=== PATIENT | male | born 1955 | race Caucasian/White ===

== ENCOUNTER → 2017-03-14 | Outpatient (CLI) | payer OTHER ==
[2017-03-14 13:17] LABS: Bilirubin, Delta 0.2 mg/dL (0.0-0.2); Total Bilirubin 0.6 mg/dL (0.2-1.3); Total Protein 7.4 g/dL (6.3-8.2)
[2017-03-14 13:20] LABS: Basophils % (A) 1 %; CH 32.2; Eosinophils # (A) 0.2 k/uL (0-0.7); Eosinophils % (A) 3 %; HCT 49.6 % (39.0-53.0); HDW 2.16; HGB 15.6 gm/dL (13.0-17.5); Luc # (Auto) 0.16; Luc % (Auto) 3; Lymphocytes # (A) 2.2 k/uL (1.0-4.8); Lymphocytes % (A) 39 %; MCHC 31.5 g/dL (31.0-37.0); MCV 98.2 fL (80.0-100.0); Mean Platelet Volume 8.2; Monocytes # (A) 0.3 k/uL (0-1.0); Monocytes % (A) 5 %; Neutrophils # (A) 2.8 k/uL (1.3-7.7); Neutrophils % (A) 50 %; RBC 5.05 m/uL (4.30-5.90); WBC 5.7 k/uL (3.8-10.6); WBC (Perox) 5.55
[2017-03-15 15:28] LABS: Hepatits C Virus RNA, Quant <12 IU/mL (<12); LOG HCV IU/mL <1.08 (<1.08)
== END | disposition home or self-care (01) ==
LOC: LABWHC1 11:58
PROVIDERS: ATTEND Physician Assistant
DX: B18.2 Chronic viral hepatitis C (principal)
CPT/HCPCS: 36415; 80076; 82105; 85025; 87522

== ENCOUNTER → 2017-03-20 | Outpatient (CLI) | payer OTHER ==
--- NOTE | 2017-03-20 09:48 | US ---
EXAMINATION TYPE: US liver DATE OF EXAM: 03/20/2017 9:31 AM COMPARISON: NONE CLINICAL HISTORY: B18.2 [facility]. EXAM MEASUREMENTS: Gallbladder Wall: 0.3 cm CBD: 0.4 cm Right Kidney: 11.3 x 6 x 5 cm Pancreas: Tail obscured by overlying bowel gas Liver: hypoechoic area in left lobe that is better appreciated when patient is supine, left lobe ap pears larger and right lobe appears atrophied Gallbladder: wnl Evidence for sonographic Duran's sign: no CBD: wnl Right Kidney: wnl IMPRESSION: 1. Liver is somewhat heterogeneous with slight lobulation asymmetry to the lobes. Correlate for hepat ocellular disease or hepatitis..
== END | disposition home or self-care (01) ==
LOC: RADUSMAIN 08:40
PROVIDERS: ATTEND Physician Assistant
DX: K76.89 Other specified diseases of liver (principal); K76.9 Liver disease, unspecified; B18.2 Chronic viral hepatitis C
CPT/HCPCS: 76705

== ENCOUNTER → 2018-05-10 | Outpatient (CLI) | payer OTHER | END | disposition home or self-care (01) | LOC: LABWHC1 10:54 | PROVIDERS: ATTEND Urology | DX: R97.20 Elevated prostate specific antigen [PSA] (principal) | CPT/HCPCS: 36415; 84153 ==

== ENCOUNTER → 2018-06-13 | Outpatient (CLI) | payer OTHER ==
--- NOTE | 2018-06-13 10:44 | XR ---
EXAMINATION TYPE: XR chest 2V DATE OF EXAM: 06/13/2018 COMPARISON: Prior chest 10/06/2016 HISTORY: Asthma, difficulty breathing TECHNIQUE: Frontal and lateral views of the chest are obtained. FINDINGS: There is no focal air space opacity, pleural effusion, or pneumothorax seen. The cardiac silhouette size is within normal limits. The osseous structures are intact and stable. There are pr ominent lung volumes compatible with COPD. Mild spinal curvature is suspected. IMPRESSION: No acute cardiopulmonary process.
== END | disposition home or self-care (01) ==
LOC: RADXRMAIN 10:22
PROVIDERS: ATTEND Physician Assistant
DX: J45.909 Unspecified asthma, uncomplicated (principal)
CPT/HCPCS: 71046

== ENCOUNTER 2018-12-16 22:20 | Inpatient (IN) | payer MEDICARE, OTHER ==
[2018-12-16] MEDS ORDERED: MORPHINE SULFATE 4 MG/ML SYRINGE IM STA (22:44)
--- NOTE | 2018-12-16 23:06 | XR ---
EXAM: XR Right Hand Complete, 3 or More Views CLINICAL HISTORY: Pain TECHNIQUE: Frontal, lateral and oblique views of the right hand. COMPARISON: No relevant prior studies available. FINDINGS: Bones/joints: Posterolateral dislocation of the proximal interphalangeal joint of the fifth digit. No acute fracture. Soft tissues: Unremarkable. No radiopaque foreign body. IMPRESSION: Posterolateral dislocation of the proximal interphalangeal joint of the fifth digit.
--- NOTE | 2018-12-16 23:17 | CT ---
EXAM: CT Head Without Intravenous Contrast CLINICAL HISTORY: Pain TECHNIQUE: Axial computed tomography images of the head/brain without intravenous contrast. CTDI is 45.2 mGy and DLP is 1311.4 mGy-cm. This CT exam was performed using one or more of the following dose reduction techniques: automated exposure control, adjustment of the mA and/or kV according to patient size, and/or use of iterative reconstruction technique. COMPARISON: No relevant prior studies available. FINDINGS: Brain: No acute infarct, hemorrhage, mass or edema. No significant white matter disease. Ventricles: Unremarkable. No ventriculomegaly. Bones/joints: Age-indeterminate fracture of the nasal bone. Soft tissues: Unremarkable. Sinuses: Minimal mucosal thickening in the paranasal sinuses. Mastoid air cells: Partial opacification of mastoid air cells. IMPRESSION: No acute findings. EXAM: CT Cervical Spine Without Intravenous Contrast CLINICAL HISTORY: Pain TECHNIQUE: Axial computed tomography images of the cervical spine without intravenous contrast. CTDI is 45.2 mGy and DLP is 1311.4 mGy-cm. This CT exam was performed using one or more of the following dose reduction techniques: automated exposure control, adjustment of the mA and/or kV according to patient size, and/or use of iterative reconstruction technique. COMPARISON: No relevant prior studies available. FINDINGS: Vertebrae: Acute fracture through the right C7 transversarium foramen. Discs/spinal canal/neural foramina: Multilevel degenerative changes. Soft tissues: Unremarkable. Lung apices: Paraseptal and centrilobular emphysema. IMPRESSION: Acute fracture through the right C7 transversarium foramen. Consider CT of the neck to exclude vascular injury. [employer] 12/16/18 23:24 Verify Receipt Verified receipt with LAURA Cook, given to MERISSA Moran on 12/16 23:23 (-05:00)
[2018-12-16] MEDS ORDERED: SODIUM CHLORIDE 0.9% 1,000 ML IV STA (23:28)
[2018-12-16] MEDS ORDERED: LIDOCAINE 1% INJ 10MG/ML (20 ML MDV) SQ STA (23:38)
--- NOTE | 2018-12-16 23:45 | ED ---
General Adult HPI - General Chief complaint: Extremity Injury, Upper Stated complaint: Finger injury Time Seen by Provider: 12/16/18 22:26 Source: patient, RN notes reviewed, old records reviewed Mode of arrival: ambulatory Limitations: no limitations - History of Present Illness Initial comments: 63-year-old male patient past medical history of hepatitis C, IV drug use presents to ED with slip and fall. Patient reports that he fell walking into his door, patient worse he fell onto his gluteal region and suffered an injury to the fifth digit of his right hand. Patient states that he had a minor trauma to the side of his head on the wall. Patient primary complaint is fifth digit pain. Patient denies headache, neck pain, loss of consciousness, nausea vomiting diarrhea, changes in vision. Systemic: Pt denies fatigue, myalgia, fever/chills, rash. Pt denies weakness, night sweats, weight loss. Neuro: Pt denies headache, visual disturbances, syncope or pre-syncope. HEENT: Pt denies ocular discharge or irritation, otalgia, rhinorrhea, pharyngitis or notable lymphadenopathy. Cardiopulmonary: Pt denies chest pain, SOB, heart palpitations, dyspnea on exertion. Abdominal/GI: Pt denies abdominal pain, n/v/d. : Pt denies dysuria, burning w/ urination, frequency/urgency. Denies new onset urinary or bowel incontinence. Neuro: Pt denies new onset weakness, paresthesias. - Related Data Home Medications Medication Instructions Recorded Confirmed Albuterol Inhaler [Ventolin Hfa 1 - 2 puff INHALATION RT-QID PRN 12/16/18 Inhaler] Allergies Allergy/AdvReac Type Severity Reaction Status Date / Time No Known Allergies Allergy Verified 12/16/18 22:45 Review of Systems ROS Statement: Those systems with pertinent positive or pertinent negative responses have been documented in the HPI. ROS Other: All systems not noted in ROS Statement are negative. 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 History of Any Multi-Drug Resistant Organisms: None Reported Past Surgical History: Hernia Repair, No Surgical Hx Reported Additional Past Surgical History / Comment(s): Ruptured bowel, temp colostomy, reversal of colostomy, finger amputation (blood clot), colonoscopy, L/R inguinal hernia repairs, circumcism. Past Anesthesia/Blood Transfusion Reactions: No Reported Reaction Past Psychological History: No Psychological Hx Reported Smoking Status: Current every day smoker Past Alcohol Use History: Abuse Past Drug Use History: IV Drug Use - Past Family History Mother Family Medical History: CVA/TIA Additional Family Medical History / Comment(s): Mother of a CVA (was on coumadin) at the age of 74 yrs. Father Family Medical History: Diabetes Mellitus, Deep Vein Thrombosis (DVT) Additional Family Medical History / Comment(s): Father of diabetic complications at the age of 70 yrs. General Exam - General Exam Comments Initial Comments: Constitutional: NAD, AOX3, Pt has pleasant affect. HEENT: NC/AT, trachea midline, neck supple, no lymphadenopathy. Posterior pharynx non erythematous, without exudates. External ears appear normal, without discharge. Mucous membranes moist. Eyes PERRLA, EOM intact. There is no scleral icterus. No pallor noted. Cardiopulmonary: RRR, no murmurs, rubs or gallops, no JVD noted. Lungs CTAB in anterior and posterior rai. No peripheral edema. Abdominal exam: Abdomen soft and non-distended. Abdomen non-tender to palpation in all 4 quadrants. Bowel sounds active in LLQ. No hepatosplenomegaly. No ecchymosis Neuro: CN II-XII intact. No cervical spinal tenderness. No facial droop or focal deficit. MSK: 5th digit of R hand dislocated at PIP joint. No posterior calf tenderness bilaterally, homans sign negative bilaterally. Posterior tibialis and radial pulse +2 bilaterally. Sensation intact in upper and lower extremities. Full active ROM in upper and lower extremities, 5/5 stregnth. Limitations: no limitations Course Vital Signs 12/16/18 12/17/18 12/17/18 22:23 00:24 01:30 Temperature 98.2 F Pulse Rate 75 61 73 Respiratory 20 16 15 Rate Blood Pressure 131/82 119/83 114/78 O2 Sat by Pulse 98 97 95 Oximetry 12/17/18 02:56 Temperature Pulse Rate 66 Respiratory 16 Rate Blood Pressure 126/82 O2 Sat by Pulse 97 Oximetry Medical Decision Making - Medical Decision Making 63-year-old male patient past medical history of hepatitis C, IV drug use presents to ED with slip and fall. Patient reports that he fell walking into his door, patient worse he fell onto his gluteal region and suffered an injury to the fifth digit of his right hand. Patient states that he had a minor trauma to the side of his head on the wall. Patient primary complaint is fifth digit pain. Patient denies headache, neck pain, loss of consciousness, nausea vomiting diarrhea, changes in vision. Pt VSS, afebrile. Physical exam displayed : 5th digit of R hand dislocated at PIP joint. CN II-XII intact. No cervical spinal tenderness. No facial droop or focal deficit. Plain film of hand displayed a posterior lateral dislocation of the proximal interphalangeal joint of fifth digit. Right 5th digit dislocation was reduced in ED. CT of brain without contrast displayed no acute pathology. CT of cervical spine displayed a acute fractures through right C7 transversarium foramen. CT angiography of brain and neck was conducted. Case was signed out to attending physician Dr. Zavaleta. Ct angiography of brain and neck did not display any vascular injury. Pt was admitted to Dr. Carreon for further evaluation. Pt discussed in depth and seen by Dr. Zavaleta. - Lab Data Result diagrams: 12/16/18 23:52 12/16/18 23:52 Lab Results 12/16/18 12/16/18 Range/Units 23:52 23:52 WBC 7.0 (3.8-10.6) k/uL RBC 5.01 (4.30-5.90) m/uL Hgb 15.6 (13.0-17.5) gm/dL Hct 48.2 (39.0-53.0) % MCV 96.2 (80.0-100.0) fL MCH 31.1 (25.0-35.0) pg MCHC 32.4 (31.0-37.0) g/dL RDW 13.1 (11.5-15.5) % Plt Count 172 (150-450) k/uL Neutrophils % 41 % Lymphocytes % 42 % Monocytes % 8 % Eosinophils % 8 % Basophils % 1 % Neutrophils # 2.8 (1.3-7.7) k/uL Lymphocytes # 2.9 (1.0-4.8) k/uL Monocytes # 0.5 (0-1.0) k/uL Eosinophils # 0.6 (0-0.7) k/uL Basophils # 0.0 (0-0.2) k/uL Sodium 141 (137-145) mmol/L Potassium 4.3 (3.5-5.1) mmol/L Chloride 105 (98-107) mmol/L Carbon Dioxide 28 (22-30) mmol/L Anion Gap 8 mmol/L BUN 23 H (9-20) mg/dL Creatinine 0.88 (0.66-1.25) mg/dL Est GFR (CKD-EPI)AfAm >90 (>60 ml/min/1.73 sqM) Est GFR (CKD-EPI)NonAf >90 (>60 ml/min/1.73 sqM) Glucose 86 (74-99) mg/dL Calcium 9.8 (8.4-10.2) mg/dL Total Bilirubin 0.5 (0.2-1.3) mg/dL AST 27 (17-59) U/L ALT 25 (21-72) U/L Alkaline Phosphatase 67 (38-126) U/L Total Protein 7.6 (6.3-8.2) g/dL Albumin 4.4 (3.5-5.0) g/dL Disposition Clinical Impression: C7 cervical fracture Disposition: ADMITTED IP TO THIS HOSP Condition: Serious Is patient prescribed a controlled substance at d/c from ED?: No
[2018-12-17] MEDS ORDERED: IBUPROFEN 400 MG TAB PO PRN (00:15)
[2018-12-17] MEDS ORDERED: SODIUM CHLORIDE 0.9% 1,000 ML IV SCH (00:15)
[2018-12-17] MEDS ORDERED: NALOXONE 0.4 MG/ML 1 ML VIAL IV PRN (00:15)
[2018-12-17 00:30] LABS: Basophils % (A) 1 %; Eosinophils # (A) 0.6 k/uL (0-0.7); Eosinophils % (A) 8 %; HCT 48.2 % (39.0-53.0); HGB 15.6 gm/dL (13.0-17.5); Lymphocytes # (A) 2.9 k/uL (1.0-4.8); Lymphocytes % (A) 42 %; MCH 31.1 pg (25.0-35.0); MCHC 32.4 g/dL (31.0-37.0); MCV 96.2 fL (80.0-100.0); Mean Platelet Volume 7.8; Monocytes # (A) 0.5 k/uL (0-1.0); Monocytes % (A) 8 %; Neutrophils # (A) 2.8 k/uL (1.3-7.7); Neutrophils % (A) 41 %; Platelet Count 172 k/uL (150-450); RBC 5.01 m/uL (4.30-5.90); RDW 13.1 % (11.5-15.5)
[2018-12-17 00:42] LABS: ALT 25 U/L (21-72); AST 27 U/L (17-59); Albumin 4.4 g/dL (3.5-5.0); Alkaline Phosphatase 67 U/L (38-126); Anion Gap 8 mmol/L; Blood Urea Nitrogen 23 mg/dL (9-20); Calcium 9.8 mg/dL (8.4-10.2); Carbon Dioxide 28 mmol/L (22-30); Chloride 105 mmol/L (98-107); Glucose 86 mg/dL (74-99); Potassium 4.3 mmol/L (3.5-5.1); Sodium 141 mmol/L (137-145); Total Bilirubin 0.5 mg/dL (0.2-1.3); Total Protein 7.6 g/dL (6.3-8.2)
--- NOTE | 2018-12-17 01:52 | CT ---
ADDENDUM - Added by Charly Cagle MD on 12/17/2018 3:13 AM (-10:00) Acute fracture of the right C7 transverse process. EXAM: CT Angiography Head With Intravenous Contrast CLINICAL HISTORY: Pain TECHNIQUE: Axial computed tomographic angiography images of the head with intravenous contrast using CT angiography protocol. CTDI is 0.085, 0.085, 2.4, 2.4, 2.4, 9.4 mGy and DLP is 510.1 mGy-cm. This CT exam was performed using one or more of the following dose reduction techniques: automated exposure control, adjustment of the mA and/or kV according to patient size, and/or use of iterative reconstruction technique. MIP reconstructed images were created and reviewed. COMPARISON: No relevant prior studies available. FINDINGS: HEAD: Right anterior cerebral artery: Hypoplastic right A1 segment. No occlusion or significant stenosis. No aneurysm. Right middle cerebral artery: Unremarkable. No occlusion or significant stenosis. No aneurysm. Right posterior cerebral artery: Unremarkable. No occlusion or significant stenosis. No aneurysm. Left anterior cerebral artery: Unremarkable. No occlusion or significant stenosis. No aneurysm. Left middle cerebral artery: Unremarkable. No occlusion or significant stenosis. No aneurysm. Left posterior cerebral artery: Unremarkable. No occlusion or significant stenosis. No aneurysm. Basilar artery: Unremarkable. No occlusion or significant stenosis. No aneurysm. Right internal carotid artery: Unremarkable. No significant stenosis. No dissection or occlusion. Right vertebral artery: Unremarkable. No significant stenosis. No dissection or occlusion. Left internal carotid artery: Unremarkable. No significant stenosis. No dissection or occlusion. Left vertebral artery: Unremarkable. No significant stenosis. No dissection or occlusion. CAROTID STENOSIS REFERENCE USING NASCET CRITERIA: % ICA stenosis = (1 - narrowest ICA diameter/diameter of distal cervical ICA) x 100. Mild - <50% stenosis. Moderate - 50-69% stenosis. Severe - 70-94% stenosis. Near occlusion - 95-99% stenosis. Occluded - 100% stenosis. IMPRESSION: No acute findings in the arteries of the head. EXAM: CT Angiography Neck With Intravenous Contrast CLINICAL HISTORY: Pain TECHNIQUE: Axial computed tomographic angiography images of the neck with intravenous contrast using CT angiography protocol. CTDI is 0.085, 0.085, 2.4, 2.4, 2.4, 9.4 mGy and DLP is 510.1 mGy-cm. This CT exam was performed using one or more of the following dose reduction techniques: automated exposure control, adjustment of the mA and/or kV according to patient size, and/or use of iterative reconstruction technique. MIP reconstructed images were created and reviewed. COMPARISON: No relevant prior studies available. FINDINGS: VASCULATURE: Right common carotid artery: Unremarkable. No significant stenosis. No dissection or occlusion. Right internal carotid artery: Unremarkable. Extracranial segment is patent with no significant stenosis. No dissection or occlusion. Right external carotid artery: Unremarkable. No occlusion. Right vertebral artery: Unremarkable. No significant stenosis. No dissection or occlusion. Left common carotid artery: Unremarkable. No significant stenosis. No dissection or occlusion. Left internal carotid artery: Unremarkable. Extracranial segment is patent with no significant stenosis. No dissection or occlusion. Left external carotid artery: Unremarkable. No occlusion. Left vertebral artery: Unremarkable. No significant stenosis. No dissection or occlusion. NECK: Bones/joints: No acute fracture. No dislocation. Soft tissues: Unremarkable as visualized. No mass. Lung apices: Centrilobular and paraseptal emphysema. CAROTID STENOSIS REFERENCE USING NASCET CRITERIA: % ICA stenosis = (1 - narrowest ICA diameter/diameter of distal cervical ICA) x 100. Mild - <50% stenosis. Moderate - 50-69% stenosis. Severe - 70-94% stenosis. Near occlusion - 95-99% stenosis. Occluded - 100% stenosis. IMPRESSION: No acute findings.
[2018-12-17] MEDS: MORPHINE SULFATE 4 MG/ML SYRINGE IV PRN ×2 (03:14→09:12)
[2018-12-17 07:57] VITALS: BP 105/72; PULSE 71; RESP 14; TEMP 97.6
[2018-12-17] MEDS ORDERED: ALBUTEROL NEBULIZED 2.5 MG/3 ML INHALATION PRN (11:35)
--- NOTE | 2018-12-17 13:12 | P.HPOR ---
History of Present Illness H&P Date: 12/17/18 Chief Complaint: Right fifth digit pinky finger pain and cervical pain Patient is very pleasant 63-year-old male who is seen and examined at the bedside for further evaluation in regards to his cervical spine and right pinky finger. He sustained a fall yesterday, 12/16/2018 falling on the ice landing on his right hand. He presented to the emergency department for further evaluation at that time. He was found to have a dislocation at the fifth digit of the right hand. He also hit his head at that time. Imaging was taken emergency department which showed evidence of a C7 fracture. He was placed in a hard cervical collar and transferred to the floor. While in the emergency department his fifth digit dislocation of the right hand was reduced. He was placed in a splint over the right pinky finger. He has less pain of the right pinky finger. He states his cervical pain has been adequately controlled. He does have difficulty with the hard cervical collar as it is rubbing on his chest. He denies any upper extremity radiculopathy or weakness bilaterally. He denies any significant cervical pain. He is eating and voiding without difficulty. He does feel he would be ready for discharge home today. Patient has a past medical history including COPD, hepatitis C, and previous IV drug use. 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 History of Any Multi-Drug Resistant Organisms: None Reported Past Surgical History: Hernia Repair Additional Past Surgical History / Comment(s): Ruptured bowel, temp colostomy, reversal of colostomy, finger amputation (blood clot), colonoscopy, L/R inguinal hernia repairs, circumcism. Past Anesthesia/Blood Transfusion Reactions: No Reported Reaction Past Psychological History: No Psychological Hx Reported Additional Psychological History / Comment(s): Pt resides with his significant other. 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 His significant other takes him to [employer]. Smoking Status: Former smoker Past Alcohol Use History: Abuse Additional Past Alcohol Use History / Comment(s): sober for 10 years Past Drug Use History: IV Drug Use Additional Drug Use History / Comment(s): Pt used to use IV drugs (cocaine, heroin, crack)-no drug use for 25 years - Past Family History Mother Family Medical History: CVA/TIA Additional Family Medical History / Comment(s): Mother of a CVA (was on coumadin) at the age of 74 yrs. Father Family Medical History: Diabetes Mellitus, Deep Vein Thrombosis (DVT) Additional Family Medical History / Comment(s): Father of diabetic complications at the age of 70 yrs. Medications and Allergies Home Medications Medication Instructions Recorded Confirmed Type Albuterol Inhaler [Ventolin Hfa 1 - 2 puff INHALATION RT-QID PRN 12/16/18 History Inhaler] Allergies Allergy/AdvReac Type Severity Reaction Status Date / Time No Known Allergies Allergy Verified 12/16/18 22:45 Physical Examination Physical exam: Patient is awake, alert, and oriented 3 Vital signs stable Good chest excursion with deep inspiration and expiration Examination of the cervical spine reveals skin is intact with no abrasions, lacerations, or bruises; no erythema, purulence or signs of infection Reduced range of motion of the cervical spine with adequate flexion, extension, and bilateral rotation Hard cervical collar intact Cytotechnologist strength, thumb strength, interosseous strength, biceps strength, triceps strength, and shoulder strength positive sustained bilaterally Upper extremity strength 5/5 bilaterally Evidence of splint over the right fifth digit pinky finger Evidence of swelling and mild bruising over the right fifth digit pinky finger Evidence of amputation at the left fifth digit pinky finger Hoffmans sign negative upper extremity bilaterally Results Pertinent studies: X-rays of the right hand: Posterior lateral dislocation of the proximal interphalangeal joint of the right fifth digit CT of the head and cervical spine taken on 12/16/2018: No acute findings in regards to the CT of the head; acute fracture to the right C7 transversarium foramen; multilevel cervical degenerative disc disease CT angiogram of the head and neck performed on 12/17/2018: No acute findings - Labs Labs: Abnormal Lab Results - Last 24 Hours (Table) 12/16/18 Range/Units 23:52 BUN 23 H (9-20) mg/dL H & H 12/16/18 Range/Units 23:52 Hgb 15.6 (13.0-17.5) gm/dL Hct 48.2 (39.0-53.0) % Result Diagrams: 12/16/18 23:52 12/16/18 23:52 Assessment and Plan Assessment: Assessment: Acute fracture to the right C7 transversarium foramen Cervical pain Status post fall Cervical degenerative disc disease Posterior lateral dislocation of the proximal interphalangeal joint of the right fifth digit History of COPD History of hepatitis C History of previous IV drug use (1) Fracture of phalanx of right little finger Current Visit: Yes Status: Acute Code(s): S62.606A - FRACTURE OF UNSP PHALANX OF RIGHT LITTLE FINGER, INIT SNOMED Code(s): 02836453 (2) Status post fall Current Visit: Yes Status: Acute Code(s): Z91.81 - HISTORY OF FALLING SNOMED Code(s): 341161914 (3) Cervical pain Current Visit: Yes Status: Acute Code(s): M54.2 - CERVICALGIA SNOMED Code( s): 09678060 (4) History of hepatitis C Current Visit: Yes Status: Acute Code(s): Z86.19 - PERSONAL HISTORY OF OTHER INFECTIOUS AND PARASITIC DISEASES SNOMED Code(s): 38102785861624 (5) History of COPD Current Visit: Yes Status: Acute Code(s): Z87.09 - PERSONAL HISTORY OF OTHER DISEASES OF THE RESPIRATORY SYSTEM SNOMED Code(s): 570410156 (6) History of intravenous drug abuse Current Visit: Yes Status: Acute Code(s): Z87.898 - PERSONAL HISTORY OF OTHER SPECIFIED CONDITIONS SNOMED Code(s): 57124127442245990 (7) Degenerative disc disease, cervical Current Visit: Yes Status: Acute Code(s): M50.30 - OTHER CERVICAL DISC DEGENERATION, UNSP CERVICAL REGION SNOMED Code(s): 80996598 (8) C7 cervical fracture Current Visit: Yes Status: Acute Code(s): S12.600A - UNSP DISP FX OF SEVENTH CERVICAL VERTEBRA, INIT FOR CLOS FX SNOMED Code(s): 060607041 Plan: Plan: 1. Patient does have evidence of acute fracture to the right C7 transversarium foramen. He was placed in a hard cervical collar. This cervical collar is not very robust and is causing some skin irritation at the anterior inferior cervical spine. At this time, a prescription will be written for an [place] hard cervical collar. Prescription has been written and provided to case management. Patient will continue to keep his current hard cervical collar intact until the [place] hard collar is delivered and fitted appropriately. Patient will be cleared for discharge from orthopedic spine standpoint. If this brace cannot be delivered and fitted appropriately while admitted to the hospital, patient may be discharged with his current hard cervical collar intact and may present to [facility] with his written prescription to obtain an [place] hard cervical collar. We discussed once this brace is delivered and fitted properly, he should wear this brace at all times except while shaving and bathing. He may remove the brace while showering at which time he should place the other hard cervical collar intact during showering. He should avoid excessive range of motion of the cervical spine. He should avoid overhead activities. He should avoid heavy lifting; no lifting greater than 10 pounds. In regards to his right pinky finger dislocation status post reduction, he should continue to keep splint intact over the right pinky finger. He should avoid excessive activities of the right pinky finger. We will plan for further evaluation of the cervical spine and right pinky finger at his follow-up appointment outpatient setting. We will plan have him follow- up in approximately 1-2 weeks for further evaluation. Time with Patient: Greater than 30 (Including dictation, physical examination, reviewing imaging, and obtaining history)
--- NOTE | 2018-12-17 14:50 | P.CONS ---
History of Present Illness - Reason for Consult COPD - History of Present Illness 63-year-old admitted after the mechanical fall slipping in the eyes found to have C7 fracture rest of the workup is negative and a hard collar which is being switched to soft collar. Patient the was admitted to orthopedics surgery surgery services. Patient is a smoker upon questioning patient has on and off shortness of breath upon examination patient has minimally related bilateral lung rai no syncope and wheezing was appreciated patient is saturating well on room air patient although will not require any systemic steroids would require inhaled steroids counseling regarding smoking cessation was provided patient is complaining of cough with whitish sputum production does not appear to require any antibiotics either. Patient will be started on Symbicort and Spiriva prescriptions will be provided and patient does have albuterol at home Review of Systems REVIEW OF SYSTEMS: CONSTITUTIONAL: No fever, no malaise, no fatigue. HEENT: No recent visual problems or hearing problems. Denied any sore throat. CARDIOVASCULAR: No chest pain, orthopnea, PND, no palpitations, no syncope. PULMONARY: No shortness of breath, no cough, no hemoptysis. GASTROINTESTINAL: No diarrhea, no nausea, no vomiting, no abdominal pain. NEUROLOGICAL: No headaches, no weakness, no numbness. HEMATOLOGICAL: Denies any bleeding or petechiae. GENITOURINARY: Denies any burning micturition, frequency, or urgency. MUSCULOSKELETAL/RHEUMATOLOGICAL: Denies any joint pain, swelling, or any muscle pain. ENDOCRINE: Denies any polyuria or polydipsia. The rest of the 14-point review of systems is negative. 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 History of Any Multi-Drug Resistant Organisms: None Reported Past Surgical History: Hernia Repair, No Surgical Hx Reported Additional Past Surgical History / Comment(s): Ruptured bowel, temp colostomy, reversal of colostomy, finger amputation (blood clot), colonoscopy, L/R inguinal hernia repairs, circumcism. Past Anesthesia/Blood Transfusion Reactions: No Reported Reaction Past Psychological History: No Psychological Hx Reported Smoking Status: Current every day smoker Past Alcohol Use History: Abuse Past Drug Use History: IV Drug Use - Past Family History Mother Family Medical History: CVA/TIA Additional Family Medical History / Comment(s): Mother of a CVA (was on coumadin) at the age of 74 yrs. Father Family Medical History: Diabetes Mellitus, Deep Vein Thrombosis (DVT) Additional Family Medical History / Comment(s): Father of diabetic complications at the age of 70 yrs. Medications and Allergies Home Medications Medication Instructions Recorded Confirmed Type Albuterol Inhaler [Ventolin Hfa 1 - 2 puff INHALATION RT-QID PRN 12/16/18 History Inhaler] Budesonide-Formot 160-4.5 Mcg 2 puff INHALATION BID #1 inhaler 12/17/18 Rx [Symbicort 160-4.5 Mcg Inhaler] Tiotropium [place] [Spiriva] 1 cap INHALATION DAILY #1 device 12/17/18 Rx Allergies Allergy/AdvReac Type Severity Reaction Status Date / Time No Known Allergies Allergy Verified 12/16/18 22:45 Physical Exam Vitals: Vital Signs Temp Pulse Pulse Resp BP BP Pulse Ox 12/17/18 07:54 97.6 F 71 14 105/72 94 L 12/17/18 02:56 66 16 126/82 97 12/17/18 01:30 73 15 114/78 95 12/17/18 00:24 61 16 119/83 97 12/16/18 22:23 98.2 F 75 20 131/82 98 Intake and Output 12/16/18 12/17/18 12/17/18 22:59 06:59 14:59 Other: Weight 81.647 kg PHYSICAL EXAMINATION: GENERAL: The patient is alert and oriented x3, not in any acute distress. Well developed, well nourished. HEENT: Pupils are round and equally reacting to light. EOMI. No scleral icterus. No conjunctival pallor. Normocephalic, atraumatic. No pharyngeal erythema. No thyromegaly. CARDIOVASCULAR: S1 and S2 present. No murmurs, rubs, or gallops. PULMONARY: Very limited air entry into bilateral lung rai no wheezing or crackles. Patient did ABDOMEN: Soft, nontender, nondistended, normoactive bowel sounds. No palpable organomegaly. MUSCULOSKELETAL: No joint swelling or deformity. EXTREMITIES: No cyanosis, clubbing, or pedal edema. NEUROLOGICAL: Gross neurological examination did not reveal any focal deficits. SKIN: No rashes. Results CBC & Chem 7: 12/16/18 23:52 12/16/18 23:52 Labs: Abnormal Lab Results - Last 24 Hours (Table) 12/16/18 Range/Units 23:52 BUN 23 H (9-20) mg/dL Assessment and Plan Plan: -Fracture of C7 vertebrae: Pain management and further management of his C7 fracture as per orthopedic surgery. -COPD does require inhaled steroids doesn't have any significant acute exacerbation as mentioned above prescriptions will be provided -DVT history not in any anti-correlation at this time -Nicotine abuse: Counseling was provided
--- NOTE | 2018-12-17 15:53 | P.DS ---
Providers Date of admission: 12/17/18 00:15 Expected date of discharge: 12/17/18 Attending physician: Raymon Carreon Primary care physician: Sher Arreola - Discharge Diagnosis(es) (1) Status post fall Status: Acute (2) Cervical pain Status: Acute (3) History of hepatitis C Status: Acute (4) History of COPD Status: Acute (5) History of intravenous drug abuse Status: Acute (6) Degenerative disc disease, cervical Status: Acute (7) C7 cervical fracture Status: Acute (8) Dislocation of right little finger Status: Acute Hospital Course: Patient is very pleasant 63-year-old male who is seen and examined at the bedside for further evaluation in regards to his cervical spine and right pinky finger. He sustained a fall yesterday, 12/16/2018 falling on the ice landing on his right hand. He presented to the emergency department for further evaluation at that time. He was found to have a dislocation at the fifth digit of the right hand. He also hit his head at that time. Imaging was taken emergency department which showed evidence of a C7 fracture. He was placed in a hard cervical collar and transferred to the floor. While in the emergency department his fifth digit dislocation of the right hand was reduced. He was placed in a splint over the right pinky finger. He has less pain of the right pinky finger. He states his cervical pain has been adequately controlled. He does have difficulty with the hard cervical collar as it is rubbing on his chest. He denies any upper extremity radiculopathy or weakness bilaterally. He denies any significant cervical pain. He is eating and voiding without difficulty. He does feels he is ready for discharge home today. Patient has a past medical history including COPD, hepatitis C, and previous IV drug use. Physical exam: Patient is awake, alert, and oriented 3 Vital signs stable Good chest excursion with deep inspiration and expiration Examination of the cervical spine reveals skin is intact with no abrasions, lacerations, or bruises; no erythema, purulence or signs of infection Reduced range of motion of the cervical spine with adequate flexion, extension, and bilateral rotation Hard cervical collar intact Pulmonologist/Intensivist strength, thumb strength, interosseous strength, biceps strength, triceps strength, and shoulder strength positive sustained bilaterally Upper extremity strength 5/5 bilaterally Evidence of splint over the right fifth digit pinky finger Evidence of swelling and mild bruising over the right fifth digit pinky finger Evidence of amputation at the left fifth digit pinky finger Hoffmans sign negative upper extremity bilaterally Patient Condition at Discharge: Stable Plan - Discharge Summary Discharge Rx Participant: Yes New Discharge Prescriptions: New Budesonide-Formot 160-4.5 Mcg [Symbicort 160-4.5 Mcg Inhaler] 2 puff INHALATION BID #1 inhaler Tiotropium [place] [Spiriva] 1 cap INHALATION DAILY #1 device No Action Albuterol Inhaler [Ventolin Hfa Inhaler] 1 - 2 puff INHALATION RT-QID PRN PRN Reason: Shortness Of Breath Discharge Medication List Albuterol Inhaler [Ventolin Hfa Inhaler] 1 - 2 puff INHALATION RT-QID PRN [History] Budesonide-Formot 160-4.5 Mcg [Symbicort 160-4.5 Mcg Inhaler] 2 puff INHALATION BID #1 inhaler 12/17/18 [Rx] Tiotropium [place] [Spiriva] 1 cap INHALATION DAILY #1 device 12/17/18 [Rx] Follow up Appointment(s)/Referral(s): Sher Arreola MD [Primary Care Provider] - 1-2 days Minor Johnson PAC [PHYSICIAN COMPONENT DESIGN ENGINEER] - 1 Week (Patient may follow-up with Minor Johnson PA-C or Dr. Nicolas Carreon at [facility] in 1-2 weeks following discharge. ) Patient Instructions/Handouts: Cervical Fracture (DC) Activity/Diet/Wound Care/Special Instructions: 1. Patient should wear [place] hard cervical collar at all times except while shaving and bathing 2. [place] hard cervical collar may be removed during showering at which time previously prescribed hard cervical collar should be placed 3. Patient should avoid excessive range of motion of the cervical spine 4. Avoid overhead activity 5. Avoid heavy lifting; no lifting greater than 10 pounds 6. Keep splint intact over the right fifth digit pinky finger 7. Avoid excessive activities of the right fifth digit pinky finger Discharge Disposition: HOME SELF-CARE
== END 2018-12-17 14:00 | disposition home or self-care (01) | DRG 552 ==
LOC: EC 22:20 → 4SSUR 12-17 00:15
PROVIDERS: ADMIT Orthopaedic Surgery Orthopaedic Surgery of the Spine; ATTEND Orthopaedic Surgery Orthopaedic Surgery of the Spine
PROC: 0RSWXZZ Reposition Right Finger Phalangeal Joint, External Approach (ICD-10-PCS; principal; 2018-12-17)
DX: S12.600A Unspecified displaced fracture of seventh cervical vertebra, initial encounter for closed fracture (principal); S63.286A Dislocation of proximal interphalangeal joint of right little finger, initial encounter; W00.0XXA Fall on same level due to ice and snow, initial encounter; F17.200 Nicotine dependence, unspecified, uncomplicated; M50.30 Other cervical disc degeneration, unspecified cervical region; B19.20 Unspecified viral hepatitis C without hepatic coma; J44.9 Chronic obstructive pulmonary disease, unspecified; Z71.6 Tobacco abuse counseling; Z82.3 Family history of stroke; Z83.3 Family history of diabetes mellitus; Z79.51 Long term (current) use of inhaled steroids; Z89.022 Acquired absence of left finger(s); Z86.718 Personal history of other venous thrombosis and embolism
CPT/HCPCS: 26770; 36415; 70450; 70496; 70498; 72125; 80053; 85025; 96360; 96361; 96372; 96374; 99285

== ENCOUNTER 2019-05-30 05:41 | Inpatient (IN) | payer MEDICARE, OTHER ==
[2019-05-30] MEDS ORDERED: IPRATROPIUM-ALBUTEROL 3 ML NEB INHALATION STA (05:46)
[2019-05-30] MEDS ORDERED: methylPREDNISolone SOD SUCCI 125 MG/2 ML VIAL IV STA (05:46)
[2019-05-30] MEDS ORDERED: SODIUM CHLORIDE 0.9% 1,000 ML IV STA (05:47)
--- NOTE | 2019-05-30 05:50 | ED ---
SOB HPI <Gus Hayden - Last Filed: 05/30/19 08:24> <Jigna Roy - Last Filed: 05/31/19 02:49> - General Stated Complaint: PASCUAL,Chest pain Time Seen by Provider: 05/30/19 05:46 - History of Present Illness Initial Comments: Elda is a 64-year-old gentleman with a past medical history of COPD who presents the emergency department today for evaluation of shortness of breath. Upon arrival patient is in acute respiratory distress with a respiratory rate greater than 30 oxygen saturation in the 80s. He reports he's had a few days of shortness of breath but it got very bad this morning. Further history is limited by the patient's respiratory distress. Patient was reevaluated after treatments and was much better, he reports that yesterday he was working in the yard cutting down injuries. He reports that this is exacerbated his COPD in the past requiring him to come to the hospital for treatment. (Jigna Roy) - Related Data Home Medications Medication Instructions Recorded Confirmed Albuterol Inhaler [Ventolin Hfa 2 puff INHALATION RT-QID PRN 12/16/18 05/30/19 Inhaler] Budesonide-Formot 160-4.5 Mcg 2 puff INHALATION RT-BID 05/30/19 05/30/19 [Symbicort 160-4.5 Mcg Inhaler] Allergies Allergy/AdvReac Type Severity Reaction Status Date / Time No Known Allergies Allergy Verified 05/30/19 07:45 Review of Systems ROS Other: All systems not noted in ROS Statement are negative. <Gus Hayden - Last Filed: 05/30/19 08:24> ROS Other: All systems not noted in ROS Statement are negative. <Jigna Roy - Last Filed: 05/31/19 02:49> ROS Statement: Those systems with pertinent positive or pertinent negative responses have been documented in the HPI. 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 History of Any Multi-Drug Resistant Organisms: None Reported Past Surgical History: Hernia Repair, No Surgical Hx Reported Additional Past Surgical History / Comment(s): Ruptured bowel, temp colostomy, reversal of colostomy, finger amputation (blood clot), colonoscopy, L/R inguinal hernia repairs, circumcism. Past Anesthesia/Blood Transfusion Reactions: No Reported Reaction Past Psychological History: No Psychological Hx Reported Smoking Status: Current every day smoker Past Alcohol Use History: Abuse Past Drug Use History: IV Drug Use - Past Family History Mother Family Medical History: CVA/TIA Additional Family Medical History / Comment(s): Mother of a CVA (was on coumadin) at the age of 74 yrs. Father Family Medical History: Diabetes Mellitus, Deep Vein Thrombosis (DVT) Additional Family Medical History / Comment(s): Father of diabetic complications at the age of 70 yrs. <Jigna Roy - Last Filed: 05/31/19 02:49> General Exam <Jigna Roy - Last Filed: 05/31/19 02:49> - General Exam Comments Initial Comments: Physical Exam GENERAL: COPD patient Acute respiratory distress HENT: Normocephalic, Atraumatic. EYES: PERRL, EOMI PULMONARY: Tachypnea Mild wheezing heard on expiration however the patient has a nearly silent chest upon arrival CARDIOVASCULAR: There is a regular rate and rhythm without any murmurs gallops or rubs. ABDOMEN: Soft and nontender with normal bowel sounds. SKIN: Skin is clear with no lesions or rashes and otherwise unremarkable. : Deferred NEUROLOGIC: Patient is alert and oriented x3. Moving all extremities spontaneously MUSCULOSKELETAL: Normal extremities with adequate strength and full range of motion. No lower extremity swelling or edema. No calf tenderness. PSYCHIATRIC: Normal psychiatric evaluation (Jigna Roy) Course Vital Signs 05/30/19 05/30/19 05/30/19 05:49 05:57 06:02 Temperature 98.2 F Pulse Rate 82 76 Respiratory 25 H 24 Rate Blood Pressure 157/94 O2 Sat by Pulse 84 L Oximetry 05/30/19 05/30/19 05/30/19 06:13 06:14 06:28 Temperature Pulse Rate 84 84 84 Respiratory Rate Blood Pressure O2 Sat by Pulse Oximetry 05/30/19 07:45 Temperature Pulse Rate 63 Respiratory 18 Rate Blood Pressure 123/81 O2 Sat by Pulse 95 Oximetry Medical Decision Making - Lab Data Result diagrams: 05/30/19 06:25 07/25/19 06:25 <Gus Hayden - Last Filed: 05/30/19 08:24> - Lab Data Result diagrams: 05/30/19 06:25 05/30/19 06:25 <Jigna Roy - Last Filed: 05/31/19 02:49> - Medical Decision Making History was signed out to me by previous shift physician Dr. Roy. Briefly, patient is 64-year-old male with past medical history of COPD. Presents today with progressive shortness of breath. He is here in emergency department because his breathing has been very difficult. While under the care of Dr. Roy patient received 3 stacked breathing treatments with improvement of symptoms. At signout plan was to follow-up with labs and reevaluate patient's symptoms. Patient evaluated bedside and found to be still slightly in this neck. He reports feeling better. Auscultation of the lungs shows wheezing. According Dr. Roy patient was not moving air very well. He is not moving air however still wheezing and showing some signs of respiratory distress. Patient is comfortable enough that I do not feel BiPAP is indicated at this time. However, I believe patient would benefit from observation safe for [id number] breathing treatments and medical monitoring. Patient is understandable and agreeable to plan. Pending discussion with active within. Pulmonology consultation. (Gus Hayden) Patient was seen and evaluated immediately upon arrival to the emergency department As noted the patient was in acute respiratory distress with tachypnea, hypoxia, mild wheezing but a nearly silent chest She was immediately started on oxygen The triple DuoNeb, Solu-Medrol, and supplemental oxygen were ordered EKG was obtained, EKG was obtained at 5:50 AM, rate is 80 rhythm is narrow complex regular there is a P-wave before each QRS. This is a sinus rhythm. There is significant respiratory fact however no evidence of acute ST elevation or depression. Patient care was signed out to Dr. Hayden at shift change (Jigna Roy) - Lab Data Lab Results 05/30/19 05/30/19 05/30/19 Range/Units 06:25 06:25 06:25 WBC 7.1 (3.8-10.6) k/uL RBC 4.89 (4.30-5.90) m/uL Hgb 15.1 (13.0-17.5) gm/dL Hct 47.1 (39.0-53.0) % MCV 96.4 (80.0-100.0) fL MCH 30.9 (25.0-35.0) pg MCHC 32.0 (31.0-37.0) g/dL RDW 12.9 (11.5-15.5) % Plt Count 224 (150-450) k/uL Neutrophils % 37 % Lymphocytes % 35 % Monocytes % 5 % Eosinophils % 18 % Basophils % 1 % Neutrophils # 2.6 (1.3-7.7) k/uL Lymphocytes # 2.5 (1.0-4.8) k/uL Monocytes # 0.4 (0-1.0) k/uL Eosinophils # 1.3 H (0-0.7) k/uL Basophils # 0.0 (0-0.2) k/uL PT (9.0-12.0) sec INR (<1.2) APTT (22.0-30.0) sec VBG pH (7.31-7.41) VBG pCO2 (37-51) mmHg VBG HCO3 (24-28) mmol/L Sodium 140 (137-145) mmol/L Potassium 4.8 (3.5-5.1) mmol/L Chloride 105 (98-107) mmol/L Carbon Dioxide 27 (22-30) mmol/L Anion Gap 8 mmol/L BUN 15 (9-20) mg/dL Creatinine 0.69 (0.66-1.25) mg/dL Est GFR (CKD-EPI)AfAm >90 (>60 ml/min/1.73 sqM) Est GFR (CKD-EPI)NonAf >90 (>60 ml/min/1.73 sqM) Glucose 111 H (74-99) mg/dL Calcium 9.8 (8.4-10.2) mg/dL Magnesium 2.2 (1.6-2.3) mg/dL Total Bilirubin 0.4 (0.2-1.3) mg/dL AST 29 (17-59) U/L ALT 20 L (21-72) U/L Alkaline Phosphatase 69 (38-126) U/L Troponin I (0.000-0.034) ng/mL NT-Pro-B Natriuret Pep 65 pg/mL Total Protein 7.9 (6.3-8.2) g/dL Albumin 4.9 (3.5-5.0) g/dL 05/30/19 05/30/19 05/30/19 Range/Units 06:25 06:25 06:25 WBC (3.8-10.6) k/uL RBC (4.30-5.90) m/uL Hgb (13.0-17.5) gm/dL Hct (39.0-53.0) % MCV (80.0-100.0) fL MCH (25.0-35.0) pg MCHC (31.0-37.0) g/dL RDW (11.5-15.5) % Plt Count (150-450) k/uL Neutrophils % % Lymphocytes % % Monocytes % % Eosinophils % % Basophils % % Neutrophils # (1.3-7.7) k/uL Lymphocytes # (1.0-4.8) k/uL Monocytes # (0-1.0) k/uL Eosinophils # (0-0.7) k/uL Basophils # (0-0.2) k/uL PT 9.7 (9.0-12.0) sec INR 0.9 (<1.2) APTT 24.8 (22.0-30.0) sec VBG pH 7.36 (7.31-7.41) VBG pCO2 43 (37-51) mmHg VBG HCO3 24 (24-28) mmol/L Sodium (137-145) mmol/L Potassium (3.5-5.1) mmol/L Chloride (98-107) mmol/L Carbon Dioxide (22-30) mmol/L Anion Gap mmol/L BUN (9-20) mg/dL Creatinine (0.66-1.25) mg/dL Est GFR (CKD-EPI)AfAm (>60 ml/min/1.73 sqM) Est GFR (CKD-EPI)NonAf (>60 ml/min/1.73 sqM) Glucose (74-99) mg/dL Calcium (8.4-10.2) mg/dL Magnesium (1.6-2.3) mg/dL Total Bilirubin (0.2-1.3) mg/dL AST (17-59) U/L ALT (21-72) U/L Alkaline Phosphatase (38-126) U/L Troponin I <0.012 (0.000-0.034) ng/mL NT-Pro-B Natriuret Pep pg/mL Total Protein (6.3-8.2) g/dL Albumin (3.5-5.0) g/dL Disposition Decision Time: 08:26 <Gus Hayden - Last Filed: 05/30/19 08:24> <Jigna Roy P - Last Filed: 05/31/19 02:49> Clinical Impression: COPD exacerbation Disposition: ADMITTED IP TO THIS HOSP Condition: Fair
[2019-05-30] MEDS ORDERED: MAGNESIUM SULFATE-D5W PMX 1 GM in DEXTROSE/WATER 1 100ML.BAG IVPB ONE (06:07)
[2019-05-30 07:21] LABS: Basophils % (A) 1 %; Eosinophils # (A) 1.3 k/uL (0-0.7); Eosinophils % (A) 18 %; HCT 47.1 % (39.0-53.0); HGB 15.1 gm/dL (13.0-17.5); Lymphocytes # (A) 2.5 k/uL (1.0-4.8); Lymphocytes % (A) 35 %; MCH 30.9 pg (25.0-35.0); MCV 96.4 fL (80.0-100.0); Mean Platelet Volume 8.1; Monocytes # (A) 0.4 k/uL (0-1.0); Monocytes % (A) 5 %; Neutrophils # (A) 2.6 k/uL (1.3-7.7); Neutrophils % (A) 37 %; Platelet Count 224 k/uL (150-450); RBC 4.89 m/uL (4.30-5.90); RDW 12.9 % (11.5-15.5); WBC 7.1 k/uL (3.8-10.6)
[2019-05-30 07:35] LABS: ALT 20 U/L (21-72); AST 29 U/L (17-59); African American GFR (CKD) >90 (>60 ml/min/1.73 sqM); Albumin 4.9 g/dL (3.5-5.0); Alkaline Phosphatase 69 U/L (38-126); Anion Gap 8 mmol/L; Blood Urea Nitrogen 15 mg/dL (9-20); Calcium 9.8 mg/dL (8.4-10.2); Carbon Dioxide 27 mmol/L (22-30); Chloride 105 mmol/L (98-107); Glucose 111 mg/dL (74-99); Magnesium 2.2 mg/dL (1.6-2.3); Potassium 4.8 mmol/L (3.5-5.1); Sodium 140 mmol/L (137-145); Total Bilirubin 0.4 mg/dL (0.2-1.3); Total Protein 7.9 g/dL (6.3-8.2)
--- NOTE | 2019-05-30 07:39 | XR ---
EXAMINATION TYPE: XR chest 1V portable DATE OF EXAM: 05/30/2019 COMPARISON: 06/13/2018 HISTORY: Respiratory distress with history of COPD. TECHNIQUE: Single frontal view of the chest is obtained. FINDINGS: There is no pulmonary vascular congestion, pleural effusion, or pneumothorax seen. Hazines s at the left cardiophrenic angle is linear in favored to represent atelectasis. Pulmonary hyperinfla tion is compatible with this patient's known history of COPD. The cardiac silhouette size is within n ormal limits. The osseous structures are intact. IMPRESSION: Minimal left basilar subsegmental atelectasis and underlying COPD. Otherwise no acute ca rdiopulmonary process.
[2019-05-30 07:42] LABS: INR 0.9 (<1.2); Partial Thromboplastin Time 24.8 sec (22.0-30.0); Prothrombin Time 9.7 sec (9.0-12.0)
[2019-05-30 08:45] LABS: VBG PH 7.36 (7.31-7.41)
[2019-05-30] MEDS: AZITHROMYCIN 500 MG TAB PO SCH (11:01)
[2019-05-30] MEDS: predniSONE 20 MG TAB PO SCH (11:01)
[2019-05-30] MEDS: IPRATROPIUM-ALBUTEROL 3 ML NEB INHALATION SCH ×3 (11:56→19:49)
[2019-05-30] MEDS ORDERED: IPRATROPIUM-ALBUTEROL 3 ML NEB INHALATION PRN (13:39)
--- NOTE | 2019-05-30 13:40 | P.CNPUL ---
History of Present Illness Consult date: 05/30/19 Requesting physician: Karthik Rowland Reason for consult: dyspnea Chief complaint: Dyspnea, chest tightness, hypoxemic respiratory failure History of present illness: This is 64-year-old white male patient with past medical history of COPD, current every day smoker, who presented to the hospital on 05/30/2019 early in the morning for evaluation of shortness of breath, chest tightness. Onset of symptoms was a few days ago with progression of his dyspnea. Patient states he has been cutting down pine tree branches around his yard, and he thinks something in the pine trees may have exacerbated his COPD. On arrival to the emergency department patient was in severe respiratory distress, he was hypoxemic with a pulse ox and 84%. He was placed on BiPAP support, he was started on continuous breathing treatments, IV steroids with improvement of his symptoms. Chest x-ray shows minimal left basilar subsegmental atelectasis and underlying COPD, no acute cardiopulmonary process. Patient is afebrile, hemodynamically stable, EKG was obtained showing normal sinus rhythm. No leukocytosis on lab work, white blood cell count of 7.1, hemoglobin of 15.1, INR 0.9, electrolytes and renal profile were within normal limits, venous blood gas showed pH of 7.36, pCO2 of 43, and bicarb of 24, troponin was negative 1, proBNP was normal at 65. Currently off BiPAP at the time of our evaluation, on room air, with a pulse ox of 96%, he feels significantly better, he is eating his lunch, in no distress, no shortness of breath, lung sounds are diminished, with minimal end expiratory wheezing. Review of Systems All systems: negative Constitutional: Denies chills, Denies fever Eyes: denies blurred vision, denies pain Ears, nose, mouth and throat: Denies headache, Denies sore throat Cardiovascular: Denies chest pain, Denies shortness of breath Respiratory: Reports dyspnea, Reports wheezing, Denies cough Gastrointestinal: Denies abdominal pain, Denies diarrhea, Denies nausea, Denies vomiting Musculoskeletal: Denies myalgias Integumentary: Denies pruritus, Denies rash Neurological: Denies numbness, Denies weakness Psychiatric: Denies anxiety, Denies depression Endocrine: Denies fatigue, Denies weight change Past Medical History Past Medical History: COPD, Deep Vein Thrombosis (DVT), Liver Disease Additional Past Medical History / Comment(s): 2015 diagnosed hepatitis C- successfully treated, blood clot L little finger from IV drug use resulting in amputation, cervical DDD, past dislocation R little finger. History of Any Multi-Drug Resistant Organisms: None Reported Past Surgical History: No Surgical Hx Reported, Hernia Repair, Orthopedic Surgery Additional Past Surgical History / Comment(s): Ruptured bowel-cause unknown, temp colostomy, reversal of colostomy, L little finger amputation (blood clot), colonoscopy, L/R inguinal hernia repairs, circumcism. Past Anesthesia/Blood Transfusion Reactions: No Reported Reaction Smoking Status: Current every day smoker - Past Family History Mother Family Medical History: CVA/TIA Additional Family Medical History / Comment(s): Mother of a CVA (was on coumadin) at the age of 74 yrs. Father Family Medical History: Diabetes Mellitus, Deep Vein Thrombosis (DVT) Additional Family Medical History / Comment(s): Father of diabetic complications at the age of 70 yrs. Medications and Allergies Home Medications Medication Instructions Recorded Confirmed Type Albuterol Inhaler [Ventolin Hfa 2 puff INHALATION RT-QID PRN 12/16/18 05/30/19 History Inhaler] Budesonide-Formot 160-4.5 Mcg 2 puff INHALATION RT-BID 05/30/19 05/30/19 History [Symbicort 160-4.5 Mcg Inhaler] Allergies Allergy/AdvReac Type Severity Reaction Status Date / Time No Known Allergies Allergy Verified 05/30/19 07:45 Physical Exam Vitals: Vital Signs Temp Pulse Pulse Resp BP BP Pulse Ox 05/30/19 12:06 97.7 F 64 16 111/71 96 05/30/19 12:03 88 05/30/19 11:57 80 05/30/19 10:30 97.9 F 68 19 122/69 95 05/30/19 10:20 98.2 F 63 18 123/81 95 05/30/19 07:45 63 18 123/81 95 05/30/19 06:28 84 05/30/19 06:14 84 05/30/19 06:13 84 05/30/19 06:02 24 05/30/19 05:57 76 05/30/19 05:49 98.2 F 82 25 H 157/94 84 L Intake and Output 05/29/19 05/30/19 05/30/19 22:59 06:59 14:59 Other: Weight 77.111 kg GENERAL EXAM: Alert, pleasant, 64-year-old white male patient, on room air, eating lunch comfortable in no apparent distress. HEAD: Normocephalic/atraumatic. EYES: Normal reaction of pupils, equal size. Conjunctiva pink, sclera white. NOSE: Clear with pink turbinates. THROAT: No erythema or exudates. NECK: No masses, no JVD, no thyroid enlargement, no adenopathy. CHEST: No chest wall deformity. Symmetrical expansion. LUNGS: Diminished air entry with minimal end expiratory wheeze, but no rhonchi or dullness. CVS: Regular rate and rhythm, normal S1 and S2, no gallops, no murmurs, no rubs ABDOMEN: Soft, nontender. No hepatosplenomegaly, normal bowel sounds, no guarding or rigidity. EXTREMITIES: No clubbing, no edema, no cyanosis, 2+ pulses and upper and lower extremities. MUSCULOSKELETAL: Muscle strength and tone normal. SPINE: No scoliosis or deformity SKIN: No rashes CENTRAL NERVOUS SYSTEM: Alert and oriented -3. No focal deficits, tone is normal in all 4 extremities. PSYCHIATRIC: Alert and oriented -3. Appropriate affect. Intact judgment and insight. Results - Laboratory Findings CBC and BMP: 05/30/19 06:25 05/30/19 06:25 PT/INR, D-dimer PT 9.7 sec (9.0-12.0) 05/30/19 06:25 INR 0.9 (<1.2) 05/30/19 06:25 Abnormal lab findings: Abnormal Labs 05/30/19 05/30/19 06:25 06:25 Eosinophils # 1.3 H Glucose 111 H ALT 20 L - Diagnostic Findings Chest x-ray: report reviewed, image reviewed Additional studies: EKG reviewed Assessment and Plan Plan: Assessment: #1. Acute hypoxemic respiratory failure related to acute exacerbation of chronic obstructive pulmonary disease the severity of which is unknown at this time. Chest x-ray showed no acute pulmonary process, patient attributes his symptoms to cutting down pine tree branches #2. Chronic and ongoing nicotine addiction #3. History of IV drug abuse #4. History of hepatitis C, currently under outpatient treatment #5. 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 History of bowel perforation status post resection, and colostomy with reversal Plan: Continue current medical treatment, patient has significantly improved since this morning, currently off BiPAP, on room air, maintaining stable saturations, at 96%, will continue with oral steroids, nebulized bronchodilators, and oral antibiotics. Chest x-ray has been reviewed showing no acute pulmonary process. We will add Symbicort, continue DuoNeb 4 times a day and every 2 hours as needed. Anticipate further improvement, and possible discharge in next 24 hours as well as continues to improve I performed a history & physical examination of the patient and discussed their management with my nurse practitioner, Anu Wray. I reviewed the nurse practitioner's note and agree with the documented findings and plan of care. Lung sounds are positive for diminished breath sounds with end exp wheezes. The findings and the impression was discussed with the patient. I attest to the documentation by the nurse practitioner. Time with Patient: Greater than 30
[2019-05-30] MEDS ORDERED: IPRATROPIUM-ALBUTEROL 3 ML NEB INHALATION SCH (16:00)
--- NOTE | 2019-05-30 19:43 | HP ---
HISTORY AND PHYSICAL CHIEF COMPLAINT: Difficulty breathing. HISTORY OF PRESENT ILLNESS: This is an another admission for this gentleman who smokes heavily and has COPD. He started to have more difficulty breathing and he only has an albuterol inhaler, which did not help. He came into the emergency room with exacerbation of chronic obstructive pulmonary disease. He has had no hemoptysis, weight loss, anorexia, etc. He has had no purulent sputum production. Past medical history, family history, personal history and social history reveal that he is on an albuterol MDI and he is not allergic to any medication. Surgically he has had a herniorrhaphy and he has had removal of the right 5th finger. He smokes at least a pack of cigarettes a day. PHYSICAL EXAM: Blood pressure 148/90 with a pulse of 87, respirations of 40 and he is afebrile. In general, he appeared to be short of breath. Skin color is normal. Lymph nodes are not enlarged. Head, ears, eyes, nose, mouth, and throat were normal and neck veins not distended. Chest demonstrated increased AP diameter with poor breath sounds throughout. There is wheezing on inspiration and expiration and scattered rales and rhonchi. Cardiac exam demonstrates sinus tachycardia. Abdomen is soft and nontender. Extremities are normal. Neurologically he was intact. IMPRESSION: Exacerbation of chronic obstructive pulmonary disease. PLAN: 1. Bed rest. 2. IV fluids. 3. IV and inhaled steroids. JUDITH / JACQUELINE: [id number] /
[2019-05-30] MEDS: SYMBICORT 160-4.5 MCG INHALER INHALATION SCH (19:52)
[2019-05-31] MEDS: predniSONE 20 MG TAB PO SCH (07:27)
[2019-05-31] MEDS: AZITHROMYCIN 500 MG TAB PO SCH (07:27)
[2019-05-31] MEDS: IPRATROPIUM-ALBUTEROL 3 ML NEB INHALATION SCH ×2 (07:53→12:00)
[2019-05-31] MEDS: SYMBICORT 160-4.5 MCG INHALER INHALATION SCH (07:53)
[2019-05-31 12:19] VITALS: BP 105/57; PULSE 73; RESP 16; TEMP 98.4
--- NOTE | 2019-06-01 | DS ---
DISCHARGE SUMMARY CHIEF COMPLAINT: Difficulty breathing. HISTORY OF PRESENT ILLNESS AND PHYSICAL EXAM: Details of this man's history and physical can be found in the initial workup. LABORATORY STUDIES: While he was in the hospital, he had laboratory studies, details of which can be found in the laboratory section of his chart. COURSE IN HOSPITAL: After admission, he was placed on bedrest, started on intravenous fluids, IV and inhaled steroids and updrafts and he improved quite quickly. He was cleared, doing well enough to go home on the . He will go home on his usual activity, diet and medication. [facility] and he will be seen in the office in the office in a day or 2. He was admonished to stop smoking immediately. FINAL DIAGNOSES: Exacerbation of chronic obstructive pulmonary disease. OPERATIONS: None. CONSULTATIONS: Pulmonology. He is improved. JUDITH / JACQUELINE: [id number] /
[2019-06-01] MEDS ORDERED: methylPREDNISolone 4 MG TAB TAPER PO SCH (09:00)
== END 2019-05-31 13:03 | disposition home or self-care (01) | DRG 190 ==
LOC: EC 05:41 → 3NMEDONC 08:39
PROVIDERS: ADMIT Family Medicine; ATTEND Family Medicine
PROC: 5A09357 Assistance with Respiratory Ventilation, Less than 24 Consecutive Hours, Continuous Positive Airway Pressure (ICD-10-PCS; principal; 2019-05-30)
DX: J44.1 Chronic obstructive pulmonary disease with (acute) exacerbation (principal); J96.01 Acute respiratory failure with hypoxia; F19.10 Other psychoactive substance abuse, uncomplicated; Z79.51 Long term (current) use of inhaled steroids; Z82.3 Family history of stroke; Z83.3 Family history of diabetes mellitus; Z71.6 Tobacco abuse counseling; F17.210 Nicotine dependence, cigarettes, uncomplicated; Z83.2 Family history of diseases of the blood and blood-forming organs and certain disorders involving the immune mechanism; Z89.021 Acquired absence of right finger(s)
CPT/HCPCS: 36415; 71045; 80053; 82803; 83735; 83880; 84484; 85025; 85610; 85730; 87040; 94640; 94660; 94760; 96361; 96365; 96366; 96375; 99285

== ENCOUNTER 2019-06-24 09:23 | Emergency (ER) | payer MEDICARE, OTHER ==
[2019-06-24] MEDS ORDERED: KETOROLAC 30 MG/ML 1 ML VIAL IVP STA (09:57)
[2019-06-24] MEDS ORDERED: SODIUM CHLORIDE 0.9% 1,000 ML IV STA (10:08)
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
[2019-06-24 10:26] LABS: Basophils % (A) 1 %; Eosinophils # (A) 0.3 k/uL (0-0.7); Eosinophils % (A) 6 %; HCT 46.4 % (39.0-53.0); HGB 15.1 gm/dL (13.0-17.5); Lymphocytes # (A) 1.5 k/uL (1.0-4.8); Lymphocytes % (A) 29 %; MCH 31.6 pg (25.0-35.0); MCHC 32.6 g/dL (31.0-37.0); MCV 96.7 fL (80.0-100.0); Mean Platelet Volume 7.6; Monocytes # (A) 0.4 k/uL (0-1.0); Monocytes % (A) 8 %; Neutrophils # (A) 2.8 k/uL (1.3-7.7); Neutrophils % (A) 54 %; Platelet Count 206 k/uL (150-450); RBC 4.79 m/uL (4.30-5.90); WBC 5.3 k/uL (3.8-10.6)
[2019-06-24 10:38] LABS: ALT 14 U/L (21-72); AST 21 U/L (17-59); African American GFR (CKD) >90 (>60 ml/min/1.73 sqM); Albumin 4.1 g/dL (3.5-5.0); Alkaline Phosphatase 56 U/L (38-126); Amylase 52 U/L (30-110); Anion Gap 10 mmol/L; Blood Urea Nitrogen 8 mg/dL (9-20); Calcium 9.8 mg/dL (8.4-10.2); Carbon Dioxide 25 mmol/L (22-30); Chloride 107 mmol/L (98-107); Glucose 100 mg/dL (74-99); Non-African American GFR(CKD) >90 (>60 ml/min/1.73 sqM); Potassium 4.2 mmol/L (3.5-5.1); Sodium 142 mmol/L (137-145); Total Bilirubin 0.7 mg/dL (0.2-1.3); Total Protein 7.1 g/dL (6.3-8.2)
[2019-06-24] MEDS ORDERED: HYDROmorphone 0.5 MG/0.5 ML SYRINGE IVP STA (10:43)
[2019-06-24 10:47] LABS: Appearance,Urine Clear (Clear); Bilirubin,Urine Negative (Negative); Blood,Urine Negative (Negative); Color,Urine Light Yellow; Glucose,Urine (UA) Negative (Negative); Ketones,Urine Negative (Negative); Leukocyte Esterase,Urine Negative (Negative); Nitrite,Urine Negative (Negative); PH, Urine 7.5 (5.0-8.0); Protein,Urine Negative (Negative); Specific Gravity,Urine 1.009 (1.001-1.035); Urobilinogen,Urine <2.0 mg/dL (<2.0)
--- NOTE | 2019-06-24 11:25 | CT ---
EXAMINATION TYPE: CT abdomen pelvis w con DATE OF EXAM: 06/24/2019 COMPARISON: None INDICATION: Left flank pain DLP: 775.3 mGycm, Automated exposure control for dose reduction was used. CONTRAST: 100 mL of Isovue 300. Study performed without Oral Contrast TECHNIQUE: Axial images were obtained from above the diaphragm to the pubic rami in the axial plane a t 5 mm thick sections. Reconstructed images are reviewed on the computer in the coronal plane. FINDINGS: Limited CT sections are obtained the lung bases. Mild streak opacities within the lingula along the major fissure could be some atelectasis.. Coronary artery calcification is also noted. CT ABDOMEN: Liver: Normal Spleen: Normal Pancreas: Normal Adrenal glands: Left adrenal gland is prominent measuring 1.5 cm. Right adrenal gland is normal. Gallbladder: Normal Kidneys: No masses are evident. No hydronephrosis is present. There is a cyst on the posterior uppe r pole measures 0.8 cm and 15 Hounsfield units. Delayed images were obtained through the kidneys, wh ich remain unremarkable. Aorta: Vascular calcification is within the aorta. Inferior vena cava: Normal. CT PELVIS: Loops of bowel within the abdomen and pelvis are normal. Some fluid-filled small bowel loops are present. These are nondilated. Air and fecal debris is within the colon. Study is performed without o ral contrast causing some limitation on evaluation. Appendix: Normal as visualized. Urinary bladder: Normal. Genitourinary structures: Prostate has mild prominence. Osseous structures: No suspicious lytic or sclerotic lesions. IMPRESSIONS: 1. No suspicious renal or ureteral stones. 2. No suspicious changes to account for left flank pain.
[2019-06-24 12:49] VITALS: BP 134/90; PULSE 82; RESP 18; TEMP 98.1
== END 2019-06-24 12:38 | disposition home or self-care (01) ==
LOC: EC 09:23
DX: R10.9 Unspecified abdominal pain (principal); M54.5 Low back pain; R11.0 Nausea; R10.812 Left upper quadrant abdominal tenderness; R10.814 Left lower quadrant abdominal tenderness; J44.9 Chronic obstructive pulmonary disease, unspecified; F17.200 Nicotine dependence, unspecified, uncomplicated; Z79.51 Long term (current) use of inhaled steroids; Z79.899 Other long term (current) drug therapy; Z86.718 Personal history of other venous thrombosis and embolism
CPT/HCPCS: 36415; 80053; 82150; 83690; 85025; 81003; 74177; 99284; 96374; 96375; 96361 ×2; J1885; J1170; Q9967

== ENCOUNTER → 2019-07-11 | Outpatient (CLI) | payer MEDICARE, OTHER ==
--- NOTE | 2019-07-11 11:17 | XR ---
EXAMINATION TYPE: XR thoracic spine complete DATE OF EXAM: 07/11/2019 COMPARISON: NONE HISTORY: Pain Alignment is anatomic. There is no compression deformities. Hypertrophic and degenerative disc disea se is noted. No compression deformities. Slight curvature the spine. IMPRESSION: 1. Multilevel degenerative disc disease.
== END | disposition home or self-care (01) ==
LOC: RADXRMAIN 10:57
PROVIDERS: ATTEND Nurse Practitioner Family
DX: M51.34 Other intervertebral disc degeneration, thoracic region (principal)
CPT/HCPCS: 72072

== ENCOUNTER 2020-08-19 08:02 | Inpatient (IN) | payer MEDICARE, OTHER ==
[2020-08-19] MEDS ORDERED: methylPREDNISolone SOD SUCCI 125 MG/2 ML VIAL IV STA (08:19)
[2020-08-19] MEDS ORDERED: IPRATROPIUM 0.5 MG/2.5 ML NEBU INHALATION STA (08:19)
[2020-08-19] MEDS ORDERED: ALBUTEROL NEBULIZED 2.5 MG/3 ML INHALATION STA (08:19)
--- NOTE | 2020-08-19 08:35 | ED ---
General Adult HPI - General Chief complaint: Shortness of Breath Stated complaint: SOB Time Seen by Provider: 08/19/20 08:05 Source: patient, RN notes reviewed, old records reviewed Mode of arrival: ambulatory Limitations: no limitations - History of Present Illness Initial comments: This is a 65-year-old male with past medical history significant for smoking COPD per patient states the last few days shortness of breath is getting considerably worse. Patient states she's also coughing a lot more coughing quite a bit of sputum. Patient denies any fever or chills. Patient denies any chest pain or palpitations. Patient states his breathing gets considerably worse particularly with exertion. Patient states it seems typical of his COPD. Patient denies any abdominal pain patient denies nausea vomiting diarrhea per patient denies any headache patient denies numbness weakness. Patient denies any lightheadedness or dizziness. Patient denies any leg swelling or calf tenderness. - Related Data Home Medications Medication Instructions Recorded Confirmed Albuterol Inhaler (Mhu) [Ventolin 2 puff INHALATION RT-QID PRN 12/16/18 06/24/19 Hfa Inhaler (Mhu)] Budesonide-Formot 160-4.5 Mcg 2 puff INHALATION RT-BID 05/30/19 06/24/19 [Symbicort 160-4.5 Mcg Inhaler] Varenicline [Chantix Starter Pack] 0.5 mg PO DAILY 06/24/19 06/24/19 Allergies Allergy/AdvReac Type Severity Reaction Status Date / Time No Known Allergies Allergy Verified 08/19/20 08:06 Review of Systems ROS Statement: Those systems with pertinent positive or pertinent negative responses have been documented in the HPI. ROS Other: All systems not noted in ROS Statement are negative. 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 History of Any Multi-Drug Resistant Organisms: None Reported Past Surgical History: Hernia Repair, No Surgical Hx Reported Additional Past Surgical History / Comment(s): Ruptured bowel, temp colostomy, reversal of colostomy, finger amputation (blood clot), colonoscopy, L/R inguinal hernia repairs, circumcism. Past Anesthesia/Blood Transfusion Reactions: No Reported Reaction Past Psychological History: No Psychological Hx Reported Smoking Status: Former smoker Past Alcohol Use History: None Reported, Abuse Past Drug Use History: None Reported, IV Drug Use - Past Family History Mother Family Medical History: CVA/TIA Additional Family Medical History / Comment(s): Mother of a CVA (was on coumadin) at the age of 74 yrs. Father Family Medical History: Diabetes Mellitus, Deep Vein Thrombosis (DVT) Additional Family Medical History / Comment(s): Father of diabetic complications at the age of 70 yrs. General Exam - General Exam Comments Initial Comments: GENERAL: Patient is well-developed and well-nourished. Patient is nontoxic and well- hydrated and is in moderate distress. ENT: Neck is soft and supple. No significant lymphadenopathy is noted. Oropharynx is clear. Moist mucous membranes. Neck has full range of motion without eliciting any pain. EYES: The sclera were anicteric and conjunctiva were pink and moist. Extraocular movements were intact and pupils were equal round and reactive to light. Eyelids were unremarkable. PULMONARY: Patient is wheezing diffusely and has poor air exchange CARDIOVASCULAR: There is a regular rate and rhythm without any murmurs gallops or rubs. ABDOMEN: Soft and nontender with normal bowel sounds. SKIN: Skin is clear with no lesions or rashes and otherwise unremarkable. NEUROLOGIC: Patient is alert and oriented x3. Cranial nerves II through XII are grossly intact. Motor and sensory are also intact. Normal speech, volume and content. Symmetrical smile. MUSCULOSKELETAL: Normal extremities with adequate strength and full range of motion. No lower extremity swelling or edema. No calf tenderness. LYMPHATICS: No significant lymphadenopathy is noted PSYCHIATRIC: Normal psychiatric evaluation. Limitations: no limitations Course Vital Signs 08/19/20 08/19/20 08/19/20 08:06 08:31 08:57 Temperature 98.5 F Pulse Rate 86 65 Respiratory 18 20 Rate Blood Pressure 126/84 O2 Sat by Pulse 96 Oximetry 08/19/20 08/19/20 08/19/20 09:13 09:25 09:59 Temperature Pulse Rate 68 63 69 Respiratory 18 Rate Blood Pressure 145/79 O2 Sat by Pulse 100 Oximetry Medical Decision Making - Medical Decision Making EKG shows normal sinus rhythm at 63 bpm MO interval 150 QRS is 92 QT interval 426 QTC is 435. Patient's EKG shows no ST segment elevation or depression. Patient's chest x-ray showed no acute abnormality. Patient received steroids and 3 albuterol treatments in the emergency department though he felt better he continued to have poor air exchange and expiratory wheezing. I spoke with Dr. Ware's group and they agreed to admit the patient admitted the patient wrote admitting orders. - Lab Data Result diagrams: 08/19/20 08:58 08/19/20 08:58 Lab Results 08/19/20 08/19/20 08/19/20 Range/Units 08:58 08:58 08:58 WBC 5.5 (3.8-10.6) k/uL RBC 5.06 (4.30-5.90) m/uL Hgb 16.5 (13.0-17.5) gm/dL Hct 49.8 (39.0-53.0) % MCV 98.4 (80.0-100.0) fL MCH 32.6 (25.0-35.0) pg MCHC 33.2 (31.0-37.0) g/dL RDW 12.2 (11.5-15.5) % Plt Count 210 (150-450) k/uL Neutrophils % 50 % Lymphocytes % 30 % Monocytes % 5 % Eosinophils % 13 % Basophils % 1 % Neutrophils # 2.8 (1.3-7.7) k/uL Lymphocytes # 1.6 (1.0-4.8) k/uL Monocytes # 0.3 (0-1.0) k/uL Eosinophils # 0.7 (0-0.7) k/uL Basophils # 0.1 (0-0.2) k/uL PT 10.0 (9.0-12.0) sec INR 1.0 (<1.2) APTT 26.6 (22.0-30.0) sec Sodium 138 (137-145) mmol/L Potassium 4.4 (3.5-5.1) mmol/L Chloride 104 (98-107) mmol/L Carbon Dioxide 27 (22-30) mmol/L Anion Gap 7 mmol/L BUN 11 (9-20) mg/dL Creatinine 0.80 (0.66-1.25) mg/dL Est GFR (CKD-EPI)AfAm >90 (>60 ml/min/1.73 sqM) Est GFR (CKD-EPI)NonAf >90 (>60 ml/min/1.73 sqM) Glucose 116 H (74-99) mg/dL Plasma Lactic Acid Sam (0.7-2.0) mmol/L Calcium 9.6 (8.4-10.2) mg/dL Magnesium 2.2 (1.6-2.3) mg/dL Total Bilirubin 0.5 (0.2-1.3) mg/dL AST 27 (17-59) U/L ALT 16 (4-49) U/L Alkaline Phosphatase 60 (38-126) U/L Troponin I (0.000-0.034) ng/mL NT-Pro-B Natriuret Pep pg/mL Total Protein 7.8 (6.3-8.2) g/dL Albumin 4.6 (3.5-5.0) g/dL 08/19/20 08/19/20 08/19/20 Range/Units 08:58 08:58 08:58 WBC (3.8-10.6) k/uL RBC (4.30-5.90) m/uL Hgb (13.0-17.5) gm/dL Hct (39.0-53.0) % MCV (80.0-100.0) fL MCH (25.0-35.0) pg MCHC (31.0-37.0) g/dL RDW (11.5-15.5) % Plt Count (150-450) k/uL Neutrophils % % Lymphocytes % % Monocytes % % Eosinophils % % Basophils % % Neutrophils # (1.3-7.7) k/uL Lymphocytes # (1.0-4.8) k/uL Monocytes # (0-1.0) k/uL Eosinophils # (0-0.7) k/uL Basophils # (0-0.2) k/uL PT (9.0-12.0) sec INR (<1.2) APTT (22.0-30.0) sec Sodium (137-145) mmol/L Potassium (3.5-5.1) mmol/L Chloride (98-107) mmol/L Carbon Dioxide (22-30) mmol/L Anion Gap mmol/L BUN (9-20) mg/dL Creatinine (0.66-1.25) mg/dL Est GFR (CKD-EPI)AfAm (>60 ml/min/1.73 sqM) Est GFR (CKD-EPI)NonAf (>60 ml/min/1.73 sqM) Glucose (74-99) mg/dL Plasma Lactic Acid Sam 0.9 (0.7-2.0) mmol/L Calcium (8.4-10.2) mg/dL Magnesium (1.6-2.3) mg/dL Total Bilirubin (0.2-1.3) mg/dL AST (17-59) U/L ALT (4-49) U/L Alkaline Phosphatase (38-126) U/L Troponin I <0.012 (0.000-0.034) ng/mL NT-Pro-B Natriuret Pep 46 pg/mL Total Protein (6.3-8.2) g/dL Albumin (3.5-5.0) g/dL Critical Care Time Critical Care Time: Yes Total Critical Care Time: 35 Disposition Clinical Impression: Acute exacerbation of chronic obstructive pulmonary disease (COPD) Disposition: ADMITTED IP TO THIS HOSP Referrals: Brandyn Ware MD [Primary Care Provider] - 1-2 days Time of Disposition: 10:17
[2020-08-19 09:12] LABS: Basophils # (A) 0.1 k/uL (0-0.2); Basophils % (A) 1 %; Eosinophils # (A) 0.7 k/uL (0-0.7); Eosinophils % (A) 13 %; HCT 49.8 % (39.0-53.0); HGB 16.5 gm/dL (13.0-17.5); Lymphocytes # (A) 1.6 k/uL (1.0-4.8); Lymphocytes % (A) 30 %; MCH 32.6 pg (25.0-35.0); MCHC 33.2 g/dL (31.0-37.0); MCV 98.4 fL (80.0-100.0); Monocytes # (A) 0.3 k/uL (0-1.0); Monocytes % (A) 5 %; Neutrophils # (A) 2.8 k/uL (1.3-7.7); Neutrophils % (A) 50 %; Platelet Count 210 k/uL (150-450); RBC 5.06 m/uL (4.30-5.90); RDW 12.2 % (11.5-15.5); WBC 5.5 k/uL (3.8-10.6)
[2020-08-19 09:21] LABS: ALT 16 U/L (4-49); AST 27 U/L (17-59); African American GFR (CKD) >90 (>60 ml/min/1.73 sqM); Albumin 4.6 g/dL (3.5-5.0); Alkaline Phosphatase 60 U/L (38-126); Anion Gap 7 mmol/L; Blood Urea Nitrogen 11 mg/dL (9-20); Calcium 9.6 mg/dL (8.4-10.2); Carbon Dioxide 27 mmol/L (22-30); Chloride 104 mmol/L (98-107); Glucose 116 mg/dL (74-99); Magnesium 2.2 mg/dL (1.6-2.3); Non-African American GFR(CKD) >90 (>60 ml/min/1.73 sqM); Partial Thromboplastin Time 26.6 sec (22.0-30.0); Potassium 4.4 mmol/L (3.5-5.1); Sodium 138 mmol/L (137-145); Total Bilirubin 0.5 mg/dL (0.2-1.3); Total Protein 7.8 g/dL (6.3-8.2)
--- NOTE | 2020-08-19 09:56 | XR ---
EXAMINATION TYPE: XR chest 2V DATE OF EXAM: 08/19/2020 COMPARISON: 05/30/2019 TECHNIQUE: PA and lateral views submitted. HISTORY: Difficulty breathing FINDINGS: The lungs are clear and there is no pneumothorax, pleural effusion, or focal pneumonia. Hyperinflat ion suggests COPD. Heart size is normal. Scoliosis of the spine. Degenerative changes are seen. IMPRESSION: 1. COPD with no definite acute infiltrate.
[2020-08-19] MEDS ORDERED: IPRATROPIUM-ALBUTEROL 3 ML NEB INHALATION PRN (10:17)
[2020-08-19] MEDS ORDERED: methylPREDNISolone SOD SUCCI 125 MG/2 ML VIAL IV SCH (12:00)
[2020-08-19] MEDS ORDERED: guaiFENesin-Coden 100-10MG/5ML 10 ML CUP PO STA (12:34)
[2020-08-19] MEDS: INSULIN ASPART (NovoLOG) 100 UNIT/ML VIAL SQ SCH ×3 (12:46→21:29)
[2020-08-19 12:47] LABS: Glucose,Whole Blood 113 mg/dL (75-99)
--- NOTE | 2020-08-19 12:55 | P.HPIM ---
History of Present Illness H&P Date: 08/19/20 Chief Complaint: Difficulty in breathing HISTORY OF PRESENT ILLNESS This is a 65-year-old male patient of Dr. Ware with past medical history of COPD, tobacco use and dependence, remote history of drug and alcohol abuse, history of hepatitis C status post Harvoni therapy, elevated PSA monitored by Dr. 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 Patient gives history of having increasing difficulty breathing for the past week along with a cough and thick yellow sputum production. Symptoms continued to worsen and he was going to the office today for an appointment with was up since 1 AM feeling that he could not breathe. He states he has only been getting about 2 hours sleep at a time for the past week. He is utilizing 3 pillows at night to sleep and states that he wakes up from sleep gasping for air. He could not catch his breath this morning and came into [facility] emergency center for evaluation. EKG was a sinus rhythm with no acute ST changes. Chest x-ray was COPD with no definite acute infiltrate. CBC unremarkable. Electrolytes, anal function and liver function tests all normal. Troponin 0.012. Blood sugar 116. [facility] and consult added for pulmonary medicine. Patient has been seen in the past by Dr. Carreon but states he stopped going several years ago. Regarding smoking, patient states he is quitting on and off recently and his last cigarette was on August 06. He is 1+ packs per day for 52 years. Patient has been clean from drug and alcohol abuse for 11 years. REVIEW OF SYSTEMS Constitutional: No fever, no chills, no night sweats. No weight change. No weakness, fatigue or lethargy. Reports daytime sleepiness. EENT: No headache. No blurred vision or double vision, no loss of vision. No dizziness. No nasal drainage or congestion. No epistaxis. No sore throat. Lungs: Reports shortness of breath, Reports cough, Reports sputum production. No wheezing. No hemoptysis Cardiovascular: No chest pain, no lower extremity edema. No palpitations. Reports paroxysmal nocturnal dyspnea. Reports orthopnea. No lightheadedness or dizziness. No syncopal episodes. Abdominal: No abdominal pain. No nausea, vomiting. No diarrhea. No constipation. No bloody or tarry stools. Genitourinary: No dysuria, increased frequency, urgency. No urinary retention. Musculoskeletal: No myalgias. No muscle weakness, no gait dysfunction, no frequent falls. No back pain. No neck pain. Integumentary: No wounds, no lesions. No rash or pruritus. Neurologic: No aphasia. No facial droop. No change in mentation. No head injury. No headache. No paralysis. No paresthesia. Psychiatric: No depression. No anxiety. No mood swings. Endocrine: No abnormal blood sugars. No weight change. No excessive sweating or thirst. No cold intolerance. SOCIAL HISTORY Patient is a smoker of 1+ pack per day for 52 years. His last cigarette was on August 06. He has history of IV drug abuse and alcohol abuse and has been clean for 11 years. He lives with his significant other. 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 [place]ot [place] has an inhaler at home. No nebulizer, no oxygen. FAMILY HISTORY Mother at age 72 from intracranial bleeding with use of Coumadin. Father with history of diabetes and coronary artery disease. Patient has 5 brothers and one has diabetes and consultations with amputation. Patient has one sister. All other siblings have no major medical problems that he is aware of. Patient's one daughter with no major medical problems. PHYSICAL EXAMINATION Gen: This is a 65-year-old male. Patient is resting on the ER stretcher and appears to be comfortable and in no acute distress. HEENT: Head is atraumatic, normocephalic. Pupils equal, round. Sclerae is anicteric. NECK: Supple. No JVD. No lymphadenopathy. No thyromegaly. LUNGS: Scattered inspiratory and expiratory wheezing throughout with scattered rhonchi. No intercostal retractions. HEART: Regular rate and rhythm. No murmur. ABDOMEN: Soft. Bowel sounds are present. No masses. No tenderness. EXTREMITIES: No pedal edema. No calf tenderness. Dorsalis pedis +2 bila terally. Hip rotation of the left fifth digit. NEUROLOGICAL: Patient is awake, alert and oriented x3. Cranial nerves 2 through 12 are grossly intact. ASSESSMENT AND PLAN 1. Acute COPD exacerbation with acute purulent tracheobronchitis. DuoNeb treatments 4 times daily and as needed, Pulmicort 1 mg twice daily, Robitussin with codeine every 6 hours as needed, Solu-Medrol 60 mg IV every 6 hours, consult with pulmonary medicine. 2. Tobacco use and dependence. Continue Wellbutrin XL 150 mg daily. 3. Remote history of drug and alcohol abuse. 4. History of hepatitis C status post Harvoni therapy. 5. Elevated PSA monitored by urology. 6. History of ruptured bowel status post colostomy with reversal, stable. 7. DVT prophylaxis. Heparin subcu. 8. GI prophylaxis. Protonix. Patient will be admitted to the hospital for a minimum of 2 night stay. Discharge plan: Return home. Impression and plan of care have been directed as dictated by the signing p harvinder. Kayley Velásquez nurse practitioner acting as scribe for signing physician. 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 History of Any Multi-Drug Resistant Organisms: None Reported Past Surgical History: Hernia Repair, No Surgical Hx Reported Additional Past Surgical History / Comment(s): Ruptured bowel, temp colostomy, r eversal of colostomy, finger amputation (blood clot), colonoscopy, L/R inguinal hernia repairs, circumcism. Past Anesthesia/Blood Transfusion Reactions: No Reported Reaction Past Psychological History: No Psychological Hx Reported Smoking Status: Former smoker Past Alcohol Use History: None Reported, Abuse Past Drug Use History: None Reported, IV Drug Use - Past Family History Mother Family Medical History: CVA/TIA Additional Family Medical History / Comment(s): Mother of a CVA (was on coumadin) at the age of 74 yrs. Father Family Medical History: Diabetes Mellitus, Deep Vein Thrombosis (DVT) Additional Family Medical History / Comment(s): Father of diabetic complications at the age of 70 yrs. Medications and Allergies Home Medications Medication Instructions Recorded Confirmed Type Albuterol Sulfate [Proair Hfa] 2 puff INHALATION RT-Q4H PRN 08/19/20 08/19/20 History Fluticasone/Salmeterol [Advair 2 puff INHALATION RT-BID 08/19/20 08/19/20 History 250-50 Diskus] buPROPion HCL [Wellbutrin XL] 150 mg PO DAILY 08/19/20 08/19/20 History Allergies Allergy/AdvReac Type Severity Reaction Status Date / Time No Known Allergies Allergy Verified 08/19/20 11:16 Physical Exam Vitals: Vital Signs Temp Pulse Resp BP Pulse Ox 08/19/20 10:27 75 18 120/82 98 08/19/20 09:59 69 18 145/79 100 08/19/20 09:25 63 08/19/20 09:13 68 08/19/20 08:57 65 08/19/20 08:31 20 08/19/20 08:06 98.5 F 86 18 126/84 96 Intake and Output 08/18/20 08/19/20 08/19/20 22:59 06:59 14:59 Other: Weight 81.647 kg Results CBC & Chem 7: 08/19/20 08:58 08/19/20 08:58 Labs: Abnormal Lab Results - Last 24 Hours (Table) 08/19/20 Range/Units 08:58 Glucose 116 H (74-99) mg/dL
[2020-08-19] MEDS: methylPREDNISolone SOD SUCCI 125 MG/2 ML VIAL IV SCH ×2 (14:44→21:28)
[2020-08-19] MEDS: IPRATROPIUM-ALBUTEROL 3 ML NEB INHALATION SCH ×2 (15:12→19:21)
--- NOTE | 2020-08-19 16:23 | P.CNPUL ---
History of Present Illness Consult date: 08/19/20 Requesting physician: Brandyn Ware Reason for consult: dyspnea, cough Chief complaint: Dyspnea, cough, leg swelling History of present illness: 65-year-old white male patient with known history of COPD, with a baseline FEV1 of 73% of predicted as of 08/26/2016, not oxygen dependent at baseline, carries [id number] smoking history, and recently quit smoking on August 06, 2020, presented to the hospital on 08/19/2020 for evaluation of worsening shortness of breath, that was worse with laying down, cough, some phlegm production, but no fever, for 2 weeks prior to presentation. Denied any hemoptysis, denied any recent weight loss. Denied any nausea vomiting or diarrhea. 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 Patient used to follow with Dr. Leslie in the pulmonary clinic. However he has not seen him in the last couple years. Chest x-ray shows COPD with no definite acute infiltrate. Labs showed unremarkable CBC, no leukocytosis, coagulation profile electrolytes and renal profile are all within normal limits, plasma lactic acid is 0.9, LFTs were within normal limits, proBNP was 46, troponin was less than 0.012. Patient has been afebrile, room air pulse ox of 98%, a sounds tight and wheezy, does have congestive cough, he was started on IV steroids, bronchodilators, we will add antibiotics for possibility of tracheobronchitis. Review of Systems All systems: negative Constitutional: Denies chills, Denies fever Eyes: denies blurred vision, denies pain Ears, nose, mouth and throat: Denies headache, Denies sore throat Cardiovascular: Denies chest pain, Denies shortness of breath Respiratory: Reports cough with sputum, Reports dyspnea, Denies cough Gastrointestinal: Denies abdominal pain, Denies diarrhea, Denies nausea, Denies vomiting Musculoskeletal: Denies myalgias Integumentary: Denies pruritus, Denies rash Neurological: Denies numbness, Denies weakness Psychiatric: Denies anxiety, Denies depression Endocrine: Denies fatigue, Denies weight change Past Medical History Past Medical History: COPD, Deep Vein Thrombosis (DVT), Liver Disease Additional Past Medical History / Comment(s): hepatitis C diagnosed 09/2015- successfully treated, 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 History of Any Multi-Drug Resistant Organisms: None Reported Past Surgical History: No Surgical Hx Reported, Hernia Repair, Orthopedic Surgery Additional Past Surgical History / Comment(s): Ruptured bowel with temp colostomy, reversal of colostomy, L finger amputation (blood clot), colonoscopy, L/R inguinal hernia repairs, circumcism. Past Anesthesia/Blood Transfusion Reactions: No Reported Reaction Smoking Status: Former smoker - Past Family History Mother Family Medical History: CVA/TIA Additional Family Medical History / Comment(s): Mother of a CVA (was on coumadin) at the age of 74 yrs. Father Family Medical History: Diabetes Mellitus, Deep Vein Thrombosis (DVT) Additional Family Medical History / Comment(s): Father of diabetic complications at the age of 70 yrs. Medications and Allergies Home Medications Medication Instructions Recorded Confirmed Type Albuterol Sulfate [Proair Hfa] 2 puff INHALATION RT-Q4H PRN 08/19/20 08/19/20 History Fluticasone/Salmeterol [Advair 2 puff INHALATION RT-BID 08/19/20 08/19/20 History 250-50 Diskus] buPROPion HCL [Wellbutrin XL] 150 mg PO DAILY 08/19/20 08/19/20 History Allergies Allergy/AdvReac Type Severity Reaction Status Date / Time No Known Allergies Allergy Verified 08/19/20 11:16 Physical Exam Vitals: Vital Signs Temp Pulse Resp BP Pulse Ox 08/19/20 15:23 106 H 20 08/19/20 15:12 107 H 20 08/19/20 13:33 97.8 F 79 18 131/81 98 08/19/20 10:27 75 18 120/82 98 08/19/20 09:59 69 18 145/79 100 08/19/20 09:25 63 08/19/20 09:13 68 08/19/20 08:57 65 08/19/20 08:31 20 08/19/20 08:06 98.5 F 86 18 126/84 96 Intake and Output 08/19/20 08/19/20 08/19/20 06:59 14:59 22:59 Other: Weight 81.647 kg GENERAL EXAM: Alert, very pleasant, thin, 65-year-old white male on room air, with a pulse ox of 98%, slightly tachycardic on the monitor in sinus mechanism, resting on the gurney in the emergency department comfortable in no apparent distress. HEAD: Normocephalic/atraumatic. EYES: Normal reaction of pupils, equal size. Conjunctiva pink, sclera white. NOSE: Clear with pink turbinates. THROAT: No erythema or exudates. NECK: No masses, no JVD, no thyroid enlargement, no adenopathy. CHEST: No chest wall deformity. Symmetrical expansion. LUNGS: Quite diminished air entry with faint wheezes on forced expiration and prolongation of expiratory phase of breathing CVS: Regular rate and rhythm, normal S1 and S2, no gallops, no murmurs, no rubs ABDOMEN: Soft, nontender. No hepatosplenomegaly, normal bowel sounds, no guarding or rigidity. EXTREMITIES: No clubbing, no edema, no cyanosis, 2+ pulses and upper and lower extremities. MUSCULOSKELETAL: Muscle strength and tone normal. SPINE: No scoliosis or deformity SKIN: No rashes CENTRAL NERVOUS SYSTEM: Alert and oriented -3. No focal deficits, tone is normal in all 4 extremities. PSYCHIATRIC: Alert and oriented -3. Appropriate affect. Intact judgment and insight. Results - Laboratory Findings CBC and BMP: 08/19/20 08:58 08/19/20 08:58 PT/INR, D-dimer PT 10.0 sec (9.0-12.0) 08/19/20 08:58 INR 1.0 (<1.2) 08/19/20 08:58 Abnormal lab findings: Abnormal Labs 08/19/20 08/19/20 08:58 12:45 Glucose 116 H POC Glucose (mg/dL) 113 H - Diagnostic Findings Chest x-ray: report reviewed, image reviewed Additional studies: Normal sinus rhythm without acute ischemic changes noted on EKG Assessment and Plan Plan: Assessment: #1. Acute exacerbation of chronic obstructive pulmonary disease, acute by purulent tracheobronchitis. Chest X-ray was reviewed showing emphysema with no acute pulmonary process #2. History of COPD, stage II COPD according to the PFT from 2016 with baseline FEV1 of 73% of predicted, not oxygen dependent at baseline #3. Nicotine dependence, patient carries [id number] smoking history, [place] 08[place] #4. History of hepatitis C, treated #5. Past medical history of drug and alcohol abuse #6. History of bowel perforation with surgical repair, colostomy and reversal #7. History of blood clots in the finger resulting in amputation from previous IV drug use #8. History of elevated PSA monitored by urology Plan: Continue current medical treatment, continue with bronchodilators, IV steroids, will add antibiotics for purulent tracheobronchitis, chest x-ray has been reviewed showing no acute process, advised the patient to continue abstaining from smoking. We'll continue to follow and make further recommendations I performed a history & physical examination of the patient and discussed their management with my nurse practitioner, Anu Wray. I reviewed the nurse practitioner's note and agree with the documented findings and plan of care. Lung sounds are positive for diminished breath sounds. The findings and the impression was discussed with the patient. I attest to the documentation by the nurse practitioner. Time with Patient: Greater than 30
[2020-08-19 18:07] LABS: Glucose,Whole Blood 160 mg/dL (75-99)
[2020-08-19] MEDS: BUDESONIDE 1 MG/2 ML NEBU INHALATION SCH (19:21)
[2020-08-19] MEDS: FORMOTEROL FUMARATE 20 MCG/2 ML NEBU INHALATION SCH (19:21)
[2020-08-19] MEDS ORDERED: SYMBICORT 80-4.5 MCG INHALER INHALATION SCH (20:00)
[2020-08-19 20:45] LABS: Glucose,Whole Blood 172 mg/dL (75-99)
[2020-08-19] MEDS: HEPARIN SODIUM,PORCINE 5,000 UNIT/ML 1 ML VIAL SQ SCH (21:28)
[2020-08-19] MEDS: guaiFENesin-Coden 100-10MG/5ML 10 ML CUP PO PRN (22:55)
[2020-08-19] MEDS: DOXYCYCLINE 100 MG CAP PO SCH (22:55)
[2020-08-20] MEDS: methylPREDNISolone SOD SUCCI 125 MG/2 ML VIAL IV SCH ×2 (04:19→07:14)
[2020-08-20 06:48] LABS: Glucose,Whole Blood 126 mg/dL (75-99)
[2020-08-20] MEDS: INSULIN ASPART (NovoLOG) 100 UNIT/ML VIAL SQ SCH ×4 (07:12→20:45)
[2020-08-20] MEDS: HEPARIN SODIUM,PORCINE 5,000 UNIT/ML 1 ML VIAL SQ SCH ×2 (07:13→20:51)
[2020-08-20] MEDS: DOXYCYCLINE 100 MG CAP PO SCH ×2 (07:13→20:52)
[2020-08-20] MEDS: buPROPion XL 150 MG TAB.ER.24H PO SCH (07:13)
[2020-08-20] MEDS: PANTOPRAZOLE 40 MG TABLET PO SCH (07:13)
[2020-08-20] MEDS: guaiFENesin-Coden 100-10MG/5ML 10 ML CUP PO PRN ×3 (07:27→20:52)
[2020-08-20] MEDS: IPRATROPIUM-ALBUTEROL 3 ML NEB INHALATION SCH ×4 (08:20→18:44)
[2020-08-20] MEDS: BUDESONIDE 1 MG/2 ML NEBU INHALATION SCH ×2 (08:21→18:44)
[2020-08-20] MEDS: FORMOTEROL FUMARATE 20 MCG/2 ML NEBU INHALATION SCH ×2 (08:21→18:44)
--- NOTE | 2020-08-20 11:16 | P.PN ---
Subjective Progress Note Date: 08/20/20 HISTORY OF PRESENT ILLNESS This is a 65-year-old male patient of Dr. Ware with past medical history of COPD, tobacco use and dependence, remote history of drug and alcohol abuse, history of hepatitis C status post Harvoni therapy, elevated PSA monitored by Dr. 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 Patient gives history of having increasing difficulty breathing for the past week along with a cough and thick yellow sputum production. Symptoms continued to worsen and he was going to the office today for an appointment with was up since 1 AM feeling that he could not breathe. He states he has only been getting about 2 hours sleep at a time for the past week. He is utilizing 3 pillows at night to sleep and states that he wakes up from sleep gasping for air. He could not catch his breath this morning and came into [facility] emergency center for evaluation. EKG was a sinus rhythm with no acute ST changes. Chest x-ray was COPD with no definite acute infiltrate. CBC unremarkable. Electrolytes, anal function and liver function tests all normal. Troponin 0.012. Blood sugar 116. Patient will be admitted to the Medr floor and consult added for pulmonary medicine. Patient has been seen in the past by Dr. Carreon but states he stopped going several years ago. Regarding smoking, patient states he is quitting on and off recently and his last cigarette was on August 06. He is 1+ packs per day for 52 years. Patient has been clean from drug and alcohol abuse for 11 years. 08/20: Patient has been seen by pulmonary medicine and doxycycline and Perforomist has been added. He has been afebrile, heart rate 100, blood pressure 109/50, pulse ox 96% on 2 L nasal cannula. Blood sugars are running between 126 and 172. He is on insulin scale. Blood culture is status received. Patient states he is feeling better today. He states he has less cough especially at nighttime and was able to sleep more. We will decrease Solu-Medrol to 40 mg every 8 hours. Patient requesting to go home as it is his 's birthday but he is agreeable to stay until tomorrow.COVID-19 testing ordered REVIEW OF SYSTEMS Constitutional: No fever, no chills, no night sweats. No weight change. No weakness, fatigue or lethargy. EENT: No headache. No blurred vision or double vision, no loss of vision. No dizziness. No nasal drainage or congestion. No epistaxis. No sore throat. Lungs: Reports shortness of breath-improving, Reports cough-improving, Reports sputum production. No wheezing. No hemoptysis Cardiovascular: No chest pain, no lower extremity edema. No palpitations. Reports paroxysmal nocturnal dyspnea. Reports orthopnea. No lightheadedness or dizziness. No syncopal episodes. Abdominal: No abdominal pain. No nausea, vomiting. No diarrhea. No constipation. No bloody or tarry stools. Genitourinary: No dysuria, increased frequency, urgency. No urinary retention. Musculoskeletal: No myalgias. No muscle weakness, no gait dysfunction, no frequent falls. No back pain. No neck pain. Integumentary: No wounds, no lesions. No rash or pruritus. Neurologic: No aphasia. No facial droop. No change in mentation. No head injury. No headache. No paralysis. No paresthesia. Psychiatric: No depression. No anxiety. No mood swings. Endocrine: No abnormal blood sugars. No weight change. No excessive sweating or thirst. PHYSICAL EXAMINATION Gen: This is a 65-year-old male. Patient is resting in bed and appears to be comfortable and in no acute distress. He is able to speak in full sentences. HEENT: Head is atraumatic, normocephalic. Pupils equal, round. Sclerae is anicteric. NECK: Supple. No JVD. No lymphadenopathy. No thyromegaly. LUNGS: Scattered inspiratory and expiratory wheezing throughout with scattered rhonchi. No intercostal retractions. HEART: Regular rate and rhythm. No murmur. ABDOMEN: Soft. Bowel sounds are present. No masses. No tenderness. EXTREMITIES: No pedal edema. No calf tenderness. Dorsalis pedis +2 bilaterally. Hip rotation of the left fifth digit. NEUROLOGICAL: Patient is awake, alert and oriented x3. Cranial nerves 2 through 12 are grossly intact. ASSESSMENT AND PLAN 1. Acute COPD exacerbation with acute purulent tracheobronchitis. DuoNeb treatments 4 times daily and as needed, Pulmicort 1 mg twice daily, Robitussin with codeine every 6 hours as needed, Solu-Medrol 60 mg IV every 6 hours, consult with pulmonary medicine. 2. Tobacco use and dependence. Continue Wellbutrin XL 150 mg daily. 3. Remote history of drug and alcohol abuse. 4. History of hepatitis C status post Harvoni therapy. 5. Elevated PSA monitored by urology. 6. History of ruptured bowel status post colostomy with reversal, stable. 7. DVT prophylaxis. Heparin subcu. 8. GI prophylaxis. Protonix. Discharge plan: Return home in the next 24 hours. Impression and plan of care have been directed as dictated by the signing physician. Kayley Velásquez nurse practitioner acting as scribe for signing physician. Objective - Vital Signs Vital signs: Vital Signs Temp 97.9 F 08/20/20 01:50 Pulse 100 08/20/20 08:21 Resp 17 08/20/20 01:50 BP 109/50 08/20/20 01:50 Pulse Ox 96 08/20/20 01:50 Intake & Output 08/19/20 08/20/20 08/20/20 18:59 06:59 18:59 Weight 81.647 kg Other: Voiding Method Toilet # Voids 1 2 - Labs CBC & Chem 7: 08/19/20 08:58 08/19/20 08:58 Labs: Abnormal Lab Results - Last 24 Hours (Table) 08/19/20 08/19/20 08/19/20 Range/Units 08:58 12:45 18:05 Glucose 116 H (74-99) mg/dL POC Glucose (mg/dL) 113 H 160 H (75-99) mg/dL 08/19/20 08/20/20 Range/Units 20:44 06:46 Glucose (74-99) mg/dL POC Glucose (mg/dL) 172 H 126 H (75-99) mg/dL
[2020-08-20 11:40] LABS: Glucose,Whole Blood 114 mg/dL (75-99)
--- NOTE | 2020-08-20 13:00 | P.PN ---
Subjective Progress Note Date: 08/20/20 Principal diagnosis: Cough, wheezing, shortness of breath 65-year-old white male patient with known history of COPD, with a baseline FEV1 of 73% of predicted as of 08/26/2016, not oxygen dependent at baseline, carries [id number] smoking history, and recently quit smoking on August 06, 2020, presented to the hospital on 08/19/2020 for evaluation of worsening shortness of breath, that was worse with laying down, cough, some phlegm production, but no fever, for 2 weeks prior to presentation. Denied any hemoptysis, denied any recent weight loss. Denied any nausea vomiting or diarrhea. 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 Patient used to follow with Dr. Leslie in the pulmonary clinic. However he has not seen him in the last couple years. Chest x-ray shows COPD with no definite acute infiltrate. Labs showed unremarkable CBC, no leukocytosis, coagulation profile electrolytes and renal profile are all within normal limits, plasma lactic acid is 0.9, LFTs were within normal limits, proBNP was 46, troponin was less than 0.012. Patient has been afebrile, room air pulse ox of 98%, a sounds tight and wheezy, does have congestive cough, he was started on IV steroids, bronchodilators, we will add antibiotics for possibility of tracheobronchitis. On 08/20/2020 patient seen in follow-up on the general medical surgical floor. Covid 19 has been ruled out, patient is afebrile, vital signs are stable, he is satting 95% on 2 L, he states his breathing easier, still coughing at times does produce some phlegm, no chest pain, no hemoptysis, patient is on empiric antibiotics in the form of doxycycline for purulent tracheobronchitis, he is on IV steroids and nebulized bronchodilators. Doing better, not quite back to baseline. Objective - Vital Signs Vital signs: Vital Signs Temp 97.9 F 08/20/20 11:53 Pulse 94 08/20/20 11:55 Resp 17 08/20/20 11:53 BP 112/66 08/20/20 11:53 Pulse Ox 95 08/20/20 11:53 Intake & Output 08/19/20 08/20/20 08/20/20 18:59 06:59 18:59 Weight 81.647 kg Other: Voiding Method Toilet Toilet # Voids 1 2 - Exam GENERAL EXAM: Alert, very pleasant, thin, 65-year-old white male on 2 L of oxygen, with a pulse ox of 95%, slightly tachycardic on the monitor in sinus mechanism, comfortable in no apparent distress. HEAD: Normocephalic/atraumatic. EYES: Normal reaction of pupils, equal size. Conjunctiva pink, sclera white. NOSE: Clear with pink turbinates. THROAT: No erythema or exudates. NECK: No masses, no JVD, no thyroid enlargement, no adenopathy. CHEST: No chest wall deformity. Symmetrical expansion. LUNGS: Quite diminished air entry with faint wheezes on forced expiration and prolongation of expiratory phase of breathing CVS: Regular rate and rhythm, normal S1 and S2, no gallops, no murmurs, no rubs ABDOMEN: Soft, nontender. No hepatosplenomegaly, normal bowel sounds, no guarding or rigidity. EXTREMITIES: No clubbing, no edema, no cyanosis, 2+ pulses and upper and lower extremities. MUSCULOSKELETAL: Muscle strength and tone normal. SPINE: No scoliosis or deformity SKIN: No rashes CENTRAL NERVOUS SYSTEM: Alert and oriented -3. No focal deficits, tone is normal in all 4 extremities. PSYCHIATRIC: Alert and oriented -3. Appropriate affect. Intact judgment and insight. - Labs CBC & Chem 7: 08/19/20 08:58 08/19/20 08:58 Labs: Abnormal Lab Results - Last 24 Hours (Table) 08/19/20 08/19/20 08/20/20 Range/Units 18:05 20:44 06:46 POC Glucose (mg/dL) 160 H 172 H 126 H (75-99) mg/dL 08/20/20 Range/Units 11:37 POC Glucose (mg/dL) 114 H (75-99) mg/dL Microbiology - Last 24 Hours (Table) 08/19/20 08:58 Blood Culture - Preliminary Blood No Growth after 24 hours Assessment and Plan Plan: Assessment: #1. Acute exacerbation of chronic obstructive pulmonary disease, acute by purulent tracheobronchitis. Chest X-ray was reviewed showing emphysema with no acute pulmonary process #2. History of COPD, stage II COPD according to the PFT from 2016 with baseline FEV1 of 73% of predicted, not oxygen dependent at baseline #3. Nicotine dependence, patient carries [id number] smoking history, in remission since 08/06/2020 #4. History of hepatitis C, treated #5. Past medical history of drug and alcohol abuse #6. History of bowel perforation with surgical repair, colostomy and reversal #7. History of blood clots in the finger resulting in amputation from previous IV drug use #8. History of elevated PSA monitored by urology Plan: Continue current medical treatment, empiric antibiotics, nebulized bronchodilators and IV steroids. Not quite back to baseline, but improving, will need another 24 hours of treatment I performed a history & physical examination of the patient and discussed their management with my nurse practitioner, Anu Wray. I reviewed the nurse practitioner's note and agree with the documented findings and plan of care. Lung sounds are positive for diminished breath sounds. The findings and the impression was discussed with the patient. I attest to the documentation by the nurse practitioner. Time with Patient: Less than 30
[2020-08-20] MEDS: methylPREDNISolone SOD SUCCI 40 MG/ML 1 ML VIAL IV SCH (15:48)
[2020-08-20 16:53] LABS: Glucose,Whole Blood 114 mg/dL (75-99)
[2020-08-20 19:26] LABS: Hemoglobin A1C 5.4 % (4.0-6.0)
[2020-08-20 20:38] LABS: Glucose,Whole Blood 131 mg/dL (75-99)
[2020-08-21] MEDS: methylPREDNISolone SOD SUCCI 40 MG/ML 1 ML VIAL IV SCH ×2 (00:03→08:31)
[2020-08-21 07:11] VITALS: BP 114/73; RESP 18; TEMP 98.2
[2020-08-21 07:19] LABS: Glucose,Whole Blood 104 mg/dL (75-99)
[2020-08-21] MEDS: FORMOTEROL FUMARATE 20 MCG/2 ML NEBU INHALATION SCH (08:10)
[2020-08-21] MEDS: IPRATROPIUM-ALBUTEROL 3 ML NEB INHALATION SCH (08:10)
[2020-08-21] MEDS: BUDESONIDE 1 MG/2 ML NEBU INHALATION SCH (08:10)
[2020-08-21] MEDS: INSULIN ASPART (NovoLOG) 100 UNIT/ML VIAL SQ SCH (08:21)
[2020-08-21] MEDS: DOXYCYCLINE 100 MG CAP PO SCH (08:30)
[2020-08-21] MEDS: buPROPion XL 150 MG TAB.ER.24H PO SCH (08:30)
[2020-08-21] MEDS: PANTOPRAZOLE 40 MG TABLET PO SCH (08:30)
[2020-08-21] MEDS: guaiFENesin-Coden 100-10MG/5ML 10 ML CUP PO PRN (08:31)
[2020-08-21] MEDS: HEPARIN SODIUM,PORCINE 5,000 UNIT/ML 1 ML VIAL SQ SCH (08:31)
[2020-08-21 08:35] VITALS: PULSE 108
--- NOTE | 2020-08-21 13:42 | P.DS ---
Providers Date of admission: 08/19/20 12:46 Expected date of discharge: 08/21/20 Attending physician: Brandyn Ware Consults: 08/19/20 12:40 Consult Physician Routine Consulting Provider: Bala Lauren Consult Reason/Comments: COPD exacerbation Do you want consulting provider notified?: Yes Primary care physician: Brandyn Chaz [facility] Hospital Course: HISTORY OF PRESENT ILLNESS This is a 65-year-old male patient of Dr. Ware with past medical history of COPD, tobacco use and dependence, remote history of drug and alcohol abuse, history of hepatitis C status post Harvoni therapy, elevated PSA monitored by Dr. 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 Patient gives history of having increasing difficulty breathing for the past week along with a cough and thick yellow sputum production. Symptoms continued to worsen and he was going to the office today for an appointment with was up since 1 AM feeling that he could not breathe. He states he has only been getting about 2 hours sleep at a time for the past week. He is utilizing 3 pillows at night to sleep and states that he wakes up from sleep gasping for air. He could not catch his breath this morning and came into [facility] emergency center for evaluation. EKG was a sinus rhythm with no acute ST changes. Chest x-ray was COPD with no definite acute infiltrate. CBC unremarkable. Electrolytes, anal function and liver function tests all normal. Troponin 0.012. Blood sugar 116. Patient will be admitted to the MedSur floor and consult added for pulmonary medicine. Patient has been seen in the past by Dr. Carreon but states he stopped going several years ago. Regarding smoking, patient states he is quitting on and off recently and his last cigarette was on August 06. He is 1+ packs per day for 52 years. Patient has been clean from drug and alcohol abuse for 11 years. 08/20: Patient has been seen by pulmonary medicine and doxycycline and Perforomist has been added. He has been afebrile, heart rate 100, blood pressure 109/50, pulse ox 96% on 2 L nasal cannula. Blood sugars are running between 126 and 172. He is on insulin scale. Blood culture is status received. Patient states he is feeling better today. He states he has less cough especially at nighttime and was able to sleep more. We will decrease Solu- Medrol to 40 mg every 8 hours. Patient requesting to go home as it is his 's birthday but he is agreeable to stay until tomorrow.COVID-19 testing ordered 08/21: Patient's breathing status is much improved. A nebulizer will be ordered for home. He also states he needs a refill on his albuterol inhaler which will be provided. He has been afebrile, heart rate 102, blood pressure 114/73, pulse ox 94% on room air. Patient will be discharged home today in stable condition. ASSESSMENT AND PLAN 1. Acute COPD exacerbation with acute purulent tracheobronchitis. 2. Tobacco use and dependence. 3. Remote history of drug and alcohol abuse. 4. History of hepatitis C status post Harvoni therapy. 5. Elevated PSA monitored by urology. 6. History of ruptured bowel status post colostomy with reversal, stable. Discharge plan: home. Impression and plan of care have been directed as dictated by the signing physician. Kayley Velásquez nurse practitioner acting as scribe for signing physician. Patient Condition at Discharge: Good Plan - Discharge Summary Discharge Rx Participant: No New Discharge Prescriptions: New Ipratropium-Albuterol Nebulize [Duoneb 0.5 mg-3 mg/3 ml Soln] 3 ml INHALATION RT-QID #120 inhalation predniSONE 0 mg PO DIRECTED #30 tab Pantoprazole [Protonix] 40 mg PO AC-BRKFST #30 tablet.dr Jaramillo-Coden 100-10MG/5ML [Robitussin AC] 10 ml PO Q6H PRN #120 ml PRN Reason: Cough Doxycycline [Vibramycin] 100 mg PO BID #10 cap Continue buPROPion HCL [Wellbutrin XL] 150 mg PO DAILY Fluticasone/Salmeterol [Advair 250-50 Diskus] 2 puff INHALATION RT-BID Albuterol Sulfate [Proair Hfa] 2 puff INHALATION RT-Q4H PRN #1 inhaler PRN Reason: Shortness Of Breath Discharge Medication List Fluticasone/Salmeterol [Advair 250-50 Diskus] 2 puff INHALATION RT-BID 08/19/20 [History] buPROPion HCL [Wellbutrin XL] 150 mg PO DAILY 08/19/20 [History] Albuterol Sulfate [Proair Hfa] 2 puff INHALATION RT-Q4H PRN #1 inhaler 08/21/20 [Rx] Doxycycline [Vibramycin] 100 mg PO BID #10 cap 08/21/20 [Rx] Ipratropium-Albuterol Nebulize [Duoneb 0.5 mg-3 mg/3 ml Soln] 3 ml INHALATION RT-QID #120 inhalation 08/21/20 [Rx] Pantoprazole [Protonix] 40 mg PO AC-BRKFST #30 tablet.dr 08/21/20 [Rx] guaiFENesin-Coden 100-10MG/5ML [Robitussin AC] 10 ml PO Q6H PRN #120 ml 08/21/20 [Rx] predniSONE 0 mg PO DIRECTED #30 tab 08/21/20 [Rx] Follow up Appointment(s)/Referral(s): Bala Lauren MD [STAFF PHYSICIAN] - 09/03/20 1:00 pm Lisa Terry NPC [Nurse Practitioner] - 08/25/20 3:15 pm Patient Instructions/Handouts: COPD (Chronic Obstructive Pulmonary Disease) (DC) Discharge Disposition: HOME SELF-CARE
== END 2020-08-21 09:42 | disposition home or self-care (01) | DRG 192 ==
LOC: EC 08:02 → 1SOBS 10:18 → UNDOADMOB 10:18 → 1SOBS 10:55 → OBSVTOIN 12:46 → 4SSUR 14:25
PROVIDERS: ADMIT Internal Medicine Geriatric Medicine; ATTEND Internal Medicine Geriatric Medicine
DX: J44.1 Chronic obstructive pulmonary disease with (acute) exacerbation (principal); J44.0 Chronic obstructive pulmonary disease with (acute) lower respiratory infection; J20.9 Acute bronchitis, unspecified; F17.210 Nicotine dependence, cigarettes, uncomplicated; Z20.828 Contact with and (suspected) exposure to other viral communicable diseases; M50.30 Other cervical disc degeneration, unspecified cervical region; M54.5 Low back pain; F11.11 Opioid abuse, in remission; F10.11 Alcohol abuse, in remission; Z89.022 Acquired absence of left finger(s); Z86.19 Personal history of other infectious and parasitic diseases; Z87.19 Personal history of other diseases of the digestive system; Z79.51 Long term (current) use of inhaled steroids; Z79.899 Other long term (current) drug therapy; Z82.3 Family history of stroke; Z82.49 Family history of ischemic heart disease and other diseases of the circulatory system; Z83.3 Family history of diabetes mellitus; Z86.718 Personal history of other venous thrombosis and embolism; R97.20 Elevated prostate specific antigen [PSA]
CPT/HCPCS: 36415; 71046; 80053; 83036; 83605; 83735; 83880; 84484; 85025; 85610; 85730; 87040; 87635; 93005; 94640; 96374; 96375; 99291

== ENCOUNTER 2021-05-09 15:30 | Inpatient (IN) | payer MEDICARE, OTHER ==
[2021-05-09] MEDS ORDERED: SODIUM CHLORIDE 0.9% 500 ML 500 ML IV STA ×2 (15:49→16:30)
[2021-05-09] MEDS ORDERED: IPRATROPIUM-ALBUTEROL 3 ML NEB INHALATION STA ×2 (15:49→19:01)
--- NOTE | 2021-05-09 15:55 | ED ---
SOB HPI - General Chief Complaint: Shortness of Breath Stated Complaint: SOB,Chest Congestion Source: patient, RN notes reviewed, old records reviewed Mode of arrival: wheelchair Limitations: no limitations - History of Present Illness Initial Comments: 66-year-old white male, alert and oriented 4, presents to the emergency room with complaints of cough and shortness of breath it's been worsening over the past 5 days. Patient states that he seen his nurse practitioner [address] office and was prescribed 5 pills and some steroids which she states did make him feel better for a short time until he started having tremors may told him to stop the steroids which resolved the tremors. Patient denies any fevers, chest pain or nausea and vomiting. He does state that he gets relief with his albuterol nebulizer but only for an hour. He states that this feels like an infection in his chest. He states he is unable to lay flat he must the upright. Patient does have history of COPD, DVT, hepatitis C. His oxygen sat is 96% on room air, he is tachycardic at 107 with a blood pressure 103/70 on arrival in the ER. MD Complaint: shortness of breath, cough -: week(s) (2) Severity scale (1-10): 7 Consistency: constant Improves With: bronchodilators, upright position Worsens With: lying flat, exertion, coughing Known History Of: COPD, DVT Associated Symptoms: cough, sputum production (White) Treatments Prior to Arrival: bronchodilator - Related Data Home Medications Medication Instructions Recorded Confirmed Fluticasone/Salmeterol [Advair 2 puff INHALATION RT-BID 08/19/20 08/19/20 250-50 Diskus] buPROPion HCL [Wellbutrin XL] 150 mg PO DAILY 08/19/20 08/19/20 Previous Rx's Medication Instructions Recorded Albuterol Sulfate [Proair Hfa] 2 puff INHALATION RT-Q4H PRN #1 08/21/20 inhaler Doxycycline [Vibramycin] 100 mg PO BID #10 cap 08/21/20 Ipratropium-Albuterol Nebulize 3 ml INHALATION RT-QID #120 08/21/20 [Duoneb 0.5 mg-3 mg/3 ml Soln] inhalation Pantoprazole [Protonix] 40 mg PO PATTI #30 tablet. 08/21/20 guaiFENesin-Coden 100-10MG/5ML 10 ml PO Q6H PRN #120 ml 08/21/20 [Robitussin AC] predniSONE 0 mg PO DIRECTED #30 tab 08/21/20 Allergies Allergy/AdvReac Type Severity Reaction Status Date / Time No Known Allergies Allergy Verified 05/09/21 15:37 Review of Systems ROS Statement: Those systems with pertinent positive or pertinent negative responses have been documented in the HPI. ROS Other: All systems not noted in ROS Statement are negative. 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 History of Any Multi-Drug Resistant Organisms: None Reported Past Surgical History: Bowel Resection, Hernia Repair Additional Past Surgical History / Comment(s): Ruptured bowel, temp colostomy, reversal of colostomy, finger amputation (blood clot), colonoscopy, L/R inguinal hernia repairs, circumcism. Past Anesthesia/Blood Transfusion Reactions: No Reported Reaction Past Psychological History: No Psychological Hx Reported Smoking Status: Former smoker Past Alcohol Use History: None Reported, Abuse Past Drug Use History: None Reported, IV Drug Use - Past Family History Mother Family Medical History: CVA/TIA Additional Family Medical History / Comment(s): Mother of a CVA (was on coumadin) at the age of 74 yrs. Father Family Medical History: Diabetes Mellitus, Deep Vein Thrombosis (DVT) Additional Family Medical History / Comment(s): Father of diabetic complications at the age of 70 yrs. General Exam Limitations: no limitations General appearance: alert, in no apparent distress Head exam: Present: atraumatic, normocephalic, normal inspection Eye exam: Present: normal appearance, PERRL, EOMI. Absent: scleral icterus, conjunctival injection, periorbital swelling Pupils: Present: normal accommodation ENT exam: Present: normal exam, normal oropharynx, mucous membranes moist Neck exam: Present: normal inspection, full ROM. Absent: tenderness, meningismus, lymphadenopathy Respiratory exam: Present: normal lung sounds bilaterally. Absent: respiratory distress, wheezes, rales, rhonchi, stridor, chest wall tenderness, accessory muscle use, decreased breath sounds Cardiovascular Exam: Present: regular rate, normal rhythm, normal heart sounds. Absent: systolic murmur, diastolic murmur, rubs, gallop, clicks GI/Abdominal exam: Present: soft, normal bowel sounds. Absent: distended, tenderness, guarding, rebound, rigid Extremities exam: Present: normal inspection, full ROM, normal capillary refill. Absent: tenderness, pedal edema, joint swelling, calf tenderness Back exam: Present: normal inspection, full ROM. Absent: tenderness, CVA tenderness (R), CVA tenderness (L), muscle spasm, paraspinal tenderness, vertebral tenderness, rash noted Neurological exam: Present: alert, oriented X3, CN II-XII intact Psychiatric exam: Present: normal affect, normal mood Skin exam: Present: warm, dry, intact, normal color. Absent: rash, cyanosis, diaphoretic, erythema, petechiae, pallor, mottled Course Vital Signs 05/09/21 05/09/21 05/09/21 15:34 16:00 16:02 Temperature 98.9 F Pulse Rate 107 H 101 H 98 Respiratory 22 20 20 Rate Blood Pressure 103/70 109/79 O2 Sat by Pulse 96 96 Oximetry 05/09/21 05/09/21 05/09/21 16:07 16:42 17:11 Temperature Pulse Rate 96 85 86 Respiratory 20 20 16 Rate Blood Pressure 114/81 117/73 O2 Sat by Pulse 96 95 Oximetry Medical Decision Making - Medical Decision Making Lactic acid is 2.8 patient was given a liter normal saline, magnesium is 2.2, WBC count is 8.3, hemoglobin and hematocrit is 15 and 47 respectively. Chest x- ray shows flattened diaphragms consistent with COPD. There is no infiltrate noted, heart mediastinum are within normal limits. Patient states that the DuoNeb treatments and has been hour and he becomes very short of breath again He is more comfortable if he could be admitted to the Hospital. Case discussed with Dr. Henson. Spoke with Dr. Colindres about admission, Dr. Lauren on consult for COPD exacerbation. - Lab Data Result diagrams: 05/09/21 15:54 05/09/21 15:54 Lab Results 05/09/21 05/09/21 05/09/21 Range/Units 15:54 15:54 15:54 WBC 8.3 (3.8-10.6) k/uL RBC 4.90 (4.30-5.90) m/uL Hgb 15.6 (13.0-17.5) gm/dL Hct 47.2 (39.0-53.0) % MCV 96.3 (80.0-100.0) fL MCH 31.9 (25.0-35.0) pg MCHC 33.1 (31.0-37.0) g/dL RDW 12.9 (11.5-15.5) % Plt Count 197 (150-450) k/uL MPV 8.5 Neutrophils % 63 % Lymphocytes % 22 % Monocytes % 6 % Eosinophils % 7 % Basophils % 1 % Neutrophils # 5.2 (1.3-7.7) k/uL Lymphocytes # 1.8 (1.0-4.8) k/uL Monocytes # 0.5 (0-1.0) k/uL Eosinophils # 0.6 (0-0.7) k/uL Basophils # 0.1 (0-0.2) k/uL PT 10.2 (9.0-12.0) sec INR 0.9 (<1.2) APTT 25.1 (22.0-30.0) sec D-Dimer 0.53 (<0.60) mg/L FEU Sodium (137-145) mmol/L Potassium (3.5-5.1) mmol/L Chloride (98-107) mmol/L Carbon Dioxide (22-30) mmol/L Anion Gap mmol/L BUN (9-20) mg/dL Creatinine (0.66-1.25) mg/dL Est GFR (CKD-EPI)AfAm (>60 ml/min/1.73 sqM) Est GFR (CKD-EPI)NonAf (>60 ml/min/1.73 sqM) Glucose (74-99) mg/dL Plasma Lactic Acid Sam (0.7-2.0) mmol/L Calcium (8.4-10.2) mg/dL Magnesium (1.6-2.3) mg/dL Total Bilirubin (0.2-1.3) mg/dL AST (17-59) U/L ALT (4-49) U/L Alkaline Phosphatase (38-126) U/L Troponin I (0.000-0.034) ng/mL Total Protein (6.3-8.2) g/dL Albumin (3.5-5.0) g/dL Urine Color Yellow Urine Appearance Clear (Clear) Urine pH 5.5 (5.0-8.0) Ur Specific [place] 1.011 (1.001-1.035) Urine Protein Negative (Negative) Urine Glucose (UA) Negative (Negative) Urine Ketones Negative (Negative) Urine Blood Negative (Negative) Urine Nitrite Negative (Negative) Urine Bilirubin Negative (Negative) Urine Urobilinogen <2.0 (<2.0) mg/dL Ur Leukocyte Esterase Negative (Negative) 05/09/21 05/09/21 05/09/21 Range/Units 15:54 15:54 15:54 WBC (3.8-10.6) k/uL RBC (4.30-5.90) m/uL Hgb (13.0-17.5) gm/dL Hct (39.0-53.0) % MCV (80.0-100.0) fL MCH (25.0-35.0) pg MCHC (31.0-37.0) g/dL RDW (11.5-15.5) % Plt Count (150-450) k/uL MPV Neutrophils % % Lymphocytes % % Monocytes % % Eosinophils % % Basophils % % Neutrophils # (1.3-7.7) k/uL Lymphocytes # (1.0-4.8) k/uL Monocytes # (0-1.0) k/uL Eosinophils # (0-0.7) k/uL Basophils # (0-0.2) k/uL PT (9.0-12.0) sec INR (<1.2) APTT (22.0-30.0) sec D-Dimer (<0.60) mg/L FEU Sodium 139 (137-145) mmol/L Potassium 3.8 (3.5-5.1) mmol/L Chloride 103 (98-107) mmol/L Carbon Dioxide 23 (22-30) mmol/L Anion Gap 13 mmol/L BUN 10 (9-20) mg/dL Creatinine 0.91 (0.66-1.25) mg/dL Est GFR (CKD-EPI)AfAm >90 (>60 ml/min/1.73 sqM) Est GFR (CKD-EPI)NonAf 86 (>60 ml/min/1.73 sqM) Glucose 138 H (74-99) mg/dL Plasma Lactic Acid Sam 2.8 H* (0.7-2.0) mmol/L Calcium 9.7 (8.4-10.2) mg/dL Magnesium 2.2 (1.6-2.3) mg/dL Total Bilirubin 0.7 (0.2-1.3) mg/dL AST 31 (17-59) U/L ALT 18 (4-49) U/L Alkaline Phosphatase 69 (38-126) U/L Troponin I <0.012 (0.000-0.034) ng/mL Total Protein 7.3 (6.3-8.2) g/dL Albumin 4.6 (3.5-5.0) g/dL Urine Color Urine Appearance (Clear) Urine pH (5.0-8.0) Ur Specific [place] (1.001-1.035) Urine Protein (Negative) Urine Glucose (UA) (Negative) Urine Ketones (Negative) Urine Blood (Negative) Urine Nitrite (Negative) Urine Bilirubin (Negative) Urine Urobilinogen (<2.0) mg/dL Ur Leukocyte Esterase (Negative) - EKG Data EKG shows normal: sinus rhythm (Ventricular rate of 105, CA interval 0.128, QRS of 0.94, QTC of 0.459) Disposition Clinical Impression: COPD exacerbation Disposition: ADMITTED IP TO THIS HOSP Condition: Fair Referrals: Brandyn Ware MD [Primary Care Provider] - 1-2 days Decision Date: 05/09/21 Decision Time: 17:45
[2021-05-09 16:24] LABS: ALT 18 U/L (4-49); AST 31 U/L (17-59); African American GFR (CKD) >90 (>60 ml/min/1.73 sqM); Albumin 4.6 g/dL (3.5-5.0); Alkaline Phosphatase 69 U/L (38-126); Anion Gap 13 mmol/L; Blood Urea Nitrogen 10 mg/dL (9-20); Calcium 9.7 mg/dL (8.4-10.2); Carbon Dioxide 23 mmol/L (22-30); Chloride 103 mmol/L (98-107); Glucose 138 mg/dL (74-99); Magnesium 2.2 mg/dL (1.6-2.3); Non-African American GFR(CKD) 86 (>60 ml/min/1.73 sqM); Potassium 3.8 mmol/L (3.5-5.1); Sodium 139 mmol/L (137-145); Total Bilirubin 0.7 mg/dL (0.2-1.3); Total Protein 7.3 g/dL (6.3-8.2)
--- NOTE | 2021-05-09 16:24 | XR ---
EXAMINATION TYPE: XR chest 2V DATE OF EXAM: 05/09/2021 COMPARISON: 08/19/2020 HISTORY: Difficulty breathing TECHNIQUE: FINDINGS: Heart and mediastinum are within normal limits. Lungs are clear of infiltrate. There is no heart failure. There are no hilar masses. Bony thorax is intact. There is mild flattening of the diap hragm. IMPRESSION: There is probably COPD. No acute lung disease. No change.
[2021-05-09 16:26] LABS: Basophils # (A) 0.1 k/uL (0-0.2); Basophils % (A) 1 %; Eosinophils # (A) 0.6 k/uL (0-0.7); Eosinophils % (A) 7 %; HCT 47.2 % (39.0-53.0); HGB 15.6 gm/dL (13.0-17.5); Lymphocytes # (A) 1.8 k/uL (1.0-4.8); Lymphocytes % (A) 22 %; MCH 31.9 pg (25.0-35.0); MCHC 33.1 g/dL (31.0-37.0); MCV 96.3 fL (80.0-100.0); Mean Platelet Volume 8.5; Monocytes # (A) 0.5 k/uL (0-1.0); Monocytes % (A) 6 %; Neutrophils # (A) 5.2 k/uL (1.3-7.7); Neutrophils % (A) 63 %; Platelet Count 197 k/uL (150-450); RDW 12.9 % (11.5-15.5); WBC 8.3 k/uL (3.8-10.6)
[2021-05-09 16:27] LABS: D-Dimer 0.53 mg/L FEU (<0.60); INR 0.9 (<1.2); Partial Thromboplastin Time 25.1 sec (22.0-30.0); Prothrombin Time 10.2 sec (9.0-12.0)
[2021-05-09 17:21] LABS: Appearance,Urine Clear (Clear); Bilirubin,Urine Negative (Negative); Blood,Urine Negative (Negative); Color,Urine Yellow; Glucose,Urine (UA) Negative (Negative); Ketones,Urine Negative (Negative); Leukocyte Esterase,Urine Negative (Negative); Nitrite,Urine Negative (Negative); PH, Urine 5.5 (5.0-8.0); Protein,Urine Negative (Negative); Specific Gravity,Urine 1.011 (1.001-1.035); Urobilinogen,Urine <2.0 mg/dL (<2.0)
[2021-05-09] MEDS ORDERED: methylPREDNISolone SOD SUCCI 125 MG/2 ML VIAL IV STA (17:35)
[2021-05-09] MEDS ORDERED: ACETAMINOPHEN TAB 325 MG TAB PO PRN (17:39)
[2021-05-09] MEDS ORDERED: NALOXONE 0.4 MG/ML 1 ML VIAL IV PRN (17:39)
[2021-05-10] MEDS ORDERED: IPRATROPIUM-ALBUTEROL 3 ML NEB INHALATION STA (01:04)
[2021-05-10] MEDS ORDERED: IPRATROPIUM-ALBUTEROL 3 ML NEB INHALATION PRN (03:43)
[2021-05-10] MEDS: IPRATROPIUM-ALBUTEROL 3 ML NEB INHALATION SCH ×4 (08:02→19:20)
[2021-05-10] MEDS: DOXYCYCLINE 100 MG CAP PO SCH ×2 (10:39→20:36)
--- NOTE | 2021-05-10 11:15 | P.CNPUL ---
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 He is maintained on Advair and albuterol in the outpatient setting. He had been seen at his PCPs office for COPD exacerbation treated with steroids and antibiotics. The steroids made him quite shaky and tremor a similar subsequent stop prior to completing the course. He did feel better if briefly. He presented here to the emergency room yesterday with increasing shortness of breath, cough and congestion. Chest x-ray reveals no acute pulmonary process. There is evidence of COPD. He is seen today in consultation on the regular medical floor. He is currently sitting up in bed. Awake and alert in no acute distress. He is dyspneic with minimal exertion. He does have a loose nonproductive cough. Maintaining O2 saturations in the 90s on 2 L/m per nasal cannula. Afebrile. Hemodynamically stable. White count 8.3. Hemoglobin 15.6. D-dimer 0.53. Sodium 139. Potassium 3.8. Creatinine 0.91. AST 31. ALT 18. Troponin negative 1. Initial lactic acid 2.8. Currently 1.0. He's been initiated on DuoNeb inhalations, Symbicort, doxycycline. Review of Systems REVIEW OF SYSTEMS: CONSTITUTIONAL: Denies any recent significant weight loss or weight gain. EYES: Denies change in vision. EARS, NOSE, MOUTH, THROAT: Denies headaches, denies sore throat. CARDIOVASCULAR: Denies chest pain, palpitations or syncopal episodes. RESPIRATORY: Positive for shortness of breath, cough, congestion no hemoptysis. GASTROINTESTINAL: Denies change in appetite, denies abdominal pain GENITOURINARY: Denies hematuria, denies infections. MUSKULOSKELETAL: Denies pain, denies swelling. INTEGUMENTARY: Denies rash, denies eczema. NEUROLOGICAL: Denies recent memory loss, no recent seizure activity. PSYCHIATRIC: Denies anxiety, denies depression. HEMATOLOGIC/LYMPHATIC: Denies anemia, denies enlarged lymph nodes. 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 History of Any Multi-Drug Resistant Organisms: None Reported Past Surgical History: Bowel Resection, Hernia Repair Additional Past Surgical History / Comment(s): Ruptured bowel, temp colostomy, reversal of colostomy, finger amputation (blood clot), colonoscopy, L/R inguinal hernia repairs, circumcism. Past Anesthesia/Blood Transfusion Reactions: No Reported Reaction Past Psychological History: No Psychological Hx Reported Additional Psychological History / Comment(s): Pt resides with his significant other. He is independent. Smoking Status: Former smoker Past Alcohol Use History: None Reported, Abuse Additional Past Alcohol Use History / Comment(s): Pt started smoking in 1967 and quit 10 yrs ago. Pt has hx of alcohol abuse but has been sober 11 yrs. Past Drug Use History: None Reported, IV Drug Use Additional Drug Use History / Comment(s): Pt used to use IV drugs (cocaine, heroin, crack)-no drug use for 26 years - Past Family History Mother Family Medical History: CVA/TIA Additional Family Medical History / Comment(s): Mother of a CVA (was on coumadin) at the age of 74 yrs. Father Family Medical History: Diabetes Mellitus, Deep Vein Thrombosis (DVT) Additional Family Medical History / Comment(s): Father of diabetic complications at the age of 70 yrs. Medications and Allergies Home Medications Medication Instructions Recorded Confirmed Type Fluticasone/Salmeterol [Advair 2 puff INHALATION RT-BID 08/19/20 05/09/21 History 250-50 Diskus] buPROPion HCL [Wellbutrin XL] 150 mg PO DAILY 08/19/20 05/09/21 History Ipratropium-Albuterol Nebulize 3 ml INHALATION RT-QID #120 08/21/20 05/09/21 Rx [Duoneb 0.5 mg-3 mg/3 ml Soln] inhalation Albuterol Sulfate [Albuterol 2 puff PO RT-Q4H PRN 05/09/21 05/09/21 History Sulfate Hfa] Allergies Allergy/AdvReac Type Severity Reaction Status Date / Time No Known Allergies Allergy Verified 05/09/21 17:52 Physical Exam Vitals: Vital Signs Temp Pulse Pulse Resp BP BP Pulse Ox 05/10/21 08:13 88 05/10/21 08:02 84 05/10/21 07:00 97.8 F 87 20 123/80 94 L 05/10/21 02:00 97.5 F L 62 17 105/67 96 05/10/21 01:10 88 05/10/21 01:04 86 05/09/21 21:50 98.1 F 86 17 115/71 96 05/09/21 21:02 85 18 114/79 94 L 05/09/21 20:06 98.2 F 93 20 111/83 95 05/09/21 20:04 83 05/09/21 19:48 83 96 05/09/21 17:58 97.7 F 82 20 110/69 93 L 05/09/21 17:11 86 16 117/73 95 05/09/21 16:42 85 20 114/81 96 05/09/21 16:07 96 20 05/09/21 16:02 98 20 109/79 96 05/09/21 16:00 101 H 20 05/09/21 15:34 98.9 F 107 H 22 103/70 96 Intake and Output 05/09/21 05/10/21 05/10/21 22:59 06:59 14:59 Other: Voiding Method Toilet Toilet Weight 81.647 kg GENERAL EXAM: Alert, pleasant 66-year-old gentleman, on 2 L nasal cannula, comfortable in no apparent distress. HEAD: Normocephalic. EYES: Normal reaction of pupils, equal size. NOSE: Clear with pink turbinates. THROAT: No erythema or exudates. NECK: No masses, no JVD. CHEST: No chest wall deformity. LUNGS: Equal air entry with expiratory wheeze, diminished. CVS: S1 and S2 normal with no audible murmur, regular rhythm. ABDOMEN: No hepatosplenomegaly, normal bowel sounds, no guarding or rigidity. SPINE: No scoliosis or deformity SKIN: No rashes CENTRAL NERVOUS SYSTEM: No focal deficits, tone is normal in all 4 extremities. EXTREMITIES: There is no peripheral edema. No clubbing, no cyanosis. Peripheral pulses are intact. Results - Laboratory Findings CBC and BMP: 05/09/21 15:54 05/09/21 15:54 PT/INR, D-dimer PT 10.2 sec (9.0-12.0) 05/09/21 15:54 INR 0.9 (<1.2) 05/09/21 15:54 D-Dimer 0.53 mg/L FEU (<0.60) 05/09/21 15:54 Abnormal lab findings: Abnormal Labs 05/09/21 05/09/21 15:54 15:54 Glucose 138 H Plasma Lactic Acid Sam 2.8 H* - Diagnostic Findings Chest x-ray: image reviewed (No acute pulmonary process) Assessment and Plan Assessment: 1 Acute hypoxemic respiratory failure secondary to an acute exacerbation of chronic obstructive pulmonary disease, failed outpatient treatment 2 Chronic tobacco dependence 3 History of hepatitis C, treated with Harvoni 4 History of IV drug abuse 5 Left fifth digit of the hand amputated due to blood clot from IV drug use 6 History of bowel resection with colostomy and subsequent reversal 7 History of bilateral inguinal hernia repairs Plan: The patient was seen and evaluated by Dr. Leslie Continue DuoNeb inhalations Add Symbicort Avoid steroids for now Empiric antibiotics in the form of doxycycline Titrate down the FiO2 as tolerated We will continue to follow and make further recommendations based on his clinical status I, the cosigning physician, performed a history & physical examination of the patient. Lungs sounds with end expiratory wheeze, diminished. Maintaining good O2 saturations in the 90s on 2 L/m per nasal cannula. I discussed the assessment and plan of care with my nurse practitioner, Anne Marie Franco. I attest to the above consultation as dictated by her. Time with Patient: Greater than 30
[2021-05-10] MEDS: NICOTINE 21MG/24HR PATCH TRANSDERM SCH (12:03)
[2021-05-10] MEDS: guaiFENesin-DM 100-10MG/5ML 10 ML CUP PO PRN (12:20)
--- NOTE | 2021-05-10 18:00 | P.HPIM ---
History of Present Illness H&P Date: 05/10/21 Chief Complaint: Shortness of breath cough This is a 65-year-old male patient of Dr. Ware with past medical history of COPD, tobacco use and dependence, remote history of drug and alcohol abuse, history of hepatitis C status post Harvoni therapy, elevated PSA ruben tored by Dr. 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 Patient has Symbicort at home, for which she ran out, and has constantly been using Proventil, it looks like he is renewable is still too soon hence the pharmacy has allow it to be given until one week from now. Patient comes into the emergency room secondary to cough, shortness of breath, difficulty breathing, whitish -like yellow sputum, patient currently still smokes, however he's been trying to quit off and on for the past 2 weeks, he does not have any oxygen at home, however she uses 3 pillows at night to sleep, unsure whether patient has sleep apnea, as he wakes up gasping for air. he does not see a pulmonary physician on a routine basis. He was given an antibiotic, steroid shot, and oral prednisone taper, by our nurse practitioner in the office approximately 2 weeks ago, for which she got better and subsequently gotten worse. Patient, [place] of significant tremors, as result of the oral prednisone, however he's willing to try IV steroids at this time, to help him breathe better. Emergency room, he is wheezing, chest x-ray shows flattening of diaphragm, COPD changes, no acute infiltrate, masses, EKG shows sinus Tachycardia, no acute ST-T wave changes, no QT prolongation wbc, 8.3, d-dimer 0.53, pCO2 23, blood sugar 13 8, lactic acid 2.8, troponin 0.012, urinalysis negative. Patient was in by pulmonary, they have discussed the steroid option to him, however patient wanted to start IV steroids, as he did not have problems chewing the shots in the office. Patient does not want to be on an oral prednisone taper as he had previously Review of Systems Constitutional: Reports as per HPI, Reports chills, Reports fatigue Ears, nose, mouth and throat: Reports as per HPI, Reports hoarseness, Denies ant. neck pain, Denies bleeding gums, Denies dental pain, Denies dysphagia, Denies epistaxis, Denies headache, Denies mouth pain, Denies nasal congestion, Denies nasal discharge, Denies neck fullness/pressure, Denies neck lump, Denies nose pain, Denies odynophagia, Denies post-nasal drip, Denies sinus pain, Denies sinus pressure, Denies swelling in mouth, Denies swelling in throat, Denies sore throat, Denies vertigo, Denies voice changes Respiratory: Reports as per HPI, Reports cough, Reports cough with sputum, Reports dyspnea, Reports excessive sputum, Reports pleurisy, Reports respiratory infections, Reports wheezing Gastrointestinal: Reports as per HPI, Denies change in bowel habits, Denies coffee ground emesis, Denies constipation, Denies early satiety, Denies excessive gas, Denies heartburn, Denies hematochezia, Denies indigestion Genitourinary: Reports as per HPI, Denies urinary frequency, Denies urinary hesitancy, Denies urinary retention Musculoskeletal: Reports as per HPI, Denies gait dysfunction, Denies hot joints, Denies leg numbness/tingling, Denies limitation of motion, Denies muscle weakness Integumentary: Reports as per HPI Neurological: Reports as per HPI Psychiatric: Reports as per HPI, Denies anhedonia, Denies anxiety, Denies anxiety attacks, Denies change in appetite, Denies change in libido, Denies change in sleep habits, Denies confusion, Denies depression, Denies difficulty concentrating, Denies disorientation, Denies hallucinations, Denies hopelessness, Denies hypersomnia, Denies insomnia, Denies irritability, Denies memory loss, Denies mood swings, Denies paranoia, Denies sadness/tearfulness, Denies sleep disturbances, Denies suicidal ideation Endocrine: Reports as per HPI Hematologic/Lymphatic: Reports as per HPI Allergic/Immunologic: Reports as per HPI Past Medical History Past Medical History: COPD, Deep Vein Thrombosis (DVT), Liver Disease Additional Past Medical History / Comment(s): hepatitis C diagnosed 09/2015 currently under outpatient treatment, 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 History of Any Multi-Drug Resistant Organisms: None Reported Past Surgical History: Bowel Resection, Hernia Repair Additional Past Surgical History / Comment(s): Ruptured bowel, temp colostomy, reversal of colostomy, finger amputation (blood clot), colonoscopy, L/R inguinal hernia repairs, circumcism. Past Anesthesia/Blood Transfusion Reactions: No Reported Reaction Past Psychological History: No Psychological Hx Reported Additional Psychological History / Comment(s): Pt resides with his significant other. He is independent. Smoking Status: Former smoker Past Alcohol Use History: None Reported, Abuse Additional Past Alcohol Use History / Comment(s): Pt started smoking in 1967 and quit 10 yrs ago. Pt has hx of alcohol abuse but has been sober 11 yrs. Past Drug Use History: None Reported, IV Drug Use Additional Drug Use History / Comment(s): Pt used to use IV drugs (cocaine, heroin, crack)-no drug use for 26 years - Past Family History Mother Family Medical History: CVA/TIA Additional Family Medical History / Comment(s): Mother of a CVA (was on coumadin) at the age of 74 yrs. Father Family Medical History: Diabetes Mellitus, Deep Vein Thrombosis (DVT) Additional Family Medical History / Comment(s): Father of diabetic complications at the age of 70 yrs. Medications and Allergies Home Medications Medication Instructions Recorded Confirmed Type Fluticasone/Salmeterol [Advair 2 puff INHALATION RT-BID 08/19/20 05/09/21 History 250-50 Diskus] buPROPion HCL [Wellbutrin XL] 150 mg PO DAILY 08/19/20 05/09/21 History Ipratropium-Albuterol Nebulize 3 ml INHALATION RT-QID #120 08/21/20 05/09/21 Rx [Duoneb 0.5 mg-3 mg/3 ml Soln] inhalation Albuterol Sulfate [Albuterol 2 puff PO RT-Q4H PRN 05/09/21 05/09/21 History Sulfate Hfa] Allergies Allergy/AdvReac Type Severity Reaction Status Date / Time No Known Allergies Allergy Verified 05/09/21 17:52 Physical Exam Vitals: Vital Signs Temp Pulse Pulse Resp BP BP Pulse Ox 05/10/21 11:46 88 05/10/21 11:36 88 05/10/21 08:13 88 05/10/21 08:02 84 05/10/21 07:00 97.8 F 87 20 123/80 94 L 05/10/21 02:00 97.5 F L 62 17 105/67 96 05/10/21 01:10 88 05/10/21 01:04 86 05/09/21 21:50 98.1 F 86 17 115/71 96 05/09/21 21:02 85 18 114/79 94 L 05/09/21 20:06 98.2 F 93 20 111/83 95 05/09/21 20:04 83 05/09/21 19:48 83 96 05/09/21 17:58 97.7 F 82 20 110/69 93 L 05/09/21 17:11 86 16 117/73 95 05/09/21 16:42 85 20 114/81 96 05/09/21 16:07 96 20 05/09/21 16:02 98 20 109/79 96 05/09/21 16:00 101 H 20 05/09/21 15:34 98.9 F 107 H 22 103/70 96 Intake and Output 05/09/21 05/10/21 05/10/21 22:59 06:59 14:59 Other: Voiding Method Toilet Toilet Weight 81.647 kg - Constitutional General appearance: cooperative, no acute distress - EENT Eyes: PERRLA, dentition normal, normal appearance ENT: NA/AT, normal oropharynx - Neck Neck: normal ROM - Respiratory Respiratory: bilateral: diminished, wheezing, negative: CTA, dullness, prolonged expiration, prolonged inspiration - Cardiovascular Rhythm: regular Heart sounds: normal: S1, S2 Abnormal Heart Sounds: no systolic murmur, no diastolic murmur, no rub, no S3 G allop, no S4 Gallop, no click, no other - Gastrointestinal General gastrointestinal: normal bowel sounds, soft - Integumentary Integumentary: decreased turgor, normal - Neurologic Neurologic: CNII-XII intact - Musculoskeletal Musculoskeletal: gait normal, strength equal bilaterally - Psychiatric Psychiatric: A&O x's 3, appropriate affect, intact judgment & insight Results CBC & Chem 7: 05/09/21 15:54 05/09/21 15:54 Labs: Abnormal Lab Results - Last 24 Hours (Table) 05/09/21 05/09/21 Range/Units 15:54 15:54 Glucose 138 H (74-99) mg/dL Plasma Lactic Acid Sam 2.8 H* (0.7-2.0) mmol/L Laboratory Results WBC 8.3 k/uL (3.8-10.6) 05/09/21 15:54 RBC 4.90 m/uL (4.30-5.90) 05/09/21 15:54 Hgb 15.6 gm/dL (13.0-17.5) 05/09/21 15:54 Hct 47.2 % (39.0-53.0) 05/09/21 15:54 MCV 96.3 fL (80.0-100.0) 05/09/21 15:54 MCH 31.9 pg (25.0-35.0) 05/09/21 15:54 MCHC 33.1 g/dL (31.0-37.0) 05/09/21 15:54 RDW 12.9 % (11.5-15.5) 05/09/21 15:54 Plt Count 197 k/uL (150-450) 05/09/21 15:54 MPV 8.5 05/09/21 15:54 Neutrophils % 63 % 05/09/21 15:54 Lymphocytes % 22 % 05/09/21 15:54 Monocytes % 6 % 05/09/21 15:54 Eosinophils % 7 % 05/09/21 15:54 Basophils % 1 % 05/09/21 15:54 Neutrophils # 5.2 k/uL (1.3-7.7) 05/09/21 15:54 Lymphocytes # 1.8 k/uL (1.0-4.8) 05/09/21 15:54 Monocytes # 0.5 k/uL (0-1.0) 05/09/21 15:54 Eosinophils # 0.6 k/uL (0-0.7) 05/09/21 15:54 Basophils # 0.1 k/uL (0-0.2) 05/09/21 15:54 PT 10.2 sec (9.0-12.0) 05/09/21 15:54 INR 0.9 (<1.2) 05/09/21 15:54 APTT 25.1 sec (22.0-30.0) 05/09/21 15:54 D-Dimer 0.53 mg/L FEU (<0.60) 05/09/21 15:54 Sodium 139 mmol/L (137-145) 05/09/21 15:54 Potassium 3.8 mmol/L (3.5-5.1) 05/09/21 15:54 Chloride 103 mmol/L (98-107) 05/09/21 15:54 Carbon Dioxide 23 mmol/L (22-30) 05/09/21 15:54 Anion Gap 13 mmol/L 05/09/21 15:54 BUN 10 mg/dL (9-20) 05/09/21 15:54 Creatinine 0.91 mg/dL (0.66-1.25) 05/09/21 15:54 Est GFR (CKD-EPI)AfAm >90 (>60 ml/min/1.73 sqM) 05/09/21 15:54 Est GFR (CKD-EPI)NonAf 86 (>60 ml/min/1.73 sqM) 05/09/21 15:54 Glucose 138 mg/dL (74-99) H 05/09/21 15:54 Lactic Ac Sepsis Rflx Y 05/09/21 16:28 Plasma Lactic Acid Sam 1.0 mmol/L (0.7-2.0) 05/09/21 20:12 Calcium 9.7 mg/dL (8.4-10.2) 05/09/21 15:54 Magnesium 2.2 mg/dL (1.6-2.3) 05/09/21 15:54 Total Bilirubin 0.7 mg/dL (0.2-1.3) 05/09/21 15:54 AST 31 U/L (17-59) 05/09/21 15:54 ALT 18 U/L (4-49) 05/09/21 15:54 Alkaline Phosphatase 69 U/L (38-126) 05/09/21 15:54 Troponin I <0.012 ng/mL (0.000-0.034) 05/09/21 15:54 Total Protein 7.3 g/dL (6.3-8.2) 05/09/21 15:54 Albumin 4.6 g/dL (3.5-5.0) 05/09/21 15:54 Urine Color Yellow 05/09/21 15:54 Urine Appearance Clear (Clear) 05/09/21 15:54 Urine pH 5.5 (5.0-8.0) 05/09/21 15:54 Ur Specific [place] 1.011 (1.001-1.035) 05/09/21 15:54 Urine Protein Negative (Negative) 05/09/21 15:54 Urine Glucose (UA) Negative (Negative) 05/09/21 15:54 Urine Ketones Negative (Negative) 05/09/21 15:54 Urine Blood Negative (Negative) 05/09/21 15:54 Urine Nitrite Negative (Negative) 05/09/21 15:54 Urine Bilirubin Negative (Negative) 05/09/21 15:54 Urine Urobilinogen <2.0 mg/dL (<2.0) 05/09/21 15:54 Ur Leukocyte Esterase Negative (Negative) 05/09/21 15:54 Thrombosis Risk Factor Assmnt - DVT/VTE Prophylaxis DVT/VTE Prophylaxis: Pharmacologic Prophylaxis ordered - Choose All That Apply Each Factor Represents 1 point: Abnormal pulmonary function (COPD) Each Risk Factor Represents 2 Points: Age 61-74 years Each Risk Factor Represents 3 Points: History of DVT/PE Thrombosis Risk Factor Assessment Total Risk Factor Score: 6 Thrombosis Risk Factor Assessment Level: High Risk Assessment and Plan Plan: 1. acute hypoxemic resp failure/ Acute COPD exacerbation with acute tracheobronchitis oral ash mild DuoNeb treatments 4 times daily and as nee ded, Symbicort, Robitussin with codeine every 6 hours as needed, Solu-Medrol 40 mg IV every 8 hours as discussed with the patient, patient is agreeable to use this, as he prefers to breathe better, no plans for oral prednisone taper, consult with pulmonary medicine. Start clotrimazole Trouche 4 times a day 2. Tobacco use and dependence. Continue Wellbutrin XL 150 mg daily. Nicotine patches, 3. Remote history of drug and alcohol abuse. 4. History of hepatitis C status post Harvoni therapy. 5. Elevated PSA monitored by urology. 6. History of ruptured bowel status post colostomy with reversal, stable. 7. DVT prophylaxis. Heparin subcu. 8. GI prophylaxis. Jayna oseguera hand tremors related with oral predniosne Patient will be admitted to the hospital for a minimum of 2 night stay. Discharge plan: Return home.
[2021-05-10] MEDS: methylPREDNISolone SOD SUCCI 40 MG/ML 1 ML VIAL IV SCH (19:14)
[2021-05-10] MEDS: SYMBICORT 160-4.5 MCG INHALER INHALATION SCH (19:20)
[2021-05-10] MEDS: FAMOTIDINE 20 MG TAB PO SCH (20:35)
[2021-05-10] MEDS: CLOTRIMAZOLE TROCHE 10 MG TROCHE MUCOUS MEM SCH (20:36)
[2021-05-10] MEDS: HEPARIN SODIUM,PORCINE/PF 5,000 UNIT/0.5 ML SYRINGE SQ SCH (20:36)
[2021-05-11] MEDS: CLOTRIMAZOLE TROCHE 10 MG TROCHE MUCOUS MEM SCH ×5 (00:31→20:26)
[2021-05-11] MEDS: methylPREDNISolone SOD SUCCI 40 MG/ML 1 ML VIAL IV SCH ×3 (02:12→16:06)
[2021-05-11] MEDS: DOXYCYCLINE 100 MG CAP PO SCH ×2 (08:14→20:25)
[2021-05-11] MEDS: HEPARIN SODIUM,PORCINE/PF 5,000 UNIT/0.5 ML SYRINGE SQ SCH ×2 (08:14→20:27)
[2021-05-11] MEDS: NICOTINE 21MG/24HR PATCH TRANSDERM SCH (08:15)
[2021-05-11] MEDS: FAMOTIDINE 20 MG TAB PO SCH ×2 (08:15→20:27)
[2021-05-11] MEDS: buPROPion XL 150 MG TAB.ER.24H PO SCH (08:15)
[2021-05-11] MEDS: IPRATROPIUM-ALBUTEROL 3 ML NEB INHALATION SCH ×4 (08:56→19:07)
[2021-05-11] MEDS: SYMBICORT 160-4.5 MCG INHALER INHALATION SCH ×2 (08:56→19:07)
--- NOTE | 2021-05-11 09:06 | P.PN ---
Subjective Progress Note Date: 05/11/21 HISTORY OF PRESENT ILLNESS This is a 65-year-old male patient of Dr. Ware with past medical his tory of COPD, tobacco use and dependence, remote history of drug and alcohol abuse, history of hepatitis C status post Harvoni therapy, elevated PSA monitored by Dr. 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 Patient has Symbicort at home, for which she ran out, and has constantly been using Proventil, it looks like he is renewable is still too soon hence the pharmacy has allow it to be given until one week from now. Patient comes into the emergency room secondary to cough, shortness of breath, difficulty breathing, whitish -like yellow sputum, patient currently still smokes, however he's been trying to quit off and on for the past 2 weeks, he does not have any oxygen at home, however she uses 3 pillows at night to sleep, unsure whether patient has sleep apnea, as he wakes up gasping for air. he does not see a pulmonary physician on a routine basis. He was given an antibiotic, steroid sh ot, and oral prednisone taper, by our nurse practitioner in the office approximately 2 weeks ago, for which she got better and subsequently gotten worse. Patient, [place] of significant tremors, as result of the oral prednisone, however he's willing to try IV steroids at this time, to help him breathe better. Emergency room, he is wheezing, chest x-ray shows flattening of diaphragm, COPD changes, no acute infiltrate, masses, EKG shows sinus Tachycardia, no acute ST-T wave changes, no QT prolongation wbc, 8.3, d-dimer 0.53, pCO2 23, blood sugar 138, lactic acid 2.8, troponin 0.012, urinalysis negative. Patient was in by pulmonary, they have discussed the steroid option to him, however patient wanted to start IV steroids, as he did not have problems chewing the shots in the office. Patient does not want to be on an oral prednisone taper as he had previously 05/11: Patient has been afebrile, heart rate 73, blood pressure 117/73, pulse ox 95% on 2 L nasal cannula. Repeat lactic acid is 1. patient is on Solu-Medrol 40 mg IV every 8 hours. Consult with pulmonary medicine with recommendations to add Symbicort and doxycycline. Patient states that his breathing was better yesterday and worse this morning. Still having cough with increased clear sputum production and shakes. He is on REVIEW OF SYSTEMS Constitutional: Reports as per HPI, Reports chills, Reports fatigue Ears, nose, mouth and throat: Reports as per HPI, Reports hoarseness, Denies ant. neck pain, Denies bleeding gums, Denies dental pain, Denies dysphagia, Denies epistaxis, Denies headache, Denies mouth pain, Denies nasal congestion, Denies nasal discharge, Denies neck fullness/pressure, Denies neck lump, Denies nose pain, Denies odynophagia, Denies post-nasal drip, Denies sinus pain, Denies sinus pressure, Denies swelling in mouth, Denies swelling in throat, Denies sore throat, Denies vertigo, Denies voice changes Respiratory: Reports as per HPI, Reports cough, Reports cough with sputum, Reports dyspnea, Reports excessive sputum, Reports pleurisy, Reports respiratory infections, Reports wheezing Gastrointestinal: Reports as per HPI, Denies change in bowel habits, Denies coffee ground emesis, Denies constipation, Denies early satiety, Denies excessive gas, Denies heartburn, Denies hematochezia, Denies indigestion Genitourinary: Reports as per HPI, Denies urinary frequency, Denies urinary hesitancy, Denies urinary retention Musculoskeletal: Reports as per HPI, Denies gait dysfunction, Denies hot joints, Denies leg numbness/tingling, Denies limitation of motion, Denies muscle weakness Integumentary: Reports as per HPI Neurological: Reports as per HPI Psychiatric: Reports as per HPI, Denies anhedonia, Denies anxiety, Denies anxiety attacks, Denies change in appetite, Denies change in libido, Denies change in sleep habits, Denies confusion, Denies depression, Denies difficulty concentrating, Denies disorientation, Denies hallucinations, Denies hopelessness, Denies hypersomnia, Denies insomnia, Denies irritability, Denies memory loss, Denies mood swings, Denies paranoia, Denies sadness/tearfulness, Denies sleep disturbances, Denies suicidal ideation Endocrine: Reports as per HPI Hematologic/Lymphatic: Reports as per HPI Allergic/Immunologic: Reports as per HPI] PHYSICAL EXAMINATION Gen: This is a 66-yesr-old male patient resting in recliner and appears to be in no acute distress HEENT: Head is atraumatic, normocephalic. Pupils equal, round. Sclerae is anicteric. NECK: Supple. No JVD. No lymphadenopathy. No thyromegaly. LUNGS: bilateral: diminished, wheezing bilateral. No intercostal retractions. HEART: Regular rate and rhythm. No murmur. ABDOMEN: Soft. Bowel sounds are present. No masses. No tenderness. EXTREMITIES: No pedal edema. No calf tenderness. NEUROLOGICAL: Patient is awake, alert and oriented x3. Cranial nerves 2 through 12 are grossly intact. Mild tremors of bilat hands. ASSESSMENT AND PLAN 1. Acute hypoxemic resp failure/ Acute COPD exacerbation with acute tracheobronchitis oral ash mild DuoNeb treatments 4 times daily and as needed, Symbicort, Robitussin with codeine every 8 hours as needed, Solu-Medrol 40 mg IV every 8 hours as discussed with the patient, patient is agreeable to use this, as he prefers to breathe better, no plans for oral prednisone taper, consult with pulmonary medicine appreciated. Start clotrimazole Trouche 4 times a day 2. Tobacco use and dependence. Continue Wellbutrin XL 150 mg daily. Nicotine patches, 3. Remote history of drug and alcohol abuse. 4. History of hepatitis C status post Harvoni therapy. 5. Elevated PSA monitored by urology. 6. History of ruptured bowel status post colostomy with reversal, stable. 7. DVT prophylaxis. Heparin subcu. 8. GI prophylaxis. Pepcid 9. Benign hand tremors related with oral predniosne DISCHARGE PLAN Home. Impression and plan of care have been directed as dictated by the signing physician. Kayley Velásquez nurse practitioner acting as scribe for signing physician. Objective - Vital Signs Vital signs: Vital Signs Temp 97.8 F 05/11/21 07:00 Pulse 73 05/11/21 07:00 Resp 16 05/11/21 07:00 BP 117/73 05/11/21 07:00 Pulse Ox 95 05/11/21 07:00 Intake & Output 05/10/21 05/11/21 05/11/21 18:59 06:59 18:59 Intake Total 474 Balance 474 Intake: Oral 474 Other: Voiding Method Toilet Toilet # Voids 3 # Bowel Movements 1 - Labs CBC & Chem 7: 05/09/21 15:54 05/09/21 15:54
[2021-05-11] MEDS: guaiFENesin-DM 100-10MG/5ML 10 ML CUP PO PRN (09:10)
--- NOTE | 2021-05-11 14:37 | P.PN ---
Subjective Progress Note Date: 05/11/21 This is a pleasant 66-year-old gentleman with a known history of hepatitis C secondary to IV drug use and treated with Harvoni, bowel resection with colostomy and subsequent reversal, left fifth digit of the hand amputated due to blood clot from IV drug use, bilateral inguinal hernia repairs, chronic obs tructive pulmonary disease and chronic and ongoing tobacco dependence. He is maintained on Advair and albuterol in the outpatient setting. He had been seen at his PCPs office for COPD exacerbation treated with steroids and antibiotics. The steroids made him quite shaky and tremor a similar subsequent stop prior to completing the course. He did feel better if briefly. He presented here to the emergency room yesterday with increasing shortness of breath, cough and congestion. Chest x-ray reveals no acute pulmonary process. There is evidence of COPD. He is seen today in consultation on the regular medical floor. He is currently sitting up in bed. Awake and alert in no acute distress. He is dyspneic with minimal exertion. He does have a loose nonproductive cough. Maintaining O2 saturations in the 90s on 2 L/m per nasal cannula. Afebrile. Hemodynamically stable. White count 8.3. Hemoglobin 15.6. D-dimer 0.53. Sodium 139. Potassium 3.8. Creatinine 0.91. AST 31. ALT 18. Troponin negative 1. Initial lactic acid 2.8. Currently 1.0. He's been initiated on DuoNeb inhalations, Symbicort, doxycycline. On today's evaluation of 05/11/2021, the patient is feeling slightly improved. Less short of breath. No chest pain. He is on room air oxygen. No major side effects to systemic steroids knowing that the patient has significant mood swings when he was given prednisone on outpatient basis. No nausea. No vomiting. No diarrhea. No chest pain. No other significant events overnight. Objective - Vital Signs Vital signs: Vital Signs Temp 97.8 F 05/11/21 07:00 Pulse 93 05/11/21 12:24 Resp 16 05/11/21 07:00 BP 117/73 05/11/21 07:00 Pulse Ox 95 05/11/21 07:00 Intake & Output 05/10/21 05/11/21 05/11/21 18:59 06:59 18:59 Intake Total 474 Balance 474 Intake: Oral 474 Other: Voiding Method Toilet Toilet # Voids 3 # Bowel Movements 1 - Exam GENERAL EXAM: Alert, pleasant 66-year-old gentleman, on room air oxygen no apparent distress. HEAD: Normocephalic. EYES: Normal reaction of pupils, equal size. NOSE: Clear with pink turbinates. THROAT: No erythema or exudates. NECK: No masses, no JVD. CHEST: No chest wall deformity. LUNGS: Equal air entry with expiratory wheeze, diminished. CVS: S1 and S2 normal with no audible murmur, regular rhythm. ABDOMEN: No hepatosplenomegaly, normal bowel sounds, no guarding or rigidity. SPINE: No scoliosis or deformity SKIN: No rashes CENTRAL NERVOUS SYSTEM: No focal deficits, tone is normal in all 4 extremities. EXTREMITIES: There is no peripheral edema. No clubbing, no cyanosis. Peripheral pulses are intact. - Labs CBC & Chem 7: 05/09/21 15:54 05/09/21 15:54 Assessment and Plan Plan: 1 Acute hypoxemic respiratory failure secondary to an acute exacerbation of chronic obstructive pulmonary disease, failed outpatient treatment 2 Chronic tobacco dependence 3 History of hepatitis C, treated with Harvoni 4 History of IV drug abuse 5 Left fifth digit of the hand amputated due to blood clot from IV drug use 6 History of bowel resection with colostomy and subsequent reversal 7 History of bilateral inguinal hernia repairs Plan: Clinically improving No major signs of steroids side effects or toxicity Keep the patient hospital for another 24 hours for IV Solu-Medrol as the patient has seen significant swings with the use of prednisone on outpatient basis Continue doxycycline We'll continue to follow
[2021-05-12] MEDS: CLOTRIMAZOLE TROCHE 10 MG TROCHE MUCOUS MEM SCH ×6 (00:24→23:11)
[2021-05-12] MEDS: methylPREDNISolone SOD SUCCI 40 MG/ML 1 ML VIAL IV SCH ×4 (00:24→23:12)
[2021-05-12] MEDS: buPROPion XL 150 MG TAB.ER.24H PO SCH (08:09)
[2021-05-12] MEDS: FAMOTIDINE 20 MG TAB PO SCH ×2 (08:09→20:52)
[2021-05-12] MEDS: DOXYCYCLINE 100 MG CAP PO SCH ×2 (08:09→20:52)
[2021-05-12] MEDS: NICOTINE 21MG/24HR PATCH TRANSDERM SCH (08:09)
[2021-05-12] MEDS: HEPARIN SODIUM,PORCINE/PF 5,000 UNIT/0.5 ML SYRINGE SQ SCH ×2 (08:10→20:53)
[2021-05-12] MEDS: IPRATROPIUM-ALBUTEROL 3 ML NEB INHALATION SCH ×4 (08:11→19:59)
[2021-05-12] MEDS: SYMBICORT 160-4.5 MCG INHALER INHALATION SCH ×2 (08:22→19:59)
[2021-05-12] MEDS: guaiFENesin-DM 100-10MG/5ML 10 ML CUP PO PRN ×2 (08:54→20:52)
[2021-05-12] MEDS ORDERED: methylPREDNISolone SOD SUCCI 125 MG/2 ML VIAL IV STA (09:10)
--- NOTE | 2021-05-12 10:07 | P.PN ---
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 He is maintained on Advair and albuterol in the outpatient setting. He had been seen at his PCPs office for COPD exacerbation treated with steroids and antibiotics. The steroids made him quite shaky and tremor a similar subsequent stop prior to completing the course. He did feel better if briefly. He presented here to the emergency room yesterday with increasing shortness of breath, cough and congestion. Chest x-ray reveals no acute pulmonary process. There is evidence of COPD. He is seen today in consultation on the regular medical floor. He is currently sitting up in bed. Awake and alert in no acute distress. He is dyspneic with minimal exertion. He does have a loose nonproductive cough. Maintaining O2 saturations in the 90s on 2 L/m per nasal cannula. Afebrile. Hemodynamically stable. White count 8.3. Hemoglobin 15.6. D-dimer 0.53. Sodium 139. Potassium 3.8. Creatinine 0.91. AST 31. ALT 18. Troponin negative 1. Initial lactic acid 2.8. Currently 1.0. He's been initiated on DuoNeb inhalations, Symbicort, doxycycline. On today's evaluation of 05/11/2021, the patient is feeling slightly improved. Less short of breath. No chest pain. He is on room air oxygen. No major side effects to systemic steroids knowing that the patient has significant mood swings when he was given prednisone on outpatient basis. No nausea. No vomiting. No diarrhea. No chest pain. No other significant events overnight. 2020 I'm seeing the patient for a follow-up. Stable. No new complaints. No chest pain. Still on a Solu-Medrol. Still on doxycycline. He is on 2 L about 2 by nasal cannula and oxygen was placed on an overnight. We'll check his oxygenation on room air Objective - Vital Signs Vital signs: Vital Signs Temp 97.6 F 05/12/21 07:00 Pulse 91 05/12/21 08:22 Resp 18 05/12/21 07:00 BP 102/67 05/12/21 07:00 Pulse Ox 97 05/12/21 07:00 Intake & Output 05/11/21 05/12/21 05/12/21 18:59 06:59 18:59 Other: Voiding Method Toilet Toilet # Voids 2 3 # Bowel Movements 0 - Exam GENERAL EXAM: Alert, pleasant 66-year-old gentleman, on room air oxygen no apparent distress. HEAD: Normocephalic. EYES: Normal reaction of pupils, equal size. NOSE: Clear with pink turbinates. THROAT: No erythema or exudates. NECK: No masses, no JVD. CHEST: No chest wall deformity. LUNGS: Equal air entry with expiratory wheeze, diminished. CVS: S1 and S2 normal with no audible murmur, regular rhythm. ABDOMEN: No hepatosplenomegaly, normal bowel sounds, no guarding or rigidity. SPINE: No scoliosis or deformity SKIN: No rashes CENTRAL NERVOUS SYSTEM: No focal deficits, tone is normal in all 4 extremities. EXTREMITIES: There is no peripheral edema. No clubbing, no cyanosis. Peripheral pulses are intact. - Labs CBC & Chem 7: 05/09/21 15:54 05/09/21 15:54 Assessment and Plan Plan: 1 Acute hypoxemic respiratory failure secondary to an acute exacerbation of chronic obstructive pulmonary disease, failed outpatient treatment, clinically improving 2 Chronic tobacco dependence 3 History of hepatitis C, treated with Harvoni 4 History of IV drug abuse 5 Left fifth digit of the hand amputated due to blood clot from IV drug use 6 History of bowel resection with colostomy and subsequent reversal 7 History of bilateral inguinal hernia repairs Plan: Clinically improving No major signs of steroids side effects or toxicity Will offer it another 24 hours of IV Solu-Medrol and the patient can be discharged home with the next 24 hours on Advair maintenance and albuterol nebulized treatments around the clock. Outpatient PFT to assess his baseline lung functions. Will be glad to follow-up him up on outpatient basis.
[2021-05-12] MEDS: FLUTICASONE 50MCG/SPRAY NASAL 16GM EA NOSTRIL SCH (11:57)
--- NOTE | 2021-05-12 12:51 | P.PN ---
Subjective Progress Note Date: 05/12/21 HISTORY OF PRESENT ILLNESS This is a 65-year-old male patient of Dr. Ware with past medical his tory of COPD, tobacco use and dependence, remote history of drug and alcohol abuse, history of hepatitis C status post Harvoni therapy, elevated PSA monitored by Dr. 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 Patient has Symbicort at home, for which she ran out, and has constantly been using Proventil, it looks like he is renewable is still too soon hence the pharmacy has allow it to be given until one week from now. Patient comes into the emergency room secondary to cough, shortness of breath, difficulty breathing, whitish -like yellow sputum, patient currently still smokes, however he's been trying to quit off and on for the past 2 weeks, he does not have any oxygen at home, however she uses 3 pillows at night to sleep, unsure whether patient has sleep apnea, as he wakes up gasping for air. he does not see a pulmonary physician on a routine basis. He was given an antibiotic, steroid sh ot, and oral prednisone taper, by our nurse practitioner in the office approximately 2 weeks ago, for which she got better and subsequently gotten worse. Patient, [place] of significant tremors, as result of the oral prednisone, however he's willing to try IV steroids at this time, to help him breathe better. Emergency room, he is wheezing, chest x-ray shows flattening of diaphragm, COPD changes, no acute infiltrate, masses, EKG shows sinus Tachycardia, no acute ST-T wave changes, no QT prolongation wbc, 8.3, d-dimer 0.53, pCO2 23, blood sugar 138, lactic acid 2.8, troponin 0.012, urinalysis negative. Patient was in by pulmonary, they have discussed the steroid option to him, however patient wanted to start IV steroids, as he did not have problems chewing the shots in the office. Patient does not want to be on an oral prednisone taper as he had previously 05/11: Patient has been afebrile, heart rate 73, blood pressure 117/73, pulse ox 95% on 2 L nasal cannula. Repeat lactic acid is 1. patient is on Solu-Medrol 40 mg IV every 8 hours. Consult with pulmonary medicine with recommendations to add Symbicort and doxycycline. Patient states that his breathing was better yesterday and worse this morning. Still having cough with increased clear sputum production and shakes. 05/12: Patient has been afebrile, heart rate 72, blood pressure 102/67, pulse ox 97% on 2 L nasal cannula. Patient complains of continued sputum production and coughing. Flonase added today. Cardiac monitoring discontinued. Patient is had no arrhythmias on monitor. We will add additional Solu-Medrol dose at noon today of 60 mg and continue 40 mg every 8 hours, anticipate discharge home tomorrow. REVIEW OF SYSTEMS Constitutional: Reports as per HPI, denies fevers, denies chills, Reports fatigue Ears, nose, mouth and throat: Reports as per HPI, Reports hoarseness, Denies ant. neck pain, Denies bleeding gums, Denies dental pain, Denies dysphagia, Denies epistaxis, Denies headache, Denies mouth pain, Denies nasal congestion, Denies nasal discharge, Denies neck fullness/pressure, Denies neck lump, Denies nose pain, Denies odynophagia, Denies post-nasal drip, Denies sinus pain, Denies sinus pressure, Denies swelling in mouth, Denies swelling in throat, Denies sore throat, Denies vertigo, Denies voice changes Respiratory: Reports as per HPI, Reports cough, Reports cough with sputum, Reports dyspnea, Reports excessive sputum, Reports pleurisy, Reports respiratory infections, Reports wheezing Gastrointestinal: Reports as per HPI, Denies change in bowel habits, Denies coffee ground emesis, Denies constipation, Denies early satiety, Denies excessive gas, Denies heartburn, Denies hematochezia, Denies indigestion Genitourinary: Reports as per HPI, Denies urinary frequency, Denies urinary hesitancy, Denies urinary retention Musculoskeletal: Reports as per HPI, Denies gait dysfunction, Denies hot joints, Denies leg numbness/tingling, Denies limitation of motion, Denies muscle weakness Integumentary: Reports as per HPI Neurological: Reports as per HPI Psychiatric: Reports as per HPI, Denies anhedonia, Denies anxiety, Denies anxiety attacks, Denies change in appetite, Denies change in libido, Denies change in sleep habits, Denies confusion, Denies depression, Denies difficulty concentrating, Denies disorientation, Denies hallucinations, Denies hopelessness, Denies hypersomnia, Denies insomnia, Denies irritability, Denies memory loss, Denies mood swings, Denies paranoia, Denies sadness/tearfulness, Denies sleep disturbances, Denies suicidal ideation Endocrine: Reports as per HPI Hematologic/Lymphatic: Reports as per HPI Allergic/Immunologic: Reports as per HPI] PHYSICAL EXAMINATION Gen: This is a 66-yesr-old male patient resting in recliner and appears to be in no acute distress HEENT: Head is atraumatic, normocephalic. Pupils equal, round. Sclerae is anicteric. NECK: Supple. No JVD. No lymphadenopathy. No thyromegaly. LUNGS: bilateral: diminished, wheezing bilateral. No intercostal retractions. HEART: Regular rate and rhythm. No murmur. ABDOMEN: Soft. Bowel sounds are present. No masses. No tenderness. EXTREMITIES: No pedal edema. No calf tenderness. NEUROLOGICAL: Patient is awake, alert and oriented x3. Cranial nerves 2 through 12 are grossly intact. Mild tremors of bilat hands. ASSESSMENT AND PLAN 1. Acute hypoxemic resp failure/ Acute COPD exacerbation with acute tracheobronchitis oral ash mild DuoNeb treatments 4 times daily and as needed, Symbicort, Robitussin with codeine every 8 hours as needed, Solu-Medrol 40 mg IV every 8 hours as discussed with the patient with one additional dose of 60 mg at noon, patient is agreeable to use this, as he prefers to breathe better, no plans for oral prednisone taper, consult with pulmonary medicine appreciated. Start clotrimazole Tr[place] 4 times a day 2. Tobacco use and dependence. Continue Wellbutrin XL 150 mg daily. Nicotine patches, 3. Remote history of drug and alcohol abuse. 4. History of hepatitis C status post Harvoni therapy. 5. Elevated PSA monitored by urology. 6. History of ruptured bowel status post colostomy with reversal, stable. 7. DVT prophylaxis. Heparin subcu. 8. GI prophylaxis. Pepcid 9. Benign hand tremors related with oral predniosne DISCHARGE PLAN Home on . Impression and plan of care have been directed as dictated by the signing chandu blanton. Kayley Velásquez nurse practitioner acting as scribe for signing physician. Objective - Vital Signs Vital signs: Vital Signs Temp 97.6 F 05/12/21 07:00 Pulse 91 05/12/21 08:22 Resp 18 05/12/21 07:00 BP 102/67 05/12/21 07:00 Pulse Ox 97 05/12/21 07:00 Intake & Output 05/11/21 05/12/21 05/12/21 18:59 06:59 18:59 Other: Voiding Method Toilet Toilet # Voids 2 3 # Bowel Movements 0 - Labs CBC & Chem 7: 05/09/21 15:54 05/09/21 15:54
[2021-05-13] MEDS: CLOTRIMAZOLE TROCHE 10 MG TROCHE MUCOUS MEM SCH ×2 (05:33→08:22)
[2021-05-13] MEDS: IPRATROPIUM-ALBUTEROL 3 ML NEB INHALATION SCH ×2 (07:48→11:25)
[2021-05-13] MEDS: SYMBICORT 160-4.5 MCG INHALER INHALATION SCH (07:48)
[2021-05-13 07:54] VITALS: BP 113/74; PULSE 72; RESP 18; TEMP 97.7
[2021-05-13] MEDS: buPROPion XL 150 MG TAB.ER.24H PO SCH (08:23)
[2021-05-13] MEDS: DOXYCYCLINE 100 MG CAP PO SCH (08:23)
[2021-05-13] MEDS: FAMOTIDINE 20 MG TAB PO SCH (08:24)
[2021-05-13] MEDS: HEPARIN SODIUM,PORCINE/PF 5,000 UNIT/0.5 ML SYRINGE SQ SCH (08:25)
[2021-05-13] MEDS: NICOTINE 21MG/24HR PATCH TRANSDERM SCH (08:28)
[2021-05-13] MEDS: methylPREDNISolone SOD SUCCI 40 MG/ML 1 ML VIAL IV SCH (08:29)
--- NOTE | 2021-05-13 09:13 | P.DS ---
Providers Date of admission: 05/11/21 09:00 Expected date of discharge: 05/13/21 Attending physician: Adry Colindres Consults: 05/09/21 17:40 Consult Physician Urgent Consulting Provider: Bala Lauren Consult Reason/Comments: copd exacerbation Do you want consulting provider notified?: Yes Primary care physician: [facility] Course: HISTORY OF PRESENT ILLNESS This is a 65-year-old male patient of Dr. Ware with past medical history of COPD, tobacco use and dependence, remote history of drug and alcohol abuse, history of hepatitis C status post Harvoni therapy, elevated PSA monitored by Dr. 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 Patient has Symbicort at home, for which she ran out, and has constantly been using Proventil, it looks like he is renewable is still too soon hence the pharmacy has allow it to be given until one week from now. Patient comes into the emergency room secondary to cough, shortness of breath, difficulty breathing, whitish -like yellow sputum, patient currently still smokes, however he's been trying to quit off and on for the past 2 weeks, he does not have any oxygen at home, however she uses 3 pillows at night to sleep, unsure whether patient has sleep apnea, as he wakes up gasping for air. he does not see a pulmonary physician on a routine basis. He was given an antibiotic, steroid shot, and oral prednisone taper, by our nurse practitioner in the office approximately 2 weeks ago, for which she got better and subsequently gotten worse. Patient, [place] of significant tremors, as result of the oral prednisone, however he's willing to try IV steroids at this time, to help him breathe better. Emergency room, he is wheezing, chest x-ray shows flattening of diaphragm, COPD changes, no acute infiltrate, masses, EKG shows sinus Tachycardia, no acute ST-T wave changes, no QT prolongation wbc, 8.3, d-dimer 0.53, pCO2 23, blood sugar 138, lactic acid 2.8, troponin 0.012, urinalysis negative. Patient was in by pulmonary, they have discussed the steroid option to him, however patient wanted to start IV steroids, as he did not have problems chewing the shots in the office. Patient does not want to be on an oral prednisone taper as he had previously 7/6: Patient has been afebrile, heart rate 73, blood pressure 117/73, pulse ox 95% on 2 L nasal cannula. Repeat lactic acid is 1. patient is on Solu-Medrol 40 mg IV every 8 hours. Consult with pulmonary medicine with recommendations to add Symbicort and doxycycline. Patient states that his breathing was better yesterday and worse this morning. Still having cough with increased clear sputum production and shakes. 05/12: Patient has been afebrile, heart rate 72, blood pressure 102/67, pulse ox 97% on 2 L nasal cannula. Patient complains of continued sputum production and coughing. Flonase added today. Cardiac monitoring discontinued. Patient is had no arrhythmias on monitor. We will add additional Solu-Medrol dose at noon today of 60 mg and continue 40 mg every 8 hours, anticipate discharge home tomorrow. 05/13: Patient feels that his breathing status is stable. Coughing seems to be improved and he is anxious to go home. He denies having any fever or chills. He has been on IV Solu-Medrol and will be transitioned to Symbicort and Flonase for home. No oral steroids. He has been afebrile, heart rate 72, blood pressure 113/74, pulse ox 92% on room air. Patient will be discharged home today in stable condition. ASSESSMENT AND PLAN 1. Acute hypoxemic resp failure and Acute COPD exacerbation with acute tracheobronchitis and oral ash 2. Tobacco use and dependence. 3. Remote history of drug and alcohol abuse. 4. History of hepatitis C status post Harvoni therapy. 5. Elevated PSA monitored by urology. 6. History of ruptured bowel status post colostomy with reversal, stable. 7. Benign hand tremors related with oral predniosne DISCHARGE PLAN Home Impression and plan of care have been directed as dictated by the signing physician. Kayley Velásquez nurse practitioner acting as scribe for signing physician. Patient Condition at Discharge: Good Plan - Discharge Summary Discharge Rx Participant: No New Discharge Prescriptions: New Doxycycline [Vibramycin] 100 mg PO BID #14 cap Fluticasone Nasal Mio [Flonase Nasal Mio] 2 spray EA NOSTRIL DAILY #1 spr Clotrimazole Brian [Mycelex Brian] 10 mg MUCOUS MEM 5XD #50 brian Budesonide-Formot 160-4.5 Mcg [Symbicort 160-4.5 Mcg Inhaler] 2 puff INHALATION RT-BID #1 inhaler Continue buPROPion HCL [Wellbutrin XL] 150 mg PO DAILY Fluticasone/Salmeterol [Advair 250-50 Diskus] 2 puff INHALATION RT-BID Ipratropium-Albuterol Nebulize [Duoneb 0.5 mg-3 mg/3 ml Soln] 3 ml INHALATION RT-QID #120 inhalation Albuterol Sulfate [Albuterol Sulfate Hfa] 2 puff PO RT-Q4H PRN PRN Reason: Shortness Of Breath Discharge Medication List Fluticasone/Salmeterol [Advair 250-50 Diskus] 2 puff INHALATION RT-BID 08/19/20 [History] buPROPion HCL [Wellbutrin XL] 150 mg PO DAILY 08/19/20 [History] Ipratropium-Albuterol Nebulize [Duoneb 0.5 mg-3 mg/3 ml Soln] 3 ml INHALATION RT-QID #120 inhalation 08/21/20 [Rx] Albuterol Sulfate [Albuterol Sulfate Hfa] 2 puff PO RT-Q4H PRN 05/09/21 [History] Budesonide-Formot 160-4.5 Mcg [Symbicort 160-4.5 Mcg Inhaler] 2 puff INHALATION RT-BID #1 inhaler 05/13/21 [Rx] Clotrimazole Brian [Mycelex Brian] 10 mg MUCOUS MEM 5XD #50 brian 05/13/21 [Rx] Doxycycline [Vibramycin] 100 mg PO BID #14 cap 05/13/21 [Rx] Fluticasone Nasal Mio [Flonase Nasal Mio] 2 spray EA NOSTRIL DAILY #1 spr 05/13/21 [Rx] Follow up Appointment(s)/Referral(s): Brandyn Ware MD [Primary Care Provider] - 1 Week Michael Leslie DO [Doctor of Osteopathic Medicine] - 05/31/21 1:45 pm (appointment made with Dr Lauren ) Patient Instructions/Handouts: COPD (Chronic Obstructive Pulmonary Disease) (GEN), Chronic Bronchitis (GEN) Discharge Disposition: HOME SELF-CARE
[2021-05-13] MEDS: FLUTICASONE 50MCG/SPRAY NASAL 16GM EA NOSTRIL SCH (11:04)
[2021-05-13] MEDS: guaiFENesin-DM 100-10MG/5ML 10 ML CUP PO PRN (11:05)
--- NOTE | 2021-05-13 11:35 | P.PN ---
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 He is maintained on Advair and albuterol in the outpatient setting. He had been seen at his PCPs office for COPD exacerbation treated with steroids and antibiotics. The steroids made him quite shaky and tremor a similar subsequent stop prior to completing the course. He did feel better if briefly. He presented here to the emergency room yesterday with increasing shortness of breath, cough and congestion. Chest x-ray reveals no acute pulmonary process. There is evidence of COPD. He is seen today in consultation on the regular medical floor. He is currently sitting up in bed. Awake and alert in no acute distress. He is dyspneic with minimal exertion. He does have a loose nonproductive cough. Maintaining O2 saturations in the 90s on 2 L/m per nasal cannula. Afebrile. Hemodynamically stable. White count 8.3. Hemoglobin 15.6. D-dimer 0.53. Sodium 139. Potassium 3.8. Creatinine 0.91. AST 31. ALT 18. Troponin negative 1. Initial lactic acid 2.8. Currently 1.0. He's been initiated on DuoNeb inhalations, Symbicort, doxycycline. On today's evaluation of 05/11/2021, the patient is feeling slightly improved. Less short of breath. No chest pain. He is on room air oxygen. No major side effects to systemic steroids knowing that the patient has significant mood swings when he was given prednisone on outpatient basis. No nausea. No vomiting. No diarrhea. No chest pain. No other significant events overnight. 2020 I'm seeing the patient for a follow-up. Stable. No new complaints. No chest pain. Still on a Solu-Medrol. Still on doxycycline. He is on 2 L about 2 by nasal cannula and oxygen was placed on an overnight. We'll check his oxygenation on room air The patient is seen today 05/13/2021 in follow-up on the regular medical floor. He is currently sitting up in a chair at the bedside. Awake and alert in no acute distress. He is maintaining good O2 saturations in the low 90s on room air today. No plans for home oxygen. He denies any worsening shortness of jackie th, cough or congestion. No fever or chills. Maintained on DuoNeb inhalations, Symbicort, IV Solu-Medrol. NicoDerm patch and place. Heparin for DVT prophylaxis. Empiric antibiotics in the form of doxycycline. Objective - Vital Signs Vital signs: Vital Signs Temp 97.7 F 05/13/21 07:00 Pulse 72 05/13/21 07:00 Resp 18 05/13/21 08:00 BP 113/74 05/13/21 07:00 Pulse Ox 92 L 05/13/21 07:00 Intake & Output 05/12/21 05/13/21 05/13/21 18:59 06:59 18:59 Intake Total 350 Balance 350 Intake: Oral 350 Other: Voiding Method Toilet Toilet # Voids 4 3 # Bowel Movements 2 2 - Exam GENERAL EXAM: Alert, active, very pleasant 58-year-old gentleman, on room air, comfortable in no apparent distress. HEAD: Normocephalic. EYES: Normal reaction of pupils, equal size. NOSE: Clear with pink turbinates. THROAT: No erythema or exudates. NECK: No masses, no JVD. CHEST: No chest wall deformity. LUNGS: Equal air entry with no crackles, wheeze, rhonchi or dullness. Diminished. CVS: S1 and S2 normal with no audible murmur, regular rhythm. ABDOMEN: No hepatosplenomegaly, normal bowel sounds, no guarding or rigidity. SPINE: No scoliosis or deformity SKIN: No rashes CENTRAL NERVOUS SYSTEM: No focal deficits, tone is normal in all 4 extremities. EXTREMITIES: There is no peripheral edema. No clubbing, no cyanosis. Peripheral pulses are intact. - Labs CBC & Chem 7: 05/09/21 15:54 05/09/21 15:54 Assessment and Plan Assessment: 1 Acute hypoxemic respiratory failure secondary to an acute exacerbation of chronic obstructive pulmonary disease, failed outpatient treatment 2 Chronic tobacco dependence 3 History of hepatitis C, treated with Harvoni 4 History of IV drug abuse 5 Left fifth digit of the hand amputated due to blood clot from IV drug use 6 History of bowel resection with colostomy and subsequent reversal 7 History of bilateral inguinal hernia repairs Plan: The patient was seen and evaluated by Dr. Sorto He is cleared for discharge from the pulmonary standpoint Continue Symbicort, albuterol, DuoNeb inhalations Educated regarding the importance of complete smoking cessation Continue NicoDerm patches Complete a course of doxycycline Follow-up in our office in 1-2 weeks' I, the cosigning physician, performed a history & physical examination of the patient. Lungs sounds clear, diminished. Maintaining good O2 saturations in the 90s on room air. I discussed the assessment and plan of care with my nurse pr actitioner, Anne Marie Franco. I attest to the above consultation as dictated by her.
== END 2021-05-13 11:28 | disposition home or self-care (01) | DRG 190 ==
LOC: EC 15:30 → 6NMEDSUR 17:34 → OBSVTOIN 05-11 09:00
PROVIDERS: ADMIT Family Medicine; ATTEND Family Medicine
DX: J44.1 Chronic obstructive pulmonary disease with (acute) exacerbation (principal); J96.01 Acute respiratory failure with hypoxia; B37.0 Candidal stomatitis; Z79.899 Other long term (current) drug therapy; Z82.3 Family history of stroke; Z83.3 Family history of diabetes mellitus; Z90.49 Acquired absence of other specified parts of digestive tract; Z93.3 Colostomy status; J44.0 Chronic obstructive pulmonary disease with (acute) lower respiratory infection; F19.90 Other psychoactive substance use, unspecified, uncomplicated; F17.200 Nicotine dependence, unspecified, uncomplicated; Z43.3 Encounter for attention to colostomy; K40.20 Bilateral inguinal hernia, without obstruction or gangrene, not specified as recurrent; F19.10 Other psychoactive substance abuse, uncomplicated
CPT/HCPCS: 36415; 71046; 80053; 81003; 83605; 83735; 84484; 85025; 85379; 85610; 85730; 93005; 94640; 94760; 96360; 96361; 99285

== ENCOUNTER 2021-07-13 20:46 | Inpatient (IN) | payer MEDICARE, OTHER ==
[2021-07-13] MEDS ORDERED: ALBUTEROL NEBULIZED 2.5 MG/3 ML INHALATION STA ×2 (21:09→22:15)
[2021-07-13] MEDS ORDERED: predniSONE 20 MG TAB PO STA (21:09)
[2021-07-13] MEDS ORDERED: IPRATROPIUM 0.5 MG/2.5 ML NEBU INHALATION STA (21:09)
--- NOTE | 2021-07-13 21:39 | ED ---
SOB HPI - General Chief Complaint: Shortness of Breath Stated Complaint: SOB Time Seen by Provider: 07/13/21 21:00 Source: patient Mode of arrival: wheelchair Limitations: no limitations - History of Present Illness Initial Comments: This patient is a 66-year-old man who presents with what he believes is exacerbation of COPD. Patient states he has been having worsening of his shortness of breath, wheezing and coughing going back 3-4 days now. The cough occasionally produces some white sputum. Patient states that he ran out of his inhaled steroid proximally 4 days ago. He has not noted fever or chills. No chest pain. No change in urination or bowel movements. No leg pain or swelling. MD Complaint: shortness of breath, cough Onset/Timin -: days(s) Severity scale (1-10): 0 Consistency: constant Improves With: bronchodilators Worsens With: nothing Known History Of: COPD Associated Symptoms: cough Treatments Prior to Arrival: bronchodilator - Related Data Home Oxygen Therapy: No Home Medications Medication Instructions Recorded Confirmed Fluticasone/Salmeterol [Advair 2 puff INHALATION RT-BID 08/19/20 05/09/21 250-50 Diskus] buPROPion HCL [Wellbutrin XL] 150 mg PO DAILY 08/19/20 05/09/21 Albuterol Sulfate [Albuterol 2 puff PO RT-Q4H PRN 05/09/21 05/09/21 Sulfate Hfa] Previous Rx's Medication Instructions Recorded Ipratropium-Albuterol Nebulize 3 ml INHALATION RT-QID #120 08/21/20 [Duoneb 0.5 mg-3 mg/3 ml Soln] inhalation Budesonide-Formot 160-4.5 Mcg 2 puff INHALATION RT-BID #1 inhaler 05/13/21 [Symbicort 160-4.5 Mcg Inhaler] Clotrimazole Dario [Mycelex 10 mg MUCOUS MEM 5XD #50 dario 05/13/21 Dario] Doxycycline [Vibramycin] 100 mg PO BID #14 cap 05/13/21 Fluticasone Nasal [place] [Flonase 2 spray EA NOSTRIL DAILY #1 spr 05/13/21 Nasal [place]] Allergies Allergy/AdvReac Type Severity Reaction Status Date / Time No Known Allergies Allergy Verified 09/07/21 20:50 Review of Systems ROS Statement: Those systems with pertinent positive or pertinent negative responses have been documented in the HPI. ROS Other: All systems not noted in ROS Statement are negative. Constitutional: Denies: fever, chills Respiratory: Reports: cough, dyspnea, wheezes. 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 History of Any Multi-Drug Resistant Organisms: None Reported Past Surgical History: Bowel Resection, Hernia Repair Additional Past Surgical History / Comment(s): Ruptured bowel, temp colostomy, reversal of colostomy, finger amputation (blood clot), colonoscopy, L/R inguinal hernia repairs, circumcism. Past Anesthesia/Blood Transfusion Reactions: No Reported Reaction Past Psychological History: No Psychological Hx Reported Smoking Status: Former smoker Past Alcohol Use History: None Reported, Abuse Past Drug Use History: None Reported, IV Drug Use - Past Family History Mother Family Medical History: CVA/TIA Additional Family Medical History / Comment(s): Mother of a CVA (was on coumadin) at the age of 74 yrs. Father Family Medical History: Diabetes Mellitus, Deep Vein Thrombosis (DVT) Additional Family Medical History / Comment(s): Father of diabetic complications at the age of 70 yrs. General Exam Limitations: no limitations General appearance: alert, in no apparent distress Head exam: Present: atraumatic, normocephalic Eye exam: Present: normal appearance. Absent: scleral icterus, conjunctival injection Neck exam: Present: normal inspection Respiratory exam: Present: respiratory distress (Mild tachypnea), wheezes, d ecreased breath sounds, prolonged expiratory. Absent: rales, rhonchi, stridor, accessory muscle use Cardiovascular Exam: Present: regular rate, normal rhythm, normal heart sounds. Absent: systolic murmur, diastolic murmur, rubs, gallop GI/Abdominal exam: Present: soft, normal bowel sounds. Absent: distended, tenderness, guarding, rebound, rigid Extremities exam: Present: normal inspection, normal capillary refill. Absent: pedal edema, calf tenderness Back exam: Present: normal inspection. Absent: CVA tenderness (R), CVA tenderness (L) Neurological exam: Present: alert Skin exam: Present: warm, dry, intact, normal color. Absent: rash Course Vital Signs 07/13/21 07/13/21 07/13/21 20:48 21:10 21:20 Temperature 98.1 F Pulse Rate 98 89 Respiratory 24 26 H 24 Rate Blood Pressure 114/75 141/87 O2 Sat by Pulse 93 L 95 Oximetry 07/13/21 07/13/21 07/13/21 21:43 21:57 22:17 Temperature Pulse Rate 88 101 H 87 Respiratory 24 Rate Blood Pressure 135/105 O2 Sat by Pulse 95 Oximetry 07/13/21 07/13/21 07/13/21 22:49 22:54 23:00 Temperature Pulse Rate 92 90 90 Respiratory 22 Rate Blood Pressure O2 Sat by Pulse 98 Oximetry 07/13/21 07/13/21 07/14/21 23:18 23:44 01:47 Temperature Pulse Rate 92 87 76 Respiratory 22 22 18 Rate Blood Pressure 130/89 O2 Sat by Pulse 95 94 L 95 Oximetry 07/14/21 07/14/21 07/14/21 03:28 03:43 04:59 Temperature Pulse Rate 88 86 85 Respiratory 18 16 18 Rate Blood Pressure 116/89 O2 Sat by Pulse 96 98 98 Oximetry 07/14/21 05:53 Temperature 97.1 F L Pulse Rate 81 Respiratory 18 Rate Blood Pressure 110/77 O2 Sat by Pulse 97 Oximetry Medical Decision Making - Lab Data Result diagrams: 07/13/21 21:17 07/13/21 21:17 Lab Results 07/13/21 07/13/21 07/13/21 Range/Units 21:17 21:17 21:17 WBC 6.9 (3.8-10.6) k/uL RBC 4.90 (4.30-5.90) m/uL Hgb 16.2 (13.0-17.5) gm/dL Hct 47.2 (39.0-53.0) % MCV 96.5 (80.0-100.0) fL MCH 33.0 (25.0-35.0) pg MCHC 34.2 (31.0-37.0) g/dL RDW 13.2 (11.5-15.5) % Plt Count 217 (150-450) k/uL MPV 8.2 Neutrophils % 47 % Lymphocytes % 31 % Monocytes % 7 % Eosinophils % 11 % Basophils % 1 % Neutrophils # 3.2 (1.3-7.7) k/uL Lymphocytes # 2.1 (1.0-4.8) k/uL Monocytes # 0.5 (0-1.0) k/uL Eosinophils # 0.7 (0-0.7) k/uL Basophils # 0.1 (0-0.2) k/uL PT 10.1 (9.0-12.0) sec INR 0.9 (<1.2) APTT 26.5 (22.0-30.0) sec D-Dimer 0.55 (<0.60) mg/L FEU Sodium 138 (137-145) mmol/L Potassium 4.2 (3.5-5.1) mmol/L Chloride 104 (98-107) mmol/L Carbon Dioxide 24 (22-30) mmol/L Anion Gap 10 mmol/L BUN 14 (9-20) mg/dL Creatinine 0.78 (0.66-1.25) mg/dL Est GFR (CKD-EPI)AfAm >90 (>60 ml/min/1.73 sqM) Est GFR (CKD-EPI)NonAf >90 (>60 ml/min/1.73 sqM) Glucose 107 H (74-99) mg/dL Plasma Lactic Acid Sam (0.7-2.0) mmol/L Calcium 9.9 (8.4-10.2) mg/dL Total Bilirubin 0.3 (0.2-1.3) mg/dL AST 34 (17-59) U/L ALT 17 (4-49) U/L Alkaline Phosphatase 63 (38-126) U/L Troponin I (0.000-0.034) ng/mL NT-Pro-B Natriuret Pep pg/mL Total Protein 7.4 (6.3-8.2) g/dL Albumin 4.4 (3.5-5.0) g/dL Coronavirus (PCR) (Not Detectd) 07/13/21 07/13/21 07/13/21 Range/Units 21:17 21:17 21:17 WBC (3.8-10.6) k/uL RBC (4.30-5.90) m/uL Hgb (13.0-17.5) gm/dL Hct (39.0-53.0) % MCV (80.0-100.0) fL MCH (25.0-35.0) pg MCHC (31.0-37.0) g/dL RDW (11.5-15.5) % Plt Count (150-450) k/uL MPV Neutrophils % % Lymphocytes % % Monocytes % % Eosinophils % % Basophils % % Neutrophils # (1.3-7.7) k/uL Lymphocytes # (1.0-4.8) k/uL Monocytes # (0-1.0) k/uL Eosinophils # (0-0.7) k/uL Basophils # (0-0.2) k/uL PT (9.0-12.0) sec INR (<1.2) APTT (22.0-30.0) sec D-Dimer (<0.60) mg/L FEU Sodium (137-145) mmol/L Potassium (3.5-5.1) mmol/L Chloride (98-107) mmol/L Carbon Dioxide (22-30) mmol/L Anion Gap mmol/L BUN (9-20) mg/dL Creatinine (0.66-1.25) mg/dL Est GFR (CKD-EPI)AfAm (>60 ml/min/1.73 sqM) Est GFR (CKD-EPI)NonAf (>60 ml/min/1.73 sqM) Glucose (74-99) mg/dL Plasma Lactic Acid Sam 1.0 (0.7-2.0) mmol/L Calcium (8.4-10.2) mg/dL Total Bilirubin (0.2-1.3) mg/dL AST (17-59) U/L ALT (4-49) U/L Alkaline Phosphatase (38-126) U/L Troponin I <0.012 (0.000-0.034) ng/mL NT-Pro-B Natriuret Pep 80 pg/mL Total Protein (6.3-8.2) g/dL Albumin (3.5-5.0) g/dL Coronavirus (PCR) (Not Detectd) 07/13/21 Range/Units 21:36 WBC (3.8-10.6) k/uL RBC (4.30-5.90) m/uL Hgb (13.0-17.5) gm/dL Hct (39.0-53.0) % MCV (80.0-100.0) fL MCH (25.0-35.0) pg MCHC (31.0-37.0) g/dL RDW (11.5-15.5) % Plt Count (150-450) k/uL MPV Neutrophils % % Lymphocytes % % Monocytes % % Eosinophils % % Basophils % % Neutrophils # (1.3-7.7) k/uL Lymphocytes # (1.0-4.8) k/uL Monocytes # (0-1.0) k/uL Eosinophils # (0-0.7) k/uL Basophils # (0-0.2) k/uL PT (9.0-12.0) sec INR (<1.2) APTT (22.0-30.0) sec D-Dimer (<0.60) mg/L FEU Sodium (137-145) mmol/L Potassium (3.5-5.1) mmol/L Chloride (98-107) mmol/L Carbon Dioxide (22-30) mmol/L Anion Gap mmol/L BUN (9-20) mg/dL Creatinine (0.66-1.25) mg/dL Est GFR (CKD-EPI)AfAm (>60 ml/min/1.73 sqM) Est GFR (CKD-EPI)NonAf (>60 ml/min/1.73 sqM) Glucose (74-99) mg/dL Plasma Lactic Acid Sam (0.7-2.0) mmol/L Calcium (8.4-10.2) mg/dL Total Bilirubin (0.2-1.3) mg/dL AST (17-59) U/L ALT (4-49) U/L Alkaline Phosphatase (38-126) U/L Troponin I (0.000-0.034) ng/mL NT-Pro-B Natriuret Pep pg/mL Total Protein (6.3-8.2) g/dL Albumin (3.5-5.0) g/dL Coronavirus (PCR) Not Detected (Not Detectd) - EKG Data -: EKG Interpreted by Me EKG shows normal: sinus rhythm, axis (Normal), intervals (Normal), QRS complexes (Normal), ST-T waves (Normal) Rate: normal (88 bpm) Interpretation: normal EKG Disposition Clinical Impression: COPD exacerbation Disposition: ADMITTED IP TO THIS HOSP Condition: Fair Is patient prescribed a controlled substance at d/c from ED?: No
[2021-07-13 22:12] LABS: Basophils # (A) 0.1 k/uL (0-0.2); Basophils % (A) 1 %; Eosinophils # (A) 0.7 k/uL (0-0.7); Eosinophils % (A) 11 %; HCT 47.2 % (39.0-53.0); HGB 16.2 gm/dL (13.0-17.5); Lymphocytes # (A) 2.1 k/uL (1.0-4.8); Lymphocytes % (A) 31 %; MCHC 34.2 g/dL (31.0-37.0); MCV 96.5 fL (80.0-100.0); Mean Platelet Volume 8.2; Monocytes # (A) 0.5 k/uL (0-1.0); Monocytes % (A) 7 %; Neutrophils # (A) 3.2 k/uL (1.3-7.7); Neutrophils % (A) 47 %; Platelet Count 217 k/uL (150-450); RDW 13.2 % (11.5-15.5); WBC 6.9 k/uL (3.8-10.6)
--- NOTE | 2021-07-13 22:20 | XR ---
EXAMINATION TYPE: XR chest 2V DATE OF EXAM: 07/13/2021 COMPARISON: 05/09/2021 HISTORY: Difficulty breathing TECHNIQUE: FINDINGS: Heart is normal. Lungs are clear of infiltrate. There is no heart failure. There are no hil ar masses. There are chest leads. Bony thorax is intact IMPRESSION: No active cardiopulmonary disease. No change.
[2021-07-13 22:26] LABS: ALT 17 U/L (4-49); AST 34 U/L (17-59); African American GFR (CKD) >90 (>60 ml/min/1.73 sqM); Albumin 4.4 g/dL (3.5-5.0); Alkaline Phosphatase 63 U/L (38-126); Anion Gap 10 mmol/L; Blood Urea Nitrogen 14 mg/dL (9-20); Calcium 9.9 mg/dL (8.4-10.2); Carbon Dioxide 24 mmol/L (22-30); Chloride 104 mmol/L (98-107); Glucose 107 mg/dL (74-99); Non-African American GFR(CKD) >90 (>60 ml/min/1.73 sqM); Potassium 4.2 mmol/L (3.5-5.1); Sodium 138 mmol/L (137-145); Total Bilirubin 0.3 mg/dL (0.2-1.3); Total Protein 7.4 g/dL (6.3-8.2)
[2021-07-13 22:29] LABS: INR 0.9 (<1.2); Partial Thromboplastin Time 26.5 sec (22.0-30.0); Prothrombin Time 10.1 sec (9.0-12.0)
[2021-07-13] MEDS ORDERED: LORazepam 2 MG/ML INJ IV STA (23:08)
[2021-07-13] MEDS ORDERED: ALBUTEROL NEBULIZED 2.5 MG/3 ML INHALATION PRN (23:52)
[2021-07-14] MEDS: SODIUM CHLORIDE 0.9% 1,000 ML IV SCH ×3 (01:52→21:01)
[2021-07-14] MEDS: SYMBICORT 160-4.5 MCG INHALER INHALATION SCH ×2 (08:22→19:44)
[2021-07-14] MEDS: IPRATROPIUM-ALBUTEROL 3 ML NEB INHALATION SCH ×4 (08:22→19:44)
[2021-07-14] MEDS ORDERED: predniSONE 20 MG TAB PO SCH (09:00)
[2021-07-14] MEDS: buPROPion XL 150 MG TAB.ER.24H PO SCH (09:15)
[2021-07-14] MEDS: NICOTINE 14MG/24HR PATCH TRANSDERM SCH (09:15)
[2021-07-14] MEDS ORDERED: methylPREDNISolone SOD SUCCI 40 MG/ML 1 ML VIAL IV SCH (09:45)
[2021-07-14] MEDS ORDERED: methylPREDNISolone SOD SUCCI 125 MG/2 ML VIAL IV SCH (12:00)
[2021-07-14 12:29] LABS: Glucose,Whole Blood 143 mg/dL (75-99)
[2021-07-14] MEDS: methylPREDNISolone SOD SUCCI 125 MG/2 ML VIAL IV SCH ×3 (12:51→23:40)
[2021-07-14] MEDS: INSULIN ASPART (NovoLOG) 100 UNIT/ML VIAL SQ SCH ×3 (12:52→21:00)
--- NOTE | 2021-07-14 15:12 | P.HPIM ---
History of Present Illness H&P Date: 07/14/21 HISTORY OF PRESENT ILLNESS This is a 65-year-old male patient of Dr. Ware with past medical history of COPD, tobacco use and dependence, remote history of drug and alcohol abuse, history of hepatitis C status post Harvoni therapy, elevated PSA monitored by Dr. 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 Patient gives history of having increasing difficulty breathing which he relates to running out of his albuterol and steroid inhaler over the weekend. He had been in contact with his pharmacy and prescription was trying to be changed to a different steroid inhaler. He also contacted PCP office. He denies having any fever or chills. He complains of white sputum production. No lower extremity edema. No abdominal pain. No diarrhea. He does have a nebulizer at home but thinks he is running out of medication. He does not utilize oxygen. His pulmonary doctor is Dr. Leslie. Patient came into [facility] emergency center for evaluation. Patient was afebrile, heart rate 98, respiratory rate 26, blood pressure 114/75, pulse ox 93% on room air. CBC was unremarkable. D-dimer 0.55. Electrolytes and renal function normal. Blood sugar 107. Liver function tests were normal. Troponin negative. Coronavirus not detected. Chest x-ray shows no active cardiac pulmonary disease. Patient was started on IV Solu-Medrol, DuoNeb treatments, Symbicort, admitted to the observation unit and consult with pulmonary medicine. REVIEW OF SYSTEMS Constitutional: No fever, no chills, no night sweats. No weight change. No weakness, fatigue or lethargy. Denies daytime sleepiness. EENT: No headache. No blurred vision or double vision, no loss of vision. No dizziness. No nasal drainage or congestion. No epistaxis. No sore throat. Lungs: Reports shortness of breath, Reports cough, Reports sputum production. No wheezing. No hemoptysis Cardiovascular: No chest pain, no lower extremity edema. No palpitations. Reports paroxysmal nocturnal dyspnea. Reports orthopnea. No lightheadedness or dizziness. No syncopal episodes. Abdominal: No abdominal pain. No nausea, vomiting. No diarrhea. No constipation. No bloody or tarry stools. Genitourinary: No dysuria, increased frequency, urgency. No urinary retention. Musculoskeletal: No myalgias. No muscle weakness, no gait dysfunction, no frequent falls. No back pain. No neck pain. Integumentary: No wounds, no lesions. No rash or pruritus. Neurologic: No aphasia. No facial droop. No change in mentation. No head injury. No headache. No paralysis. No paresthesia. Psychiatric: No depression. No anxiety. No mood swings. Endocrine: No abnormal blood sugars. No weight change. SOCIAL HISTORY Patient is a smoker of 1+ pack per day for 52+ years. He is currently cut back to half a pack per day. He has history of IV drug abuse and alcohol abuse and has been clean for 11 years. He lives with his significant other. 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 Patient has an inhaler at home and nebulizer, no oxygen. FAMILY HISTORY Mother at age 72 from intracranial bleeding with use of Coumadin. Father with history of diabetes and coronary artery disease. Patient has 5 brothers and one has diabetes and consultations with amputation. Patient has one sister. All other siblings have no major medical problems that he is aware of. Patient's one daughter with no major medical problems. PHYSICAL EXAMINATION Gen: This is a 65-year-old male. Patient is resting on the ER stretcher and appears to be comfortable and in no acute distress. Patient is eating breakfast. HEENT: Head is atraumatic, normocephalic. Pupils equal, round. Sclerae is anicteric. NECK: Supple. No JVD. No lymphadenopathy. No thyromegaly. LUNGS: Scattered inspiratory and expiratory wheezing throughout with scattered rhonchi. No intercostal retractions. HEART: Regular rate and rhythm. No murmur. ABDOMEN: Soft. Bowel sounds are present. No masses. No tenderness. EXTREMITIES: No pedal edema. No calf tenderness. Dorsalis pedis +2 bilaterally. Hip rotation of the left fifth digit. NEUROLOGICAL: Patient is awake, alert and oriented x3. Cranial nerves 2 through 12 are grossly intact. ASSESSMENT AND PLAN 1. Acute COPD exacerbation with acute purulent tracheobronchitis. DuoNeb treatments 4 times daily, albuterol as needed, Symbicort twice daily, Solu-M edrol 60 mg IV every 6 hours, consult with pulmonary medicine. 2. Tobacco use and dependence. Nicotine patch 14 mg daily. 3. Remote history of drug and alcohol abuse. 4. History of hepatitis C status post Harvoni therapy. 5. Elevated PSA monitored by urology. 6. History of ruptured bowel status post colostomy with reversal, stable. 7. DVT prophylaxis. Heparin subcu. 8. GI prophylaxis. Protonix. Patient will be admitted to the hospital for a minimum of 2 night stay. Discharge plan: Return home. Impression and plan of care have been directed as dictated by the signing physician. Kayley Velásquez nurse practitioner acting as scribe for signing physician. 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 History of Any Multi-Drug Resistant Organisms: None Reported Past Surgical History: Bowel Resection, Hernia Repair Additional Past Surgical History / Comment(s): Ruptured bowel, temp colostomy, reversal of colostomy, finger amputation (blood clot), colonoscopy, L/R inguinal hernia repairs, circumcism. Past Anesthesia/Blood Transfusion Reactions: No Reported Reaction Past Psychological History: No Psychological Hx Reported Smoking Status: Former smoker Past Alcohol Use History: None Reported, Abuse Past Drug Use History: None Reported, IV Drug Use - Past Family History Mother Family Medical History: CVA/TIA Additional Family Medical History / Comment(s): Mother of a CVA (was on coumadin) at the age of 74 yrs. Father Family Medical History: Diabetes Mellitus, Deep Vein Thrombosis (DVT) Additional Family Medical History / Comment(s): Father of diabetic complications at the age of 70 yrs. Medications and Allergies Home Medications Medication Instructions Recorded Confirmed Type Fluticasone/Salmeterol [Advair 2 puff INHALATION RT-BID 08/19/20 07/14/21 History 250-50 Diskus] buPROPion HCL [Wellbutrin XL] 150 mg PO DAILY 08/19/20 07/14/21 History Albuterol Sulfate [Albuterol 2 puff PO RT-Q4H PRN 05/09/21 07/14/21 History Sulfate Hfa] Allergies Allergy/AdvReac Type Severity Reaction Status Date / Time No Known Allergies Allergy Verified 07/13/21 20:50 Physical Exam Vitals: Vital Signs Temp Pulse Resp BP Pulse Ox 07/14/21 08:36 89 07/14/21 08:22 93 07/14/21 05:53 97.1 F L 81 18 110/77 97 07/14/21 04:59 85 18 98 07/14/21 03:43 86 16 116/89 98 07/14/21 03:28 88 18 96 07/14/21 01:47 76 18 130/89 95 07/13/21 23:44 87 22 94 L 07/13/21 23:18 92 22 95 07/13/21 23:00 90 07/13/21 22:54 90 22 98 07/13/21 22:49 92 07/13/21 22:17 87 24 135/105 95 07/13/21 21:57 101 H 07/13/21 21:43 88 07/13/21 21:20 89 24 141/87 95 07/13/21 21:10 26 H 07/13/21 20:48 98.1 F 98 24 114/75 93 L Intake and Output 07/13/21 07/14/21 07/14/21 22:59 06:59 14:59 Other: Weight 81.647 kg Results CBC & Chem 7: 07/13/21 21:17 07/13/21 21:17 Labs: Abnormal Lab Results - Last 24 Hours (Table) 07/13/21 Range/Units 21:17 Glucose 107 H (74-99) mg/dL
[2021-07-14 17:24] LABS: Glucose,Whole Blood 290 mg/dL (75-99)
--- NOTE | 2021-07-14 17:54 | P.CNPUL ---
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 He is maintained on Advair and albuterol in the outpatient setting. I was informed that the patient was unable to take as maintenance inhalers at home. He was discharged home during his last hospitalization on Advair. Advair that switched to Symbicort due to prescription coverage. The patient was unable to take his Symbicort and he has underlying mainly on albuterol HFA and nebulizers on outpatient basis. Meanwhile he was also smoking is breathing progressively got worse and he became progressively more short of breath and COPD exacerbated and for that reason he came back to the hospital. Chest x-ray 7 acute pulmonary infiltrates. He has no chest pain. No angina. No palpitation. No altered mentation. No nausea. No vomiting. No diarrhea and no leg swelling. No other significant events otherwise for now. Note that the patient has moderately severe COPD and his FEV1 from August 2020 was in order of 69% of predicted. Review of Systems Constitutional: No fever, no chills, no night sweats. No weight change. No weakness, fatigue or lethargy. Denies daytime sleepiness. EENT: No headache. No blurred vision or double vision, no loss of vision. No dizziness. No nasal drainage or congestion. No epistaxis. No sore throat. Lungs: Reports shortness of breath, Reports cough, Reports sputum production. No wheezing. No hemoptysis Cardiovascular: No chest pain, no lower extremity edema. No palpitations. Reports paroxysmal nocturnal dyspnea. Reports orthopnea. No lightheadedness or dizziness. No syncopal episodes. Abdominal: No abdominal pain. No nausea, vomiting. No diarrhea. No constipation. No bloody or tarry stools. Genitourinary: No dysuria, increased frequency, urgency. No urinary retention. Musculoskeletal: No myalgias. No muscle weakness, no gait dysfunction, no frequent falls. No back pain. No neck pain. Integumentary: No wounds, no lesions. No rash or pruritus. Neurologic: No aphasia. No facial droop. No change in mentation. No head injury. No headache. No paralysis. No paresthesia. Psychiatric: No depression. No anxiety. No mood swings. Endocrine: No abnormal blood sugars. No weight change. 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 History of Any Multi-Drug Resistant Organisms: None Reported Past Surgical History: Bowel Resection, Hernia Repair Additional Past Surgical History / Comment(s): Ruptured bowel, temp colostomy, reversal of colostomy, finger amputation (blood clot), colonoscopy, L/R inguinal hernia repairs, circumcism. Past Anesthesia/Blood Transfusion Reactions: No Reported Reaction Past Psychological History: No Psychological Hx Reported Smoking Status: Former smoker Past Alcohol Use History: None Reported, Abuse Past Drug Use History: None Reported, IV Drug Use - Past Family History Mother Family Medical History: CVA/TIA Additional Family Medical History / Comment(s): Mother of a CVA (was on coumadin) at the age of 74 yrs. Father Family Medical History: Diabetes Mellitus, Deep Vein Thrombosis (DVT) Additional Family Medical History / Comment(s): Father of diabetic complications at the age of 70 yrs. Medications and Allergies Home Medications Medication Instructions Recorded Confirmed Type Fluticasone/Salmeterol [Advair 2 puff INHALATION RT-BID 08/19/20 07/14/21 History 250-50 Diskus] buPROPion HCL [Wellbutrin XL] 150 mg PO DAILY 08/19/20 07/14/21 History Albuterol Sulfate [Albuterol 2 puff PO RT-Q4H PRN 05/09/21 07/14/21 History Sulfate Hfa] Allergies Allergy/AdvReac Type Severity Reaction Status Date / Time No Known Allergies Allergy Verified 07/13/21 20:50 Physical Exam Vitals: Vital Signs Temp Pulse Pulse Resp BP BP Pulse Ox 07/14/21 08:36 89 07/14/21 08:22 93 07/14/21 07:45 97.6 F 80 18 112/75 96 07/14/21 05:53 97.1 F L 81 18 110/77 97 07/14/21 04:59 85 18 98 07/14/21 03:43 86 16 116/89 98 07/14/21 03:28 88 18 96 07/14/21 01:47 76 18 130/89 95 07/13/21 23:44 87 22 94 L 07/13/21 23:18 92 22 95 07/13/21 23:00 90 07/13/21 22:54 90 22 98 07/13/21 22:49 92 07/13/21 22:17 87 24 135/105 95 07/13/21 21:57 101 H 07/13/21 21:43 88 07/13/21 21:20 89 24 141/87 95 07/13/21 21:10 26 H 07/13/21 20:48 98.1 F 98 24 114/75 93 L Intake and Output 07/13/21 07/14/21 07/14/21 22:59 06:59 14:59 Other: Weight 81.647 kg GENERAL EXAM: Alert, pleasant 66-year-old gentleman, on room air oxygen no apparent distress. HEAD: Normocephalic. EYES: Normal reaction of pupils, equal size. NOSE: Clear with pink turbinates. THROAT: No erythema or exudates. NECK: No masses, no JVD. CHEST: No chest wall deformity. LUNGS: Equal air entry with expiratory wheeze, diminished. CVS: S1 and S2 normal with no audible murmur, regular rhythm. ABDOMEN: No hepatosplenomegaly, normal bowel sounds, no guarding or rigidity. SPINE: No scoliosis or deformity SKIN: No rashes CENTRAL NERVOUS SYSTEM: No focal deficits, tone is normal in all 4 extremities. EXTREMITIES: There is no peripheral edema. No clubbing, no cyanosis. Perip heral pulses are intact. Results - Laboratory Findings CBC and BMP: 07/13/21 21:17 07/13/21 21:17 PT/INR, D-dimer PT 10.1 sec (9.0-12.0) 07/13/21 21:17 INR 0.9 (<1.2) 07/13/21 21:17 D-Dimer 0.55 mg/L FEU (<0.60) 07/13/21 21:17 Abnormal lab findings: Abnormal Labs 07/13/21 21:17 Glucose 107 H - Diagnostic Findings Chest x-ray: image reviewed Assessment and Plan Plan: 1 Acute hypoxemic respiratory failure secondary to an acute exacerbation of chronic obstructive pulmonary disease, clinically improving 2 Chronic tobacco dependence 3 History of hepatitis C, treated with Harvoni 4 History of IV drug abuse 5 Left fifth digit of the hand amputated due to blood clot from IV drug use 6 History of bowel resection with colostomy and subsequent reversal 7 History of bilateral inguinal hernia repairs ULISSES We'll treat this patient for an acute COPD exacerbation with a combination of bronchodilators and steroids. Chest x-ray is free of any infiltrates. Very important for this patient to quit smoking and smoking cessation counseling was done. As far as outpatient respiratory medications, the patient may be able to go on a generic form of Advair which includes a combination of fluticasone and albuterol. Alternatively, if medical coverage is available, the patient would benefit from being on ANORO ELLIpta one inhalation a day along with albuterol rescue inhaler on a screening basis. He is already feeling better. He may benefit from prednisone burst taper at time of discharge. Continue IV Solu Med rol for the next 24 hours. Nicotine patch. Heparin subcu for DVT prophylaxis. We'll continue to follow.
[2021-07-14 20:05] VITALS: RESP 18
[2021-07-14 20:32] LABS: Glucose,Whole Blood 158 mg/dL (75-99)
[2021-07-15] MEDS: SODIUM CHLORIDE 0.9% 1,000 ML IV SCH (02:24)
[2021-07-15] MEDS: methylPREDNISolone SOD SUCCI 125 MG/2 ML VIAL IV SCH (05:21)
[2021-07-15 07:06] LABS: Glucose,Whole Blood 159 mg/dL (75-99)
[2021-07-15] MEDS: NICOTINE 14MG/24HR PATCH TRANSDERM SCH (07:37)
[2021-07-15] MEDS: INSULIN ASPART (NovoLOG) 100 UNIT/ML VIAL SQ SCH (07:37)
[2021-07-15] MEDS: buPROPion XL 150 MG TAB.ER.24H PO SCH (07:38)
[2021-07-15 07:44] VITALS: BP 108/63; TEMP 97.4
[2021-07-15] MEDS: SYMBICORT 160-4.5 MCG INHALER INHALATION SCH (08:03)
[2021-07-15] MEDS: IPRATROPIUM-ALBUTEROL 3 ML NEB INHALATION SCH (08:03)
[2021-07-15 08:48] VITALS: PULSE 80
[2021-07-15] MEDS ORDERED: ENOXAPARIN 40 MG/0.4 ML SYRINGE SQ SCH (09:00)
--- NOTE | 2021-07-15 09:33 | P.DS ---
Providers Date of admission: 07/15/21 08:59 Expected date of discharge: 07/15/21 Attending physician: Brandyn Ware Consults: 07/13/21 23:52 Consult Physician Routine Consulting Provider: Irene Sorto Consult Reason/Comments: COPD exacerbation Do you want consulting provider notified?: Yes Primary care physician: Brandyn Chaz [facility] Course: HISTORY OF PRESENT ILLNESS This is a 65-year-old male patient of Dr. Ware with past medical history of COPD, tobacco use and dependence, remote history of drug and alcohol abuse, history of hepatitis C status post Harvoni therapy, elevated PSA monitored by Dr. 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 Patient gives history of having increasing difficulty breathing which he relates to running out of his albuterol and steroid inhaler over the weekend. He had been in contact with his pharmacy and prescription was trying to be changed to a different steroid inhaler. He also contacted PCP office. He denies having any fever or chills. He complains of white sputum production. No lower extremity edema. No abdominal pain. No diarrhea. He does have a nebulizer at home but thinks he is running out of medication. He does not utilize oxygen. His pulmonary doctor is Dr. Leslie. Patient came into [facility] emergency center for evaluation. Patient was afebrile, heart rate 98, respiratory rate 26, blood pressure 114/75, pulse ox 93% on room air. CBC was unremarkable. D-dimer 0.55. Electrolytes and renal function normal. Blood sugar 107. Liver function tests were normal. Troponin negative. Coronavirus not detected. Chest x-ray shows no active cardiac pulmonary disease. Patient was started on IV Solu-Medrol, DuoNeb treatments, Symbicort, admitted to the observation unit and consult with pulmonary medicine. 07/15: Patient states that his breathing status is stable and seems to be back to baseline. He states he had a rough morning because of anxiety but better now. Patient started on Diflucan for thrush. Also regarding inhaled steroids, prescription will be sent for Advair and Pulmicort depending on what his insurance will cover. Patient will be discharged home today in stable condition. ASSESSMENT AND PLAN 1. Acute COPD exacerbation with acute purulent tracheobronchitis. DuoNeb treatments 4 times daily, albuterol as needed, Symbicort twice daily, Solu- Medrol 60 mg IV every 6 hours, consult with pulmonary medicine. 2. Tobacco use and dependence. Nicotine patch 14 mg daily. 3. Remote history of drug and alcohol abuse. 4. History of hepatitis C status post Harvoni therapy. 5. Elevated PSA monitored by urology. 6. History of ruptured bowel status post colostomy with reversal, stable. 7. DVT prophylaxis. Heparin subcu. 8. GI prophylaxis. Protonix. Patient will be admitted to the hospital for a minimum of 2 night stay. Discharge plan: Return home. Impression and plan of care have been directed as dictated by the signing physician. Kayley Velásquez nurse practitioner acting as scribe for signing physician. Patient Condition at Discharge: Good Plan - Discharge Summary Discharge Rx Participant: No New Discharge Prescriptions: New Nicotine 14Mg/24Hr Patch [Habitrol] 1 patch TRANSDERM DAILY #30 patch Budesonide [Pulmicort] 0.5 mg INHALATION BID #60 each Fluconazole [Diflucan] 100 mg PO DAILY #10 tab Ipratropium-Albuterol Nebulize [Duoneb 0.5 mg-3 mg/3 ml Soln] 3 ml INHALATION RT-QID #120 ml Continue buPROPion HCL [Wellbutrin XL] 150 mg PO DAILY Albuterol Sulfate [Albuterol Sulfate Hfa] 2 puff PO RT-Q4H PRN PRN Reason: Shortness Of Breath Fluticasone/Salmeterol [Advair 250-50 Diskus] 2 puff INHALATION RT-BID #1 dispenser Discharge Medication List buPROPion HCL [Wellbutrin XL] 150 mg PO DAILY 08/19/20 [History] Albuterol Sulfate [Albuterol Sulfate Hfa] 2 puff PO RT-Q4H PRN 05/09/21 [History] Budesonide [Pulmicort] 0.5 mg INHALATION BID #60 each 07/15/21 [Rx] Fluconazole [Diflucan] 100 mg PO DAILY #10 tab 07/15/21 [Rx] Fluticasone/Salmeterol [Advair 250-50 Diskus] 2 puff INHALATION RT-BID #1 dispenser 07/15/21 [Rx] Ipratropium-Albuterol Nebulize [Duoneb 0.5 mg-3 mg/3 ml Soln] 3 ml INHALATION RT-QID #120 ml 07/15/21 [Rx] Nicotine 14Mg/24Hr Patch [Habitrol] 1 patch TRANSDERM DAILY #30 patch 07/15/21 [Rx] Follow up Appointment(s)/Referral(s): Bala Lauren MD [STAFF PHYSICIAN] - 08/04/21 10:30 am Brandyn Ware MD [Primary Care Provider] - 07/19/21 9:45 am Patient Instructions/Handouts: COPD (Chronic Obstructive Pulmonary Disease) (GEN), Chronic Lung Disease and Infection Prevention (GEN) Discharge Disposition: HOME SELF-CARE
== END 2021-07-15 11:40 | disposition home or self-care (01) | DRG 191 ==
LOC: EC 20:46 → 1SOBS 23:52 → 6NMEDSUR 07-14 02:55 → OBSVTOIN 07-15 08:59
PROVIDERS: ADMIT Internal Medicine Geriatric Medicine; ATTEND Internal Medicine Geriatric Medicine
DX: J44.1 Chronic obstructive pulmonary disease with (acute) exacerbation (principal); B37.0 Candidal stomatitis; J44.0 Chronic obstructive pulmonary disease with (acute) lower respiratory infection; J20.9 Acute bronchitis, unspecified; F19.90 Other psychoactive substance use, unspecified, uncomplicated; B18.2 Chronic viral hepatitis C; F17.210 Nicotine dependence, cigarettes, uncomplicated; F41.9 Anxiety disorder, unspecified; Z79.51 Long term (current) use of inhaled steroids; Z20.822 Contact with and (suspected) exposure to COVID-19; Z79.899 Other long term (current) drug therapy; Z93.3 Colostomy status; Z87.19 Personal history of other diseases of the digestive system; Z89.119 Acquired absence of unspecified hand; Z86.718 Personal history of other venous thrombosis and embolism; Z71.6 Tobacco abuse counseling
CPT/HCPCS: 36415; 71046; 80053; 83605; 83880; 84145; 84484; 85025; 85379; 85610; 85730; 87635; 93005; 94640; 94660

== ENCOUNTER 2022-03-01 23:06 | Inpatient (IN) | payer MEDICARE, OTHER ==
[~2022-03-01 23:06] MED LIST: IV FLUID CONTINUATION 1,000 ML IV ONE
[2022-03-01] MEDS ORDERED: MORPHINE SULFATE 4 MG/ML SYRINGE IVP STA (23:28)
[2022-03-01] MEDS ORDERED: ATORVASTATIN 40 MG TAB PO STA (23:29)
[2022-03-01] MEDS ORDERED: HEPARIN SOD,PORK IN 0.45% NACL 25,000 UNIT in 0.45% NACL 1 250ML.BAG IV SCH (23:30)
[2022-03-01] MEDS ORDERED: HEPARIN SODIUM 1,000 UN/ML (10ML VL) IV PRN (23:30)
[2022-03-01] MEDS ORDERED: HEPARIN SODIUM 1,000 UN/ML (10ML VL) IV ONE (23:30)
[2022-03-01] MEDS ORDERED: ASPIRIN 81 MG PO STA (23:36)
[2022-03-01] MEDS ORDERED: ATORVASTATIN 80 MG TAB PO STA (23:37)
[2022-03-01] MEDS ORDERED: NALOXONE 0.4 MG/ML 1 ML VIAL IV PRN (23:41)
[2022-03-01 23:42] LABS: Basophils # (A) 0.1 k/uL (0-0.2); Basophils % (A) 1 %; Eosinophils # (A) 0.2 k/uL (0-0.7); Eosinophils % (A) 2 %; HCT 46.4 % (39.0-53.0); HGB 15.5 gm/dL (13.0-17.5); Lymphocytes # (A) 2.2 k/uL (1.0-4.8); Lymphocytes % (A) 19 %; MCH 32.7 pg (25.0-35.0); MCHC 33.4 g/dL (31.0-37.0); MCV 98.1 fL (80.0-100.0); Mean Platelet Volume 8.5; Monocytes # (A) 0.8 k/uL (0-1.0); Monocytes % (A) 7 %; Neutrophils # (A) 7.8 k/uL (1.3-7.7); Neutrophils % (A) 69 %; Platelet Count 188 k/uL (150-450); RBC 4.73 m/uL (4.30-5.90); RDW 12.5 % (11.5-15.5); WBC 11.3 k/uL (3.8-10.6)
--- NOTE | 2022-03-01 23:44 | ED ---
General Adult HPI - General Stated complaint: Chest pain, PASCUAL Time Seen by Provider: 03/01/22 23:24 - History of Present Illness Initial comments: Elda is a 67-year-old male who presents the ER today for evaluation of chest pain and difficulty breathing. Patient pretty developed some chest pain earlier in the day, he left work early due to the chest pain however upon returning home and did not get any better and progressively worsening difficulty in breathing. His insisted he come to the hospital for further evaluation. Patient has no cardiac history he is a previous smoker. He has a previous history of hepatitis C which she likely contracted from IV drug use when he was younger however he was treated in 2015 his hepatitis C negative at this point. - Related Data Home Medications Medication Instructions Recorded Confirmed buPROPion HCL [Wellbutrin XL] 150 mg PO DAILY 08/19/20 07/14/21 Albuterol Sulfate [Albuterol 2 puff PO RT-Q4H PRN 05/09/21 07/14/21 Sulfate Hfa] Previous Rx's Medication Instructions Recorded Budesonide [Pulmicort] 0.5 mg INHALATION BID #60 each 07/15/21 Fluconazole [Diflucan] 100 mg PO DAILY #10 tab 07/15/21 Fluticasone/Salmeterol [Advair 2 puff INHALATION RT-BID #1 07/15/21 250-50 Diskus] dispenser Ipratropium-Albuterol Nebulize 3 ml INHALATION RT-QID #120 ml 07/15/21 [Duoneb 0.5 mg-3 mg/3 ml Soln] Nicotine 14Mg/24Hr Patch [Habitrol] 1 patch TRANSDERM DAILY #30 patch 07/15/21 Allergies Allergy/AdvReac Type Severity Reaction Status Date / Time No Known Allergies Allergy Verified 03/01/22 23:32 Review of Systems ROS Statement: Those systems with pertinent positive or pertinent negative responses have been documented in the HPI. ROS Other: All systems not noted in ROS Statement are negative. Past Medical History Past Medical History: COPD, Deep Vein Thrombosis (DVT), Liver Disease Additional Past Medical History / Comment(s): hepatitis C diagnosed 09/2015 currently under outpatient treatment, blood clot L little finger from IV drug u se resulting in amputation. History of Any Multi-Drug Resistant Organisms: None Reported Past Surgical History: Bowel Resection, Hernia Repair Additional Past Surgical History / Comment(s): Ruptured bowel, temp colostomy, reversal of colostomy, finger amputation (blood clot), colonoscopy, L/R inguinal hernia repairs, circumcism. Past Anesthesia/Blood Transfusion Reactions: No Reported Reaction Past Psychological History: No Psychological Hx Reported Smoking Status: Former smoker Past Alcohol Use History: None Reported, Abuse Past Drug Use History: None Reported, IV Drug Use - Past Family History Mother Family Medical History: CVA/TIA Additional Family Medical History / Comment(s): Mother of a CVA (was on coumadin) at the age of 74 yrs. Father Family Medical History: Diabetes Mellitus, Deep Vein Thrombosis (DVT) Additional Family Medical History / Comment(s): Father of diabetic complications at the age of 70 yrs. General Exam - General Exam Comments Initial Comments: Physical Exam GENERAL: Diaphoretic, appears uncomfortable HENT: Normocephalic, Atraumatic. EYES: PERRL, EOMI PULMONARY: Unlabored respirations. No audible rales rhonchi or wheezing was noted. CARDIOVASCULAR: Tachycardic, irregularly irregular No murmurs. Warm and well perfused extremities with strong DP and radial pulses bilaterally ABDOMEN: Soft and nontender with normal bowel sounds. SKIN: Skin is clear with no lesions or rashes and otherwise unremarkable. : Deferred NEUROLOGIC: Patient is alert and oriented x3. Moving all extremities spontaneously MUSCULOSKELETAL: Normal extremities with adequate strength and full range of motion. No lower extremity swelling or edema. No calf tenderness. PSYCHIATRIC: Normal psychiatric evaluation. Course Vital Signs 03/01/22 03/01/22 03/01/22 23:28 23:44 23:51 Temperature 98.9 F Pulse Rate 133 H 116 H 108 H Respiratory 18 18 20 Rate Blood Pressure 137/118 128/65 114/83 O2 Sat by Pulse 96 96 95 Oximetry EKG Findings - EKG Comments: EKG Findings:: Initial EKG was obtained at 2319, rate is 143 rhythm is a narrow complex irregularly irregular tachycardia, normal axis, QRS is narrow at 90, QTC [address] elevations noted diffusely especially in the inferior and lateral leads, leads 2, 3, aVF as well as V3 and V4, ST depressions are noted in aVR and V1. This is concerning for an acute ST elevation AL. Repeat EKG with less artifact was obtained at 2327, repeat is 153 rhythm is again narrow complex irregularly irregular rhythm consistent with atrial fibrillation, again ST elevations are noted in 23 aVF as well as V3 and V4 with again ST depressions in aVR and V1 this is again concerning for an acute STEMI Medical Decision Making - Medical Decision Making EKG was obtained in triage and brought immediately to me for evaluation, patient was taken to the resuscitation bay cardiology was consulted, Dr Sharpe reviewed and agrees with the plan to activate the [employer] Code STEMI was activated Patient received aspirin, morphine, Lipitor and heparin in the emergency department Patient was taken to the [employer] he remained awake alert oriented in only moderate distress throughout the [employer] Dr. Ware excepts the admission - Lab Data Result diagrams: 03/01/22 23:33 03/01/22 23:33 Lab Results 03/01/22 03/01/22 03/01/22 Range/Units 23:33 23:33 23:33 WBC 11.3 H (3.8-10.6) k/uL RBC 4.73 (4.30-5.90) m/uL Hgb 15.5 (13.0-17.5) gm/dL Hct 46.4 (39.0-53.0) % MCV 98.1 (80.0-100.0) fL MCH 32.7 (25.0-35.0) pg MCHC 33.4 (31.0-37.0) g/dL RDW 12.5 (11.5-15.5) % Plt Count 188 (150-450) k/uL MPV 8.5 Neutrophils % 69 % Lymphocytes % 19 % Monocytes % 7 % Eosinophils % 2 % Basophils % 1 % Neutrophils # 7.8 H (1.3-7.7) k/uL Lymphocytes # 2.2 (1.0-4.8) k/uL Monocytes # 0.8 (0-1.0) k/uL Eosinophils # 0.2 (0-0.7) k/uL Basophils # 0.1 (0-0.2) k/uL PT 11.0 (9.0-12.0) sec INR 1.0 (<1.2) APTT 27.5 (22.0-30.0) sec Sodium 135 L (137-145) mmol/L Potassium 4.4 (3.5-5.1) mmol/L Chloride 104 (98-107) mmol/L Carbon Dioxide 21 L (22-30) mmol/L Anion Gap 10 mmol/L BUN 14 (9-20) mg/dL Creatinine 0.84 (0.66-1.25) mg/dL Est GFR (CKD-EPI)AfAm >90 (>60 ml/min/1.73 sqM) Est GFR (CKD-EPI)NonAf 89 (>60 ml/min/1.73 sqM) Glucose 109 H (74-99) mg/dL Calcium 9.6 (8.4-10.2) mg/dL Magnesium 2.1 (1.6-2.3) mg/dL Total Bilirubin 1.1 (0.2-1.3) mg/dL AST 24 (17-59) U/L ALT 13 (4-49) U/L Alkaline Phosphatase 57 (38-126) U/L Total Protein 7.4 (6.3-8.2) g/dL Albumin 4.4 (3.5-5.0) g/dL Disposition Clinical Impression: STEMI (ST elevation myocardial infarction) Disposition: ADMITTED IP TO THIS HOSP Condition: Serious Is patient prescribed a controlled substance at d/c from ED?: No Referrals: Brandyn Ware MD [Primary Care Provider] - 1-2 days
--- NOTE | 2022-03-01 23:46 | XR ---
EXAMINATION TYPE: XR chest 1V DATE OF EXAM: 03/01/2022 COMPARISON: 07/13/2021 HISTORY: Chest pain TECHNIQUE: FINDINGS: Heart is normal. There is some pleural reaction and atelectasis at the lung bases. There is mild pulmonary interstitial edema. There are chest leads. Bony thorax is intact. IMPRESSION: Small pleural effusions and increased interstitial pulmonary density could relate to kristy estive heart failure and is a change compared to the old exam.
[2022-03-01 23:54] LABS: ALT 13 U/L (4-49); AST 24 U/L (17-59); African American GFR (CKD) >90 (>60 ml/min/1.73 sqM); Albumin 4.4 g/dL (3.5-5.0); Alkaline Phosphatase 57 U/L (38-126); Anion Gap 10 mmol/L; Blood Urea Nitrogen 14 mg/dL (9-20); Calcium 9.6 mg/dL (8.4-10.2); Carbon Dioxide 21 mmol/L (22-30); Chloride 104 mmol/L (98-107); Glucose 109 mg/dL (74-99); Magnesium 2.1 mg/dL (1.6-2.3); Non-African American GFR(CKD) 89 (>60 ml/min/1.73 sqM); Potassium 4.4 mmol/L (3.5-5.1); Sodium 135 mmol/L (137-145); Total Bilirubin 1.1 mg/dL (0.2-1.3); Total Protein 7.4 g/dL (6.3-8.2)
[2022-03-01 23:55] LABS: Partial Thromboplastin Time 27.5 sec (22.0-30.0)
[2022-03-02] MEDS ORDERED: fentaNYL (PF) 50 MCG/ML 2 ML AMP ONE (00:08)
[2022-03-02] MEDS ORDERED: HEPARIN SODIUM 1,000 UN/ML (10ML VL) ONE (00:08)
[2022-03-02] MEDS ORDERED: VERAPAMIL 2.5 MG/ML 2 ML AMP ONE (00:08)
--- NOTE | 2022-03-02 00:08 | P.CRDCN ---
History of Present Illness Consult date: 03/02/22 History of present illness: History of Present Illness: The patient is a 67-year-old male with a known history of COPD chronic tobacco use who presented to the emergency room with symptoms of chest discomfort, abdominal discomfort or progressive dyspnea going on since 11:00 in the morning getting worse in the emergency room he was noted to be in atrial fibrillation wi th rapid ventricular response and evidence of ST segment elevation inferolateral leads. The patient denies any prior history of cardiac disease. He has no history of arrhythmia. He denies any PND, orthopnea or peripheral edema. He has no dizziness and no syncope. He scores factors are positive for chronic tobacco use. He has no history of hypertension or diabetes. Review of Systems: Respiratory: He has a history of chronic dyspnea and chronic obstructive lung disease GI: She had nausea and vomiting today. No history of peptic ulcer disease. No recent GI bleed. : No hematuria or dysuria. Nervous System: No stroke or seizure. Physical Examination: 67-year-old male alert and oriented in mild discomfort evaluated in the cardiac catheterization laboratory Head: Normocephalic. Eyes: Sclerae nonicteric. Neck: Good carotid upstroke, no bruit, no jugular venous distention. Lungs: Decreased air exchange Heart: Irregularly irregular, S1-S2 no S3 was a systolic murmur at the base Abdomen: Soft nontender, positive bowel sounds no organomegaly. Extremities: No edema, intact distal pulses. Labs: EKG shows atrial fibrillation with ST segment elevation in the inferolateral leads consistent with an acute myocardial infarction Impression: 1. Acute inferolateral myocardial infarction, symptoms started about 12 hours ago 2. Chronic tobacco use and chronic obstructive lung disease Plan: 1. I would recommend to proceed with emergent cardiac catheterization, the procedure as well as the risk and complications were discussed with the patient who was in agreement to proceed 2. Obtain an echocardiogram with Doppler 3. Patient would require anticoagulation postprocedure 4. Depending on his findings further recommendations will be made 5. 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 History of Any Multi-Drug Resistant Organisms: None Reported Past Surgical History: Bowel Resection, Hernia Repair Additional Past Surgical History / Comment(s): Ruptured bowel, temp colostomy, reversal of colostomy, finger amputation (blood clot), colonoscopy, L/R inguinal hernia repairs, circumcism. Past Anesthesia/Blood Transfusion Reactions: No Reported Reaction Past Psychological History: No Psychological Hx Reported Smoking Status: Former smoker Past Alcohol Use History: None Reported, Abuse Past Drug Use History: None Reported, IV Drug Use - Past Family History Mother Family Medical History: CVA/TIA Additional Family Medical History / Comment(s): Mother of a CVA (was on coumadin) at the age of 74 yrs. Father Family Medical History: Diabetes Mellitus, Deep Vein Thrombosis (DVT) Additional Family Medical History / Comment(s): Father of diabetic complications at the age of 70 yrs. Medications and Allergies Home Medications Medication Instructions Recorded Confirmed Type buPROPion HCL [Wellbutrin XL] 150 mg PO DAILY 08/19/20 07/14/21 History Albuterol Sulfate [Albuterol 2 puff PO RT-Q4H PRN 05/09/21 07/14/21 History Sulfate Hfa] Budesonide [Pulmicort] 0.5 mg INHALATION BID #60 each 07/15/21 Rx Fluconazole [Diflucan] 100 mg PO DAILY #10 tab 07/15/21 Rx Fluticasone/Salmeterol [Advair 2 puff INHALATION RT-BID #1 07/15/21 Rx 250-50 Diskus] dispenser Ipratropium-Albuterol Nebulize 3 ml INHALATION RT-QID #120 ml 07/15/21 Rx [Duoneb 0.5 mg-3 mg/3 ml Soln] Nicotine 14Mg/24Hr Patch [Habitrol] 1 patch TRANSDERM DAILY #30 patch 07/15/21 Rx Allergies Allergy/AdvReac Type Severity Reaction Status Date / Time No Known Allergies Allergy Verified 03/01/22 23:32 Physical Exam Vitals: Vital Signs Temp Pulse Resp BP Pulse Ox 03/01/22 23:51 108 H 20 114/83 95 03/01/22 23:44 98.9 F 116 H 18 128/65 96 03/01/22 23:28 133 H 18 137/118 96 Intake and Output 03/01/22 03/01/22 03/02/22 14:59 22:59 06:59 Other: Weight 81.647 kg Results 03/01/22 23:33 03/01/22 23:33 Cardiac Enzymes 03/01/22 Range/Units 23:33 AST 24 (17-59) U/L Coagulation 03/01/22 Range/Units 23:33 PT 11.0 (9.0-12.0) sec APTT 27.5 (22.0-30.0) sec CBC 03/01/22 Range/Units 23:33 WBC 11.3 H (3.8-10.6) k/uL RBC 4.73 (4.30-5.90) m/uL Hgb 15.5 (13.0-17.5) gm/dL Hct 46.4 (39.0-53.0) % Plt Count 188 (150-450) k/uL Comprehensive Metabolic Panel 03/01/22 Range/Units 23:33 Sodium 135 L (137-145) mmol/L Potassium 4.4 (3.5-5.1) mmol/L Chloride 104 (98-107) mmol/L Carbon Dioxide 21 L (22-30) mmol/L BUN 14 (9-20) mg/dL Creatinine 0.84 (0.66-1.25) mg/dL Glucose 109 H (74-99) mg/dL Calcium 9.6 (8.4-10.2) mg/dL AST 24 (17-59) U/L ALT 13 (4-49) U/L Alkaline Phosphatase 57 (38-126) U/L Total Protein 7.4 (6.3-8.2) g/dL Albumin 4.4 (3.5-5.0) g/dL Current Medications Generic Name Dose Route Start Last Admin Trade Name Freq PRN Reason Stop Dose Admin Heparin Sodium (Porcine) 0 unit 03/01/22 23:30 Heparin Sodium 1,000 Un/Ml (10ml Vl) IV PER PROTOCOL PRN Low PTT Protocol Heparin Sodium/Sodium Chloride 250 mls @ 9.798 mls/hr 03/01/22 23:30 25,000 unit/ Sodium Chloride IV .Q24H VIVIANA Protocol 12 UNITS/KG/HR Naloxone HCl 0.2 mg 03/01/22 23:41 Naloxone 0.4 Mg/Ml 1 Ml Vial IV Q2M PRN Opioid Reversal Intake and Output 03/01/22 03/01/22 03/02/22 14:59 22:59 06:59 Other: Weight 81.647 kg Patient Weight 03/02/22 06:59 Weight 81.647 kg 03/01/22 23:33 03/01/22 23:33
[2022-03-02] MEDS ORDERED: fentaNYL (PF) 50 MCG/ML 2 ML AMP IV ONE (00:13)
[2022-03-02] MEDS ORDERED: LIDOCAINE 1% INJ 10MG/ML (20 ML MDV) SQ ONE (00:13)
[2022-03-02] MEDS ORDERED: MIDAZOLAM 2 MG/2 ML VIAL IV ONE (00:16)
[2022-03-02] MEDS ORDERED: VERAPAMIL SYRINGE (5 MG/10 ML) INTRAARTER ONE (00:18)
[2022-03-02] MEDS ORDERED: HEPARIN SODIUM 1,000 UN/ML (10ML VL) IV ONE (00:28)
[2022-03-02] MEDS ORDERED: IOPAMIDOL-370 125ML BTL INJ ONE (00:35)
[2022-03-02] MEDS ORDERED: IOPAMIDOL-370 50ML BTL INJ ONE (00:36)
[2022-03-02] MEDS ORDERED: SODIUM CHLORIDE 0.9% 1,000 ML IV SCH (00:45)
[2022-03-02] MEDS ORDERED: RX INFO: IV CONTRAST WAS GIVEN 1 EACH MISC MISCELLANE PRN (00:45)
--- NOTE | 2022-03-02 00:53 | P.CARDCATH ---
Date of Procedure: 03/02/22 Description of Procedure: Cardiac Catheterization: The patient is a 67-year-old male with a known history of chronic tobacco use who presented with symptoms of chest discomfort that started about 12 hours ago and presented to the emergency room in atrial fibrillation with rapid ventricle response and ST elevation in the inferolateral leads. Recommendations were made regarding cardiac catheterization, the risks and the complications were discussed with the patient who is in full understanding and agreement. Procedure Description: Patient was brought to radiographer cardiac catheterization in fasting semi-sedated state after receiving Fentanyl and Benadryl achieiving moderate conscious sedated state. Using Xylocaine Anesthesia and Seldinger technique, a 6-Croatian sheath was introduced in the right radial artery . Subsequently, selective coronary angiography performed using a 6-Croatian 4 bend right Mary guiding catheter and 6-Croatian 3.5 bend left Mary guiding catheter. Multiple views of the coronary artery including hemiaxial views were obtained. The 5-Croatian pigtail catheter was used to cross the aortic valve and left ventriculogram was obtained and the LVEDP was calculated. Following that, catheter and sheath were removed. Hemostasis was obtained with deployment of TR band . There was no immediate complication. Patient was returned to room in stable condition. Of note, the patient received a total of 3000 units of intravenous heparin as well as intra-arterial verapamil. There was no immediate complications. Findings: Left main: This is a large size vessel, bifurcating LAD and left circumflex, left main is no high-grade stenosis LAD: This is a large size vessel, reaching to the apex with a wraparound segment of proximal LAD has 20-30% plaque Left circumflex: This is a large nondominant vessel giving rise to a large obtuse marginal branch, the proximal left circumflex has a 20% plaque RCA: This is a large dominant vessel bifurcating into PDA and PLV the right coronary artery has a 10-20% plaque in the midsegment [Left] Ventriculogram: Was performed in the MADERA view revealed a normal size and function Hemodynamics: There was no gradient across the aortic valve 12-15 millimeters of mercury Conclusion: 1. Mild triple vessel disease 2. Normal size and systolic function Recommendations: Patient converted back to sinus mechanism during the procedure and his chest discomfort resolved. His EKG changes appear to be related to his atrial fibrillation. At this time I would recommend to initiate anticoagulation and beta tyler in addition to aggressive coronary risks modifications. The findings and the recommendations were discussed with the patient and his family and they are in full understanding and agreement. Duration of sedation is 25 minutes.
[2022-03-02 01:05] LABS: Glucose,Whole Blood 106 mg/dL (75-99)
[2022-03-02] MEDS: METOPROLOL TARTRATE 25 MG TAB PO SCH ×3 (01:29→22:13)
[2022-03-02 03:43] LABS: Basophils % (A) 0 %; Eosinophils # (A) 0.2 k/uL (0-0.7); Eosinophils % (A) 2 %; Lymphocytes # (A) 2.4 k/uL (1.0-4.8); Lymphocytes % (A) 25 %; MCH 33.6 pg (25.0-35.0); MCHC 33.3 g/dL (31.0-37.0); MCV 100.9 fL (80.0-100.0); Mean Platelet Volume 8.5; Monocytes # (A) 0.9 k/uL (0-1.0); Monocytes % (A) 9 %; Neutrophils # (A) 6.3 k/uL (1.3-7.7); Neutrophils % (A) 64 %; Platelet Count 165 k/uL (150-450); RBC 4.46 m/uL (4.30-5.90); RDW 12.5 % (11.5-15.5); WBC 9.9 k/uL (3.8-10.6)
[2022-03-02 04:12] LABS: Prothrombin Time 10.7 sec (9.0-12.0)
[2022-03-02 04:13] LABS: Partial Thromboplastin Time 31.5 sec (22.0-30.0)
[2022-03-02] MEDS: IPRATROPIUM-ALBUTEROL 3 ML NEB INHALATION PRN ×3 (07:02→21:32)
[2022-03-02] MEDS: APIXABAN 5 MG TAB PO SCH ×2 (09:00→22:13)
[2022-03-02] MEDS: ATORVASTATIN 40 MG TAB PO SCH (09:00)
--- NOTE | 2022-03-02 12:25 | PN ---
PROGRESS NOTE FOLLOW-UP NOTE: Elda is a 67-year-old gentleman who presented to hospital with atrial fibrillation with rapid ventricular rate, and the initial EKG showed acute ST-segment elevation in the inferior leads. He underwent emergent cardiac catheterization that revealed mild nonobstructive coronary artery disease. He converted back to sinus rhythm and the post- conversion EKG shows sinus rhythm with early repolarization changes. His troponins have all been normal. TSH is normal. Echocardiogram has been done and results are pending. On exam, comfortable at rest. Vital signs are stable. Chest exam reveals good air entry bilaterally. Heart exam reveals first and second heart sounds. No gallop. Examination of extremities did not reveal any edema. Peripheral pulses are felt. ASSESSMENT: 1. Acute paroxysmal atrial fibrillation. 2. Abnormal EKG. PLAN: Patient is doing well, converted back to sinus rhythm. He is on optimal medical therapy. I will follow rhythms. We are going to transfer him to [facility]. Hopefully home tomorrow. MMODL / IJN: [id number] /
--- NOTE | 2022-03-02 12:41 | CA ---
Transthoracic Echo Report Name: Elda Guthrie Age: 67 Gender: M : 1955 Exam Date: 03/02/2022 08:06 Exam Location: [place] [facility] Ht (in): 60 Wt (lb): 180 Ordering Physician: Itzel Sharpe MD ([id number]) Attending/Referring Phys: Process Automation Engineer Sabrina Bobo RDCS Procedure CPT: Indications: afib Cardiac Hx: CATH, COPD Technical Quality: Contrast 1: Total Dose (mL): Contrast 2: Total Dose (mL): MEASUREMENTS (Male / Female) Normal Values 2D ECHO LV Diastolic Diameter PLAX 4.0 cm 4.2 - 5.9 / 3.9 - 5.3 cm LV Systolic Diameter PLAX 2.6 cm IVS Diastolic Thickness 1.2 cm 0.6 - 1.0 / 0.6 - 0.9 cm LVPW Diastolic Thickness 1.1 cm 0.6 - 1.0 / 0.6 - 0.9 cm LV Relative Wall Thickness 0.6 RV Internal Dim ED PLAX 3.2 cm LA Systolic Diameter LX 3.0 cm 3.0 - 4.0 / 2.7 - 3.8 cm LA Volume 37.4 cm 18 - 58 / 22 - 52 cm M-MODE Aortic Root Diameter MM 3.1 cm LA Systolic Diameter MM 3.7 cm LA Ao Ratio MM 1.2 MV E Point Septal Separation 0.5 cm AV Cusp Separation MM 1.5 cm DOPPLER MV Area PHT 3.9 cm Mitral E Point Velocity 61.0 cm/s Mitral A Point Velocity 66.9 cm/s Mitral E to A Ratio 0.9 MV Deceleration Time 196.4 ms MV E' Velocity 6.4 cm/s Mitral E to MV E' Ratio 9.5 TR Peak Velocity 244.0 cm/s TR Peak Gradient 23.8 mmHg Right Ventricular Systolic Press 28.8 mmHg FINDINGS Left Ventricle Left ventricular ejection fraction is estimated at 55-60%. Right Ventricle Normal right ventricular size and function. Right ventricular systolic pressure within normal limits. Right Atrium Normal right atrial size. Left Atrium Left atrial size at the upper limits of normal. Mitral Valve Mild mitral regurgitation. Aortic Valve Trileaflet aortic valve. Tricuspid Valve Structurally normal tricuspid valve. Pulmonic Valve No pulmonic regurgitation. Pericardium Normal pericardium. Aorta Normal size aortic root and proximal ascending aorta. CONCLUSIONS Normal LV size and systolic function with borderline concentric LVH. No significant abnormality on Doppler. No pericardial effusion Previewed by: Dr. Tiffani Rivera MD (Electronically Signed) Final Date: 02 March 2022 12:40
[2022-03-02] MEDS: ACETAMINOPHEN TAB 325 MG TAB PO PRN ×3 (13:30→22:13)
--- NOTE | 2022-03-02 13:32 | P.HPIM ---
History of Present Illness H&P Date: 03/02/22 HISTORY OF PRESENT ILLNESS This is a 67-year-old male patient of Dr. Ware and Dr. Sorto with past medical history of COPD, tobacco use and dependence, remote history of drug and alcohol abuse, history of hepatitis C status post Harvoni therapy, elevated PSA monitored by Dr. 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 Patient gives history that while he was at work around 11 AM yesterday he was not feeling well and developed chest pain and pressure on the right side of his chest is abdomen felt sore he had some shortness of breath and headache. He denies any lightheadedness or dizziness and no syncopal episode. He called the office to make an appointment which was set for today at 11 AM. He finished work and went home around 5 PM and he kept feeling worse with chest pressure 8/10. He took a shower and he sat in bed for a couple hours and then he and his decided he needed to come in for evaluation. EKG was atrial fibrillation with ST elevation in the inferior lateral leads the patient was diagnosed with acute TX, taken for emergent cardiac catheterization which found mild triple- vessel disease and normal size and systolic function. Patient was then admitted into the intensive care unit where he is seen today. He denies having any chest pain at this time. REVIEW OF SYSTEMS Constitutional: No fever, no chills, no night sweats. No weight change. No weakness, fatigue or lethargy. Denies daytime sleepiness. EENT:Reported headache. No blurred vision or double vision, no loss of vision. No dizziness. No nasal drainage or congestion. No epistaxis. No sore throat. Lungs: Reports shortness of breath,denies cough,denies sputum production. No wheezing. No hemoptysis Cardiovascular:Reported chest pain, no lower extremity edema. No palpitations. Denies paroxysmal nocturnal dyspnea. Reports orthopnea. No lightheadedness or dizziness. No syncopal episodes. Abdominal:Reported abdominal pain. No nausea, vomiting. No diarrhea. No constipation. No bloody or tarry stools. Genitourinary: No dysuria, increased frequency, urgency. No urinary retention. Musculoskeletal: No myalgias. No muscle weakness, no gait dysfunction, no frequent falls. No back pain. No neck pain. Integumentary: No wounds, no lesions. No rash or pruritus. Neurologic: No aphasia. No facial droop. No change in mentation. No head injury. No headache. No paralysis. No paresthesia. Psychiatric: No depression. No anxiety. No mood swings. Endocrine: No abnormal blood sugars. No weight change. SOCIAL HISTORY Patient is a smoker of 1+ pack per day for 52+ years and quit February 2022. He has history of IV drug abuse and alcohol abuse and has been clean for 11 years. He lives with his significant other. 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 Patient has an inhaler at home and nebulizer, no oxygen. FAMILY HISTORY Mother at age 72 from intracranial bleeding with use of Coumadin. Father with history of diabetes and coronary artery disease. Patient has 5 brothe rs and one has diabetes and consultations with amputation. Patient has one sister. All other siblings have no major medical problems that he is aware of. Patient's one daughter with no major medical problems. PHYSICAL EXAMINATION Gen: This is a 67-year-old male. Patient is resting in the ICU bed and appears to be comfortable and in no acute distress. HEENT: Head is atraumatic, normocephalic. Pupils equal, round. Sclerae is anicteric. NECK: Supple. No JVD. No lymphadenopathy. No thyromegaly. LUNGS: Scattered inspiratory and expiratory wheezing throughout with scattered rhonchi. No intercostal retractions. HEART: Regular rate and rhythm. No murmur. ABDOMEN: Soft. Bowel sounds are present. No masses. No tenderness. EXTREMITIES: No pedal edema. No calf tenderness. Dorsalis pedis +2 bilaterally. NEUROLOGICAL: Patient is awake, alert and oriented x3. Cranial nerves 2 through 12 are grossly intact. ASSESSMENT AND PLAN 1. Acute ST elevated TX status post emergent cardiac catheterization finding mild coronary artery disease. Patient has been started on Lopressor. 2. New onset A. fib. Patient's been started on eliquis 5 mg twice daily, Lopressor 25 mg twice daily. 3. COPD without exacerbation. Continue DuoNeb treatments as needed. 4. Tobacco use and dependence. Patient quit smoking 1 month ago and denies need for nicotine patch. 5. Remote history of drug and alcohol abuse. 6. History of hepatitis C status post Harvoni therapy. 7. Elevated PSA monitored by urology. 8. History of ruptured bowel status post colostomy with reversal, stable. 9. DVT prophylaxis. Eliquis. 10. GI prophylaxis. Protonix. Patient will be admitted to the hospital for a minimum of 2 night stay. Discharge plan: Return home. Impression and plan of care have been directed as dictated by the signing physi cian. Kayley Velásquez nurse practitioner acting as scribe for signing physician. 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 History of Any Multi-Drug Resistant Organisms: None Reported Past Surgical History: Bowel Resection, Hernia Repair Additional Past Surgical History / Comment(s): Ruptured bowel, temp colostomy, reversal of colostomy, finger amputation (blood clot), colonoscopy, L/R inguinal hernia repairs, circumcism. Past Anesthesia/Blood Transfusion Reactions: No Reported Reaction Past Psychological History: No Psychological Hx Reported Additional Psychological History / Comment(s): Pt resides with his significant other. He is independent. Smoking Status: Former smoker Past Alcohol Use History: None Reported, Abuse Additional Past Alcohol Use History / Comment(s): Pt started smoking in 1967 and quit 10 yrs ago. Pt has hx of alcohol abuse but has been sober 11 yrs. Past Drug Use History: None Reported, IV Drug Use Additional Drug Use History / Comment(s): Pt used to use IV drugs (cocaine, heroin, crack)-no drug use for 26 years - Past Family History Mother Family Medical History: CVA/TIA Additional Family Medical History / Comment(s): Mother of a CVA (was on coumadin) at the age of 74 yrs. Father Family Medical History: Diabetes Mellitus, Deep Vein Thrombosis (DVT) Additional Family Medical History / Comment(s): Father of diabetic complications at the age of 70 yrs. Medications and Allergies Home Medications Medication Instructions Recorded Confirmed Type Albuterol Sulfate [Albuterol 2 puff PO RT-Q4H PRN 05/09/21 03/02/22 History Sulfate Hfa] Fluticasone/Salmeterol [Advair 2 puff INHALATION RT-BID #1 07/15/21 03/02/22 Rx 250-50 Diskus] dispenser Acetaminophen [Tylenol] 650 mg PO Q4H PRN 03/02/22 03/02/22 History Allergies Allergy/AdvReac Type Severity Reaction Status Date / Time No Known Allergies Allergy Verified 03/02/22 07:30 Physical Exam Vitals: Vital Signs Temp Pulse Resp BP BP Pulse Ox 03/02/22 09:10 77 22 97/62 93 L 03/02/22 08:00 97.1 F L 84 23 87/67 93 L 03/02/22 07:35 23 93 L 03/02/22 07:30 81 14 93/65 91 L 03/02/22 07:12 78 03/02/22 07:02 78 03/02/22 07:00 80 21 96/66 91 L 03/02/22 06:30 71 20 97/69 94 L 03/02/22 06:00 70 23 94/63 96 03/02/22 05:30 69 21 91/60 97 03/02/22 05:00 67 20 95/61 96 03/02/22 04:30 69 19 93/63 95 03/02/22 04:00 97.9 F 67 21 89/72 95 03/02/22 03:30 70 17 92/59 95 03/02/22 03:00 69 26 H 86/58 96 03/02/22 02:59 18 03/02/22 02:30 68 17 97/64 96 03/02/22 02:00 91 14 95/66 94 L 03/02/22 01:45 94 17 101/72 96 03/02/22 01:30 103 H 12 99/66 95 03/02/22 01:15 92 5 L 91/64 96 03/02/22 01:04 98.3 F 89 93/68 96 03/02/22 00:20 98.3 F 17 93/68 03/02/22 00:12 115 H 20 122/74 96 03/01/22 23:51 108 H 20 114/83 95 03/01/22 23:44 98.9 F 116 H 18 128/65 96 03/01/22 23:28 133 H 18 137/118 96 Intake and Output 03/01/22 03/02/22 03/02/22 22:59 06:59 14:59 Intake Total 570 370 Output Total 200 250 Balance 370 120 Intake: Intake, IV Titration 450 Amount Sodium Chloride 0.9% 1, 450 000 ml @ 75 mls/hr IV . [id number] [facility] Rx#:[id number] Oral 120 250 Tube Feeding 120 Output: Urine 200 250 Other: Voiding Method Urinal Urinal Weight 81.647 kg Results CBC & Chem 7: 03/02/22 03:24 03/01/22 23:33 Labs: Abnormal Lab Results - Last 24 Hours (Table) 03/01/22 03/01/22 03/02/22 Range/Units 23:33 23:33 01:03 WBC 11.3 H (3.8-10.6) k/uL MCV (80.0-100.0) fL Neutrophils # 7.8 H (1.3-7.7) k/uL APTT (22.0-30.0) sec Sodium 135 L (137-145) mmol/L Carbon Dioxide 21 L (22-30) mmol/L Glucose 109 H (74-99) mg/dL POC Glucose (mg/dL) 106 H (75-99) mg/dL 03/02/22 03/02/22 Range/Units 03:24 03:24 WBC (3.8-10.6) k/uL MCV 100.9 H (80.0-100.0) fL Neutrophils # (1.3-7.7) k/uL APTT 31.5 H (22.0-30.0) sec Sodium (137-145) mmol/L Carbon Dioxide (22-30) mmol/L Glucose (74-99) mg/dL POC Glucose (mg/dL) (75-99) mg/dL Thrombosis Risk Factor Assmnt - Choose All That Apply Any of the Below Risk Factors Present?: Yes Each Factor Represents 1 point: Abnormal pulmonary function (COPD) Each Risk Factor Represents 2 Points: Age 61-74 years Each Risk Factor Represents 3 Points: History of DVT/PE Other congenital or acquired thrombophilia - If yes, enter type in comment: No Thrombosis Risk Factor Assessment Total Risk Factor Score: 6 Thrombosis Risk Factor Assessment Level: High Risk
[2022-03-02 20:01] LABS: Chol/HDL Ratio 2.57 Ratio
[2022-03-03 04:43] LABS: African American GFR (CKD) >90 (>60 ml/min/1.73 sqM); Anion Gap 5 mmol/L; Blood Urea Nitrogen 13 mg/dL (9-20); Calcium 8.8 mg/dL (8.4-10.2); Carbon Dioxide 25 mmol/L (22-30); Chloride 105 mmol/L (98-107); Glucose 107 mg/dL (74-99); Non-African American GFR(CKD) >90 (>60 ml/min/1.73 sqM); Potassium 4.1 mmol/L (3.5-5.1); Sodium 135 mmol/L (137-145)
[2022-03-03] MEDS: PANTOPRAZOLE 40 MG TABLET PO SCH (06:46)
[2022-03-03] MEDS: IPRATROPIUM-ALBUTEROL 3 ML NEB INHALATION PRN ×3 (07:29→20:49)
[2022-03-03] MEDS: APIXABAN 5 MG TAB PO SCH ×2 (08:24→20:34)
[2022-03-03] MEDS: METOPROLOL TARTRATE 25 MG TAB PO SCH (08:25)
[2022-03-03] MEDS: ATORVASTATIN 40 MG TAB PO SCH (08:25)
[2022-03-03] MEDS ORDERED: METOPROLOL TARTRATE 25 MG TAB PO STA (09:13)
[2022-03-03] MEDS: FLECAINIDE 50 MG TAB PO SCH ×2 (12:00→20:34)
--- NOTE | 2022-03-03 12:29 | P.PN ---
Subjective Progress Note Date: 03/03/22 HISTORY OF PRESENT ILLNESS: Patient is status post cardiac cath revealing mild triple vessel disease. Patient was also found to have A. fib with RVR. Patient examined this morning a t the bedside. Patient remains in atrial fibrillation with controlled ventricular rates. His medications have been adjusted this morning per internal medicine. He denies chest pain or pressure. Denies shortness of breath. Denies palpitations. PHYSICAL EXAM: VITAL SIGNS: Reviewed. GENERAL: Well-developed in no acute distress. NECK: Supple. No JVD or thyromegaly LUNGS: Respirations even and unlabored. Lungs essentially clear to auscultation bilaterally. HEART: Regular rate and rhythm. S1 and S2 heard. EXTREMITIES: Normal range of motion. No clubbing or cyanosis. Peripheral pulses intact. No lower extremity edema ASSESSMENT: STEMI, status post cardiac cath revealing mild triple vessel disease New onset A. fib with RVR PLAN: Continue current cardiac medications Patient's metoprolol was adjusted per internal medicine today Add flecainide 50 mg twice a day Continue telemetry monitoring Further recommendations pending patient's course Nurse practitioner note has been reviewed by physician. Signing provider agrees with the documented findings, assessment, and plan of care. Objective - Vital Signs Vital signs: Vital Signs Temp 98.3 F 03/03/22 12:00 Pulse 132 H 03/03/22 12:00 Resp 20 03/03/22 12:00 BP 108/66 03/03/22 12:00 Pulse Ox 95 03/03/22 12:00 Intake & Output 03/02/22 03/03/22 03/03/22 18:59 06:59 18:59 Intake Total 620 330 Output Total 1270 200 Balance -650 -200 330 Intake: Oral 500 330 Tube Feeding 120 Output: Urine 1270 200 Other: Voiding Method Urinal Toilet Toilet Urinal Urinal - Labs CBC & Chem 7: 03/02/22 03:24 03/03/22 04:03 Labs: Abnormal Lab Results - Last 24 Hours (Table) 03/03/22 Range/Units 04:03 Sodium 135 L (137-145) mmol/L Glucose 107 H (74-99) mg/dL
--- NOTE | 2022-03-03 14:36 | P.PN ---
Subjective Progress Note Date: 03/03/22 HISTORY OF PRESENT ILLNESS This is a 67-year-old male patient of Dr. Ware and Dr. Sorto with past medical history of COPD, tobacco use and dependence, remote history of drug and alcohol abuse, history of hepatitis C status post Harvoni therapy, elevated PSA monitored by Dr. 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 Patient gives history that while he was at work around 11 AM yesterday he was not feeling well and developed chest pain and pressure on the right side of his chest is abdomen felt sore he had some shortness of breath and headache. He denies any lightheadedness or dizziness and no syncopal episode. He called the office to make an appointment which was set for today at 11 AM. He finished work and went home around 5 PM and he kept feeling worse with chest pressure 8/10. He took a shower and he sat in bed for a couple hours and then he and his decided he needed to come in for evaluation. EKG was atrial fibrillation with ST elevation in the inferior lateral leads the patient was diagnosed with acute ID, taken for emergent cardiac catheterization which found mild triple- vessel disease and normal size and systolic function. Patient was then admitted into the intensive care unit where he is seen today. He denies having any chest pain at this time. 03/03: Patient has been tachycardic today with heart rate running 140 270 in sinus tach. We've increased Lopressor to 50 mg twice daily and cardiology has added and flecainide 50 mg twice daily. Patient has been afebrile, blood pressure 108/66, pulse ox 95% on room air. Repeat electrolytes reveal sodium 135 otherwise within normal limits, creatinine 0.77. Echocardiogram reveals normal LV function with borderline concentric left ventricular hypertrophy. Anticipate discharge possibly tomorrow. REVIEW OF SYSTEMS Constitutional: No fever, no chills, no night sweats. No weight change. No weakness, fatigue or lethargy. Denies daytime sleepiness. EENT:Reported headache. No blurred vision or double vision, no loss of vision. No dizziness. No nasal drainage or congestion. No epistaxis. No sore throat. Lungs: Denies shortness of breath,denies cough,denies sputum production. No wheezing. No hemoptysis Cardiovascular: Denies chest pain, no lower extremity edema. No palpitations. Denies paroxysmal nocturnal dyspnea. Reports orthopnea. No lightheadedness or dizziness. No syncopal episodes. Abdominal: Denies abdominal pain. No nausea, vomiting. No diarrhea. No constipation. No bloody or tarry stools. Genitourinary: No dysuria, increased frequency, urgency. No urinary retention. Musculoskeletal: No myalgias. No muscle weakness, no gait dysfunction, no frequent falls. No back pain. No neck pain. Integumentary: No wounds, no lesions. No rash or pruritus. Neurologic: No aphasia. No facial droop. No change in mentation. No head injury. No headache. No paralysis. No paresthesia. Psychiatric: No depression. No anxiety. No mood swings. Endocrine: No abnormal blood sugars. No weight change. PHYSICAL EXAMINATION Gen: This is a 67-year-old male. Patient is resting in bed and appears to be comfortable and in no acute distress. HEENT: Head is atraumatic, normocephalic. Pupils equal, round. Sclerae is anicteric. NECK: Supple. No JVD. No lymphadenopathy. No thyromegaly. LUNGS: Scattered inspiratory and expiratory wheezing throughout with scattered rhonchi. No intercostal retractions. HEART: Regular rate and rhythm. No murmur. ABDOMEN: Soft. Bowel sounds are present. No masses. No tenderness. EXTREMITIES: No pedal edema. No calf tenderness. Dorsalis pedis +2 bilaterally. NEUROLOGICAL: Patient is awake, alert and oriented x3. Cranial nerves 2 through 12 are grossly intact. ASSESSMENT AND PLAN 1. Acute ST elevated ID status post emergent cardiac catheterization finding mild coronary artery disease. Patient has been started on Lopressor, atorvastatin.. 2. New onset A. fib. Patient's been started on eliquis 5 mg twice daily, Lopressor increased to 50 mg twice daily, cardiology added flecainide. 3. COPD without exacerbation. Continue DuoNeb treatments as needed. 4. Tobacco use and dependence. Patient quit smoking 1 month ago and denies need for nicotine patch. 5. Remote history of drug and alcohol abuse. 6. History of hepatitis C status post Harvoni therapy. 7. Elevated PSA monitored by urology. 8. History of ruptured bowel status post colostomy with reversal, stable. 9. DVT prophylaxis. Eliquis. 10. GI prophylaxis. Protonix. Discharge plan: Return home. Impression and plan of care have been directed as dictated by the signing physician. Kayley Velásquez nurse practitioner acting as scribe for signing physician. Objective - Vital Signs Vital signs: Vital Signs Temp 98.3 F 03/03/22 12:00 Pulse 132 H 03/03/22 12:00 Resp 20 03/03/22 12:00 BP 108/66 03/03/22 12:00 Pulse Ox 95 03/03/22 12:00 Intake & Output 03/02/22 03/03/22 03/03/22 18:59 06:59 18:59 Intake Total 620 330 Output Total 1270 200 Balance -650 -200 330 Intake: Oral 500 330 Tube Feeding 120 Output: Urine 1270 200 Other: Voiding Method Urinal Toilet Toilet Urinal Urinal - Labs CBC & Chem 7: 03/02/22 03:24 03/03/22 04:03 Labs: Abnormal Lab Results - Last 24 Hours (Table) 03/03/22 Range/Units 04:03 Sodium 135 L (137-145) mmol/L Glucose 107 H (74-99) mg/dL
[2022-03-03] MEDS: METOPROLOL TARTRATE 50 MG TAB PO SCH (20:34)
[2022-03-04 00:47] VITALS: RESP 20
[2022-03-04] MEDS: PANTOPRAZOLE 40 MG TABLET PO SCH (06:24)
[2022-03-04] MEDS: ACETAMINOPHEN TAB 325 MG TAB PO PRN (06:32)
[2022-03-04] MEDS: ATORVASTATIN 40 MG TAB PO SCH (08:03)
[2022-03-04] MEDS: APIXABAN 5 MG TAB PO SCH (08:03)
[2022-03-04] MEDS: FLECAINIDE 50 MG TAB PO SCH (08:03)
[2022-03-04] MEDS: METOPROLOL TARTRATE 50 MG TAB PO SCH (08:03)
[2022-03-04 08:17] VITALS: BP 102/66; TEMP 98.3
[2022-03-04] MEDS: IPRATROPIUM-ALBUTEROL 3 ML NEB INHALATION PRN (08:31)
[2022-03-04 08:34] VITALS: PULSE 80
--- NOTE | 2022-03-04 10:06 | P.DS ---
Providers Date of admission: 03/01/22 23:41 Expected date of discharge: 03/04/22 Attending physician: Brandyn Ware Consults: 03/01/22 23:41 Consult Physician Stat Consulting Provider: Itzel Sharpe Consult Reason/Comments: STEMI Do you want consulting provider notified?: Already Contacted Primary care physician: Brandyn Chaz [facility] Course: HISTORY OF PRESENT ILLNESS This is a 67-year-old male patient of Dr. Ware and Dr. Sorto with past medical history of COPD, tobacco use and dependence, remote history of drug and alcohol abuse, history of hepatitis C status post Harvoni therapy, elevated PSA monitored by Dr. 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 Patient gives history that while he was at work around 11 AM yesterday he was not feeling well and developed chest pain and pressure on the right side of his chest is abdomen felt sore he had some shortness of breath and headache. He denies any lightheadedness or dizziness and no syncopal episode. He called the office to make an appointment which was set for today at 11 AM. He finished work and went home around 5 PM and he kept feeling worse with chest pressure 8/10. He took a shower and he sat in bed for a couple hours and then he and his decided he needed to come in for evaluation. EKG was atrial fibrillation with ST elevation in the inferior lateral leads the patient was diagnosed with acute MA, taken for emergent cardiac catheterization which found mild triple- vessel disease and normal size and systolic function. Patient was then admitted into the intensive care unit where he is seen today. He denies having any chest pain at this time. 03/03: Patient has been tachycardic today with heart rate running 140 270 in sinus tach. We've increased Lopressor to 50 mg twice daily and cardiology has added and flecainide 50 mg twice daily. Patient has been afebrile, blood pressure 108/66, pulse ox 95% on room air. Repeat electrolytes reveal sodium 135 otherwise within normal limits, creatinine 0.77. Echocardiogram reveals normal LV function with borderline concentric left ventricular hypertrophy. Anticipate discharge possibly tomorrow. 03/04: Patient's heart rate is controlled in the 70s, sinus rhythm. Afebrile, blood pressure 102/66, pulse ox 95% on room air. Patient has been seen by cardiology and cleared for discharge. Patient will be discharged home today in stable condition. DISCHARGE DIAGNOSES 1. Acute ST elevated MA status post emergent cardiac catheterization finding mild coronary artery disease. 2. New onset A. fib, paroxysmal atrial fibrillation 3. COPD without exacerbation. 4. Tobacco use and dependence. Patient quit smoking 1 month ago. 5. Remote history of drug and alcohol abuse. 6. History of hepatitis C status post Harvoni therapy. 7. Elevated PSA monitored by urology. 8. History of ruptured bowel status post colostomy with reversal, stable. Discharge plan: Return home. Greater than 35 minutes was utilized and coordinating patient's discharge. Impression and plan of care have been directed as dictated by the signing physician. Kayley Velásquez nurse practitioner acting as scribe for signing physician. Patient Condition at Discharge: Good Plan - Discharge Summary New Discharge Prescriptions: New Apixaban [Eliquis] 5 mg PO BID #60 tab Atorvastatin [Lipitor] 40 mg PO DAILY #30 tab Metoprolol Tartrate [Lopressor] 50 mg PO BID #60 tab Flecainide [Tambocor] 50 mg PO Q12HR #60 tab Continue Albuterol Sulfate [Albuterol Sulfate Hfa] 2 puff PO RT-Q4H PRN PRN Reason: Shortness Of Breath Fluticasone/Salmeterol [Advair 250-50 Diskus] 2 puff INHALATION RT-BID #1 dispenser Acetaminophen [Tylenol] 650 mg PO Q4H PRN PRN Reason: Pain Discharge Medication List Albuterol Sulfate [Albuterol Sulfate Hfa] 2 puff PO RT-Q4H PRN 05/09/21 [History] Fluticasone/Salmeterol [Advair 250-50 Diskus] 2 puff INHALATION RT-BID #1 dispenser 07/15/21 [Rx] Acetaminophen [Tylenol] 650 mg PO Q4H PRN 03/02/22 [History] Apixaban [Eliquis] 5 mg PO BID #60 tab 03/02/22 [Rx] Atorvastatin [Lipitor] 40 mg PO DAILY #30 tab 03/04/22 [Rx] Flecainide [Tambocor] 50 mg PO Q12HR #60 tab 03/04/22 [Rx] Metoprolol Tartrate [Lopressor] 50 mg PO BID #60 tab 03/04/22 [Rx] Follow up Appointment(s)/Referral(s): Itzel Sharpe MD [STAFF PHYSICIAN] - 1 Week Brandyn Ware MD [Primary Care Provider] - 1 Week Discharge Disposition: HOME SELF-CARE
[2022-03-04 10:19] VITALS: BMI 25.8
--- NOTE | 2022-03-04 11:35 | P.PN ---
Subjective Progress Note Date: 03/04/22 HISTORY OF PRESENT ILLNESS: Patient is status post cardiac cath revealing mild triple vessel disease. Patient was also found to have A. fib with RVR. Patient examined this morning a t the bedside. Patient remains in atrial fibrillation with controlled ventricular rates. His medications have been adjusted this morning per internal medicine. He denies chest pain or pressure. Denies shortness of breath. Denies palpitations. 03/04/2022 patient examined this morning at the bedside. Patient denies chest pain or pressure. He denies shortness of breath. Telemetry reveals sinus mechanism. Vital signs are stable. PHYSICAL EXAM: VITAL SIGNS: Reviewed. GENERAL: Well-developed in no acute distress. NECK: Supple. No JVD or thyromegaly LUNGS: Respirations even and unlabored. Lungs essentially clear to auscultation bilaterally. HEART: Regular rate and rhythm. S1 and S2 heard. EXTREMITIES: Normal range of motion. No clubbing or cyanosis. Peripheral pulses intact. No lower extremity edema ASSESSMENT: STEMI, status post cardiac cath revealing mild triple vessel disease New onset A. fib with RVR PLAN: Continue current cardiac medications patient is stable for discharge home today from a cardiac standpoint Further recommendations pending patient's course Nurse practitioner note has been reviewed by physician. Signing provider agrees with the documented findings, assessment, and plan of care. Objective - Vital Signs Vital signs: Vital Signs Temp 98.3 F 03/04/22 08:00 Pulse 80 03/04/22 08:46 Resp 20 03/04/22 08:00 BP 102/66 03/04/22 08:00 Pulse Ox 95 03/04/22 08:00 Intake & Output 03/03/22 03/04/22 03/04/22 18:59 06:59 18:59 Intake Total 450 320 600 Output Total 500 Balance -50 320 600 Weight 81.647 kg Intake: Oral 450 320 600 Output: Urine 500 Other: Voiding Method Toilet Toilet Urinal Urinal # Voids 3 2 # Bowel Movements 1 - Labs CBC & Chem 7: 03/02/22 03:24 03/03/22 04:03
== END 2022-03-04 13:28 | disposition home or self-care (01) | DRG 282 ==
LOC: EC 23:06 → 2SICU 23:41 → 3SCARD 03-02 18:51
PROVIDERS: ADMIT Internal Medicine Geriatric Medicine; ATTEND Internal Medicine Geriatric Medicine
PROC: 4A023N7 Measurement of Cardiac Sampling and Pressure, Left Heart, Percutaneous Approach (ICD-10-PCS; principal; 2022-03-02)
PROC: B2151ZZ Fluoroscopy of Left Heart using Low Osmolar Contrast (ICD-10-PCS; principal; 2022-03-02)
PROC: B2111ZZ Fluoroscopy of Multiple Coronary Arteries using Low Osmolar Contrast (ICD-10-PCS; principal; 2022-03-02)
DX: I21.19 ST elevation (STEMI) myocardial infarction involving other coronary artery of inferior wall (principal); F11.11 Opioid abuse, in remission; F10.11 Alcohol abuse, in remission; Z28.310 Unvaccinated for COVID-19; I25.10 Atherosclerotic heart disease of native coronary artery without angina pectoris; R97.20 Elevated prostate specific antigen [PSA]; I48.0 Paroxysmal atrial fibrillation; J44.9 Chronic obstructive pulmonary disease, unspecified; Z87.891 Personal history of nicotine dependence; Z98.890 Other specified postprocedural states; Z79.899 Other long term (current) drug therapy; Z82.3 Family history of stroke; Z82.49 Family history of ischemic heart disease and other diseases of the circulatory system; Z83.3 Family history of diabetes mellitus; Z89.022 Acquired absence of left finger(s); Z83.2 Family history of diseases of the blood and blood-forming organs and certain disorders involving the immune mechanism; Z87.19 Personal history of other diseases of the digestive system; Z86.73 Personal history of transient ischemic attack (TIA), and cerebral infarction without residual deficits
CPT/HCPCS: 36415; 71045; 80048; 80053; 80061; 83721; 83735; 83880; 84443; 84484; 85025; 85610; 85730; 93005; 93306; 93454; 94640; 94760; 96374; 96375; 99285

== ENCOUNTER 2022-05-20 07:13 | Inpatient (IN) | payer MEDICARE, OTHER ==
[2022-05-20] MEDS ORDERED: ALBUTEROL NEBULIZED 2.5 MG/3 ML INHALATION STA (07:30)
[2022-05-20] MEDS ORDERED: methylPREDNISolone SOD SUCCI 125 MG/2 ML VIAL IV STA (07:30)
[2022-05-20] MEDS ORDERED: IPRATROPIUM 0.5 MG/2.5 ML NEBU INHALATION STA (07:30)
[2022-05-20] MEDS ORDERED: TERBUTALINE 1 MG/ML VIAL SQ STA (07:31)
--- NOTE | 2022-05-20 07:37 | ED ---
General Adult HPI - General Chief complaint: Shortness of Breath Stated complaint: SOB Time Seen by Provider: 05/20/22 07:15 Source: patient, RN notes reviewed, old records reviewed Mode of arrival: ambulatory Limitations: no limitations - History of Present Illness Initial comments: This is a 67-year-old male who presents emergency Department complaining of difficulty breathing since 10 PM last night. Patient states she has a history of COPD and continues to smoke. Patient states he's been out of his Advair for the last 5 days and he believes that's the cause per patient denies any fever chills or cough. Patient denies any chest pain or palpitations. Patient denies any abdominal pain patient's nausea vomiting diarrhea. Patient denies any l ightheadedness dizziness or near syncopal episode. Patient denies a headache. Patient denies any numbness weakness. Patient denies any swelling to the legs or calf tenderness. - Related Data Home Medications Medication Instructions Recorded Confirmed Albuterol Sulfate [Albuterol 2 puff PO RT-Q4H PRN 05/09/21 03/02/22 Sulfate Hfa] Acetaminophen [Tylenol] 650 mg PO Q4H PRN 03/02/22 03/02/22 Previous Rx's Medication Instructions Recorded Fluticasone Propion/Salmeterol 2 puff INHALATION RT-BID #1 07/15/21 [Advair 250-50 Diskus] dispenser Apixaban [Eliquis] 5 mg PO BID #60 tab 03/02/22 Atorvastatin [Lipitor] 40 mg PO DAILY #30 tab 03/04/22 Flecainide [Tambocor] 50 mg PO Q12HR #60 tab 03/04/22 Metoprolol Tartrate [Lopressor] 50 mg PO BID #60 tab 03/04/22 Allergies Allergy/AdvReac Type Severity Reaction Status Date / Time No Known Allergies Allergy Verified 05/20/22 07:17 Review of Systems ROS Statement: Those systems with pertinent positive or pertinent negative responses have been documented in the HPI. ROS Other: All systems not noted in ROS Statement are negative. 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 History of Any Multi-Drug Resistant Organisms: None Reported Past Surgical History: Bowel Resection, Hernia Repair Additional Past Surgical History / Comment(s): Ruptured bowel, temp colostomy, reversal of colostomy, finger amputation (blood clot), colonoscopy, L/R inguinal hernia repairs, circumcism. Past Anesthesia/Blood Transfusion Reactions: No Reported Reaction Past Psychological History: No Psychological Hx Reported Smoking Status: Former smoker Past Alcohol Use History: None Reported, Abuse Past Drug Use History: None Reported, IV Drug Use - Past Family History Mother Family Medical History: CVA/TIA Additional Family Medical History / Comment(s): Mother of a CVA (was on coumadin) at the age of 74 yrs. Father Family Medical History: Diabetes Mellitus, Deep Vein Thrombosis (DVT) Additional Family Medical History / Comment(s): Father of diabetic complications at the age of 70 yrs. General Exam - General Exam Comments Initial Comments: GENERAL: Patient is well-developed and well-nourished. Patient is nontoxic and well- hydrated and is in moderate distress. ENT: Neck is soft and supple. No significant lymphadenopathy is noted. Oropharynx is clear. Moist mucous membranes. Neck has full range of motion without eliciting any pain. EYES: The sclera were anicteric and conjunctiva were pink and moist. Extraocular movements were intact and pupils were equal round and reactive to light. Eyelids were unremarkable. PULMONARY: Patient is diffusely wheezing CARDIOVASCULAR: There is a regular rate and rhythm without any murmurs gallops or rubs. ABDOMEN: Soft and nontender with normal bowel sounds. SKIN: Skin is clear with no lesions or rashes and otherwise unremarkable. NEUROLOGIC: Patient is alert and oriented x3. Cranial nerves II through XII are grossly intact. Motor and sensory are also intact. Normal speech, volume and content. Symmetrical smile. MUSCULOSKELETAL: Normal extremities with adequate strength and full range of motion. LYMPHATICS: No significant lymphadenopathy is noted PSYCHIATRIC: Normal psychiatric evaluation. Limitations: no limitations Course Vital Signs 05/20/22 05/20/22 05/20/22 07:15 07:21 07:31 Temperature 97.8 F Pulse Rate 76 68 Respiratory 28 H 22 24 Rate Blood Pressure 141/78 O2 Sat by Pulse 88 L 96 Oximetry 05/20/22 05/20/22 05/20/22 07:37 08:04 08:05 Temperature Pulse Rate 63 62 63 Respiratory Rate Blood Pressure O2 Sat by Pulse Oximetry 05/20/22 05/20/22 08:16 08:37 Temperature Pulse Rate 61 70 Respiratory 22 Rate Blood Pressure 123/85 O2 Sat by Pulse 97 Oximetry Medical Decision Making - Medical Decision Making EKG shows sinus rhythm at 69 bpm [place] interval 270 QRS is 104 Q-T intervals 393 QTC is 413 per patient's EKG shows no ST segment elevation or depression. Chest x-ray shows no acute abnormality. Patient received multiple breathing treatments in the emergency department as well as terbutaline and Solu-Medrol. I went back into reevaluate the patient on multiple occasions the patient continued to be wheezing but was feeling better. I spoke with Dr. Ware and he agreed to admit the patient admitted the patient wrote admitting orders. - Lab Data Result diagrams: 05/20/22 07:48 05/20/22 07:48 Lab Results 05/20/22 05/20/22 05/20/22 Range/Units 07:48 07:48 07:48 WBC 5.9 (3.8-10.6) k/uL RBC 4.85 (4.30-5.90) m/uL Hgb 15.8 (13.0-17.5) gm/dL Hct 48.3 (39.0-53.0) % MCV 99.6 (80.0-100.0) fL MCH 32.6 (25.0-35.0) pg MCHC 32.7 (31.0-37.0) g/dL RDW 12.9 (11.5-15.5) % Plt Count 197 (150-450) k/uL MPV 8.9 Neutrophils % 46 % Lymphocytes % 32 % Monocytes % 5 % Eosinophils % 13 % Basophils % 1 % Neutrophils # 2.7 (1.3-7.7) k/uL Lymphocytes # 1.9 (1.0-4.8) k/uL Monocytes # 0.3 (0-1.0) k/uL Eosinophils # 0.7 (0-0.7) k/uL Basophils # 0.1 (0-0.2) k/uL PT 10.7 (9.0-12.0) sec INR 1.0 (<1.2) APTT 29.2 (22.0-30.0) sec Sodium 139 (137-145) mmol/L Potassium 4.5 (3.5-5.1) mmol/L Chloride 106 (98-107) mmol/L Carbon Dioxide 27 (22-30) mmol/L Anion Gap 6 mmol/L BUN 15 (9-20) mg/dL Creatinine 0.75 (0.66-1.25) mg/dL Est GFR (CKD-EPI)AfAm >90 (>60 ml/min/1.73 sqM) Est GFR (CKD-EPI)NonAf >90 (>60 ml/min/1.73 sqM) Glucose 113 H (74-99) mg/dL Plasma Lactic Acid Asm (0.7-2.0) mmol/L Calcium 9.4 (8.4-10.2) mg/dL Magnesium 2.0 (1.6-2.3) mg/dL Total Bilirubin 0.6 (0.2-1.3) mg/dL AST 28 (17-59) U/L ALT 15 (4-49) U/L Alkaline Phosphatase 66 (38-126) U/L Troponin I (0.000-0.034) ng/mL Total Protein 7.6 (6.3-8.2) g/dL Albumin 4.7 (3.5-5.0) g/dL 05/20/22 05/20/22 Range/Units 07:48 07:48 WBC (3.8-10.6) k/uL RBC (4.30-5.90) m/uL Hgb (13.0-17.5) gm/dL Hct (39.0-53.0) % MCV (80.0-100.0) fL MCH (25.0-35.0) pg MCHC (31.0-37.0) g/dL RDW (11.5-15.5) % Plt Count (150-450) k/uL MPV Neutrophils % % Lymphocytes % % Monocytes % % Eosinophils % % Basophils % % Neutrophils # (1.3-7.7) k/uL Lymphocytes # (1.0-4.8) k/uL Monocytes # (0-1.0) k/uL Eosinophils # (0-0.7) k/uL Basophils # (0-0.2) k/uL PT (9.0-12.0) sec INR (<1.2) APTT (22.0-30.0) sec Sodium (137-145) mmol/L Potassium (3.5-5.1) mmol/L Chloride (98-107) mmol/L Carbon Dioxide (22-30) mmol/L Anion Gap mmol/L BUN (9-20) mg/dL Creatinine (0.66-1.25) mg/dL Est GFR (CKD-EPI)AfAm (>60 ml/min/1.73 sqM) Est GFR (CKD-EPI)NonAf (>60 ml/min/1.73 sqM) Glucose (74-99) mg/dL Plasma Lactic Acid Sam 0.8 (0.7-2.0) mmol/L Calcium (8.4-10.2) mg/dL Magnesium (1.6-2.3) mg/dL Total Bilirubin (0.2-1.3) mg/dL AST (17-59) U/L ALT (4-49) U/L Alkaline Phosphatase (38-126) U/L Troponin I <0.012 (0.000-0.034) ng/mL Total Protein (6.3-8.2) g/dL Albumin (3.5-5.0) g/dL Critical Care Time Critical Care Time: Yes Total Critical Care Time: 35 Disposition Clinical Impression: COPD exacerbation Disposition: ADMITTED IP TO THIS HOSP Referrals: Brandyn Ware MD [Primary Care Provider] - 1-2 days Time of Disposition: 09:32
[2022-05-20] MEDS ORDERED: IPRATROPIUM-ALBUTEROL 3 ML NEB INHALATION STA (08:02)
[2022-05-20 08:07] LABS: Basophils # (A) 0.1 k/uL (0-0.2); Basophils % (A) 1 %; Eosinophils # (A) 0.7 k/uL (0-0.7); Eosinophils % (A) 13 %; HCT 48.3 % (39.0-53.0); HGB 15.8 gm/dL (13.0-17.5); Lymphocytes # (A) 1.9 k/uL (1.0-4.8); Lymphocytes % (A) 32 %; MCH 32.6 pg (25.0-35.0); MCHC 32.7 g/dL (31.0-37.0); MCV 99.6 fL (80.0-100.0); Mean Platelet Volume 8.9; Monocytes # (A) 0.3 k/uL (0-1.0); Monocytes % (A) 5 %; Neutrophils # (A) 2.7 k/uL (1.3-7.7); Neutrophils % (A) 46 %; Platelet Count 197 k/uL (150-450); RBC 4.85 m/uL (4.30-5.90); RDW 12.9 % (11.5-15.5); WBC 5.9 k/uL (3.8-10.6)
[2022-05-20 08:11] LABS: Partial Thromboplastin Time 29.2 sec (22.0-30.0); Prothrombin Time 10.7 sec (9.0-12.0)
[2022-05-20 08:17] LABS: ALT 15 U/L (4-49); AST 28 U/L (17-59); African American GFR (CKD) >90 (>60 ml/min/1.73 sqM); Albumin 4.7 g/dL (3.5-5.0); Alkaline Phosphatase 66 U/L (38-126); Anion Gap 6 mmol/L; Blood Urea Nitrogen 15 mg/dL (9-20); Calcium 9.4 mg/dL (8.4-10.2); Carbon Dioxide 27 mmol/L (22-30); Chloride 106 mmol/L (98-107); Glucose 113 mg/dL (74-99); Non-African American GFR(CKD) >90 (>60 ml/min/1.73 sqM); Potassium 4.5 mmol/L (3.5-5.1); Sodium 139 mmol/L (137-145); Total Bilirubin 0.6 mg/dL (0.2-1.3); Total Protein 7.6 g/dL (6.3-8.2)
--- NOTE | 2022-05-20 08:42 | XR ---
EXAMINATION TYPE: XR chest 2V DATE OF EXAM: 05/20/2022 COMPARISON: Chest x-ray March 01, 2022 HISTORY: Difficulty in breathing. TECHNIQUE: Frontal and lateral views of the chest are obtained. FINDINGS: Background chronic emphysematous change. There is no suspicious focal air space opacity, p leural effusion, or pneumothorax seen currently study. The cardiac silhouette size remains upper [place] its of normal. The osseous structures are intact. IMPRESSION: Chronic emphysematous change without acute pulmonary process.
[2022-05-20] MEDS ORDERED: IPRATROPIUM-ALBUTEROL 3 ML NEB INHALATION PRN (09:34)
[2022-05-20] MEDS: ALBUTEROL NEBULIZED 2.5 MG/3 ML INHALATION SCH ×2 (10:26→10:42)
[2022-05-20] MEDS ORDERED: ACETAMINOPHEN TAB 325 MG TAB PO PRN (10:38)
--- NOTE | 2022-05-20 10:46 | P.HPIM ---
History of Present Illness H&P Date: 05/20/22 HISTORY OF PRESENT ILLNESS This is a 67-year-old male patient of Dr. 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 Patient gives history of having increasing difficulty breathing which he relates to running out of his Advair and progressively worsening shortness of breath. He had been in contact with his pharmacy and prescription was needing to be approved. He denies having any fever or chills. No lower extremity edema. No abdominal pain. No diarrhea. His pulmonary doctor is Dr. Leslie. Patient came into [facility] emergency center for evaluation. Patient was afebrile, heart rate 76, respiratory rate 28, blood pressure 114/78, pulse ox 88 % on room air. CBC was unremarkable. Electrolytes and renal function normal. Blood sugar 113. Liver function tests were normal. Troponin negative. Chest x-ray shows chronic emphysematous change without acute pulmonary process. Patient was started on IV Solu-Medrol, DuoNeb treatments, Symbicort, admitted to the observation unit and consult with pulmonary medicine. REVIEW OF SYSTEMS Constitutional: No fever, no chills, no night sweats. No weight change. No weakness, fatigue or lethargy. Denies daytime sleepiness. EENT: No headache. No blurred vision or double vision, no loss of vision. No dizziness. No nasal drainage or congestion. No epistaxis. No sore throat. Lungs: Reports shortness of breath, Reports cough, Reports sputum production. reports wheezing. No hemoptysis Cardiovascular: No chest pain, no lower extremity edema. No palpitations. Reports paroxysmal nocturnal dyspnea. Reports orthopnea. No lightheadedness or dizziness. No syncopal episodes. Abdominal: No abdominal pain. No nausea, vomiting. No diarrhea. No constipation. No bloody or tarry stools. Genitourinary: No dysuria, increased frequency, urgency. No urinary retention. Musculoskeletal: No myalgias. No muscle weakness, no gait dysfunction, no frequent falls. No back pain. No neck pain. Integumentary: No wounds, no lesions. No rash or pruritus. Neurologic: No aphasia. No facial droop. No change in mentation. No head injury. No headache. No paralysis. No paresthesia. Psychiatric: No depression. No anxiety. No mood swings. Endocrine: No abnormal blood sugars. No weight change. SOCIAL HISTORY Patient is a smoker of 1+ pack per day for 52+ years. He is currently cut back to smoking a few puffs occasionally. He has history of IV drug abuse and alcohol abuse and has been clean for 11 years. He lives with his significant other. 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 Patient has an inhaler at home and nebulizer, no oxygen. FAMILY HISTORY Mother at age 72 from intracranial bleeding with use of Coumadin. Father with history of diabetes and coronary artery disease. Patient has 5 brothers and one has diabetes and consultations with amputation. Patient has one sister. All other siblings have no major medical problems that he is aware of. Patient's one daughter with no major medical problems. PHYSICAL EXAMINATION Gen: This is a 67-year-old male. Patient is resting on the ER [facility] and appears to be comfortable and in no acute distress. HEENT: Head is atraumatic, normocephalic. Pupils equal, round. Sclerae is anicteric. NECK: Supple. No JVD. No lymphadenopathy. No thyromegaly. LUNGS: Scattered inspiratory and expiratory wheezing throughout with scattered rhonchi. No intercostal retractions. HEART: Regular rate and rhythm. No murmur. ABDOMEN: Soft. Bowel sounds are present. No masses. No tenderness. EXTREMITIES: No pedal edema. No calf tenderness. Dorsalis pedis +2 bilaterally. Hip rotation of the left fifth digit. NEUROLOGICAL: Patient is awake, alert and oriented x3. Cranial nerves 2 through 12 are grossly intact. ASSESSMENT AND PLAN 1. Acute hypoxic respiratory failure secondary to acute COPD exacerbation. continue patient on oxygen therapy,DuoNeb treatments 4 times daiand as needed, Pulmicort 1 mg twice daily, Solu-Medrol 60 mg IV every 6 hours, consult with pulmonary medicine. 2. Remote history of drug and alcohol abuse. 3. History of hepatitis C status post Harvoni therapy. 4. Elevated PSA monitored by urology. 5. History of ruptured bowel status post colostomy with reversal, stable. 6. Tobacco use and dependence. Patient states that he quit smoking but does cheat occasionally. 7. DVT prophylaxis. Heparin subcu. 8. GI prophylaxis. Protonix. Patient will be admitted to the hospital for a minimum of 2 night stay. Discharge plan: Return home. Impression and plan of care have been directed as dictated by the signing physician. Kayley Velásquez nurse practitioner acting as scribe for signing physician. 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 History of Any Multi-Drug Resistant Organisms: None Reported Past Surgical History: Bowel Resection, Hernia Repair Additional Past Surgical History / Comment(s): Ruptured bowel, temp colostomy, reversal of colostomy, finger amputation (blood clot), colonoscopy, L/R inguinal hernia repairs, circumcism. Past Anesthesia/Blood Transfusion Reactions: No Reported Reaction Past Psychological History: No Psychological Hx Reported Smoking Status: Former smoker Past Alcohol Use History: None Reported, Abuse Past Drug Use History: None Reported, IV Drug Use - Past Family History Mother Family Medical History: CVA/TIA Additional Family Medical History / Comment(s): Mother of a CVA (was on coumadin) at the age of 74 yrs. Father Family Medical History: Diabetes Mellitus, Deep Vein Thrombosis (DVT) Additional Family Medical History / Comment(s): Father of diabetic complications at the age of 70 yrs. Medications and Allergies Home Medications Medication Instructions Recorded Confirmed Type Albuterol Sulfate [Albuterol 2 puff PO RT-Q4H PRN 05/09/21 05/20/22 History Sulfate Hfa] Fluticasone Propion/Salmeterol 2 puff INHALATION RT-BID #1 07/15/21 05/20/22 Rx [Advair 250-50 Diskus] dispenser Acetaminophen [Tylenol] 650 mg PO Q4H PRN 03/02/22 05/20/22 History Apixaban [Eliquis] 5 mg PO BID #60 tab 03/02/22 05/20/22 Rx Atorvastatin [Lipitor] 40 mg PO DAILY #30 tab 03/04/22 05/20/22 Rx Flecainide [Tambocor] 50 mg PO Q12HR #60 tab 03/04/22 05/20/22 Rx Metoprolol Tartrate [Lopressor] 50 mg PO BID #60 tab 03/04/22 05/20/22 Rx Allergies Allergy/AdvReac Type Severity Reaction Status Date / Time No Known Allergies Allergy Verified 05/20/22 09:26 Physical Exam Vitals: Vital Signs Temp Pulse Resp BP Pulse Ox 05/20/22 08:37 70 22 123/85 97 05/20/22 08:16 61 05/20/22 08:05 63 05/20/22 08:04 62 05/20/22 07:37 63 05/20/22 07:31 68 24 96 05/20/22 07:21 22 05/20/22 07:15 97.8 F 76 28 H 141/78 88 L Intake and Output 05/19/22 05/20/22 05/20/22 22:59 06:59 14:59 Other: Weight 81.647 kg Results CBC & Chem 7: 05/20/22 07:48 05/20/22 07:48 Labs: Abnormal Lab Results - Last 24 Hours (Table) 05/20/22 Range/Units 07:48 Glucose 113 H (74-99) mg/dL
[2022-05-20] MEDS: IPRATROPIUM-ALBUTEROL 3 ML NEB INHALATION SCH ×3 (10:53→19:02)
[2022-05-20 11:40] LABS: Glucose,Whole Blood 129 mg/dL (70-110)
[2022-05-20] MEDS ORDERED: ALBUTEROL NEB (CONC) 2.5 MG/0.5 ML INHALATION SCH (12:00)
--- NOTE | 2022-05-20 12:41 | P.CNPUL ---
History of Present Illness Consult date: 05/20/22 Requesting physician: Brandyn Ware Reason for consult: dyspnea, cough, COPD, abnormal CXR/CT Chief complaint: Shortness of breath. History of present illness: Pulmonary consult dated 05/20/2022. 67-year-old male with a history of COPD. The patient unfortunately does continue to smoke. 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 His primary care provider is Dr. Ware. The patient states for the last couple days, he's had increasing shortness of breath, cough, wheezing, chest tightness, and clear phlegm production. He's been having to use his nebulizer machine more frequently. He apparently ran out of his Advair inhaler. As mentioned above, the patient does continue to smoke cigarettes, although, he's cut back significantly. The patient does not use oxygen at home. In addition to Advair, he is a rescue inhaler, and a nebulizer machine. Again, he has not seen in our office. The severity of his COPD, is not known. His home medications include metoprolol, Advair, Tambocor, Lipitor, Eliquis albuterol inhaler, updrafts, and Tylenol. CBC is completely normal. PT/INR side PTT is completely normal. Comprehensive metabolic profile is completely normal. Chest x-ray only shows changes of COPD. No acute pulmonary process is seen. Review of Systems REVIEW OF SYSTEMS: CONSTITUTIONAL: [Negative.] NEUROLOGIC: [ Negative.] HEENT: [ Negative.] CARDIAC: [Negative.] PULMONARY: Shortness of breath, cough, wheezing, chest tightness, and clear phlegm production. GI: [Negative.] : [Negative.] RHEUMATOLOGIC: [ Negative.] IMMUNOLOGIC: [ Negative.] ENDOCRINE: [Negative. ] DERMATOLOGIC: [Negative.] Past Medical History Past Medical History: COPD, Deep Vein Thrombosis (DVT), Liver Disease Additional Past Medical History / Comment(s): hepatitis C diagnosed 09/2015 cu rrently under outpatient treatment, 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 History of Any Multi-Drug Resistant Organisms: None Reported Past Surgical History: Bowel Resection, Hernia Repair Additional Past Surgical History / Comment(s): Ruptured bowel, temp colostomy, reversal of colostomy, finger amputation (blood clot), colonoscopy, L/R inguinal hernia repairs, circumcism. Past Anesthesia/Blood Transfusion Reactions: No Reported Reaction Past Psychological History: No Psychological Hx Reported Smoking Status: Former smoker Past Alcohol Use History: None Reported, Abuse Past Drug Use History: None Reported, IV Drug Use - Past Family History Mother Family Medical History: CVA/TIA Additional Family Medical History / Comment(s): Mother of a CVA (was on coumadin) at the age of 74 yrs. Father Family Medical History: Diabetes Mellitus, Deep Vein Thrombosis (DVT) Additional Family Medical History / Comment(s): Father of diabetic complications at the age of 70 yrs. Medications and Allergies Home Medications Medication Instructions Recorded Confirmed Type Albuterol Sulfate [Albuterol 2 puff PO RT-Q4H PRN 05/09/21 05/20/22 History Sulfate Hfa] Fluticasone Propion/Salmeterol 2 puff INHALATION RT-BID #1 07/15/21 05/20/22 Rx [Advair 250-50 Diskus] dispenser Acetaminophen [Tylenol] 650 mg PO Q4H PRN 03/02/22 05/20/22 History Apixaban [Eliquis] 5 mg PO BID #60 tab 03/02/22 05/20/22 Rx Atorvastatin [Lipitor] 40 mg PO DAILY #30 tab 03/04/22 05/20/22 Rx Flecainide [Tambocor] 50 mg PO Q12HR #60 tab 03/04/22 05/20/22 Rx Metoprolol Tartrate [Lopressor] 50 mg PO BID #60 tab 03/04/22 05/20/22 Rx Allergies Allergy/AdvReac Type Severity Reaction Status Date / Time No Known Allergies Allergy Verified 05/20/22 09:26 Physical Exam Osteopathic Statement: *. No significant issues noted on an osteopathic structural exam other than those noted in the History and Physical/Consult. Vitals: Vital Signs Temp Pulse Pulse Resp BP BP Pulse Ox 05/20/22 11:33 97.6 F 54 L 17 106/65 93 L 05/20/22 10:58 63 05/20/22 10:42 63 05/20/22 10:16 98.3 F 68 18 127/81 99 05/20/22 09:35 77 18 122/78 98 05/20/22 08:37 70 22 123/85 97 05/20/22 08:16 61 05/20/22 08:05 63 05/20/22 08:04 62 05/20/22 07:37 63 05/20/22 07:31 68 24 96 05/20/22 07:21 22 05/20/22 07:15 97.8 F 76 28 H 141/78 88 L Intake and Output 05/19/22 05/20/22 05/20/22 22:59 06:59 14:59 Other: Weight 81.647 kg No acute distress, oriented 3. HEENT examination is grossly unremarkable. Neck supple. Full range of motion. No adenopathy thyromegaly or neck vein distention. Cardiovascular examination reveals regular rhythm rate. S1-S2 normal. No S3 or S4. No discernible murmur noted. Heart rate 54 bpm. Lungs reveal mild to moderate scattered rhonchi and expiratory wheezes. Breath sounds equal bilaterally. 2 L saturation 93%. No crackles. Abdomen soft bowel sounds are heard. No masses or tenderness. Extremities are intact. No cyanosis clubbing or edema. Skin is without rash or lesion. Neurologic examination is brief but nonfocal. Results - Laboratory Findings CBC and BMP: 05/20/22 07:48 05/20/22 07:48 PT/INR, D-dimer PT 10.7 sec (9.0-12.0) 05/20/22 07:48 INR 1.0 (<1.2) 05/20/22 07:48 Abnormal lab findings: Abnormal Labs 05/20/22 05/20/22 07:48 11:38 Glucose 113 H POC Glucose (mg/dL) 129 H - Diagnostic Findings Chest x-ray: image reviewed Assessment and Plan Assessment: Acute exacerbation of COPD, in a patient who continues to smoke cigarettes. History of DVT. History of hepatitis C. Prior history of IV drug abuse. Multiple other medical problems and comorbidities. Plan: Plan dated 05/20/2022. The patient's currently on albuterol sulfate and ipratropium bromide, site Medrol, and Pulmicort. Is also getting Omnicef 300 twice a day. I will add some formoterol. No additional recommendations are made. The patient could probably be discharged tomorrow. Should be discharged on prednisone with a burst and taper. In addition, the patient apparently ran out of his Advair. That should be resumed as well. Time with Patient: Greater than 30
[2022-05-20] MEDS: INSULIN ASPART (NovoLOG) 100 UNIT/ML VIAL SQ SCH ×3 (14:27→22:10)
[2022-05-20] MEDS: methylPREDNISolone SOD SUCCI 125 MG/2 ML VIAL IV SCH ×2 (15:53→20:14)
[2022-05-20 16:29] LABS: Glucose,Whole Blood 159 mg/dL (70-110)
[2022-05-20] MEDS: BUDESONIDE 1 MG/2 ML NEBU INHALATION SCH (19:02)
[2022-05-20] MEDS: FORMOTEROL FUMARATE 20 MCG/2 ML NEBU INHALATION SCH (19:02)
[2022-05-20] MEDS: CEFDINIR 300 MG CAP PO SCH (20:14)
[2022-05-20] MEDS: METOPROLOL TARTRATE 50 MG TAB PO SCH (20:14)
[2022-05-20] MEDS: APIXABAN 5 MG TAB PO SCH (20:14)
[2022-05-20] MEDS: FLECAINIDE 50 MG TAB PO SCH (20:37)
[2022-05-20 20:56] LABS: Glucose,Whole Blood 224 mg/dL (70-110)
[2022-05-21] MEDS: methylPREDNISolone SOD SUCCI 125 MG/2 ML VIAL IV SCH ×4 (01:49→20:22)
[2022-05-21 07:24] LABS: Glucose,Whole Blood 141 mg/dL (70-110)
[2022-05-21] MEDS: ATORVASTATIN 40 MG TAB PO SCH (07:27)
[2022-05-21] MEDS: APIXABAN 5 MG TAB PO SCH ×2 (07:28→20:22)
[2022-05-21] MEDS: CEFDINIR 300 MG CAP PO SCH ×2 (07:28→20:22)
[2022-05-21] MEDS: METOPROLOL TARTRATE 50 MG TAB PO SCH ×2 (07:28→20:22)
[2022-05-21] MEDS: FLECAINIDE 50 MG TAB PO SCH ×2 (07:29→20:22)
[2022-05-21] MEDS: INSULIN ASPART (NovoLOG) 100 UNIT/ML VIAL SQ SCH ×4 (07:30→20:22)
[2022-05-21] MEDS: IPRATROPIUM-ALBUTEROL 3 ML NEB INHALATION SCH ×4 (08:04→19:26)
[2022-05-21] MEDS: FORMOTEROL FUMARATE 20 MCG/2 ML NEBU INHALATION SCH ×2 (08:04→19:26)
[2022-05-21] MEDS: BUDESONIDE 1 MG/2 ML NEBU INHALATION SCH ×2 (08:04→19:26)
--- NOTE | 2022-05-21 11:32 | P.PN ---
Subjective Progress Note Date: 05/21/22 Principal diagnosis: COPD Patient feels improved by at least 50% this morning wondering if he can go home tomorrow at multiple concerns and questions about his pulmonary function test and if it can be done in the hospital Objective - Vital Signs Vital signs: Vital Signs Temp 97.6 F 05/21/22 07:23 Pulse 84 05/21/22 08:21 Resp 16 05/21/22 07:23 BP 112/63 05/21/22 07:23 Pulse Ox 92 L 05/21/22 07:23 FiO2 Intake & Output 05/20/22 05/21/22 05/21/22 18:59 06:59 18:59 Intake Total 720 1500 Output Total 200 Balance 520 1500 Weight 81.647 kg Intake: Oral 720 1500 Output: Urine 200 Other: Voiding Method Urinal Toilet # Voids 4 2 - Exam Gen.: in stated age, mild distress using accessory muscles with composition Heart: Normal S1-S2 Lungs: Coarse breathing sounds bilaterally with scattered rhonchi and diffuse wheezing Abdomen: Soft, no tenderness, positive bowel sounds in all 4 quadrant no guarding or rebound Skin: No new rash Psych: Alert and oriented 3 Neuro: No focal deficit - Labs CBC & Chem 7: 05/20/22 07:48 05/20/22 07:48 Labs: Abnormal Lab Results - Last 24 Hours (Table) 05/20/22 05/20/22 05/20/22 Range/Units 11:38 16:27 20:55 POC Glucose (mg/dL) 129 H 159 H 224 H (70-110) mg/dL 05/21/22 Range/Units 07:23 POC Glucose (mg/dL) 141 H (70-110) mg/dL Assessment and Plan Assessment: 1. Acute respiratory failure with hypoxia. 2. COPD with acute exacerbation. 3. Treatment failure on outpatient basis. 4. Tracheobronchitis. 5. Hepatitis C status post treatment. 6. Polysubstance abuse. 7. Remote history of smoking. Plan discussed with nursing staff and patient at the bedside where we would like to continue with IV steroids, aggressive pulmonary hygiene, wean off oxygen as tolerated and improved functional status. Patient is at 50% improvement and I would like to continue with the current treatment wean off oxygen steroids in the morning and consider switching to oral based on clinical progress. We'll follow up on final culture results. We'll have physical therapy evaluated the patient and home oxygen evaluation prior to discharge. Prognosis remained guarded at this point
[2022-05-21 11:37] LABS: Glucose,Whole Blood 130 mg/dL (70-110)
--- NOTE | 2022-05-21 12:07 | P.PN ---
Subjective Progress Note Date: 05/21/22 Principal diagnosis: COPD exacerbation 67-year-old male with a history of COPD. The patient unfortunately does continue to smoke. 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 His primary care provider is Dr. Ware. The patient states for the last couple days, he's had increasing shortness of breath, cough, wheezing, chest tightness, and clear phlegm production. He's been having to use his nebulizer machine more frequently. He apparently ran out of his Advair inhaler. As mentioned above, the patient does continue to smoke cigarettes, although, he's cut back signif icantly. The patient does not use oxygen at home. In addition to Advair, he is a rescue inhaler, and a nebulizer machine. Again, he has not seen in our office. The severity of his COPD, is not known. His home medications include metoprolol, Advair, Tambocor, Lipitor, Eliquis albuterol inhaler, updrafts, and Tylenol. CBC is completely normal. PT/INR side PTT is completely normal. Comprehensive metabolic profile is completely normal. Chest x-ray only shows changes of COPD. No acute pulmonary process is seen. The patient is seen today 05/21/2022 in follow-up on the regular medical floor. He is currently sitting up in bed. Awake and alert in no acute distress. Feeling nearly back to his baseline. Short of breath. Less chest tightness and wheezing. He is maintaining good O2 saturations in the 90s on 2 L/m per nasal cannula. Afebrile. Hemodynamically stable. Blood glucose 1:30. He is continued on DuoNeb inhalations, Pulmicort and Perforomist inhalations, IV Solu-Medrol. Empiric antibiotics in the form of Omnicef. Anticoagulated with Eliquis. Objective - Vital Signs Vital signs: Vital Signs Temp 97.6 F 05/21/22 07:23 Pulse 73 05/21/22 11:46 Resp 16 05/21/22 07:23 BP 112/63 05/21/22 07:23 Pulse Ox 92 L 05/21/22 07:23 FiO2 Intake & Output 05/20/22 05/21/22 05/21/22 18:59 06:59 18:59 Intake Total 720 1500 Output Total 200 Balance 520 1500 Weight 81.647 kg Intake: Oral 720 1500 Output: Urine 200 Other: Voiding Method Urinal Toilet # Voids 4 2 - Exam GENERAL EXAM: Alert, pleasant 67-year-old male, on 2 L nasal cannula, comfortable in no apparent distress. HEAD: Normocephalic. EYES: Normal reaction of pupils, equal size. NOSE: Clear with pink turbinates. THROAT: No erythema or exudates. NECK: No masses, no JVD. CHEST: No chest wall deformity. LUNGS: Equal air entry with faint end expiratory wheeze, diminished. CVS: S1 and S2 normal with no audible murmur, regular rhythm. ABDOMEN: No hepatosplenomegaly, normal bowel sounds, no guarding or rigidity. SPINE: No scoliosis or deformity SKIN: No rashes CENTRAL NERVOUS SYSTEM: No focal deficits, tone is normal in all 4 extremities. EXTREMITIES: There is no peripheral edema. No clubbing, no cyanosis. Peripheral pulses are intact. - Labs CBC & Chem 7: 05/20/22 07:48 05/20/22 07:48 Labs: Abnormal Lab Results - Last 24 Hours (Table) 05/20/22 05/20/22 05/21/22 Range/Units 16:27 20:55 07:23 POC Glucose (mg/dL) 159 H 224 H 141 H (70-110) mg/dL 05/21/22 Range/Units 11:36 POC Glucose (mg/dL) 130 H (70-110) mg/dL Assessment and Plan Assessment: Acute exacerbation of COPD, in a patient who continues to smoke cigarettes. Chronic and ongoing tobacco dependence History of DVT. History of hepatitis C. Prior history of IV drug abuse. Multiple other medical problems and comorbidities. Plan: The patient was seen and evaluated Stable and cleared for discharge from the pulmonary standpoint Complete prednisone taper starting at 40 mg daily for 4 days Continue his home Advair and albuterol Follow-up in the office in 1-2 weeks' I have personally seen and examined the patient, performed the documentation and the assessment and plan as written. Number of minutes spent on the visit: 10.
[2022-05-21 16:39] LABS: Glucose,Whole Blood 126 mg/dL (70-110)
[2022-05-21 20:07] LABS: Glucose,Whole Blood 133 mg/dL (70-110)
[2022-05-22] MEDS: methylPREDNISolone SOD SUCCI 125 MG/2 ML VIAL IV SCH ×2 (03:04→09:31)
[2022-05-22 07:05] LABS: Glucose,Whole Blood 117 mg/dL (70-110)
[2022-05-22] MEDS: INSULIN ASPART (NovoLOG) 100 UNIT/ML VIAL SQ SCH (07:55)
[2022-05-22] MEDS: IPRATROPIUM-ALBUTEROL 3 ML NEB INHALATION SCH (08:00)
[2022-05-22] MEDS: BUDESONIDE 1 MG/2 ML NEBU INHALATION SCH (08:00)
[2022-05-22] MEDS: FORMOTEROL FUMARATE 20 MCG/2 ML NEBU INHALATION SCH (08:00)
[2022-05-22 08:09] VITALS: BP 109/63; RESP 16; TEMP 99.2
[2022-05-22 08:47] VITALS: PULSE 87
[2022-05-22] MEDS: APIXABAN 5 MG TAB PO SCH (09:05)
[2022-05-22] MEDS: ATORVASTATIN 40 MG TAB PO SCH (09:05)
[2022-05-22] MEDS: CEFDINIR 300 MG CAP PO SCH (09:05)
[2022-05-22] MEDS: METOPROLOL TARTRATE 50 MG TAB PO SCH (09:05)
[2022-05-22] MEDS: FLECAINIDE 50 MG TAB PO SCH (09:06)
--- NOTE | 2022-05-22 10:01 | P.DS ---
Providers Date of admission: 05/20/22 09:34 Attending physician: Brandyn Ware Consults: 05/20/22 10:41 Consult Physician Routine Consulting Provider: Michael Leslie Reason/Comments: copd exac Do you want consulting provider notified?: Yes Primary care physician: Brandyn Ware [place] [facility] Course: 67 years old male with past medical history significant for COPD presented to the emergency department with worsening shortness of breath patient was admitted with acute respiratory distress started on oxygen and weaned off successfully at the time of the discharge where oxygen saturation continued to be above 92% on room air. Patient felt at least 75% back to his baseline insisted to go home and plan discussed with pulmonary who recommended prednisone 40 mg for 5 days to be followed in the office outpatient. Patient counseled regarding medication adherence close follow-up with his primary care physician and to follow-up within 3 days. Patient was discharged in stable condition. Plan - Discharge Summary Discharge Rx Participant: No New Discharge Prescriptions: No Action Apixaban [Eliquis] 5 mg PO BID #60 tab Atorvastatin [Lipitor] 40 mg PO DAILY #30 tab Metoprolol Tartrate [Lopressor] 50 mg PO BID #60 tab Flecainide [Tambocor] 50 mg PO Q12HR #60 tab Albuterol Sulfate [Albuterol Sulfate Hfa] 2 puff PO RT-Q4H PRN PRN Reason: Shortness Of Breath Fluticasone Propion/Salmeterol [Advair 250-50 Diskus] 2 puff INHALATION RT- BID #1 dispenser Acetaminophen [Tylenol] 650 mg PO Q4H PRN PRN Reason: Pain Discharge Medication List Albuterol Sulfate [Albuterol Sulfate Hfa] 2 puff PO RT-Q4H PRN 05/09/21 [History] Fluticasone Propion/Salmeterol [Advair 250-50 Diskus] 2 puff INHALATION RT-BID #1 dispenser 07/15/21 [Rx] Acetaminophen [Tylenol] 650 mg PO Q4H PRN 03/02/22 [History] Apixaban [Eliquis] 5 mg PO BID #60 tab 03/02/22 [Rx] Atorvastatin [Lipitor] 40 mg PO DAILY #30 tab 03/04/22 [Rx] Flecainide [Tambocor] 50 mg PO Q12HR #60 tab 03/04/22 [Rx] Metoprolol Tartrate [Lopressor] 50 mg PO BID #60 tab 03/04/22 [Rx] Follow up Appointment(s)/Referral(s): Brandyn Ware MD [Primary Care Provider] - 1-2 days
--- NOTE | 2022-05-22 11:27 | P.PN ---
Subjective Progress Note Date: 05/22/22 Principal diagnosis: COPD exacerbation 67-year-old male with a history of COPD. The patient unfortunately does continue to smoke. He is not see one of the manufacturing mechanic in town. His primary care provider is Dr. Ware. The patient states for the last couple days, he's had increasing shortness of breath, cough, wheezing, chest tightness, and clear phlegm production. He's been having to use his nebulizer machine more frequently. He apparently ran out of his Advair inhaler. As mentioned above, the patient does continue to smoke cigarettes, although, he's cut back signif icantly. The patient does not use oxygen at home. In addition to Advair, he is a rescue inhaler, and a nebulizer machine. Again, he has not seen in our office. The severity of his COPD, is not known. His home medications include metoprolol, Advair, Tambocor, Lipitor, Eliquis albuterol inhaler, updrafts, and Tylenol. CBC is completely normal. PT/INR side PTT is completely normal. Comprehensive metabolic profile is completely normal. Chest x-ray only shows changes of COPD. No acute pulmonary process is seen. The patient is seen today 05/21/2022 in follow-up on the regular medical floor. He is currently sitting up in bed. Awake and alert in no acute distress. Feeling nearly back to his baseline. Short of breath. Less chest tightness and wheezing. He is maintaining good O2 saturations in the 90s on 2 L/m per nasal cannula. Afebrile. Hemodynamically stable. Blood glucose 1:30. He is continued on DuoNeb inhalations, Pulmicort and Perforomist inhalations, IV Solu-Medrol. Empiric antibiotics in the form of Omnicef. Anticoagulated with Eliquis. The patient is seen today 05/22/2022 in follow-up on the regular medical floor. He is currently sitting up in a chair at the bedside. Awake and alert in no acute distress. He denies any worsening shortness of breath, cough or congestion. He is maintaining O2 saturation in the 90s on room air. Afebrile. Hemodynamically stable. Blood sugar 117. Continue on DuoNeb inhalations, Pulmicort and performance inhalations, IV Solu-Medrol. Empiric antibiotics in the form of Omnicef. Anticoagulant with Eliquis. Objective - Vital Signs Vital signs: Vital Signs Temp 99.2 F 05/22/22 08:00 Pulse 87 05/22/22 08:46 Resp 16 05/22/22 08:00 BP 109/63 05/22/22 08:00 Pulse Ox 90 L 05/22/22 08:46 FiO2 Intake & Output 05/21/22 05/22/22 05/22/22 18:59 06:59 18:59 Intake Total 1080 1500 Balance 1080 1500 Intake: Oral 1080 1500 Other: Voiding Method Toilet Toilet # Voids 3 3 - Exam GENERAL EXAM: Alert, pleasant 67-year-old male, on room air, comfortable in no apparent distress. HEAD: Normocephalic. EYES: Normal reaction of pupils, equal size. NOSE: Clear with pink turbinates. THROAT: No erythema or exudates. NECK: No masses, no JVD. CHEST: No chest wall deformity. LUNGS: Equal air entry, clear, diminished. CVS: S1 and S2 normal with no audible murmur, regular rhythm. ABDOMEN: No hepatosplenomegaly, normal bowel sounds, no guarding or rigidity. SPINE: No scoliosis or deformity SKIN: No rashes CENTRAL NERVOUS SYSTEM: No focal deficits, tone is normal in all 4 extremities. EXTREMITIES: There is no peripheral edema. No clubbing, no cyanosis. Per ipheral pulses are intact. - Labs CBC & Chem 7: 05/20/22 07:48 05/20/22 07:48 Labs: Abnormal Lab Results - Last 24 Hours (Table) 05/21/22 05/21/22 05/21/22 Range/Units 11:36 16:39 20:04 POC Glucose (mg/dL) 130 H 126 H 133 H (70-110) mg/dL 05/22/22 Range/Units 07:04 POC Glucose (mg/dL) 117 H (70-110) mg/dL Assessment and Plan Assessment: Acute exacerbation of COPD, in a patient who continues to smoke cigarettes. Chronic and ongoing tobacco dependence History of DVT. History of hepatitis C. Prior history of IV drug abuse. Multiple other medical problems and comorbidities. Plan: The patient was seen and evaluated Cleared for discharge from the pulmonary standpoint Complete prednisone taper starting at 40 mg daily for 4 days Continue his home Advair and albuterol Follow-up in the office in 1-2 weeks' Again educated regarding the importance of complete smoking cessation I have personally seen and examined the patient, performed the documentation and the assessment and plan as written. Number of minutes spent on the visit: 10.
== END 2022-05-22 11:04 | disposition home or self-care (01) | DRG 190 ==
LOC: EC 07:13 → 4SSUR 09:34
PROVIDERS: ADMIT Internal Medicine Geriatric Medicine; ATTEND Internal Medicine Geriatric Medicine
DX: J44.1 Chronic obstructive pulmonary disease with (acute) exacerbation (principal); J96.01 Acute respiratory failure with hypoxia; B19.20 Unspecified viral hepatitis C without hepatic coma; F17.210 Nicotine dependence, cigarettes, uncomplicated; F10.11 Alcohol abuse, in remission; F19.11 Other psychoactive substance abuse, in remission; Z71.89 Other specified counseling; Z79.01 Long term (current) use of anticoagulants; Z79.51 Long term (current) use of inhaled steroids; Z79.899 Other long term (current) drug therapy; Z82.3 Family history of stroke; Z82.49 Family history of ischemic heart disease and other diseases of the circulatory system; Z83.3 Family history of diabetes mellitus; Z86.718 Personal history of other venous thrombosis and embolism; Z89.022 Acquired absence of left finger(s)
CPT/HCPCS: 36415; 71046; 80053; 83605; 83735; 84484; 85025; 85610; 85730; 93005; 94640; 96372; 96374; 99291

== ENCOUNTER 2023-08-08 10:05 | Observation (INO) | payer MEDICARE, OTHER ==
[2023-08-08] MEDS ORDERED: ALBUTEROL NEBULIZED 2.5 MG/3 ML INHALATION STA ×2 (10:39→13:05)
[2023-08-08] MEDS ORDERED: IPRATROPIUM-ALBUTEROL 3 ML NEB INHALATION STA (10:39)
[2023-08-08] MEDS ORDERED: methylPREDNISolone SOD SUCCI 125 MG/2 ML VIAL IV STA (10:39)
--- NOTE | 2023-08-08 10:41 | ED ---
SOB HPI - General Chief Complaint: Shortness of Breath Stated Complaint: SOB Time Seen by Provider: 08/08/23 10:26 Source: patient Mode of arrival: ambulatory Limitations: no limitations - History of Present Illness Initial Comments: The patient's a 68-year-old gentleman with a history of coronary artery disease, hyperlipidemia, atrial fibrillation and COPD who presents emergency room with complaints of shortness breath. Patient states it started 2 nights ago and has progressively worsened. He states it is worse when he lays down flat at night. He has had a cough and congestion. Patient denies any fevers, chest pain, hemoptysis, pain or swelling to the lower extremities, recent travel or sick contacts. Patient does continue to smoke. He has been using his nebulizer treatments and inhalers without improvement. - Related Data Home Medications Medication Instructions Recorded Confirmed Albuterol Sulfate [Albuterol 2 puff PO RT-QID PRN 05/09/21 08/08/23 Sulfate Hfa] Baclofen 10 mg PO BID PRN 08/08/23 08/08/23 Bromfenac Sodium [Prolensa Ophth 1 drop BOTH EYES DAILY 08/08/23 08/08/23 Soln] Flecainide [Tambocor] 50 mg PO BID 08/08/23 08/08/23 Ipratropium-Albuterol Nebulize 3 ml INHALATION RT-QID PRN 08/08/23 08/08/23 [Duoneb 0.5 mg-3 mg/3 ml Soln] prednisoLONE ACETATE 1% OPHTH 1 drops LEFT EYE DAILY 08/08/23 08/08/23 [Pred Forte 1%] Previous Rx's Medication Instructions Recorded Fluticasone Propion/Salmeterol 2 puff INHALATION RT-BID #1 07/15/21 [Advair 250-50 Diskus] dispenser Apixaban [Eliquis] 5 mg PO BID #60 tab 03/02/22 Atorvastatin [Lipitor] 40 mg PO DAILY #30 tab 03/04/22 Metoprolol Tartrate [Lopressor] 50 mg PO BID #60 tab 03/04/22 Allergies Allergy/AdvReac Type Severity Reaction Status Date / Time No Known Allergies Allergy Verified 08/08/23 13:08 Review of Systems ROS Statement: Those systems with pertinent positive or pertinent negative responses have been documented in the HPI. ROS Other: All systems not noted in ROS Statement are negative. 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 History of Any Multi-Drug Resistant Organisms: None Reported Past Surgical History: Bowel Resection, Hernia Repair Additional Past Surgical History / Comment(s): Ruptured bowel, temp colostomy, reversal of colostomy, finger amputation (blood clot), colonoscopy, L/R inguinal hernia repairs, circumcism. Past Anesthesia/Blood Transfusion Reactions: No Reported Reaction Past Psychological History: No Psychological Hx Reported Smoking Status: Former smoker Past Alcohol Use History: Abuse Past Drug Use History: None Reported, IV Drug Use - Past Family History Mother Family Medical History: CVA/TIA Additional Family Medical History / Comment(s): Mother of a CVA (was on coumadin) at the age of 74 yrs. Father Family Medical History: Diabetes Mellitus, Deep Vein Thrombosis (DVT) Additional Family Medical History / Comment(s): Father of diabetic complications at the age of 70 yrs. General Exam Limitations: no limitations General appearance: alert, in no apparent distress Head exam: Present: atraumatic Eye exam: Present: normal appearance ENT exam: Present: normal exam Neck exam: Present: normal inspection Respiratory exam: Present: wheezes, decreased breath sounds Cardiovascular Exam: Present: regular rate, bradycardia GI/Abdominal exam: Present: soft Extremities exam: Present: full ROM Back exam: Present: full ROM Neurological exam: Present: alert, oriented X3, CN II-XII intact Psychiatric exam: Present: normal affect, normal mood Skin exam: Present: warm, dry Course Vital Signs 08/08/23 08/08/23 08/08/23 10:11 11:31 12:10 Temperature 98 F Pulse Rate 58 L 51 L 69 Respiratory 22 22 Rate Blood Pressure 104/68 107/74 O2 Sat by Pulse 95 93 L Oximetry 08/08/23 08/08/23 08/08/23 12:25 12:33 13:15 Temperature Pulse Rate 59 L 59 L 64 Respiratory 18 Rate Blood Pressure 119/77 O2 Sat by Pulse 92 L Oximetry 08/08/23 08/08/23 13:26 16:55 Temperature Pulse Rate 68 61 Respiratory 18 Rate Blood Pressure 106/73 O2 Sat by Pulse 92 L Oximetry - Reevaluation(s) Reevaluation #1: 08/08/23 1620 Patient's wel appearing in the emergency room. He is feeling better after site Medrol and breathing treatments including to albuterol and one DuoNeb treatment in the emergency room. Patient's infiltrate pulse ox dropped down to 90% on room air. He will be admitted for further treatment of the COPD exacerbation and hypoxia. Medical Decision Making - Medical Decision Making Was pt. sent in by a medical professional or institution (, [facility], ACTIVATED SLUDGE OPERATOR, urgent care, hospital, or [facility]...) When possible be specific @ -[No] Did you speak to anyone other than the patient for history (EMS, parent, family, police, friend...)? What history was obtained from this source @ - at bedside Did you review nursing and triage notes (agree or disagree)? Why? @ -[I reviewed and agree with nursing and triage notes] Were old charts reviewed (outside hosp., previous admission, EMS record, old EKG, old radiological studies, urgent care reports/EKG's, [facility] records)? Report findings @ -Yes old charts were reviewed Differential Diagnosis (chest pain, altered mental status, abdominal pain women, abdominal pain men, vaginal bleeding, weakness, fever, dyspnea, syncope, headache, dizziness, GI bleed, back pain, seizure, CVA, palpatations, mental health, musculoskeletal)? @ -COPD exacerbation, dyspnea, bronchitis, Covid, influenza EKG interpreted by me (3pts min.). @ -EKG shows sinus Bradycardia rate of 54 bpm with no acute ST segment elevation or T-wave changes X-rays interpreted by me (1pt min.). @ -Chest x-ray is negative for any obvious pneumonia or pneumothorax or mass. Radiology report is pending for confirmation of acute changes CT interpreted by me (1pt min.). @ -[None done] U/S interpreted by me (1pt. min.). @ -[None done] What testing was considered but not performed or refused? (CT, X-rays, U/S, labs)? Why? @ -[None] What meds were considered but not given or refused? Why? @ -[None] Did you discuss the management of the patient with other professionals (professionals i.e. , PA, ACTIVATED SLUDGE OPERATOR, lab, RT, psych nurse, social media community manager, [place] customs and border officer, teacher, correction officer, case picker)? Give summary @ -Discussed patient's symptoms are And admission plan with attending ED physician Dr. Orona Was smoking cessation discussed for >3mins.? @ -[No] Was critical care preformed (if so, how long)? @ -[No] Were there social determinants of health that impacted care today? How? (Homelessness, low income, unemployed, alcoholism, drug addiction, transportation, low edu. Level, literacy, decrease access to med. care, [facility], rehab)? @ -[No] Was there de-escalation of care discussed even if they declined (Discuss DNR or withdrawal of care, Hospice)? DNR status @ -[No] What co-morbidities impacted this encounter? (DM, HTN, Smoking, COPD, CAD, Cancer, CVA, ARF, Chemo, Hep., AIDS, mental health diagnosis, sleep apnea, morbid obesity)? @ -Smoking Was patient admitted / discharged? Hospital course, mention meds given and route, prescriptions, significant lab abnormalities, going to OR and other p ertinent info. @ -Given patient's continued wheezing and dyspnea as well as the ambulatory hypoxia he will be admitted for further management of his COPD exacerbation. Undiagnosed new problem with uncertain prognosis? @ -[No] Drug Therapy requiring intensive monitoring for toxicity (Heparin, Nitro, Insulin, Cardizem)? @ -[No] Were any procedures done? @ -[No] Diagnosis/symptom? @ -COPD exacerbation Acute, or Chronic, or Acute on Chronic? @ -Acute on chronic Uncomplicated (without systemic symptoms) or Complicated (systemic symptoms)? @ -, Did Side effects of treatment? @ -[No] Exacerbation, Progression, or Severe Exacerbation? @ -[No] Poses a threat to life or bodily function? How? (Chest pain, [place], [place], pneumonia, PE, COPD, DKA, ARF, appy, cholecystitis, CVA, Diverticulitis, Homicidal, Suicidal, threat to staff... and all critical care pts) @ -[No] - Lab Data Result diagrams: 08/08/23 11:07 08/08/23 11:07 Lab Results 08/08/23 08/08/23 08/08/23 Range/Units 11:07 11:07 11:07 WBC 6.7 (3.8-10.6) k/uL RBC 4.91 (4.30-5.90) m/uL Hgb 15.7 (13.0-17.5) gm/dL Hct 48.8 (39.0-53.0) % MCV 99.3 (80.0-100.0) fL MCH 31.9 (25.0-35.0) pg MCHC 32.2 (31.0-37.0) g/dL RDW 13.0 (11.5-15.5) % Plt Count 205 (150-450) k/uL MPV 9.2 Neutrophils % 49 % Lymphocytes % 30 % Monocytes % 8 % Eosinophils % 11 % Basophils % 1 % Neutrophils # 3.3 (1.3-7.7) k/uL Lymphocytes # 2.0 (1.0-4.8) k/uL Monocytes # 0.6 (0-1.0) k/uL Eosinophils # 0.7 (0-0.7) k/uL Basophils # 0.0 (0-0.2) k/uL Sodium 140 (137-145) mmol/L Potassium 4.5 (3.5-5.1) mmol/L Chloride 102 (98-107) mmol/L Carbon Dioxide 29 (22-30) mmol/L Anion Gap 9 mmol/L BUN 14 (9-20) mg/dL Creatinine 0.69 (0.66-1.25) mg/dL Est GFR (CKD-EPI)AfAm >90 (>60 ml/min/1.73 sqM) Est GFR (CKD-EPI)NonAf >90 (>60 ml/min/1.73 sqM) Glucose 93 (74-99) mg/dL Calcium 9.7 (8.4-10.2) mg/dL Total Bilirubin 0.7 (0.2-1.3) mg/dL AST 26 (17-59) U/L ALT 19 (4-49) U/L Alkaline Phosphatase 62 (38-126) U/L Troponin I <0.012 (0.000-0.034) ng/mL NT-Pro-B Natriuret Pep 185 pg/mL Total Protein 7.3 (6.3-8.2) g/dL Albumin 4.3 (3.5-5.0) g/dL Influenza Type A (PCR) (Not Detectd) Influenza Type B (PCR) (Not Detectd) RSV (PCR) (Not Detectd) SARS-CoV-2 (PCR) (Not Detectd) 08/08/23 Range/Units 11:07 WBC (3.8-10.6) k/uL RBC (4.30-5.90) m/uL Hgb (13.0-17.5) gm/dL Hct (39.0-53.0) % MCV (80.0-100.0) fL MCH (25.0-35.0) pg MCHC (31.0-37.0) g/dL RDW (11.5-15.5) % Plt Count (150-450) k/uL MPV Neutrophils % % Lymphocytes % % Monocytes % % Eosinophils % % Basophils % % Neutrophils # (1.3-7.7) k/uL Lymphocytes # (1.0-4.8) k/uL Monocytes # (0-1.0) k/uL Eosinophils # (0-0.7) k/uL Basophils # (0-0.2) k/uL Sodium (137-145) mmol/L Potassium (3.5-5.1) mmol/L Chloride (98-107) mmol/L Carbon Dioxide (22-30) mmol/L Anion Gap mmol/L BUN (9-20) mg/dL Creatinine (0.66-1.25) mg/dL Est GFR (CKD-EPI)AfAm (>60 ml/min/1.73 sqM) Est GFR (CKD-EPI)NonAf (>60 ml/min/1.73 sqM) Glucose (74-99) mg/dL Calcium (8.4-10.2) mg/dL Total Bilirubin (0.2-1.3) mg/dL AST (17-59) U/L ALT (4-49) U/L Alkaline Phosphatase (38-126) U/L Troponin I (0.000-0.034) ng/mL NT-Pro-B Natriuret Pep pg/mL Total Protein (6.3-8.2) g/dL Albumin (3.5-5.0) g/dL Influenza Type A (PCR) Not Detected (Not Detectd) Influenza Type B (PCR) Not Detected (Not Detectd) RSV (PCR) Not Detected (Not Detectd) SARS-CoV-2 (PCR) Not Detected (Not Detectd) - EKG Data -: EKG Interpreted by Me - Radiology Data Radiology results: report reviewed (EKG shows sinus Picardi rate of [address] segment elevation), image reviewed Disposition Clinical Impression: COPD exacerbation, COPD (chronic obstructive pulmonary disease) Disposition: ADMITTED IP TO THIS HOSP Condition: Fair Decision Time: 16:27
[2023-08-08 11:33] LABS: Basophils % (A) 1 %; Eosinophils # (A) 0.7 k/uL (0-0.7); Eosinophils % (A) 11 %; HCT 48.8 % (39.0-53.0); HGB 15.7 gm/dL (13.0-17.5); Lymphocytes % (A) 30 %; MCH 31.9 pg (25.0-35.0); MCHC 32.2 g/dL (31.0-37.0); MCV 99.3 fL (80.0-100.0); Mean Platelet Volume 9.2; Monocytes # (A) 0.6 k/uL (0-1.0); Monocytes % (A) 8 %; Neutrophils # (A) 3.3 k/uL (1.3-7.7); Neutrophils % (A) 49 %; Platelet Count 205 k/uL (150-450); RBC 4.91 m/uL (4.30-5.90); WBC 6.7 k/uL (3.8-10.6)
--- NOTE | 2023-08-08 11:47 | XR ---
EXAMINATION TYPE: XR chest 2V DATE OF EXAM: 08/08/2023 COMPARISON: 05/20/2022 TECHNIQUE: PA and lateral views submitted. HISTORY: Difficulty breathing FINDINGS: The lungs are clear and there is no pneumothorax, pleural effusion, or focal pneumonia. Heart size normal and no overt failure. Osseous structures demonstrate hypertrophic and degenerative changes of the spine. Curvature of the spine. Atherosclerotic change aorta. Diffuse osteopenia with arthropathy of the AC joint. Underlying COPD. IMPRESSION: 1. No acute process. Correlate for COPD.
[2023-08-08 11:57] LABS: ALT 19 U/L (4-49); AST 26 U/L (17-59); African American GFR (CKD) >90 (>60 ml/min/1.73 sqM); Albumin 4.3 g/dL (3.5-5.0); Alkaline Phosphatase 62 U/L (38-126); Anion Gap 9 mmol/L; Blood Urea Nitrogen 14 mg/dL (9-20); Calcium 9.7 mg/dL (8.4-10.2); Carbon Dioxide 29 mmol/L (22-30); Chloride 102 mmol/L (98-107); Glucose 93 mg/dL (74-99); Non-African American GFR(CKD) >90 (>60 ml/min/1.73 sqM); Potassium 4.5 mmol/L (3.5-5.1); Sodium 140 mmol/L (137-145); Total Bilirubin 0.7 mg/dL (0.2-1.3); Total Protein 7.3 g/dL (6.3-8.2)
[2023-08-08 12:05] LABS: NT-Pro-B-Type Natriuretic Pept 185 pg/mL
[2023-08-08] MEDS ORDERED: NALOXONE 0.4 MG/ML 1 ML VIAL IVP PRN (15:26)
[2023-08-08] MEDS ORDERED: AZITHROMYCIN 500 MG in SODIUM CHLORIDE 0.9% 250 ML IVPB STA (15:28)
[2023-08-08] MEDS ORDERED: BACLOFEN 10 MG TAB PO PRN (15:38)
--- NOTE | 2023-08-08 15:43 | P.HPIM ---
History of Present Illness 68-year-old pleasant male came in with complains of shortness of breath found to be in COPD exacerbation patient doesn't use any oxygen at home patient has significantly limited air entry with symptoms and wheezing on exam. Patient is saturating 92% on room air but upon ambulation patient desaturated significantly. Chest x-ray did not show any pneumonia. Patient can use to smoke one pack of cigarettes per day. Patient doesn't have any fever or leukocytosis. Patient is comparing of her sputum production but whitish/clear. REVIEW OF SYSTEMS: CONSTITUTIONAL: No fever, no malaise, no fatigue. HEENT: No recent visual problems or hearing problems. Denied any sore throat. CARDIOVASCULAR: No chest pain, orthopnea, PND, no palpitations, no syncope. PULMONARY: no hemoptysis. GASTROINTESTINAL: No diarrhea, no nausea, no vomiting, no abdominal pain. NEUROLOGICAL: No headaches, no weakness, no numbness. HEMATOLOGICAL: Denies any bleeding or petechiae. GENITOURINARY: Denies any burning micturition, frequency, or urgency. MUSCULOSKELETAL/RHEUMATOLOGICAL: Denies any joint pain, swelling, or any muscle pain. ENDOCRINE: Denies any polyuria or polydipsia. The rest of the 14-point review of systems is negative. PHYSICAL EXAMINATION: GENERAL: The patient is alert and oriented x3, not in any acute distress. Well developed, well nourished. HEENT: Pupils are round and equally reacting to light. EOMI. No scleral icterus. No conjunctival pallor. Normocephalic, atraumatic. No pharyngeal erythema. No thyromegaly. CARDIOVASCULAR: S1 and S2 present. No murmurs, rubs, or gallops. PULMONARY: Expiratory wheezing with limited air entry into bilateral lung is no crackles were appreciated ABDOMEN: Soft, nontender, nondistended, normoactive bowel sounds. No palpable organomegaly. MUSCULOSKELETAL: No joint swelling or deformity. EXTREMITIES: No cyanosis, clubbing, or pedal edema. NEUROLOGICAL: Gross neurological examination did not reveal any focal deficits. SKIN: No rashes. Assessment and plan -COPD exacerbation: Patient is on systemic steroids larger dose the dose of which will be cut down patient will be continued on inhalational treatments with improvement patient will be discharged tomorrow. 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 History of Any Multi-Drug Resistant Organisms: None Reported Past Surgical History: Bowel Resection, Hernia Repair Additional Past Surgical History / Comment(s): Ruptured bowel, temp colostomy, reversal of colostomy, finger amputation (blood clot), colonoscopy, L/R inguinal hernia repairs, circumcism. Past Anesthesia/Blood Transfusion Reactions: No Reported Reaction Past Psychological History: No Psychological Hx Reported Smoking Status: Former smoker Past Alcohol Use History: Abuse Past Drug Use History: None Reported, IV Drug Use - Past Family History Mother Family Medical History: CVA/TIA Additional Family Medical History / Comment(s): Mother of a CVA (was on coumadin) at the age of 74 yrs. Father Family Medical History: Diabetes Mellitus, Deep Vein Thrombosis (DVT) Additional Family Medical History / Comment(s): Father of diabetic complications at the age of 70 yrs. Medications and Allergies Home Medications Medication Instructions Recorded Confirmed Type Albuterol Sulfate [Albuterol 2 puff PO RT-QID PRN 05/09/21 08/08/23 History Sulfate Hfa] Fluticasone Propion/Salmeterol 2 puff INHALATION RT-BID #1 07/15/21 08/08/23 Rx [Advair 250-50 Diskus] dispenser Apixaban [Eliquis] 5 mg PO BID #60 tab 03/02/22 08/08/23 Rx Atorvastatin [Lipitor] 40 mg PO DAILY #30 tab 03/04/22 08/08/23 Rx Metoprolol Tartrate [Lopressor] 50 mg PO BID #60 tab 03/04/22 08/08/23 Rx Baclofen 10 mg PO BID PRN 08/08/23 08/08/23 History Bromfenac Sodium [Prolensa Ophth 1 drop BOTH EYES DAILY 08/08/23 08/08/23 History Soln] Flecainide [Tambocor] 50 mg PO BID 08/08/23 08/08/23 History Ipratropium-Albuterol Nebulize 3 ml INHALATION RT-QID PRN 08/08/23 08/08/23 History [Duoneb 0.5 mg-3 mg/3 ml Soln] prednisoLONE ACETATE 1% OPHTH 1 drops LEFT EYE DAILY 08/08/23 08/08/23 History [Pred Forte 1%] Allergies Allergy/AdvReac Type Severity Reaction Status Date / Time No Known Allergies Allergy Verified 08/08/23 13:08 Physical Exam Vitals: Vital Signs Temp Pulse Resp BP Pulse Ox 08/08/23 13:26 68 08/08/23 13:15 64 08/08/23 12:33 59 L 18 119/77 92 L 08/08/23 12:25 59 L 08/08/23 12:10 69 08/08/23 11:31 51 L 22 107/74 93 L 08/08/23 10:11 98 F 58 L 22 104/68 95 Intake and Output 08/08/23 08/08/23 08/08/23 06:59 14:59 22:59 Other: Weight 81.647 kg Results CBC & Chem 7: 08/08/23 11:07 08/08/23 11:07
[2023-08-08] MEDS ORDERED: methylPREDNISolone SOD SUCCI 125 MG/2 ML VIAL IV SCH (18:00)
[2023-08-08] MEDS: SYMBICORT 80-4.5 MCG INHALER INHALATION SCH (20:57)
[2023-08-08] MEDS: IPRATROPIUM-ALBUTEROL 3 ML NEB INHALATION PRN (20:57)
[2023-08-08] MEDS: APIXABAN 5 MG TAB PO SCH (21:39)
[2023-08-08] MEDS: methylPREDNISolone SOD SUCCI 40 MG/ML 1 ML VIAL IV SCH (21:39)
[2023-08-08] MEDS: METOPROLOL TARTRATE 50 MG TAB PO SCH (21:39)
[2023-08-08] MEDS: FLECAINIDE 50 MG TAB PO SCH (21:45)
[2023-08-09] MEDS: IPRATROPIUM-ALBUTEROL 3 ML NEB INHALATION PRN ×3 (00:14→09:59)
[2023-08-09] MEDS ORDERED: ATORVASTATIN 40 MG TAB PO SCH (09:00)
[2023-08-09] MEDS ORDERED: prednisoLONE ACETATE 1% OPHTH DROPS 5 ML BTL LEFT EYE SCH (09:00)
[2023-08-09] MEDS: FLECAINIDE 50 MG TAB PO SCH (09:14)
[2023-08-09] MEDS: methylPREDNISolone SOD SUCCI 40 MG/ML 1 ML VIAL IV SCH (09:14)
[2023-08-09] MEDS: METOPROLOL TARTRATE 50 MG TAB PO SCH (09:15)
[2023-08-09] MEDS: APIXABAN 5 MG TAB PO SCH (09:15)
[2023-08-09] MEDS: SYMBICORT 80-4.5 MCG INHALER INHALATION SCH (09:59)
[2023-08-09] MEDS: KETOROLAC 0.5% OPHTH DROPS 5 ML BTL BOTH EYES SCH ×2 (11:26→11:28)
[2023-08-09 11:57] VITALS: BP 106/65; PULSE 75; RESP 20; TEMP 97.7
--- NOTE | 2023-08-10 06:52 | P.DS ---
Providers Date of admission: 08/08/23 15:38 Expected date of discharge: 08/09/23 Attending physician: Gretcehn Galan Primary care physician: Brandyn Ware [facility] Hospital Course: Final diagnosis -COPD exacerbation -Acute hypoxic respiratory failure secondary to above, improved patient is on room air -Continued ongoing nicotine dependence -History of DVT in the past for which patient is on anticoagulation -history of hepatitis C for which patient follows outpatient -DVT prophylaxis -GI prophylaxis -Full code Discharge disposition Patient is being discharged in a stable condition with guarded prognosis to home . Patient will follow-up with Dr. Ware in the outpatient setting upon discharge. Patient is to continue with prednisone taper and outpatient follow- up with pulmonary as scheduled. Patient has appointment tomorrow morning and was instructed to keep this appointment. Total time taken is greater than 35 minutes. Hospital course This is a 68-year-old male who was recently admitted with increasing shortness of breath and cough with acute COPD exacerbation. Patient was seen and evaluated by pulmonary initiated on steroids along with DuoNeb treatments. Patient showed some improvement with improvement in wheezing and will continue on a prednisone taper. Patient initially requiring oxygen via nasal cannula 2 L mostly supportive this patient maintained numbers above 90%. Patient is currently on room air and will not require oxygen on discharge. Patient has been extensively counseled on smoking cessation as patient continues to smoke daily. Patient is afebrile with no reports of worsening shortness of breath or chest pain. Patient reports to feeling improved from admission and would like to go home. Patient does have a follow-up plan with Dr. Lauren in the a.m. and has been instructed to keep this appointment. Patient will be discharged home today. Please refer to the consultation note for further HPI. Physical exam: Gen: This is a 68-year-old male who is awake, alert and oriented 3, well-dev eloped, well-nourished, elderly-appearing HEENT: Head is atraumatic, normocephalic. Pupils equal, round. Sclerae is anicteric. NECK: Supple. No JVD. No lymphadenopathy. No thyromegaly. LUNGS: Breath sounds diminished bilaterally with some faint expiratory wheezing noted although significantly improved, no rhonchi noted. No intercostal retractions. HEART: Regular rate and rhythm. No murmur. ABDOMEN: Soft. Bowel sounds are present. No masses. No tenderness. EXTREMITIES: No pedal edema. No calf tenderness. NEUROLOGICAL: Patient is awake, alert and oriented x3. Cranial nerves 2 through 12 are grossly intact. Please refer to medication reconciliation sheet for a list of medications. The impression and plan of care has been dictated by Jigna Hatch, Nurse Practitioner as directed. Dr. Adama MD I have performed a history and examination and MDM of this patient, discussed the same with the dictator, and agree with the dictator's assessment and plan as written ,documented as a scribe. Based on total visit time, I have performed more than 50% of the visit. Patient Condition at Discharge: Fair Plan - Discharge Summary New Discharge Prescriptions: New predniSONE 10 mg PO DIRECTED #30 tab Continue Apixaban [Eliquis] 5 mg PO BID #60 tab Atorvastatin [Lipitor] 40 mg PO DAILY #30 tab Metoprolol Tartrate [Lopressor] 50 mg PO BID #60 tab prednisoLONE ACETATE 1% OPHTH [Pred Forte 1%] 1 drops LEFT EYE DAILY Bromfenac Sodium [Prolensa Ophth Soln] 1 drop BOTH EYES DAILY Baclofen 10 mg PO BID PRN PRN Reason: Pain Ipratropium-Albuterol Nebulize [Duoneb 0.5 mg-3 mg/3 ml Soln] 3 ml INHALATION RT-QID PRN PRN Reason: Shortness Of Breath Flecainide [Tambocor] 50 mg PO BID Albuterol Sulfate [Albuterol Sulfate Hfa] 2 puff PO RT-QID PRN PRN Reason: Shortness Of Breath Fluticasone Propion/Salmeterol [Advair 250-50 Diskus] 2 puff INHALATION RT- BID #1 dispenser Discharge Medication List Albuterol Sulfate [Albuterol Sulfate Hfa] 2 puff PO RT-QID PRN 05/09/21 [History] Fluticasone Propion/Salmeterol [Advair 250-50 Diskus] 2 puff INHALATION RT-BID #1 dispenser 07/15/21 [Rx] Apixaban [Eliquis] 5 mg PO BID #60 tab 03/02/22 [Rx] Atorvastatin [Lipitor] 40 mg PO DAILY #30 tab 03/04/22 [Rx] Metoprolol Tartrate [Lopressor] 50 mg PO BID #60 tab 03/04/22 [Rx] Baclofen 10 mg PO BID PRN 08/08/23 [History] Bromfenac Sodium [Prolensa Ophth Soln] 1 drop BOTH EYES DAILY 08/08/23 [History] Flecainide [Tambocor] 50 mg PO BID 08/08/23 [History] Ipratropium-Albuterol Nebulize [Duoneb 0.5 mg-3 mg/3 ml Soln] 3 ml INHALATION RT-QID PRN 08/08/23 [History] prednisoLONE ACETATE 1% OPHTH [Pred Forte 1%] 1 drops LEFT EYE DAILY 08/08/23 [History] predniSONE 10 mg PO DIRECTED #30 tab 08/09/23 [Rx] Follow up Appointment(s)/Referral(s): Brandyn Ware MD [Primary Care Provider] - 1-2 days Bala Lauren MD [STAFF PHYSICIAN] - 1 Week Activity/Diet/Wound Care/Special Instructions: Activity Limited until follow-up Follow-up with primary care provider on discharge Follow-up with your pulmonary appointment tomorrow morning Continue taking medications as prescribed Continue complete tobacco cessation Discharge Disposition: HOME SELF-CARE
== END 2023-08-09 12:45 | disposition home or self-care (01) ==
LOC: EC 10:05 → 6NMEDSUR 15:38
PROVIDERS: ADMIT Internal Medicine; ATTEND Internal Medicine
DX: J44.1 Chronic obstructive pulmonary disease with (acute) exacerbation (principal); J96.01 Acute respiratory failure with hypoxia; I25.10 Atherosclerotic heart disease of native coronary artery without angina pectoris; R00.1 Bradycardia, unspecified; I48.91 Unspecified atrial fibrillation; E78.5 Hyperlipidemia, unspecified; F17.210 Nicotine dependence, cigarettes, uncomplicated; Z79.899 Other long term (current) drug therapy; Z79.51 Long term (current) use of inhaled steroids; Z79.01 Long term (current) use of anticoagulants; Z86.718 Personal history of other venous thrombosis and embolism; Z86.19 Personal history of other infectious and parasitic diseases; Z89.022 Acquired absence of left finger(s); Z90.49 Acquired absence of other specified parts of digestive tract; Z98.890 Other specified postprocedural states; Z11.52 Encounter for screening for COVID-19; Z87.898 Personal history of other specified conditions; Z71.6 Tobacco abuse counseling; Z82.3 Family history of stroke; Z83.3 Family history of diabetes mellitus; Z82.49 Family history of ischemic heart disease and other diseases of the circulatory system
CPT/HCPCS: 96376 ×2; 96366 ×2; 96367; 96365; 96375; 99285; 36415; 94640 ×4; 93005; 83880; 80053; 83605; 84484; 85025; 87040; 87636; 71046; G0378 ×2; J2920 ×2; J2930; J0456; J0696

== ENCOUNTER → 2023-08-23 | Outpatient (CLI) | payer MEDICARE, OTHER ==
[2023-08-23 18:08] LABS: ALT 20 U/L (10-49); AST 19 U/L (14-35); Albumin 4.3 d/dL (3.8-4.9); Albumin/Globulin Ratio 2.05 Ratio (1.60-3.17); Alkaline Phosphatase 68 U/L (41-126); Blood Urea Nitrogen 13.6 mg/dL (9.0-27.0); Calcium 9.5 mg/dL (8.7-10.3); Carbon Dioxide 23.6 mmol/L (21.6-31.8); Chloride 106 mmol/L (96-109); Chol/HDL Ratio 2.17 Ratio; Globulin 2.1 d/dL (1.6-3.3); Glucose 101 mg/dL (70-110); LDL Cholesterol,Calculated 47.1 mg/dL (0.0-131.0); Potassium 4.1 mmol/L (3.5-5.5); Sodium 140 mmol/L (135-145); Total Bilirubin 0.4 mg/dL (0.3-1.2); Total Protein 6.4 d/dL (6.2-8.2); VLDL Calculation 9.64 mg/dL (5.00-40.00)
== END | disposition home or self-care (01) ==
LOC: LABWHC1 08:10
PROVIDERS: ATTEND Internal Medicine Interventional Cardiology
DX: I10 Essential (primary) hypertension (principal); E78.2 Mixed hyperlipidemia
CPT/HCPCS: 36415; 80053; 80061

== ENCOUNTER 2023-11-20 09:30 | Emergency (ER) | payer MEDICARE, OTHER ==
[2023-11-20 09:39] VITALS: BP 126/76; PULSE 61; RESP 20; TEMP 97.9
[2023-11-20] MEDS ORDERED: KETOROLAC 15 MG/ML 1 ML VIAL IM STA (09:51)
--- NOTE | 2023-11-20 10:07 | ED ---
General Adult HPI - General Chief complaint: Extremity Problem,Nontraumatic Stated complaint: R leg pain Time Seen by Provider: 11/20/23 09:40 Source: patient, RN notes reviewed, old records reviewed Mode of arrival: ambulatory Limitations: no limitations - History of Present Illness Initial comments: This is a 68-year-old male who presents emergency Department complaining of right posterior upper leg pain. Patient states it's a point tenderness he can point exactly where in the hamstring it hurts. Patient denies any injury patient denies any fall. Patient states been ongoing for 3 days per patient denies any redness or swelling of that area or any lower area. Patient states his doctor thought it was back pain however his back does not hurt and the pain can be reproduced with palpation. Patient states movement and walking make considerably worse. Patient denies any numbness or weakness - Related Data Home Medications Medication Instructions Recorded Confirmed Albuterol Sulfate [Albuterol 2 puff PO RT-QID PRN 05/09/21 11/20/23 Sulfate Hfa] Baclofen 10 mg PO BID 08/08/23 11/20/23 Flecainide [Tambocor] 50 mg PO BID 08/08/23 11/20/23 Ipratropium-Albuterol Nebulize 3 ml INHALATION RT-QID PRN 08/08/23 11/20/23 [Duoneb 0.5 mg-3 mg/3 ml Soln] Previous Rx's Medication Instructions Recorded Fluticasone Propion/Salmeterol 2 puff INHALATION RT-BID #1 07/15/21 [Advair 250-50 Diskus] dispenser Apixaban [Eliquis] 5 mg PO BID #60 tab 03/02/22 Atorvastatin [Lipitor] 40 mg PO DAILY #30 tab 03/04/22 Metoprolol Tartrate [Lopressor] 50 mg PO BID #60 tab 03/04/22 Ketorolac [Toradol] 10 mg PO Q6HR #15 tab 11/20/23 Allergies Allergy/AdvReac Type Severity Reaction Status Date / Time prednisone Allergy Hallucinati Verified 11/20/23 10:14 ons Review of Systems ROS Statement: Those systems with pertinent positive or pertinent negative responses have been documented in the HPI. ROS Other: All systems not noted in ROS Statement are negative. 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 History of Any Multi-Drug Resistant Organisms: None Reported Past Surgical History: Bowel Resection, Hernia Repair Additional Past Surgical History / Comment(s): Ruptured bowel, temp colostomy, reversal of colostomy, finger amputation (blood clot), colonoscopy, L/R inguinal hernia repairs, circumcism. Past Anesthesia/Blood Transfusion Reactions: No Reported Reaction Past Psychological History: No Psychological Hx Reported Smoking Status: Current every day smoker Past Alcohol Use History: None Reported Past Drug Use History: None Reported, IV Drug Use - Past Family History Mother Family Medical History: CVA/TIA Additional Family Medical History / Comment(s): Mother of a CVA (was on coumadin) at the age of 74 yrs. Father Family Medical History: Diabetes Mellitus, Deep Vein Thrombosis (DVT) Additional Family Medical History / Comment(s): Father of diabetic complications at the age of 70 yrs. General Exam - General Exam Comments Initial Comments: GENERAL: Patient is well-developed and well-nourished. Patient is nontoxic and well- hydrated and is in no acute distress. ENT: Neck is soft and supple. No significant lymphadenopathy is noted. Oropharynx is clear. Moist mucous membranes. Neck has full range of motion without valeriy citing any pain. EYES: The sclera were anicteric and conjunctiva were pink and moist. Extraocular movements were intact and pupils were equal round and reactive to light. Eyelids were unremarkable. PULMONARY: Unlabored respirations. Good breath sounds bilaterally. No audible rales rhonchi or wheezing was noted. CARDIOVASCULAR: There is a regular rate and rhythm without any murmurs gallops or rubs. ABDOMEN: Soft and nontender with normal bowel sounds. SKIN: Skin is clear with no lesions or rashes and otherwise unremarkable. NEUROLOGIC: Patient is alert and oriented x3. Cranial nerves II through XII are grossly intact. Motor and sensory are also intact. Normal speech, volume and content. Symmetrical smile. MUSCULOSKELETAL: Normal extremities with adequate strength and full range of motion. Right hamstring on the lateral aspect is tender to palpation there is no redness or swelling and no masses felt. Patient has good DP pulses. No calf tenderness and there is no leg swelling LYMPHATICS: No significant lymphadenopathy is noted PSYCHIATRIC: Normal psychiatric evaluation. Limitations: no limitations Course Vital Signs 11/20/23 09:33 Temperature 97.9 F Pulse Rate 61 Respiratory 20 Rate Blood Pressure 126/76 O2 Sat by Pulse 99 Oximetry Medical Decision Making - Medical Decision Making Was pt. sent in by a medical professional or institution (MERISSA Chandler, EMPLOYEE PLACEMENT SPECIALIST, urgent care, hospital, or residential...) When possible be specific @ -No Did you speak to anyone other than the patient for history (EMS, parent, family, police, friend...)? What history was obtained from this source @ -No Did you review nursing and triage notes (agree or disagree)? Why? @ -I reviewed and agree with nursing and triage notes Were old charts reviewed (outside hosp., previous admission, EMS record, old EKG, old radiological studies, urgent care reports/EKG's, residential records)? Report findings @ -No old charts were reviewed Differential Diagnosis (chest pain, altered mental status, abdominal pain women, abdominal pain men, vaginal bleeding, weakness, fever, dyspnea, syncope, headache, dizziness, GI bleed, back pain, seizure, CVA, palpatations, mental health, musculoskeletal)? @ -Muscle strength, DVT, cellulitis, abscess, sciatica this is not all inclusive list EKG interpreted by me (3pts min.). @ -As above X-rays interpreted by me (1pt min.). @ -X-ray of the femur showed no acute abnormality CT interpreted by me (1pt min.). @ -None done U/S interpreted by me (1pt. min.). @ -Ultrasound showed no DVT What testing was considered but not performed or refused? (CT, X-rays, U/S, labs)? Why? @ -None What meds were considered but not given or refused? Why? @ -None Did you discuss the management of the patient with other professionals (professionals i.e. MERISSA Chandler, EMPLOYEE PLACEMENT SPECIALIST, lab, RT, psych nurse, executive secretary social welfare, physician relations manager, teacher, safety instruction police officer, registered nurse hh case manager)? Give summary @ -No Was smoking cessation discussed for >3mins.? @ -No Was critical care preformed (if so, how long)? @ -No Were there social determinants of health that impacted care today? How? (Homelessness, low income, unemployed, alcoholism, drug addiction, transportation, low edu. Level, literacy, decrease access to med. care, skilled nursing, rehab)? @ -No Was there de-escalation of care discussed even if they declined (Discuss DNR or withdrawal of care, Hospice)? DNR status @ -No What co-morbidities impacted this encounter? (DM, HTN, Smoking, COPD, CAD, Cancer, CVA, ARF, Chemo, Hep., AIDS, mental health diagnosis, sleep apnea, morbid obesity)? @ -None Was patient admitted / discharged? Hospital course, mention meds given and route, prescriptions, significant lab abnormalities, going to OR and other pertinent info. @ -History of Toradol emergency department and it did significantly reduce his pain. Patient requested some of that to go home with and he will follow-up with his primary medical care doctor Undiagnosed new problem with uncertain prognosis? @ -No Drug Therapy requiring intensive monitoring for toxicity (Heparin, Nitro, Insulin, Cardizem)? @ -No Were any procedures done? @ -No Diagnosis/symptom? @ -Muscle strain Acute, or Chronic, or Acute on Chronic? @ -Acute Uncomplicated (without systemic symptoms) or Complicated (systemic symptoms)? @ -Uncomplicated Side effects of treatment? @ -No Exacerbation, Progression, or Severe Exacerbation? @ -No Poses a threat to life or bodily function? How? (Chest pain, [place], [place], pneumonia, PE, COPD, DKA, ARF, appy, cholecystitis, CVA, Diverticulitis, Homicidal, Suicidal, threat to staff... and all critical care pts) @ -No Disposition Clinical Impression: Muscle strain Disposition: HOME SELF-CARE Condition: Good Instructions (If sedation given, give patient instructions): Muscle Strain (ED) Prescriptions: Ketorolac [Toradol] 10 mg PO Q6HR #15 tab Is patient prescribed a controlled substance at d/c from ED?: No Referrals: Brandyn Ware MD [Primary Care Provider] - 1-2 days Time of Disposition: 11:55
--- NOTE | 2023-11-20 10:37 | XR ---
EXAMINATION TYPE: XR femur RT DATE OF EXAM: 11/20/2023 COMPARISON: NONE HISTORY: Pain TECHNIQUE: 4 views FINDINGS: There is mild narrowing of the hip joint and tricompartment joint spaces. Vascular calcific ations are noted. There is a sclerotic lesion involving the distal femur which is nonspecific possibl y related to bone island. There is no acute fracture or dislocation. No destructive changes. IMPRESSION: 1. No acute fracture or destructive changes. 2. Hip and knee arthropathy in a pattern most typical of osteoarthritis. 3. Probable bone island
--- NOTE | 2023-11-20 11:13 | US ---
EXAMINATION TYPE: US venous doppler duplex LE RT DATE OF EXAM: 11/20/2023 11:00 AM COMPARISON: NONE CLINICAL INDICATION: Male, 68 years old with history of Posterior pain in the hamstring.; Pain right hamstring. Patient on blood thinner, AFIB SIDE PERFORMED: Right TECHNIQUE: The lower extremity deep venous system is examined utilizing real time linear array sonog yoav with graded compression, doppler sonography and color-flow sonography. VESSELS IMAGED: Common Femoral Vein Deep Femoral Vein Greater Saphenous Vein * Femoral Vein Popliteal Vein Small Saphenous Vein * Proximal Calf Veins (* superficial vessels) Right Leg: No evidence of DVT as visualized IMPRESSION: Grayscale, color doppler, spectral doppler imaging performed of the deep veins of the lo wer extremities. There is normal flow, compressibility, vascular waveforms.
== END 2023-11-20 12:19 | disposition home or self-care (01) ==
LOC: EC 09:30
DX: S76.911A Strain of unspecified muscles, fascia and tendons at thigh level, right thigh, initial encounter (principal); J44.9 Chronic obstructive pulmonary disease, unspecified; F17.200 Nicotine dependence, unspecified, uncomplicated; Z79.899 Other long term (current) drug therapy; Z79.51 Long term (current) use of inhaled steroids; Z88.8 Allergy status to other drugs, medicaments and biological substances; X58.XXXA Exposure to other specified factors, initial encounter; Y93.01 Activity, walking, marching and hiking
CPT/HCPCS: 99284 ×2; 96372 ×2; 73552; 93971; J1885

== ENCOUNTER → 2023-11-24 | Outpatient (CLI) | payer MEDICARE, OTHER ==
--- NOTE | 2023-11-27 13:47 | MR ---
EXAMINATION: MR femur/thigh RT wo con DATE OF EXAM: 11/24/2023 COMPARISON: Right femur radiograph 11/20/2023 HISTORY: Superior RT thigh pain and swelling x1 week due to lifting heavy boxes - marker on area of i nterest - Prev Femur xray showed a distal lesion near knee joint TECHNIQUE: Multiplanar, multisequence images of the right were acquired without contrast. FINDINGS: BONES/MARROW: 6 mm low T1/low T2 signal structure intramedullary canal distal femur, circumscribed, w ith no surrounding signal abnormality; most consistent with a bone island. The remainder of the bone marrow signal is normal.. SOFT TISSUES: Myotendinous structures are normal. No anatomic variant. No bursal distention. No fluid collection. NEUROVASCULAR: Visualized neurovascular structures are normal. OTHER: Normal. No mass. No lymphadenopathy. IMPRESSION: 6 mm bone island in the distal right femur.
== END | disposition home or self-care (01) ==
LOC: RADMRIMAIN 06:40
PROVIDERS: ATTEND Internal Medicine Geriatric Medicine
DX: M89.8X5 Other specified disorders of bone, thigh (principal)

== ENCOUNTER → 2023-12-14 | Outpatient (CLI) | payer MEDICARE, OTHER ==
--- NOTE | 2023-12-14 08:58 | MR ---
EXAMINATION TYPE: MR lumbar spine wo con DATE OF EXAM: 12/14/2023 7:34 AM CLINICAL INDICATION:Male, 68 years old with history of M47.817 spondylosis; PHH, Lower back pain, RLE radiculopathy x 1 month after lifting boxes. COMPARISON: None TECHNIQUE: Multi planar, multi sequence imaging was performed utilizing: T1-weighted, T2-weighted, a nd turbo inversion recovery imaging of the lumbar spine. IV Contrast: cc . (None if empty) FINDINGS: Alignment: The lumbar vertebral bodies have preserved heights and alignment. Cord: The conus medullaris and the distal spinal cord appear unremarkable with regards to their signa l intensity and morphology. Bones/Discs: Extensive red marrow reconversion. Multilevel disc degeneration changes with osteophyte formation, disc space narrowing, Schmorl's nodes, and facet joint arthropathy. Modic endplate changes noted and L4-L5. Inversion recovery edema noted within the right pedicle L5 and throughout the verte bral body at L4-L5. No abnormal inversion recovery signal to suggest bony edema. Intervertebral disc signal is maintained. T12-L1: No evidence of significant spinal canal stenosis or neural foraminal stenosis. L1-L2: No evidence of significant spinal canal stenosis or neural foraminal stenosis. L2-L3: No evidence of significant spinal canal stenosis or neural foraminal stenosis. L3-L4: Disc bulge and facet joint arthropathy result in mild spinal canal and mild to moderate bilate ral neural foraminal stenosis. L4-L5: Disc bulge and facet joint arthropathy result in mild spinal canal and severe right and mild t o moderate left bilateral neural foraminal stenosis. L5-S1: Right central disc protrusion which effaces the forming right nerve series 601 image 4. No sig nificant spinal canal stenosis. There is severe bilateral neural foraminal stenosis. No significant spinal canal or neural foraminal stenosis in the remainder of the visualized levels. Other findings: None. IMPRESSION: 1. L4-L5 right central disc protrusion which effaces the forming right nerve at this level. 2. Multilevel degeneration changes with neural foraminal stenosis worse at L4-L5 and L5-S1 with marina re right neural foraminal stenosis. 3. Diffuse red marrow conversion can be seen in the setting of tobacco abuse, anemia, or myeloprolif erative disorder.
== END | disposition home or self-care (01) ==
LOC: RADMRIMAIN 06:57
PROVIDERS: ATTEND Physical Medicine & Rehabilitation
DX: M48.062 Spinal stenosis, lumbar region with neurogenic claudication (principal); M47.817 Spondylosis without myelopathy or radiculopathy, lumbosacral region; M41.26 Other idiopathic scoliosis, lumbar region; M43.16 Spondylolisthesis, lumbar region; M51.37 Other intervertebral disc degeneration, lumbosacral region
CPT/HCPCS: 72148

== ENCOUNTER → 2024-03-14 | Outpatient (CLI) | payer MEDICARE, OTHER ==
--- NOTE | 2024-03-14 11:06 | XR ---
EXAMINATION TYPE: XR chest 2V DATE OF EXAM: 03/14/2024 10:58 AM CLINICAL INDICATION:Male, 69 years old with history of Z01.818 PRE OP; COMPARISON: Chest radiographs from 08/08/2023 TECHNIQUE: XR chest 2V Frontal and lateral views of the chest. FINDINGS: Lungs/Pleura: Prominent interstitial lung markings are seen scattered throughout the lungs with jevon ening of the diaphragm and increased lucency of the lung apices. No evidence of focal consolidation, pneumothorax or pleural effusion. Pulmonary vascularity: Unremarkable. Heart/mediastinum: Cardiomediastinal silhouette is unremarkable. Musculoskeletal: No acute osseous pathology. IMPRESSION: 1. No acute cardiopulmonary disease process. 2. COPD changes.
[2024-03-14 11:22] LABS: Partial Thromboplastin Time 27.6 sec (22.0-30.0)
[2024-03-14 14:35] LABS: Prothrombin Time 10.8 sec (10.0-12.5)
[2024-03-14 15:38] LABS: Appearance,Urine Clear (Clear); Bilirubin,Urine Negative (Negative); Blood,Urine Negative (Negative); Color,Urine Yellow (Yellow); Ketones,Urine Trace (Negative); Nitrite,Urine Negative (Negative); Specific Gravity,Urine 1.019 (1.001-1.030)
[2024-03-14 15:51] LABS: Bacteria,Urine None Seen (None Seen)
[2024-03-14 16:15] LABS: Basophils # (A) 0.03 X 10*3/uL (0.00-0.10); Basophils % (A) 0.4 %; Eosinophils # (A) 0.12 X 10*3/uL (0.04-0.35); Eosinophils % (A) 1.6 %; HCT 46.9 % (39.6-50.0); HGB 14.9 g/dL (13.0-17.0); Lymphocytes # (A) 1.96 X 10*3/uL (0.90-5.00); Lymphocytes % (A) 25.4 %; MCHC 31.8 g/dL (32.0-37.0); Mean Platelet Volume 11.6 FL (9.5-12.2); Monocytes # (A) 0.77 X 10*3/uL (0.20-1.00); NRBC Per 100 WBC 0 X 10*3/uL (0.00-0.01); Neutrophils # (A) 4.83 X 10*3/uL (1.80-7.70); Neutrophils % (A) 62.3 %; Platelet Count 166 X 10*3/uL (140-440); RBC 4.51 X 10*6/uL (4.40-5.60); RDW 12.9 % (11.5-14.5); WBC 7.73 X 10*3/uL (4.50-10.00)
== END | disposition home or self-care (01) ==
LOC: LABPAT 10:05
PROVIDERS: ATTEND Orthopaedic Surgery Orthopaedic Surgery of the Spine
DX: Z01.818 Encounter for other preprocedural examination (principal); E78.2 Mixed hyperlipidemia; M51.27 Other intervertebral disc displacement, lumbosacral region; J44.9 Chronic obstructive pulmonary disease, unspecified; M48.061 Spinal stenosis, lumbar region without neurogenic claudication; R00.1 Bradycardia, unspecified
CPT/HCPCS: 36415; 71046; 81001; 85025; 85610; 85730; 93005

== ENCOUNTER → 2024-03-14 | Outpatient (CLI) | payer MEDICARE, OTHER ==
[2024-03-14 16:20] LABS: ALT 21 U/L (10-49); AST 24 U/L (14-35); Albumin 4.6 g/dL (3.8-4.9); Alkaline Phosphatase 72 U/L (41-126); Blood Urea Nitrogen 11.6 mg/dL (9.0-27.0); Calcium 9.7 mg/dL (8.7-10.3); Carbon Dioxide 27.5 mmol/L (21.6-31.8); Chloride 103 mmol/L (96-109); Globulin 2.3 g/dL (1.6-3.3); Glucose 94 mg/dL (70-110); LDL Cholesterol,Calculated 48.5 mg/dL (0.0-131.0); Potassium 4.7 mmol/L (3.5-5.5); Sodium 141 mmol/L (135-145); Total Bilirubin 0.4 mg/dL (0.3-1.2); Total Protein 6.9 g/dL (6.2-8.2); VLDL Calculation 9.72 mg/dL (5.00-40.00)
== END | disposition home or self-care (01) ==
LOC: LABWHC1 10:02
PROVIDERS: ATTEND Internal Medicine Interventional Cardiology
DX: E78.2 Mixed hyperlipidemia (principal)
CPT/HCPCS: 36415; 80053; 80061

== ENCOUNTER → 2024-03-29 | Outpatient (CLI) | payer MEDICARE, OTHER | END | disposition home or self-care (01) | LOC: LABPAT 14:43 | PROVIDERS: ATTEND Orthopaedic Surgery Orthopaedic Surgery of the Spine | DX: Z01.812 Encounter for preprocedural laboratory examination (principal); M50.20 Other cervical disc displacement, unspecified cervical region; Z22.322 Carrier or suspected carrier of Methicillin resistant Staphylococcus aureus | CPT/HCPCS: 36415; 86850; 86870; 86880; 86900; 86901; 87070 ==

== ENCOUNTER 2024-04-03 06:06 | Day surgery (SDC) | payer MEDICARE, OTHER ==
[2024-03-28 16:50] VITALS: BMI 23.6
[2024-04-03] MEDS ORDERED: DEXAMETHASONE SOD PHOSPHATE 4 MG/ML 1 ML VIAL IV ONE (06:11)
[2024-04-03] MEDS ORDERED: LIDOCAINE 1% (10MG/ML) FOR IV START INTRADERMA PRN (06:11)
[2024-04-03] MEDS ORDERED: fentaNYL (PF) 50 MCG/ML 2 ML AMP IV PRN (07:00)
[2024-04-03] MEDS: LACTATED RINGERS 1,000 ML IV SCH (07:00)
[2024-04-03] MEDS: ONDANSETRON 4 MG/2 ML VIAL IVP ONE (07:20)
[2024-04-03] MEDS ORDERED: PROPOFOL 10 MG/ML 20 ML VIAL IV ONE (07:26)
[2024-04-03] MEDS ORDERED: LIDOCAINE 1% INJ 10MG/ML (20 ML MDV) ONE (07:26)
[2024-04-03] MEDS ORDERED: ePHEDrine 50 MG/ML 1 ML VIAL ONE (07:26)
[2024-04-03] MEDS ORDERED: GLYCOPYRROLATE 0.2 MG/ML 2 ML VIAL ONE (07:26)
[2024-04-03] MEDS ORDERED: fentaNYL (PF) 50 MCG/ML 2 ML AMP ONE (07:26)
[2024-04-03] MEDS ORDERED: ROCURONIUM 10 MG/ML (5 ML VIAL) IV ONE (07:26)
[2024-04-03] MEDS ORDERED: PHENYLEPHRINE 10 MG/ML VIAL ONE (07:26)
[2024-04-03] MEDS ORDERED: MIDAZOLAM 2 MG/2 ML VIAL ONE (07:26)
[2024-04-03] MEDS ORDERED: SUCCINYLCHOLINE CHLORIDE 200 MG/10 ML VIAL IV ONE (07:26)
[2024-04-03] MEDS ORDERED: NEOSTIGMINE 1 MG/ML 10 ML VIAL ONE (07:26)
[2024-04-03] MEDS: BUPIVACAINE (PF) 0.25% 30 ML VIAL SQ ONE (08:01)
[2024-04-03] MEDS: LIDOCAINE 1%-EPI 1:100,000 20 ML VIAL SQ ONE (08:01)
[2024-04-03] MEDS: ceFAZolin 1,000 MG in SODIUM CHLORIDE 0.9% IRRIGATIO 1,000 ML IRRIGATION PRN (08:11)
[2024-04-03] MEDS: LACTATED RINGERS 1,000 ML IV ONE (08:28)
--- NOTE | 2024-04-03 08:37 | XR ---
EXAM TYPE: LUMBAR SPINE X RAY SERIES COMPARISON: NONE HISTORY: Discectomy TECHNIQUE: 2 views are submitted. FINDINGS: Intraoperative image demonstrates surgical metallic instrument posterior to the lumbosacral junction. IMPRESSION: 1. See above
[2024-04-03] MEDS: methylPREDNISolone ACETATE 40 MG/ML 1 ML VIAL MISCELLANE ONE (08:39)
[2024-04-03] MEDS ORDERED: HYDROmorphone 0.5 MG/0.5 ML SYRINGE IVP PRN (08:58)
[2024-04-03] MEDS ORDERED: ONDANSETRON 4 MG/2 ML VIAL IVP PRN (08:58)
[2024-04-03] MEDS ORDERED: BENZOCAINE/MENTHOL LOZENG 1 EACH LOZENGE MUCOUS MEM PRN (08:58)
[2024-04-03] MEDS ORDERED: CYCLOBENZAPRINE 10 MG TAB PO PRN (08:58)
[2024-04-03] MEDS ORDERED: HYDROcodone/APAP 5-325MG 1 EACH TAB PO PRN (08:58)
[2024-04-03] MEDS ORDERED: KETOROLAC 15 MG/ML 1 ML VIAL IVP PRN (08:58)
[2024-04-03] MEDS ORDERED: BACLOFEN 10 MG TAB PO SCH (09:00)
[2024-04-03] MEDS ORDERED: ALBUTEROL HFA INHALER INHALATION PRN (09:00)
[2024-04-03] MEDS ORDERED: METOPROLOL TARTRATE 50 MG TAB PO SCH (09:00)
[2024-04-03] MEDS ORDERED: FLECAINIDE 50 MG TAB PO SCH (09:00)
[2024-04-03] MEDS ORDERED: ATORVASTATIN 40 MG TAB PO SCH (09:00)
[2024-04-03] MEDS ORDERED: HYDROcodone/APAP 10-325MG 1 EACH TAB PO PRN (09:00)
[2024-04-03] MEDS ORDERED: APIXABAN 5 MG TAB PO SCH (09:00)
[2024-04-03] MEDS ORDERED: SODIUM CHLORIDE 0.9% 1,000 ML IV SCH (09:00)
[2024-04-03] MEDS ORDERED: IPRATROPIUM-ALBUTEROL 3 ML NEB INHALATION PRN (09:00)
--- NOTE | 2024-04-03 09:05 | P.OP ---
Date of Procedure: 04/03/24 Preoperative Diagnosis: Herniated nucleus pulposus L5-S1, stenosis L5-S1, lower extremity radiculopathy, degenerative disc disease Postoperative Diagnosis: Same Anesthesia: GETA Pathology: other (Bony products of laminectomy sent to pathology) Condition: stable Disposition: PACU Description of Procedure: BRIEF OPERATIVE NOTE Preoperative Diagnosis:Herniated nucleus pulposus L5-S1, stenosis L5-S1, lower extremity radiculopathy, degenerative disc disease Postoperative Diagnosis:Herniated nucleus pulposus L5-S1, stenosis L5-S1, lower extremity radiculopathy, degenerative disc disease Procedure: Laminectomy and decompression L5-S1 Discectomy for decompression L5-S1 So fluoroscopic guidance Surgeon: Dr. Carreon Public Relations Studies Director: Minor CRAVEN Anesthesia: General anesthesia Estimated blood loss: Approximately 50 cc Complications: None apparent Components implanted: None Specimen: Bony products of laminectomy sent to pathology in formalin as it was some bony signal change on MRI Disposition: To recovery room in good stable condition. OPERATIVE INDICATIONS The patient has been having issues in their lower back and lower extremities. He is found to have a disc herniation with extruded fragment at L5-S1 on the right side which correlated with his low back and right lower extremity radicular symptoms. He is having some weakness in his right lower extremity as well. The patient has been through conservative treatment. He is not having any prolonged benefit despite aggressive conservative care. We felt that surgery may help alleviate some of his symptoms. We discussed the fact that he has a number of degenerative changes throughout his lumbar spine but that his extruded fragment with severe right foraminal stenosis at L5-S1 was likely causing significant portion of his symptoms. We discussed various treatment options including surgery, and the patient wishes to proceed with surgery We discussed the risk, patient's alternatives and benefits of surgery including but not limited to, risk of bleeding risk of infection, risk of need for further surgery, risk of decreased, loss of motion, loss of function, nerve damage, paralysis, heart attack, blindness and . OPERATIVE SUMMARY After discussing all the risks, patient alternatives and benefits at length, the patient elected to proceed with surgical intervention, signed informed consent, and presented for their procedure. The patient was seen and examined in the preoperative holding area and the surgical site was marked. The patient was given antibiotics and brought to the operating room. The patient was sedated and intubated by anesthesia in standard fashion. The patient was positioned on to the operating room table in a prone position on the appropriate frame which was well-padded and well molded. We were careful to pad any bony prominences and pressure points. We were careful to maintain the patient's cervical spine and good neutral alignment and position throughout. The patient was prepped and draped in a normal standard fashion. An appropriate timeout and keystone protocol performed. We were able to proceed with the surgery. Fluoroscopy was utilized to establish the appropriate level. The local wound area was infiltrated with local anesthetic. An incision was made at the midline longitudinally over the appropriate levels a t L5-S1. Dissection was taken down subcutaneously to the level of the fascia which was split midline. Dissection was taken over the lamina. Intraoperative fluoroscopy was taken which showed a marker at the appropriate level. With the appropriate level positively confirmed, we were able to proceed with laminectomy of S1. The wound was copiously irrigated and suctioned dry as had been done periodically throughout the case. I performed a laminectomy with a combination of curettes and a high-speed bur and Kerrison rongeurs. A small medial facetectomy was performed again further access. A partial foraminotomy was also performed. Portions of the ligamentum flavum were taken down to expose the dura and traversing nerve root. I was able to mobilize the traversing nerve root and gain access to the disc space. Note was made of obvious compression from the disc. Protecting the soft tissue structures, a small annulotomy was established. I was able to perform discectomy and remove any extruded disc fragments and any loose fragments from within the disc itself. There were a number of extruded fragments which were removed. They were quite scarred and removed piecemeal in general. There is some severe disc desiccation noted. I tried to preserve the disc annulus that appeared stable. There were no further extruded fragments noted. There is no evidence of dural tear or leak. Good hemostasis maintained. The wound was copiously irrigated and suctioned dry. Good decompression and discectomy was noted. We were able to proceed with closure. The fascia was closed for a watertight closure. The subcuticular tissue was closed with absorbable suture. The wound was cleaned and dried and dressed with the appropriate dressing. The drapes were broken down. The patient was gently rolled back onto their hospital bed being careful to maintain their cervical spine and good neutral alignment and position. They were woken up by anesthesia, extubated, and brought to the recovery room in good stable condition. The patient will be admitted to the hospital for observation and for appropriate postoperative care, medical management and monitoring. We will continue to follow them closely about the postoperative course.
[2024-04-03] MEDS: HYDROmorphone 0.5 MG/0.5 ML SYRINGE IVP PRN (09:25)
[2024-04-03 09:51] VITALS: TEMP 97
[2024-04-03 11:43] VITALS: BP 142/89; PULSE 56; RESP 20
[2024-04-03] MEDS ORDERED: ACETAMINOPHEN TAB 500 MG TAB PO SCH (12:00)
[2024-04-03] MEDS ORDERED: FLUTICASONE PROPIONATE INHALATION SCH (20:00)
[2024-04-03] MEDS ORDERED: [UNRECOGNIZED DRUG - OTHER] INHALATION SCH (20:00)
[2024-04-03] MEDS ORDERED: SALMETEROL INHALATION SCH (20:00)
== END 2024-04-03 12:00 | disposition home or self-care (01) ==
LOC: OR 06:06
PROVIDERS: ATTEND Orthopaedic Surgery Orthopaedic Surgery of the Spine
DX: M48.07 Spinal stenosis, lumbosacral region (principal); M51.17 Intervertebral disc disorders with radiculopathy, lumbosacral region; I48.91 Unspecified atrial fibrillation; J44.9 Chronic obstructive pulmonary disease, unspecified; K73.9 Chronic hepatitis, unspecified; F17.210 Nicotine dependence, cigarettes, uncomplicated; Z86.718 Personal history of other venous thrombosis and embolism; Z79.01 Long term (current) use of anticoagulants; Z79.899 Other long term (current) drug therapy; Z79.51 Long term (current) use of inhaled steroids; Z88.6 Allergy status to analgesic agent
CPT/HCPCS: 97161; 88304; 72020; 63047; 63048; J2250; J0330; J2710; J0690 ×2; J2405; J2001; J3010; J2704; J1170; J2371; J0665; J1010

== ENCOUNTER → 2024-05-14 | Outpatient (CLI) | payer MEDICARE, OTHER ==
--- NOTE | 2024-05-14 16:25 | XR ---
EXAMINATION TYPE: XR chest 2V DATE OF EXAM: 05/14/2024 3:10 PM CLINICAL INDICATION:Male, 69 years old with history of J06.9 ACUTE UPPER RESPIRATORY INFECTION, UNSPE CIFI; [facility] COMPARISON: Chest radiographs from 03/14/2024 TECHNIQUE: XR chest 2V Frontal view of the chest. FINDINGS: Lungs/Pleura: There is flattening of the diaphragm with increased lucency of the lungs. No evidence o f pneumothorax, pleural effusion or focal consolidation. Pulmonary vascularity: Unremarkable. Heart/mediastinum: Cardiomediastinal silhouette is unremarkable. Musculoskeletal: No acute osseous pathology. IMPRESSION: 1. No acute cardiopulmonary disease process. 2. COPD changes.
== END | disposition home or self-care (01) ==
LOC: RADXRMAIN 14:55
PROVIDERS: ATTEND Physician Assistant
DX: J44.9 Chronic obstructive pulmonary disease, unspecified (principal); J06.9 Acute upper respiratory infection, unspecified
CPT/HCPCS: 71046

== ENCOUNTER 2024-07-18 06:02 | Emergency (ER) | payer MEDICARE, OTHER ==
[2024-07-18 06:10] VITALS: TEMP 98.1
--- NOTE | 2024-07-18 06:27 | ED ---
Chest Pain HPI - General Chief Complaint: Shortness of Breath Stated Complaint: shortness of breathe, Congestion Time Seen by Provider: 07/18/24 06:17 Source: patient, RN notes reviewed Mode of arrival: ambulatory Limitations: no limitations - History of Present Illness Initial Comments: 69-year-old male presents emergency department chief complaint of chest congestion, chest discomfort. Patient states been sick for last 3 days. He does have productive cough, history of COPD. Patient states that he has some discomfort in his chest but feels more tightness. Patient states that he also started on Neurontin he has been having spasms from this. Patient denies any focal weakness denies any headache no dizziness no reported fever he does have a history of A-fib on Eliquis and metoprolol. No prior cardiac stents - Related Data Home Medications Medication Instructions Recorded Confirmed Albuterol Sulfate [Albuterol 2 puff PO RT-QID PRN 05/09/21 03/29/24 Sulfate Hfa] Baclofen 10 mg PO BID 08/08/23 03/29/24 Flecainide [Tambocor] 50 mg PO BID 08/08/23 03/29/24 Ipratropium-Albuterol Nebulize 3 ml INHALATION RT-QID PRN 08/08/23 03/29/24 [Duoneb 0.5 mg-3 mg/3 ml Soln] HYDROcodone/APAP 10-325MG [[place] 1 tab PO Q8HR PRN 03/29/24 03/29/24 10-325] Previous Rx's Medication Instructions Recorded Fluticasone Propion/Salmeterol 2 puff INHALATION RT-BID #1 07/15/21 [Advair 250-50 Diskus] dispenser Apixaban [Eliquis] 5 mg PO BID #60 tab 03/02/22 Atorvastatin [Lipitor] 40 mg PO DAILY #30 tab 03/04/22 Metoprolol Tartrate [Lopressor] 50 mg PO BID #60 tab 03/04/22 Hydrocodone/Acetaminophen [[place] 1 tab PO Q4H 3 Days #18 tab 04/03/24 2.5-325] Doxycycline [Vibramycin] 100 mg PO BID #20 capsule 07/18/24 methylPREDNISolone [Medrol Dose 0 mg PO DIRECTED #1 packet 07/18/24 Pack] Allergies Allergy/AdvReac Type Severity Reaction Status Date / Time prednisone AdvReac Hallucinati Verified 07/18/24 06:10 ons Review of Systems ROS Statement: Those systems with pertinent positive or pertinent negative responses have been documented in the HPI. ROS Other: All systems not noted in ROS Statement are negative. 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 History of Any Multi-Drug Resistant Organisms: None Reported Past Surgical History: Orthopedic Surgery Additional Past Surgical History / Comment(s): Ruptured bowel, temp colostomy, reversal of colostomy, finger amputation (blood clot), colonoscopy, L/R inguinal hernia repairs, circumcism. Past Anesthesia/Blood Transfusion Reactions: No Reported Reaction Past Psychological History: No Psychological Hx Reported Smoking Status: Current every day smoker Past Alcohol Use History: None Reported Past Drug Use History: None Reported, IV Drug Use - Past Family History Mother Family Medical History: CVA/TIA Additional Family Medical History / Comment(s): Mother of a CVA (was on coumadin) at the age of 74 yrs. Father Family Medical History: Diabetes Mellitus, Deep Vein Thrombosis (DVT) Additional Family Medical History / Comment(s): Father of diabetic complications at the age of 70 yrs. General Exam Limitations: no limitations General appearance: alert, in no apparent distress Head exam: Present: atraumatic, normocephalic, normal inspection Eye exam: Present: normal appearance, PERRL, EOMI. Absent: scleral icterus, conjunctival injection, periorbital swelling ENT exam: Present: normal exam, mucous membranes moist Neck exam: Present: normal inspection, full ROM. Absent: tenderness, meningismus, lymphadenopathy Respiratory exam: Present: wheezes, decreased breath sounds. Absent: normal lung sounds bilaterally, respiratory distress, rales, rhonchi, stridor Cardiovascular Exam: Present: regular rate, normal rhythm, normal heart sounds. Absent: systolic murmur, diastolic murmur, rubs, gallop, clicks GI/Abdominal exam: Present: soft, normal bowel sounds. Absent: distended, tenderness, guarding, rebound, rigid Neurological exam: Present: alert Skin exam: Present: warm, dry, intact, normal color. Absent: rash Course Vital Signs 07/18/24 07/18/24 07/18/24 06:06 07:48 08:08 Temperature 98.1 F Pulse Rate 62 55 L 66 Respiratory 18 Rate Blood Pressure 132/78 O2 Sat by Pulse 95 Oximetry 07/18/24 08:38 Temperature Pulse Rate 60 Respiratory 22 Rate Blood Pressure 124/70 O2 Sat by Pulse 95 Oximetry Chest Pain MDM - MDM Was pt. sent in by a medical professional or institution (, PA, PARCEL POST OFFICER, urgent care, hospital, or senior living...) When possible be specific @ -No Did you speak to anyone other than the patient for history (EMS, parent, family, police, friend...)? What history was obtained from this source @ -No Did you review nursing and triage notes (agree or disagree)? Why? @ -I reviewed and agree with nursing and triage notes Were old charts reviewed (outside hosp., previous admission, EMS record, old EKG, old radiological studies, urgent care reports/EKG's, senior living records)? Report findings @ -No old charts were reviewed Differential Diagnosis (chest pain, altered mental status, abdominal pain women, abdominal pain men, vaginal bleeding, weakness, fever, dyspnea, syncope, headache, dizziness, GI bleed, back pain, seizure, CVA, palpatations, mental health, musculoskeletal)? @ -Differential Dyspnea: Coronary syndrome, arrhythmia, tamponade, asthma, COPD, pulmonary embolism, pneumonia, pneumothorax, pulmonary effusion, anaphylaxis, diabetic ketoacidosis, flailed chest, pulmonary contusion, diaphragmatic rupture, anemia, neuromuscular, this is not meant to be an all-inclusive list. EKG interpreted by me (3pts min.). @ -As above X-rays interpreted by me (1pt min.). @ -[Chest x-ray shows COPD changes CT interpreted by me (1pt min.). @ -None done U/S interpreted by me (1pt. min.). @ -None done What testing was considered but not performed or refused? (CT, X-rays, U/S, labs)? Why? @ -None What meds were considered but not given or refused? Why? @ -None Did you discuss the management of the patient with other professionals (pro fessionals i.e. , PA, PARCEL POST OFFICER, lab, RT, psych nurse, secondary social studies teacher, head charger, teacher, driver license reviewing officer, rn case manager hospice)? Give summary @ -No Was smoking cessation discussed for >3mins.? @ -No Was critical care preformed (if so, how long)? @ -No Were there social determinants of health that impacted care today? How? (Homelessness, low income, unemployed, alcoholism, drug addiction, transportation, low edu. Level, literacy, decrease access to med. care, custodial, rehab)? @ -No Was there de-escalation of care discussed even if they declined (Discuss DNR or withdrawal of care, Hospice)? DNR status @ -No What co-morbidities impacted this encounter? (DM, HTN, Smoking, COPD, CAD, Cancer, CVA, ARF, Chemo, Hep., AIDS, mental health diagnosis, sleep apnea, morbid obesity)? @ -COPD Was patient admitted / discharged? Hospital course, mention meds given and route, prescriptions, significant lab abnormalities, going to OR and other pertinent info. @ -Disc edge patient felt great improved with a DuoNeb treatment, Solu-Medrol. Patient has acute COPD exacerbation he has no complaints of chest pain currently. Patient cardiac enzymes and EKG unremarkable. Patient discharged in stable condition. Undiagnosed new problem with uncertain prognosis? @ -No Drug Therapy requiring intensive monitoring for toxicity (Heparin, Nitro, Insulin, Cardizem)? @ -No Were any procedures done? @ -No Diagnosis/symptom? @ -DIAMOND SETTER exacerbation Acute, or Chronic, or Acute on Chronic? @ -Acute Uncomplicated (without systemic symptoms) or Complicated (systemic symptoms)? @ -Complicated Side effects of treatment? @ -No Exacerbation, Progression, or Severe Exacerbation? @ -No Poses a threat to life or bodily function? How? (Chest pain, [place], OR, pneumonia, PE, COPD, DKA, ARF, appy, cholecystitis, CVA, Diverticulitis, Homicidal, S uicidal, threat to staff... and all critical care pts) @ -Yes COPD, respiratory failure Disposition Clinical Impression: COPD exacerbation, Bronchospasm, acute Disposition: HOME SELF-CARE Condition: Stable Instructions (If sedation given, give patient instructions): Bronchospasm (ED) Additional Instructions: Please return to the ER for any worsening symptoms or any other concerns. Prescriptions: methylPREDNISolone [Medrol Dose Pack] 0 mg PO DIRECTED #1 packet Doxycycline [Vibramycin] 100 mg PO BID #20 capsule Is patient prescribed a controlled substance at d/c from ED?: No Referrals: Brandyn Ware MD [Primary Care Provider] - 1-2 days Time of Disposition: 08:16
[2024-07-18] MEDS: methylPREDNISolone SOD SUCCI 125 MG/2 ML VIAL IV STA (06:38)
[2024-07-18] MEDS: ASPIRIN 81 MG PO STA (06:38)
[2024-07-18] MEDS: SODIUM CHLORIDE 0.9% 500 ML 500 ML IV STA (06:39)
[2024-07-18 06:46] LABS: Basophils # (A) 0.1 k/uL (0-0.2); Basophils % (A) 1 %; Eosinophils # (A) 0.8 k/uL (0-0.7); Eosinophils % (A) 14 %; HCT 45.7 % (39.0-53.0); HGB 15.1 gm/dL (13.0-17.5); Lymphocytes # (A) 2.1 k/uL (1.0-4.8); Lymphocytes % (A) 35 %; MCH 33.1 pg (25.0-35.0); MCV 100.5 fL (80.0-100.0); Mean Platelet Volume 9.3; Monocytes # (A) 0.4 k/uL (0-1.0); Monocytes % (A) 7 %; Neutrophils # (A) 2.6 k/uL (1.3-7.7); Neutrophils % (A) 42 %; Platelet Count 172 k/uL (150-450); RBC 4.55 m/uL (4.30-5.90); RDW 12.8 % (11.5-15.5)
[2024-07-18 06:51] LABS: INR 0.9 (<1.2); Partial Thromboplastin Time 27.1 sec (22.0-30.0); Prothrombin Time 10.5 sec (10.0-12.5)
[2024-07-18 07:01] LABS: ALT 17 U/L (4-49); AST 30 U/L (17-59); African American GFR (CKD) >90 (>60 ml/min/1.73 sqM); Albumin 4.8 g/dL (3.5-5.0); Alkaline Phosphatase 70 U/L (38-126); Anion Gap 9 mmol/L; Blood Urea Nitrogen 13 mg/dL (9-20); Carbon Dioxide 29 mmol/L (22-30); Chloride 100 mmol/L (98-107); Glucose 105 mg/dL (74-99); Non-African American GFR(CKD) 89 (>60 ml/min/1.73 sqM); Potassium 4.4 mmol/L (3.5-5.1); Sodium 138 mmol/L (137-145); Total Bilirubin 0.6 mg/dL (0.2-1.3); Total Protein 7.6 g/dL (6.3-8.2)
--- NOTE | 2024-07-18 07:04 | XR ---
EXAMINATION TYPE: XR chest 2V DATE OF EXAM: 07/18/2024 COMPARISON: Chest x-ray May 14, 2024 HISTORY: Chest pain. TECHNIQUE: Frontal and lateral views of the chest are obtained. FINDINGS: There is chronic emphysematous change redemonstrated without suspicious new focal air spac e opacity, pleural effusion, or pneumothorax seen. The cardiac silhouette size remains within normal limits. The osseous structures are intact. IMPRESSION: Chronic emphysematous change without acute pulmonary process.
[2024-07-18 07:09] LABS: NT-Pro-B-Type Natriuretic Pept 145 pg/mL
[2024-07-18] MEDS: IPRATROPIUM-ALBUTEROL 3 ML NEB INHALATION STA (07:47)
[2024-07-18 08:39] VITALS: BP 124/70; PULSE 60; RESP 22
== END 2024-07-18 08:39 | disposition home or self-care (01) ==
LOC: EC 06:02
CPT/HCPCS: 36415; 71046; 80053; 83735; 83880; 84484; 85025; 85610; 85730; 87636; 93005; 94640; 96361; 96374; 99285

== ENCOUNTER 2025-01-02 02:56 | Inpatient (IN) | payer MEDICARE, OTHER ==
--- NOTE | 2025-01-02 04:34 | ED ---
Chest Pain HPI - General Chief Complaint: Chest Pain Stated Complaint: PASCUAL, Chest pain Time Seen by Provider: 01/02/25 04:28 Source: patient Mode of arrival: wheelchair Limitations: no limitations - History of Present Illness Initial Comments: This patient is a 69-year-old man with history of COPD who presents to have evaluation for worsening left-sided chest pain and shortness of breath. The patient states that he noticed that his COPD seemed to be getting worse last night and into this morning. Today he noticed that he is having sharp stabbing left anterior chest pain. The patient states that it feels like he has a broken rib. He states that he did not have any fall or injury. He does not have any tenderness when he checks his chest wall. Patient denies fever or chills. Cough is largely nonproductive. No hemoptysis. No diaphoresis, nausea or vomiting. MD Complaint: chest pain, other -: hour(s) Onset: during rest Pain Location: left chest Pain Radiation: none Severity: severe Quality: sharp Consistency: constant Improves With: nothing Worsens With: inspiration, movement Other Symptoms: cough Treatments Prior to Arrival: none - Related Data Home Medications Medication Instructions Recorded Confirmed Albuterol Sulfate [Albuterol 2 puff INHALATION RT-QID PRN 05/09/21 01/02/25 Sulfate Hfa] Flecainide [Tambocor] 50 mg PO BID 08/08/23 01/02/25 Ipratropium-Albuterol Nebulize 3 ml INHALATION RT-BID 08/08/23 01/02/25 [Duoneb 0.5 mg-3 mg/3 ml Soln] HYDROcodone/APAP 10-325MG [[place] 1 tab PO BID 03/29/24 01/02/25 10-325] Fluticasone/Vilanterol [Breo 1 puff INHALATION RT-DAILY 01/02/25 01/02/25 Ellipta 100-25 Mcg Inhalr] HYDROcodone/APAP 10-325MG [[place] 1 tab PO DAILY PRN 01/02/25 01/02/25 10-325] Previous Rx's Medication Instructions Recorded Apixaban [Eliquis] 5 mg PO BID #60 tab 03/02/22 Atorvastatin [Lipitor] 40 mg PO DAILY #30 tab 03/04/22 Metoprolol Tartrate [Lopressor] 50 mg PO BID #60 tab 03/04/22 Acetaminophen Tab [Tylenol] 650 mg PO Q4HR PRN tab 01/04/25 Ipratropium-Albuterol Nebulize 3 ml INHALATION RT-Q2H PRN each 01/04/25 [Duoneb 0.5 mg-3 mg/3 ml Soln] Nicotine 14Mg/24Hr Patch [Habitrol] 1 patch TRANSDERM Q24H #30 patch 01/04/25 cefuroxime axetiL [Ceftin] 500 mg PO BID 3 Days #6 tab 01/04/25 Allergies Allergy/AdvReac Type Severity Reaction Status Date / Time prednisone AdvReac Hallucinati Verified 01/02/25 09:31 ons Review of Systems ROS Statement: Those systems with pertinent positive or pertinent negative responses have been documented in the HPI. ROS Other: All systems not noted in ROS Statement are negative. Constitutional: Denies: fever, chills, weakness Respiratory: Reports: cough, dyspnea, wheezes. Denies: hemoptysis Cardiovascular: Reports: chest pain. Denies: palpitations, orthopnea, edema, syncope Gastrointestinal: Denies: abdominal pain, nausea, vomiting, diarrhea Genitourinary: Denies: dysuria, hematuria Musculoskeletal: Denies: back pain Skin: Denies: rash Neurological: Denies: headache, weakness, numbness EKG Findings - EKG Results: EKG: interpreted by JOSÉ MIGUEL LARA, sinus rhythm (Rate 70 bpm), normal axis, normal QRS, normal ST/T - [place], Pacemaker, Normal: Normal tracing: normal tracing Past Medical History Past Medical History: Atrial Fibrillation, COPD, Deep Vein Thrombosis (DVT), Liver Disease Additional Past Medical History / Comment(s): hepatitis C diagnosed 09/2015 currently under outpatient treatment, 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 History of Any Multi-Drug Resistant Organisms: None Reported Past Surgical History: Orthopedic Surgery Additional Past Surgical History / Comment(s): Ruptured bowel, temp colostomy, reversal of colostomy, finger amputation (blood clot), colonoscopy, L/R inguinal hernia repairs, circumcism. Past Anesthesia/Blood Transfusion Reactions: No Reported Reaction Past Psychological History: No Psychological Hx Reported Smoking Status: Current every day smoker Past Alcohol Use History: None Reported Past Drug Use History: None Reported, IV Drug Use - Past Family History Mother Family Medical History: CVA/TIA Additional Family Medical History / Comment(s): Mother of a CVA (was on coumadin) at the age of 74 yrs. Father Family Medical History: Diabetes Mellitus, Deep Vein Thrombosis (DVT) Additional Family Medical History / Comment(s): Father of diabetic complications at the age of 70 yrs. General Exam Limitations: no limitations General appearance: alert, in no apparent distress Head exam: Present: atraumatic, normocephalic Eye exam: Present: normal appearance. Absent: scleral icterus, conjunctival injection ENT exam: Present: normal oropharynx Neck exam: Present: normal inspection Respiratory exam: Present: wheezes, decreased breath sounds. Absent: respiratory distress, rales, rhonchi, stridor, accessory muscle use Cardiovascular Exam: Present: regular rate, normal rhythm, normal heart sounds. Absent: systolic murmur, diastolic murmur, rubs, gallop GI/Abdominal exam: Present: soft. Absent: distended, tenderness, guarding, rebound, rigid, mass Extremities exam: Present: normal inspection, normal capillary refill. Absent: pedal edema, calf tenderness Back exam: Present: normal inspection. Absent: CVA tenderness (R), CVA tenderness (L) Neurological exam: Present: alert Skin exam: Present: warm, dry, intact, normal color. Absent: rash Course Vital Signs 01/02/25 01/02/25 01/02/25 02:57 05:10 05:12 Temperature 97.7 F Pulse Rate 72 84 Respiratory 18 22 Rate Blood Pressure 112/67 O2 Sat by Pulse 92 L Oximetry 01/02/25 01/02/25 01/02/25 05:40 06:12 06:37 Temperature Pulse Rate 73 68 81 Respiratory 18 18 18 Rate Blood Pressure 113/86 107/75 101/72 O2 Sat by Pulse 95 98 94 L Oximetry 01/02/25 01/02/25 01/02/25 06:41 06:45 06:50 Temperature Pulse Rate 62 62 75 Respiratory 18 18 18 Rate Blood Pressure 114/70 117/71 103/61 O2 Sat by Pulse 94 L 94 L 94 L Oximetry 01/02/25 01/02/25 01/02/25 07:36 08:31 08:43 Temperature Pulse Rate 72 58 L 73 Respiratory 20 Rate Blood Pressure 110/62 O2 Sat by Pulse 94 L Oximetry 01/02/25 01/02/25 01/02/25 08:58 10:32 11:09 Temperature Pulse Rate 71 71 56 L Respiratory 20 18 18 Rate Blood Pressure 120/69 112/78 131/80 O2 Sat by Pulse 94 L 94 L 94 L Oximetry 01/02/25 01/02/25 01/02/25 12:00 12:01 12:18 Temperature Pulse Rate 87 87 Respiratory Rate Blood Pressure O2 Sat by Pulse 95 Oximetry 01/02/25 01/02/25 01/02/25 16:07 16:15 16:54 Temperature Pulse Rate 71 75 58 L Respiratory 17 Rate Blood Pressure 138/81 O2 Sat by Pulse 95 Oximetry Procedures - Chest Tube Insertion Consent Obtained: written consent Side of Procedure: left Indication: Pneumothorax Placed on monitor/pulse oximetry: Yes Site Prep: Chloroprep, Sterile Drape Applied Insertion Site: Other Scalpel: #11 Open into Pleural Space Using: Trocar Tube Size (Thai): Other (13 Thai Thora vent) Returns: Air Sutured in Place: No (Adhesive dressing) Attached to Suction: Yes Type of Suction: Pleuravac Patient Tolerated Procedure: well, no complications Chest Pain MDM - MDM Patient is 69-year-old man with shortness of breath and left chest pain developi ng over the course of this morning. The patient's chest x-ray does reveal left pneumothorax. Discussed risks, indications, benefits, patient does consent to have Thora vent tube placed. See the note. No complications. Discussed case with admitting physician and with Dr. Alan from cardiothoracic surgery and they will see the patient as well. The patient had an initial chest x-ray that I interpreted as showing large left- sided pneumothorax. The patient had follow-up chest x-ray after Thora vent tube that I am interpreted as showing good placement of the Thora vent tube Was pt. sent in by a medical professional or institution (, PA, GENETIC COUNSELLOR, urgent care, hospital, or half-way...) When possible be specific @ -[No] Did you speak to anyone other than the patient for history (EMS, parent, family, police, friend...)? What history was obtained from this source @ -[No] Did you review nursing and triage notes (agree or disagree)? Why? @ -[I reviewed and agree with nursing and triage notes] Were old charts reviewed (outside hosp., previous admission, EMS record, old EKG, old radiological studies, urgent care reports/EKG's, half-way records)? Report findings @ -[No old charts were reviewed] Differential Diagnosis (chest pain, altered mental status, abdominal pain women, abdominal pain men, vaginal bleeding, weakness, fever, dyspnea, syncope, headache, dizziness, GI bleed, back pain, seizure, CVA, palpatations, mental health, musculoskeletal)? @ -[MDM differential pneumothorax EKG interpreted by me (3pts min.). @ -[I interpreted as above] X-rays interpreted by me (1pt min.). @ -[I interpreted as above CT interpreted by me (1pt min.). @ -[None done] U/S interpreted by me (1pt. min.). @ -[None done] What testing was considered but not performed or refused? (CT, X-rays, U/S, labs)? Why? @ -[None] What meds were considered but not given or refused? Why? @ -[None] Did you discuss the management of the patient with other professionals (professionals i.e. , PA, GENETIC COUNSELLOR, lab, RT, psych nurse, child welfare social worker, cook short order, teacher, airframe technical officer, pillowcase cutter)? Give summary @ -[Case discussed with admitting physician and also with cardiothoracic surgery and handtools repairer and treatment recommendations incorporated Was smoking cessation discussed for >3mins.? @ -[No] Was critical care preformed (if so, how long)? @ -[Yes, 40 minutes Were there social determinants of health that impacted care today? How? (Homelessness, low income, unemployed, alcoholism, drug addiction, transportation, low edu. Level, literacy, decrease access to med. care, skilled nursing, rehab)? @ -[No] Was there de-escalation of care discussed even if they declined (Discuss DNR or withdrawal of care, Hospice)? DNR status @ -[No] What co-morbidities impacted this encounter? (DM, HTN, Smoking, COPD, CAD, Cancer, CVA, ARF, Chemo, Hep., AIDS, mental health diagnosis, sleep apnea, morbid obesity)? @ -[None] Was patient admitted / discharged? Hospital course, mention meds given and route, prescriptions, significant lab abnormalities, going to OR and other pertinent info. @ -[See above Undiagnosed new problem with uncertain prognosis? @ -[No] Drug Therapy requiring intensive monitoring for toxicity (Heparin, Nitro, Insulin, Cardizem)? @ -[No] Were any procedures done? @ -[No] Diagnosis/symptom? @ -[Acute spontaneous left pneumothorax Acute, or Chronic, or Acute on Chronic? @ -[Acute Uncomplicated (without systemic symptoms) or Complicated (systemic symptoms)? @ -[Complicated by dyspnea Side effects of treatment? @ -[No] Exacerbation, Progression, or Severe Exacerbation? @ -[No] Poses a threat to life or bodily function? How? (Chest pain, [place], [place], pneumonia, PE, COPD, DKA, ARF, appy, cholecystitis, CVA, Diverticulitis, Homicidal, Suicidal, threat to staff... and all critical care pts) @ -[Yes risk of respiratory failure All treatments are based on ideal body weight as in ED triage Disposition Clinical Impression: COPD (chronic obstructive pulmonary disease), Pneumothorax on left Disposition: ADMITTED IP TO THIS HOSP Condition: Fair
[2025-01-02] MEDS: IPRATROPIUM-ALBUTEROL 3 ML NEB INHALATION STA (05:11)
[2025-01-02 05:18] LABS: Basophils % (A) 0 %; Eosinophils # (A) 0.3 k/uL (0-0.7); Eosinophils % (A) 5 %; HCT 44.5 % (39.0-53.0); HGB 13.6 gm/dL (13.0-17.5); Lymphocytes # (A) 1.7 k/uL (1.0-4.8); Lymphocytes % (A) 27 %; MCH 31.1 pg (25.0-35.0); MCHC 30.5 g/dL (31.0-37.0); MCV 102.1 fL (80.0-100.0); Macrocytosis Slight; Mean Platelet Volume 9.3; Monocytes # (A) 0.6 k/uL (0-1.0); Monocytes % (A) 9 %; Neutrophils # (A) 3.5 k/uL (1.3-7.7); Neutrophils % (A) 55 %; Platelet Count 144 k/uL (150-450); RBC 4.36 m/uL (4.30-5.90); RDW 13.3 % (11.5-15.5); WBC 6.4 k/uL (3.8-10.6)
[2025-01-02 05:29] LABS: ALT 15 U/L (4-49); AST 24 U/L (17-59); African American GFR (CKD) >90 (>60 ml/min/1.73 sqM); Albumin 4.1 g/dL (3.5-5.0); Alkaline Phosphatase 72 U/L (38-126); Anion Gap 5 mmol/L; Blood Urea Nitrogen 11 mg/dL (9-20); Calcium 9.4 mg/dL (8.4-10.2); Carbon Dioxide 29 mmol/L (22-30); Chloride 102 mmol/L (98-107); Glucose 100 mg/dL (74-99); Magnesium 2.2 mg/dL (1.6-2.3); Non-African American GFR(CKD) >90 (>60 ml/min/1.73 sqM); Potassium 4.4 mmol/L (3.5-5.1); Sodium 136 mmol/L (137-145); Total Bilirubin 0.8 mg/dL (0.2-1.3); Total Protein 6.8 g/dL (6.3-8.2)
[2025-01-02 05:32] LABS: Partial Thromboplastin Time 27.9 sec (22.0-30.0); Prothrombin Time 10.8 sec (10.0-12.5)
[2025-01-02 05:37] LABS: NT-Pro-B-Type Natriuretic Pept 209 pg/mL
[2025-01-02] MEDS: MORPHINE SULFATE 4 MG/ML SYRINGE IV STA ×2 (05:39→06:32)
[2025-01-02] MEDS: ASPIRIN 81 MG PO STA (05:39)
--- NOTE | 2025-01-02 05:57 | XR ---
EXAM: XR Chest, 2 Views CLINICAL HISTORY: ITS.REASON XR Reason: Chest Pain TECHNIQUE: Frontal and lateral views of the chest. COMPARISON: X-ray dated 07/18/2024. FINDINGS: Lungs: Chronic lung markings are seen within the right lung. Pleural space: Large left-sided pneumothorax with near complete collapse of the left lung. Heart: Unremarkable. No cardiomegaly. Mediastinum: Unremarkable. Normal mediastinal contour. Bones/joints: Degenerative changes are seen in the spine and shoulders. No acute fracture. Vasculature: Calcifications overlie the aorta. IMPRESSION: Large left-sided pneumothorax without midline shift. <MYCVCSECTION> Communications: 01/02/25 06:01 Call Doctor Regarding Pneumothorax, called charge nurse Godwin on 01/02 06:01 (-05:00)
[2025-01-02] MEDS: LIDOCAINE 1% INJ 10MG/ML (20 ML MDV) SQ ONE (06:32)
[2025-01-02] MEDS: HYDROmorphone 1 MG/ML 1 ML SYRINGE IVP STA (06:56)
--- NOTE | 2025-01-02 07:05 | XR ---
EXAMINATION TYPE: XR chest 1V portable DATE OF EXAM: 01/02/2025 COMPARISON: Chest x-ray earlier today. CLINICAL INDICATION: Male, 69 years old with history of placement; left-sided pneumothorax. TECHNIQUE: Single a portable frontal upright view of the chest is obtained. FINDINGS: There is new left-sided chest tube with some improved aeration in the left lung but persis tent moderate left apical pneumothorax extending laterally. Persistent left basilar opacity with new left-sided volume loss and mediastinal shift. Right basilar patchy atelectasis is present. Cardiac si lhouette size is upper limits of normal. Osseous structures are intact. IMPRESSION: New left-sided chest tube with improved but persistent moderate size left apical pneumot horax. There is new left-sided volume loss. There is persistent masslike opacity in the left lower brigette ng likely reflecting atelectasis. [facility], , 01/02/2025 7:03 AM
[2025-01-02] MEDS ORDERED: NALOXONE 0.4 MG/ML 1 ML VIAL IVP PRN (07:23)
[2025-01-02] MEDS ORDERED: HYDROcodone/APAP 5-325MG 1 EACH TAB PO PRN (07:23)
[2025-01-02] MEDS: SYMBICORT 80-4.5 MCG INHALER INHALATION SCH (08:28)
[2025-01-02] MEDS: IPRATROPIUM-ALBUTEROL 3 ML NEB INHALATION SCH (08:28)
[2025-01-02] MEDS: APIXABAN 5 MG TAB PO SCH (08:57)
[2025-01-02] MEDS: ATORVASTATIN 40 MG TAB PO SCH (08:57)
[2025-01-02] MEDS: FLECAINIDE 50 MG TAB PO SCH (08:57)
[2025-01-02] MEDS: METOPROLOL TARTRATE 50 MG TAB PO SCH (08:57)
--- NOTE | 2025-01-02 08:59 | XR ---
EXAMINATION TYPE: XR chest 1V portable DATE OF EXAM: 01/02/2025 CLINICAL HISTORY: Pneumothorax progress study. TECHNIQUE: Single AP portable upright view of the chest is obtained. COMPARISON: Chest x-ray from earlier today FINDINGS: There is persistent left-sided chest tube with improved aeration in the left lung and no s ignificant pneumothorax on current study. Persistent left mid to lower lung increased opacity and lef t-sided volume loss. Stable Right basilar patchy atelectasis. Cardiac silhouette size is stable and w ithin normal limits. Osseous structures are intact. IMPRESSION: Persistent left-sided chest tube without visualized pneumothorax on current study. Impro frank but some persistent left-sided volume loss. There is persistent left mid to lower lung acute infi ltrate and/or atelectasis. [facility], , 01/02/2025 8:56 AM
[2025-01-02] MEDS: HYDROcodone/APAP 10-325MG 1 EACH TAB PO PRN ×2 (10:35→17:40)
--- NOTE | 2025-01-02 10:37 | CT ---
EXAMINATION TYPE: CT chest wo con DATE OF EXAM: 01/02/2025 10:09 AM COMPARISON: Chest x-ray 01/02/2025 CLINICAL INDICATION: Male, 69 years old with history of evaluate lungs for blebs, evaluate lungs for blebs TECHNIQUE: Axial images were obtained at 5 mm thick sections. Reconstructed images are reviewed on [facility] computer in the coronal plane. Contrast used: mL of , (none if empty) Oral contrast used: (none if empty) CT DLP: 365.2 mGycm, Automated exposure control for dose reduction was used. FINDINGS: Portion of the thyroid visualized is normal. There is a small anterior apical pneumothorax. The catheter is present in the anterior lateral chest. No left apical blebs or bulla are identified. Couple may be along the inferior lateral margin near t lung base on the left. There are however a couple of cysts very small blebs at the right apex. No pneumothorax on the right evident. There is a large density in the lingula. Air bronchograms are present. Underlying mass may be present . No enlarged mediastinal or hilar adenopathy is evident. The ascending aorta diameter at the level of the main pulmonary artery is 4.0 cm. The main pulmonary artery diameter at the bifurcation is 2.[address] sections are obtained through the upper abdomen. Abdomen is essentially unremarkable. IMPRESSION: 1. Tiny medial anterior apical pneumothorax on the left. No suspicious blebs or bullae on the left up per lung field evident. 2. There are a few small blebs at the medial right apex. 3. Masslike density through the lingula. Mass and pneumonia are within the differential. Follow-up is recommended. [facility], , 01/02/2025 10:34 AM
--- NOTE | 2025-01-02 11:43 | P.GSCN ---
History of Present Illness Consult date: 01/02/25 Reason for Consult: Spontaneous left pneumothorax Requesting physician: Rodney Johnson History of present illness: This is a 69 year old gentleman who follows outpatient with Dr. Ware for primary care. He has a previous medical history of current tobacco dependance, COPD, paroxysmal atrial fibrillation on Eliquis for anticoagulation, DVT, hepatitis C, and ruptured bowel with colostomy and subsequent reversal. The p atient reports chest pain and shortness of breath for 2 days. He tried to stay home and deal with it, but it became unbearable so he reported to [facility] for evaluation and treatment. Lab work was unremarkable except plt count 144. Troponin was negative, BNP was 209. EKG revealed sinus rhythm without ischemic changes. CXR revealed near complete collapse of left lung. Thoravent was inserted by ER physicians with good expansion of the lung although not complete. There is no airleak present currently. The patient is being admitted to the medical surgical unit with consultation placed for pulmonology and cardiothoracic surgery. 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 Left-sided spontaneous pneumothorax, first occurrence, 01/01/2025 History of Any Multi-Drug Resistant Organisms: None Reported Past Surgical History: Orthopedic Surgery Additional Past Surgical History / Comment(s): Ruptured bowel, temp colostomy, reversal of colostomy, finger amputation (blood clot), colonoscopy, L/R inguinal hernia repairs, circumcism. Left sided Thora-vent placement 12/2024 Past Anesthesia/Blood Transfusion Reactions: No Reported Reaction Past Psychological History: No Psychological Hx Reported Smoking Status: Current every day smoker Past Alcohol Use History: None Reported Past Drug Use History: None Reported, IV Drug Use - Past Family History Mother Family Medical History: CVA/TIA Additional Family Medical History / Comment(s): Mother of a CVA (was on coumadin) at the age of 74 yrs. Father Family Medical History: Diabetes Mellitus, Deep Vein Thrombosis (DVT) Additional Family Medical History / Comment(s): Father of diabetic complications at the age of 70 yrs. Medications and Allergies Home Medications Medication Instructions Recorded Confirmed Type Albuterol Sulfate [Albuterol 2 puff INHALATION RT-QID PRN 05/09/21 01/02/25 History Sulfate Hfa] Apixaban [Eliquis] 5 mg PO BID #60 tab 03/02/22 01/02/25 Rx Atorvastatin [Lipitor] 40 mg PO DAILY #30 tab 03/04/22 01/02/25 Rx Metoprolol Tartrate [Lopressor] 50 mg PO BID #60 tab 03/04/22 01/02/25 Rx Flecainide [Tambocor] 50 mg PO BID 08/08/23 01/02/25 History Ipratropium-Albuterol Nebulize 3 ml INHALATION RT-BID 08/08/23 01/02/25 History [Duoneb 0.5 mg-3 mg/3 ml Soln] HYDROcodone/APAP 10-325MG [[place] 1 tab PO BID 03/29/24 01/02/25 History 10-325] Fluticasone/Vilanterol [Breo 1 puff INHALATION RT-DAILY 01/02/25 01/02/25 History Ellipta 100-25 Mcg Inhalr] HYDROcodone/APAP 10-325MG [[place] 1 tab PO DAILY PRN 01/02/25 01/02/25 History 10-325] Allergies Allergy/AdvReac Type Severity Reaction Status Date / Time prednisone AdvReac Hallucinati Verified 01/02/25 09:31 ons Surgical - Exam Vital Signs Temp Pulse Resp BP Pulse Ox 97.7 F 72 18 112/67 92 L 01/02/25 02:57 01/02/25 02:57 01/02/25 02:57 01/02/25 02:57 01/02/25 02:57 CONSTITUTIONAL: Awake and alert, appears comfortable, cooperative, well- developed, well-nourished, no pain, no acute distress EYES: Pupils equal, round, reactive to light, normal ocular movement ENT: Moist mucous membranes without oral lesions present NECK: No masses, no bruits, trachea midline RESPIRATORY: Lungs sounds diminished bilaterally, left greater than right. Respirations even, nonlabored. Currently on room air with oxygen saturation 93%. Strong cough. No chest wall deformities. No clubbing or cyanosis present CARDIOVASCULAR: S1, S2 present. Regular rate and rhythm, sinus rhythm on telemetry. Palpable peripheral pulses bilaterally. No edema present. No calf pain or tenderness noted GASTROINTESTINAL: Abdomen soft, nontender, nondistended without masses or organomegaly noted. There is no rebound or guarding present. Active bowel sounds present 4 quadrants. GENITOURINARY: Deferred INTEGUMENTARY: Skin is warm and dry with evidence of good perfusion. NEUROLOGIC: Cranial nerves II through XII intact, normal coordination, no obvious motor or sensory deficits, speech is normal MUSKULOSKELETAL: Able to move all extremities, strength equal bilaterally, normal posture PSYCHIATRIC: Alert and oriented to person place and time, appropriate affect, intact judgment and insight INVASIVE LINES/TUBES: Left sided Thora-vent present to continuous wall suction, no drainage present, no airleak present Results - Labs 01/02/25 05:06 01/02/25 05:06 Abnormal Lab Results - Last 24 Hours (Table) 01/02/25 01/02/25 Range/Units 05:06 05:06 MCV 102.1 H (80.0-100.0) fL MCHC 30.5 L (31.0-37.0) g/dL Plt Count 144 L (150-450) k/uL Sodium 136 L (137-145) mmol/L Glucose 100 H (74-99) mg/dL Diabetes panel 01/02/25 Range/Units 05:06 Sodium 136 L (137-145) mmol/L Potassium 4.4 (3.5-5.1) mmol/L Chloride 102 (98-107) mmol/L Carbon Dioxide 29 (22-30) mmol/L BUN 11 (9-20) mg/dL Creatinine 0.73 (0.66-1.25) mg/dL Glucose 100 H (74-99) mg/dL Calcium 9.4 (8.4-10.2) mg/dL AST 24 (17-59) U/L ALT 15 (4-49) U/L Alkaline Phosphatase 72 (38-126) U/L Total Protein 6.8 (6.3-8.2) g/dL Albumin 4.1 (3.5-5.0) g/dL Calcium panel 01/02/25 Range/Units 05:06 Calcium 9.4 (8.4-10.2) mg/dL Albumin 4.1 (3.5-5.0) g/dL Pituitary panel 01/02/25 Range/Units 05:06 Sodium 136 L (137-145) mmol/L Potassium 4.4 (3.5-5.1) mmol/L Chloride 102 (98-107) mmol/L Carbon Dioxide 29 (22-30) mmol/L BUN 11 (9-20) mg/dL Creatinine 0.73 (0.66-1.25) mg/dL Glucose 100 H (74-99) mg/dL Calcium 9.4 (8.4-10.2) mg/dL Adrenal panel 01/02/25 Range/Units 05:06 Sodium 136 L (137-145) mmol/L Potassium 4.4 (3.5-5.1) mmol/L Chloride 102 (98-107) mmol/L Carbon Dioxide 29 (22-30) mmol/L BUN 11 (9-20) mg/dL Creatinine 0.73 (0.66-1.25) mg/dL Glucose 100 H (74-99) mg/dL Calcium 9.4 (8.4-10.2) mg/dL Total Bilirubin 0.8 (0.2-1.3) mg/dL AST 24 (17-59) U/L ALT 15 (4-49) U/L Alkaline Phosphatase 72 (38-126) U/L Total Protein 6.8 (6.3-8.2) g/dL Albumin 4.1 (3.5-5.0) g/dL - Imaging Chest x-ray: report reviewed, image reviewed CT scan - chest: report reviewed, image reviewed Assessment and Plan Assessment: Spontaneous left-sided pneumothorax, first occurrence, status post placement of Thora-vent by the ER physicians Chest pain, shortness of breath secondary to the above History of current tobacco dependance COPD Paroxysmal atrial fibrillation on Eliquis for anticoagulation, currently sinus DVT Hepatitis C Ruptured bowel with colostomy and subsequent reversal Plan: The patient was seen and examined sitting up on a cart in the emergency room in no acute distress. Chart/diagnostics reviewed. The case was discussed in great detail with Dr. Villegas. From our standpoint we will continue chest tube to continuous wall suction. CT of the chest was obtained and reviewed with Dr. Villegas. No plans for surgical intervention at this point, however Eliquis was stopped in case the need arises for surgical intervention. Incentive spirometry ordered and should be encouraged. Increase activity as tolerated. Medical management of other comorbidities per internal medicine, pulmonology. More recommendations to follow. Thank you for this consult, we will continue to follow along and make further recommendations as appropriate. I have personally seen and examined the patient, performed the documentation and the assessment and plan as written. Number of minutes spent on the visit: 30. MELITA Hernandez
--- NOTE | 2025-01-02 13:15 | P.CNPUL ---
History of Present Illness Consult date: 01/02/25 Requesting physician: Jude Kaye Reason for consult: chest pain, pneumothorax, abnormal CXR/CT Chief complaint: Left-sided chest pain, shortness of breath History of present illness: This is a 69-year-old male patient with a known history of chronic obstructive pulmonary disease, chronic and ongoing tobacco dependence, former IV drug abuser, hepatitis C, atrial fibrillation anticoagulated with Eliquis, hyperlipidemia. He presented here to the emergency room early this morning with complaints of left-sided chest pain and shortness of breath. Chest x-ray revealed a large left-sided pneumothorax without midline shift. EKG revealed sinus rhythm without acute ST or T wave abnormalities. White count 6.4. Hemoglobin 13.6. Platelets 144. D-dimer 0.33. Sodium 136. Potassium 4.4. B icarb 29. BUN 11. Creatinine 0.73. Glucose 100. Troponin negative x 1. proBNP 209. He did receive a left sided Thora vent placed in the emergency room. He is seen today in consultation. He is currently sitting up in the stretcher. Awake and alert in no acute distress. Maintaining good O2 s aturations in the 90s on room air. Afebrile. Hemodynamically stable. CT scan of the chest reveals a tiny medial anterior apical pneumothorax on the left. No suspicious blebs or bullae on the left upper lung field evident. There are a few small blebs in the medial right apex. Masslike density through the lingula. Mass and pneumonia are within the differential. Review of Systems REVIEW OF SYSTEMS: CONSTITUTIONAL: Denies any recent significant weight loss or weight gain. EYES: Denies change in vision. EARS, NOSE, MOUTH, THROAT: Denies headaches, denies sore throat. CARDIOVASCULAR: Positive for left-sided chest pain, no palpitations or syncopal episodes. RESPIRATORY: Positive for shortness of breath, cough, congestion no hemoptysis. GASTROINTESTINAL: Denies change in appetite, denies abdominal pain GENITOURINARY: Denies hematuria, denies infections. MUSKULOSKELETAL: Denies pain, denies swelling. INTEGUMENTARY: Denies rash, denies eczema. NEUROLOGICAL: Denies recent memory loss, no recent seizure activity. PSYCHIATRIC: Denies anxiety, denies depression. HEMATOLOGIC/LYMPHATIC: Denies anemia, denies enlarged lymph nodes. 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 Left-sided spontaneous pneumothorax, first occurrence, 01/01/2025 History of Any Multi-Drug Resistant Organisms: None Reported Past Surgical History: Orthopedic Surgery Additional Past Surgical History / Comment(s): Ruptured bowel, temp colostomy, reversal of colostomy, finger amputation (blood clot), colonoscopy, L/R inguinal hernia repairs, circumcism. Left sided Thora-vent placement 12/2024 Past Anesthesia/Blood Transfusion Reactions: No Reported Reaction Past Psychological History: No Psychological Hx Reported Smoking Status: Current every day smoker Past Alcohol Use History: None Reported Past Drug Use History: None Reported, IV Drug Use - Past Family History Mother Family Medical History: CVA/TIA Additional Family Medical History / Comment(s): Mother of a CVA (was on c oumadin) at the age of 74 yrs. Father Family Medical History: Diabetes Mellitus, Deep Vein Thrombosis (DVT) Additional Family Medical History / Comment(s): Father of diabetic complications at the age of 70 yrs. Medications and Allergies Home Medications Medication Instructions Recorded Confirmed Type Albuterol Sulfate [Albuterol 2 puff INHALATION RT-QID PRN 05/09/21 01/02/25 History Sulfate Hfa] Apixaban [Eliquis] 5 mg PO BID #60 tab 03/02/22 01/02/25 Rx Atorvastatin [Lipitor] 40 mg PO DAILY #30 tab 03/04/22 01/02/25 Rx Metoprolol Tartrate [Lopressor] 50 mg PO BID #60 tab 03/04/22 01/02/25 Rx Flecainide [Tambocor] 50 mg PO BID 08/08/23 01/02/25 History Ipratropium-Albuterol Nebulize 3 ml INHALATION RT-BID 08/08/23 01/02/25 History [Duoneb 0.5 mg-3 mg/3 ml Soln] HYDROcodone/APAP 10-325MG [[place] 1 tab PO BID 03/29/24 01/02/25 History 10-325] Fluticasone/Vilanterol [Breo 1 puff INHALATION RT-DAILY 01/02/25 01/02/25 History Ellipta 100-25 Mcg Inhalr] HYDROcodone/APAP 10-325MG [[place] 1 tab PO DAILY PRN 01/02/25 01/02/25 History 10-325] Allergies Allergy/AdvReac Type Severity Reaction Status Date / Time prednisone AdvReac Hallucinati Verified 01/02/25 09:31 ons Physical Exam Vitals: Vital Signs Temp Pulse Resp BP Pulse Ox 01/02/25 12:18 87 01/02/25 12:01 87 01/02/25 11:09 56 L 18 131/80 94 L 01/02/25 10:32 71 18 112/78 94 L 01/02/25 08:58 71 20 120/69 94 L 01/02/25 08:43 73 01/02/25 08:31 58 L 01/02/25 07:36 72 20 110/62 94 L 01/02/25 06:50 75 18 103/61 94 L 01/02/25 06:45 62 18 117/71 94 L 01/02/25 06:41 62 18 114/70 94 L 01/02/25 06:37 81 18 101/72 94 L 01/02/25 06:12 68 18 107/75 98 01/02/25 05:40 73 18 113/86 95 01/02/25 05:12 84 01/02/25 05:10 22 01/02/25 02:57 97.7 F 72 18 112/67 92 L Intake and Output 01/01/25 01/02/25 01/02/25 22:59 06:59 14:59 Other: Weight 72.575 kg GENERAL EXAM: Alert, pleasant, very thin 69-year-old male, on room air, fairly comfortable in no apparent distress. HEAD: Normocephalic. EYES: Normal reaction of pupils, equal size. NOSE: Clear with pink turbinates. THROAT: No erythema or exudates. NECK: No masses, no JVD. CHEST: No chest wall deformity. Left-sided Thora vent in place to Pleur-evac and wall suction. No leak noted LUNGS: Equal air entry with few scattered rhonchi more so over the left lung. CVS: S1 and S2 normal with no audible murmur, regular rhythm. ABDOMEN: No hepatosplenomegaly, normal bowel sounds, no guarding or rigidity. SPINE: No scoliosis or deformity SKIN: No rashes CENTRAL NERVOUS SYSTEM: No focal deficits, tone is normal in all 4 extremities. EXTREMITIES: There is no peripheral edema. No clubbing, no cyanosis. Peripheral pulses are intact. Results - Laboratory Findings CBC and BMP: 01/02/25 05:06 01/02/25 05:06 PT/INR, D-dimer PT 10.8 sec (10.0-12.5) 01/02/25 05:06 INR 1.0 (<1.2) 01/02/25 05:06 D-Dimer 0.33 mg/L FEU (<0.60) 01/02/25 05:06 Abnormal lab findings: Abnormal Labs 01/02/25 01/02/25 05:06 05:06 MCV 102.1 H MCHC 30.5 L Plt Count 144 L Sodium 136 L Glucose 100 H - Diagnostic Findings Chest x-ray: image reviewed CT scan - chest: image reviewed Assessment and Plan Assessment: Acute left-sided chest pain and shortness of breath secondary to a large left- sided pneumothorax. Status post Thora vent placement today January 02, 2025. CT scan of the chest reveals near complete resolution. 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 History of bowel obstruction quiring colostomy and subsequent reversal Plan: The patient was seen and evaluated Imaging, labs and medications reviewed Thora vent placed with near complete resolution Cardiothoracic service is following Possible pneumonia versus left lung mass Continue cefazolin for now Check a procalcitonin Continue bronchodilators Currently stable and on room air Educated regarding smoking cessation NicoDerm patch will be offered We will continue to follow and make further recommendations based on his cli nical status I have personally seen and examined the patient, performed the documentation and the assessment and plan as written. Number of minutes spent on the visit: 20 Dictation was produced using [employer] dictation software. Please excuse any grammatical, word or spelling errors.
[2025-01-02] MEDS: KETOROLAC 15 MG/ML 1 ML VIAL IVP SCH (17:39)
[2025-01-02] MEDS: NICOTINE 14MG/24HR PATCH TRANSDERM SCH (17:39)
--- NOTE | 2025-01-02 21:23 | P.HPIM ---
History of Present Illness H&P Date: 01/02/25 This is a 69-year-old male medical history of atrial fibrillation, COPD, DVT, hepatitis C, chronic nicotine use, prior history of IV drug use. Patient comes into the hospital for left-sided chest pain and shortness of breath with a sharp stabbing left anterior chest pain. Patient felt like he had broken a rib but has not reported any fall or injury. Patient denies fever chills denies hemoptysis he is not having any diaphoresis nausea or vomiting. He does have a nonproductive cough. He states the pain became so bad he came to the hospital for further evaluation. Initial chest x-ray reveals a large left-sided pneumothorax with near complete collapse of the left lung without midline shift. Chest x-ray reveals a persistent left-sided chest tube without visualized pneumothorax on current study there is improvement in post persistent left-sided volume loss. There is persistent left mid to lower lung acute infiltrate and/or atelectasis. Initial bulk reveals a white blood cell count of 6.4, MCV 102.1, sodium of 136, BUN of 11 and creatinine of 0.73 troponin level is negative proBNP is 209. Patient has been afebrile he has maintained oxygen saturations on room air. While in the ER, a thoravent was placed to the left anterior chest wall. Follow up imaging reveals lung expansion although not complete. Pulmonology and CT surgery were consulted. REVIEW OF SYSTEMS: CONSTITUTIONAL: No fever, no malaise, no fatigue. HEENT: No recent visual problems or hearing problems. Denied any sore throat. CARDIOVASCULAR: No chest pain, orthopnea, PND, no palpitations, no syncope. PULMONARY: No shortness of breath, no cough, no hemoptysis. GASTROINTESTINAL: No diarrhea, no nausea, no vomiting, no abdominal pain. NEUROLOGICAL: No headaches, no weakness, no numbness. HEMATOLOGICAL: Denies any bleeding or petechiae. GENITOURINARY: Denies any burning micturition, frequency, or urgency. MUSCULOSKELETAL/RHEUMATOLOGICAL: Denies any joint pain, swelling, or any muscle pain. ENDOCRINE: Denies any polyuria or polydipsia. The rest of the 14-point review of systems is negative. PHYSICAL EXAMINATION: GENERAL: The patient is alert and oriented x3, not in any acute distress. Well developed, well nourished. HEENT: Pupils are round and equally reacting to light. EOMI. No scleral icterus. No conjunctival pallor. Normocephalic, atraumatic. No pharyngeal erythema. No thyromegaly. CARDIOVASCULAR: S1 and S2 present. No murmurs, rubs, or gallops. PULMONARY: Chest is clear to auscultation, no wheezing or crackles. Diminished. Thoravent placed to left anterior chest wall ABDOMEN: Soft, nontender, nondistended, normoactive bowel sounds. No palpable organomegaly. MUSCULOSKELETAL: No joint swelling or deformity. EXTREMITIES: No cyanosis, clubbing, or pedal edema. NEUROLOGICAL: Gross neurological examination did not reveal any focal deficits. SKIN: No rashes. 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 with reversal History of DVT History of IV drug use and hepatitis C Chronic and ongoing nicotine use GI prophylaxis VTE prophylaxis on Eliquis which is currently held Plan Thoravent in place to continuous wall suction Incentive spirometer ordered encourage patient to complete 10 x an hour while awake Continue pain management with oral norco and IV toradol Eliquis held in case of need for surgical intervention Pulmonology and CT surgery on consultation Counseled on smoking cessation, nicotine patch in place Resumed appropriate home medications The impression and plan of care has been dictated by Rafaela Carrizales Nurse Practitioner as directed. Dr. Adama MD I have performed a history and physical examination and medical decision making of this patient, discussed the same with the dictator, and agree with the dictators assessment and plan as written, documented as a scribe. Based on total visit time, I have performed more than 50% of this visit. 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 History of Any Multi-Drug Resistant Organisms: None Reported Past Surgical History: Orthopedic Surgery Additional Past Surgical History / Comment(s): Ruptured bowel, temp colostomy, reversal of colostomy, finger amputation (blood clot), colonoscopy, L/R inguinal hernia repairs, circumcism. Past Anesthesia/Blood Transfusion Reactions: No Reported Reaction Past Psychological History: No Psychological Hx Reported Smoking Status: Current every day smoker Past Alcohol Use History: None Reported Past Drug Use History: None Reported, IV Drug Use - Past Family History Mother Family Medical History: CVA/TIA Additional Family Medical History / Comment(s): Mother of a CVA (was on coumadin) at the age of 74 yrs. Father Family Medical History: Diabetes Mellitus, Deep Vein Thrombosis (DVT) Additional Family Medical History / Comment(s): Father of diabetic complications at the age of 70 yrs. Medications and Allergies Home Medications Medication Instructions Recorded Confirmed Type Albuterol Sulfate [Albuterol 2 puff INHALATION RT-QID PRN 05/09/21 01/02/25 History Sulfate Hfa] Apixaban [Eliquis] 5 mg PO BID #60 tab 03/02/22 01/02/25 Rx Atorvastatin [Lipitor] 40 mg PO DAILY #30 tab 03/04/22 01/02/25 Rx Metoprolol Tartrate [Lopressor] 50 mg PO BID #60 tab 03/04/22 01/02/25 Rx Flecainide [Tambocor] 50 mg PO BID 08/08/23 01/02/25 History Ipratropium-Albuterol Nebulize 3 ml INHALATION RT-BID 08/08/23 01/02/25 History [Duoneb 0.5 mg-3 mg/3 ml Soln] HYDROcodone/APAP 10-325MG [[place] 1 tab PO BID 03/29/24 01/02/25 History 10-325] Fluticasone/Vilanterol [Breo 1 puff INHALATION RT-DAILY 01/02/25 01/02/25 History Ellipta 100-25 Mcg Inhalr] HYDROcodone/APAP 10-325MG [[place] 1 tab PO DAILY PRN 01/02/25 01/02/25 History 10-325] Allergies Allergy/AdvReac Type Severity Reaction Status Date / Time prednisone AdvReac Hallucinati Verified 01/02/25 09:31 ons Physical Exam Vitals: Vital Signs Temp Pulse Resp BP Pulse Ox 01/02/25 08:58 71 20 120/69 94 L 01/02/25 08:43 73 01/02/25 08:31 58 L 01/02/25 07:36 72 20 110/62 94 L 01/02/25 06:50 75 18 103/61 94 L 01/02/25 06:45 62 18 117/71 94 L 01/02/25 06:41 62 18 114/70 94 L 01/02/25 06:37 81 18 101/72 94 L 01/02/25 06:12 68 18 107/75 98 01/02/25 05:40 73 18 113/86 95 01/02/25 05:12 84 01/02/25 05:10 22 01/02/25 02:57 97.7 F 72 18 112/67 92 L Intake and Output 01/01/25 01/02/25 01/02/25 22:59 06:59 14:59 Other: Weight 72.575 kg Results CBC & Chem 7: 01/02/25 05:06 01/02/25 05:06 Labs: Abnormal Lab Results - Last 24 Hours (Table) 01/02/25 01/02/25 Range/Units 05:06 05:06 MCV 102.1 H (80.0-100.0) fL MCHC 30.5 L (31.0-37.0) g/dL Plt Count 144 L (150-450) k/uL Sodium 136 L (137-145) mmol/L Glucose 100 H (74-99) mg/dL Assessment and Plan Time with Patient: Less than 30
[2025-01-03] MEDS: IPRATROPIUM-ALBUTEROL 3 ML NEB INHALATION PRN (04:28)
--- NOTE | 2025-01-03 07:09 | XR ---
EXAMINATION TYPE: XR chest 1V portable DATE OF EXAM: 01/03/2025 CLINICAL HISTORY: Pneumothorax progress study. TECHNIQUE: Single AP portable upright view of the chest is obtained. COMPARISON: Chest x-ray and CT from one day earlier FINDINGS: There is persistent left-sided chest tube. Tiny anterior superior pneumothorax on CT is le ss well seen on plain films. Improved aeration left mid to lower lung. Slightly more prominent right basilar opacity. Cardiac silhouette size is stable and within normal limits. Osseous structures are i ntact. IMPRESSION: Persistent left-sided chest tube. Small anterior superior pneumothorax on CT less well s een on plain films. Improving left mid to lower lung acute infiltrate and/or atelectasis is noted. Sl ightly worsening right basilar opacity or probable atelectasis is noted. [facility], , 01/03/2025 7:06 AM
[2025-01-03] MEDS ORDERED: [UNRECOGNIZED DRUG - OTHER] INHALATION SCH (08:00)
[2025-01-03] MEDS ORDERED: NICOTINE 14MG/24HR PATCH TRANSDERM SCH (09:00)
--- NOTE | 2025-01-03 09:06 | P.PN ---
Subjective Progress Note Date: 01/03/25 Principal diagnosis: Spontaneous left-sided pneumothorax, first occurrence, status post placement of Thora-vent by the ER physicians. History of current tobacco dependance, COPD, paroxysmal atrial fibrillation on Eliquis for anticoagulation, DVT, Hepatitis C, ruptured bowel with colostomy and subsequent reversal The patient was seen and examined this morning sitting up in bed on the medical surgical unit in no acute distress. Currently on room air with oxygen saturation in the low to mid 90s, able to achieve 1500 mL on his incentive spirometry. Left Thora-vent present, no airleak present, 80 mL output since insertion. The patient remains afebrile, procalcitonin 0.06. CT scan was reviewed yesterday with Dr. Aaln, almost complete resolution of pneumothorax with significant atelectasis present. Patient was encouraged to use incentive spirometry. No surgical intervention planned at this point although Eliquis is being held in case surgery becomes a necessity. The patient was strongly encouraged to quit smoking completely. No other new concerns at this time. Objective - Vital Signs Vital signs: Vital Signs Temp 97.9 F 01/03/25 06:42 Pulse 66 01/03/25 08:20 Resp 18 01/03/25 06:42 BP 118/71 01/03/25 06:42 Pulse Ox 94 L 01/03/25 08:08 FiO2 Intake & Output 01/02/25 01/03/25 01/03/25 18:59 06:59 18:59 Output Total 76 Balance -76 Weight 72.575 kg Output: Chest Tube Drainage 76 Thora-Vent Left Anterior 76 Chest Other: Voiding Method Urinal # Voids 1 - Exam CONSTITUTIONAL: Appears comfortable, cooperative, no acute distress RESPIRATORY: Lungs sounds diminished bilaterally. Respirations even, nonlabored. Currently on room air with oxygen saturation 92%. Able to achieve 1500 mL on incentive spirometry. Strong cough. CARDIOVASCULAR: S1, S2 present. Regular rate and rhythm. Palpable peripheral pulses bilaterally. No edema present. No calf pain or tenderness noted. SCDs present. GASTROINTESTINAL: Abdomen soft, nontender, nondistended. Active bowel sounds present 4 quadrants. Tolerating diet GENITOURINARY: Continues to void clear, yellow urine INTEGUMENTARY: Skin is warm and dry with evidence of good perfusion NEUROLOGIC: Cranial nerves II through XII intact MUSKULOSKELETAL: Able to move all extremities, strength equal bilaterally, gait normal PSYCHIATRIC: Alert and oriented to person place and time, appropriate affect, intact judgment and insight INVASIVE LINES AND TUBES: Left sided Thora-vent present to continuous wall suct ion, no airleak present, 80 mL serosanguineous drainage since insertion - Allied health notes Allied health notes reviewed: nursing - Labs CBC & Chem 7: 01/02/25 05:06 01/02/25 05:06 Labs: Abnormal Lab Results - Last 24 Hours (Table) 01/02/25 Range/Units 05:06 Vitamin B12 190.0 L (200.0-944.0) pg/mL - Imaging and Cardiology Chest x-ray: report reviewed, image reviewed Assessment and Plan Assessment: Spontaneous left-sided pneumothorax, first occurrence, status post placement of Thora-vent by the ER physicians Chest pain, shortness of breath secondary to the above History of current tobacco dependance COPD Paroxysmal atrial fibrillation on Eliquis for anticoagulation, currently sinus DVT Hepatitis C Ruptured bowel with colostomy and subsequent reversal Plan: Thora-vent placed to waterseal, monitor for airleak or respiratory distress Encouraged incentive spirometry use Will monitor daily x-rays Increase activity as tolerated Pain control per current medication regimen Continue to hold Eliquis for now Medical management of other comorbidities per internal medicine, pulmonology More recommendations to follow
--- NOTE | 2025-01-03 14:46 | P.PN ---
Subjective Progress Note Date: 01/03/25 This is a 69-year-old male patient with a known history of chronic obstructive pulmonary disease, chronic and ongoing tobacco dependence, former IV drug abuser, hepatitis C, atrial fibrillation anticoagulated with Eliquis, hyperlipidemia. He presented here to the emergency room early this morning with complaints of left-sided chest pain and shortness of breath. Chest x-ray revealed a large left-sided pneumothorax without midline shift. EKG revealed sinus rhythm without acute ST or T wave abnormalities. White count 6.4. Hemoglobin 13.6. Platelets 144. D-dimer 0.33. Sodium 136. Potassium 4.4. Bicarb 29. BUN 11. Creatinine 0.73. Glucose 100. Troponin negative x 1. proBNP 209. He did receive a left sided Thora vent placed in the emergency room. He is seen today in consultation. He is currently sitting up in the stretcher. Awake and alert in no acute distress. Maintaining good O2 saturations in the 90s on room air. Afebrile. Hemodynamically stable. CT scan of the chest reveals a tiny medial anterior apical pneumothorax on the left. No suspicious blebs or bullae on the left upper lung field evident. There are a few small blebs in the medial right apex. Masslike density through the lingula. Mass and pneumonia are within the differential. The patient is seen today January 03, 2025 in follow-up on the regular medical floor. He is currently sitting up in bed. Awake and alert in no acute distress. Maintaining good O2 saturations in the 90s on room air. He is a febrile. Hemodynamically stable. Chest x-ray continues to show near complete reexpansion of the left lung. Improved left mid to lower lung acute infiltrate/atelectasis. Left-sided Thora vent remains in place. To [facility] today per [facility] services. He is working well with the incentive spirometer. Eliquis remains on hold. No new labs today. He is continued on DuoNeb inhalations, Symbicort. Antibiotics in the form of ceftriaxone. NicoDerm patch remains in place. Objective - Vital Signs Vital signs: Vital Signs Temp 97.5 F L 01/03/25 13:51 Pulse 58 L 01/03/25 13:51 Resp 20 01/03/25 13:51 BP 118/70 01/03/25 13:51 Pulse Ox 93 L 01/03/25 13:51 FiO2 Intake & Output 01/02/25 01/03/25 01/03/25 18:59 06:59 18:59 Output Total 76 325 Balance -76 -325 Weight 72.575 kg Output: Chest Tube Drainage 76 Thora-Vent Left Anterior 76 Chest Urine 325 Other: Voiding Method Urinal # Voids 1 - Exam GENERAL EXAM: Alert, pleasant, thin 69-year-old male, on 2 L nasal cannula, comfortable in no apparent distress. HEAD: Normocephalic. EYES: Normal reaction of pupils, equal size. NOSE: Clear with pink turbinates. THROAT: No erythema or exudates. NECK: No masses, no JVD. CHEST: No chest wall deformity. Left-sided Thora vent in place to Pleur-evac and to waterseal. LUNGS: Equal air entry with few scattered rhonchi. CVS: S1 and S2 normal with no audible murmur, regular rhythm. ABDOMEN: No hepatosplenomegaly, normal bowel sounds, no guarding or rigidity. SPINE: No scoliosis or deformity SKIN: No rashes CENTRAL NERVOUS SYSTEM: No focal deficits, tone is normal in all 4 extremities. EXTREMITIES: There is no peripheral edema. No clubbing, no cyanosis. Peripheral pulses are intact. - Labs CBC & Chem 7: 01/02/25 05:06 01/02/25 05:06 Labs: Abnormal Lab Results - Last 24 Hours (Table) 01/02/25 Range/Units 05:06 Vitamin B12 190.0 L (200.0-944.0) pg/mL Assessment and Plan Assessment: Acute left-sided chest pain and shortness of breath secondary to a large left- sided pneumothorax. Status post Thora vent placement today January 02, 2025. CT scan of the chest reveals near complete resolution. There is some possible left lung collapse versus pneumonia versus underlying mass. Today's chest x-ray shows near complete reexpansion of the left lung and improvement in the left mid and lower lung rai. 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 Number of minutes spent on the visit: 10 Dictation was produced using [employer] dictation software. Please excuse any grammatical, word or spelling errors.
[2025-01-03] MEDS: ACETAMINOPHEN TAB 325 MG TAB PO PRN (20:09)
--- NOTE | 2025-01-04 07:22 | XR ---
EXAMINATION TYPE: XR chest 2V DATE OF EXAM: 01/04/2025 7:06 AM COMPARISON: Multiple radiographs, with the most recent on 01/03/2025, CT chest 01/02/2025. TECHNIQUE: XR chest 2V Frontal and lateral views of the chest. CLINICAL INDICATION:Male, 69 years old with history of pneumothorax; FINDINGS: Lungs/Pleura: No sizable pneumothorax. No pleural effusion. Improving left basilar infiltrate. Simila r probable right basilar atelectasis. Chronic elevation of the left hemidiaphragm. Pulmonary vascularity: Unremarkable. Heart/mediastinum: Cardiomediastinal silhouette is unremarkable. Atherosclerotic calcifications are seen in the aorta. Musculoskeletal: No acute osseous pathology. Other findings: None Lines/Tubes: Persistent left-sided chest tube. IMPRESSION: 1. Persistent left-sided chest tube with no sizable pneumothorax. Trace pneumothorax is not excluded . 2. Improving left lower lung infiltrate with similar probable right basilar atelectasis. [facility], , 01/04/2025 7:19 AM
[2025-01-04 07:26] LABS: HCT 41.8 % (39.0-53.0); HGB 12.8 gm/dL (13.0-17.5); Hypochromasia Slight; MCH 31.1 pg (25.0-35.0); MCHC 30.6 g/dL (31.0-37.0); MCV 101.6 fL (80.0-100.0); Macrocytosis Slight; Mean Platelet Volume 9.6; Platelet Count 164 k/uL (150-450); RBC 4.11 m/uL (4.30-5.90); RDW 12.9 % (11.5-15.5); WBC 6.6 k/uL (3.8-10.6)
[2025-01-04 07:28] LABS: African American GFR (CKD) >90 (>60 ml/min/1.73 sqM); Anion Gap 7 mmol/L; Blood Urea Nitrogen 18 mg/dL (9-20); Carbon Dioxide 25 mmol/L (22-30); Chloride 103 mmol/L (98-107); Glucose 90 mg/dL (74-99); Non-African American GFR(CKD) >90 (>60 ml/min/1.73 sqM); Potassium 4.6 mmol/L (3.5-5.1); Sodium 135 mmol/L (137-145)
--- NOTE | 2025-01-04 08:00 | P.PN ---
Subjective Progress Note Date: 01/03/25 This is a 69-year-old male medical history of atrial fibrillation, COPD, DVT, hepatitis C, chronic nicotine use, prior history of IV drug use. Patient comes into the hospital for left-sided chest pain and shortness of breath with a sharp stabbing left anterior chest pain. Patient felt like he had broken a rib but has not reported any fall or injury. Patient denies fever chills denies hemoptysis he is not having any diaphoresis nausea or vomiting. He does have a nonproductive cough. He states the pain became so bad he came to the hospital for further evaluation. Initial chest x-ray reveals a large left-sided pneumothorax with near complete collapse of the left lung without midline shift. Chest x-ray reveals a persistent left-sided chest tube without visualized pneumothorax on current study there is improvement in post persistent left-sided volume loss. There is persistent left mid to lower lung acute infiltrate and/or atelectasis. Initial bulk reveals a white blood cell count of 6.4, MCV 102.1, sodium of 136, BUN of 11 and creatinine of 0.73 troponin level is negative proBNP is 209. Patient has been afebrile he has maintained oxygen saturations on room air. While in the ER, a thoravent was placed to the left anterior chest wall. Follow up imaging reveals lung expansion although not complete. Pulmonology and CT surgery were consulted. 01/03/2025 Patient evaluated on the medical floor. Reports feeling less short of breath. Thoravent remains in place now to water seal. Chest xray today reveals persistent left sided chest tube with small anterior superior pneumothorax on CT less well seen on plain fimls. Improving left to lower lung acute infiltrate and or atelectasis. Slightly worsening right basilar opacity or probable atelectasis is noted. REVIEW OF SYSTEMS: CONSTITUTIONAL: No fever, no malaise, no fatigue. HEENT: No recent visual problems or hearing problems. Denied any sore throat. CARDIOVASCULAR: No chest pain, orthopnea, PND, no palpitations, no syncope. PULMONARY: No shortness of breath, no cough, no hemoptysis. GASTROINTESTINAL: No diarrhea, no nausea, no vomiting, no abdominal pain. NEUROLOGICAL: No headaches, no weakness, no numbness. PHYSICAL EXAMINATION: GENERAL: The patient is alert and oriented x3, not in any acute distress. Well developed, well nourished. HEENT: Pupils are round and equally reacting to light. EOMI. No scleral icterus. No conjunctival pallor. Normocephalic, atraumatic. No pharyngeal erythema. No thyromegaly. CARDIOVASCULAR: S1 and S2 present. No murmurs, rubs, or gallops. PULMONARY: Chest is clear to auscultation, no wheezing or crackles. Diminished. Thoravent placed to left anterior chest wall ABDOMEN: Soft, nontender, nondistended, normoactive bowel sounds. No palpable organomegaly. MUSCULOSKELETAL: No joint swelling or deformity. EXTREMITIES: No cyanosis, clubbing, or pedal edema. NEUROLOGICAL: Gross neurological examination did not reveal any focal deficits. SKIN: No rashes. 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 with reversal History of DVT History of IV drug use and hepatitis C Chronic and ongoing nicotine use GI prophylaxis VTE prophylaxis on Eliquis which is currently held Plan Thoravent in place to water seal Incentive spirometer ordered encourage patient to complete 10 x an hour while awake Continue pain management with oral norco and IV toradol Eliquis held in case of need for surgical intervention Pulmonology and CT surgery on consultation Counseled on smoking cessation, nicotine patch in place Resumed appropriate home medications The impression and plan of care has been dictated by Rafaela Carrizales, Nurse Practitioner as directed. Dr. Adama MD I have performed a history and physical examination and medical decision making of this patient, discussed the same with the dictator, and agree with the dictators assessment and plan as written, documented as a scribe. Based on total visit time, I have performed more than 50% of this visit. Objective - Vital Signs Vital signs: Vital Signs Temp 97.6 F 01/04/25 02:01 Pulse 59 L 01/04/25 02:01 Resp 17 01/04/25 02:01 BP 107/57 01/04/25 02:01 Pulse Ox 93 L 01/04/25 02:01 FiO2 Intake & Output 01/03/25 01/04/25 01/04/25 18:59 06:59 18:59 Output Total 975 500 Balance -975 -500 Output: Urine 975 500 Other: Voiding Method Urinal - Labs CBC & Chem 7: 01/04/25 05:27 01/04/25 05:27 Labs: Abnormal Lab Results - Last 24 Hours (Table) 01/04/25 01/04/25 Range/Units 05:27 05:27 RBC 4.11 L (4.30-5.90) m/uL Hgb 12.8 L (13.0-17.5) gm/dL MCV 101.6 H (80.0-100.0) fL MCHC 30.6 L (31.0-37.0) g/dL Sodium 135 L (137-145) mmol/L Assessment and Plan Time with Patient: Less than 30
[2025-01-04 08:26] VITALS: RESP 18
--- NOTE | 2025-01-04 10:03 | P.PN ---
Subjective Progress Note Date: 01/04/25 Principal diagnosis: Spontaneous left-sided pneumothorax, first occurrence, status post placement of Thora-vent by the ER physicians. History of current tobacco dependance, COPD, paroxysmal atrial fibrillation on Eliquis for anticoagulation, DVT, Hepatitis C, ruptured bowel with colostomy and subsequent reversal The patient was seen and examined this morning sitting up in bed on the medical surgical unit in no acute distress. Currently on room air with oxygen saturation in the low to mid 90s, able to achieve 1500 mL on his incentive spirometry. Left Thora-vent present to waterseal for 24 hours, no airleak present. The patient remains afebrile, procalcitonin 0.06. No surgical intervention planned. The patient was strongly encouraged to quit smoking completely. No other new concerns at this time. Objective - Vital Signs Vital signs: Vital Signs Temp 98 F 01/04/25 06:50 Pulse 65 01/04/25 06:50 Resp 18 01/04/25 06:50 BP 110/66 01/04/25 06:50 Pulse Ox 94 L 01/04/25 07:19 FiO2 Intake & Output 01/03/25 01/04/25 01/04/25 18:59 06:59 18:59 Output Total 975 500 Balance -975 -500 Output: Urine 975 500 Other: Voiding Method Urinal - Exam CONSTITUTIONAL: Appears comfortable, cooperative, no acute distress RESPIRATORY: Lungs sounds diminished bilaterally. Respirations even, nonlabored. Currently on room air with oxygen saturation 97%. Able to achieve 1500 mL on incentive spirometry. Strong cough. CARDIOVASCULAR: S1, S2 present. Regular rate and rhythm. Palpable peripheral pulses bilaterally. No edema present. No calf pain or tenderness noted. SCDs present. GASTROINTESTINAL: Abdomen soft, nontender, nondistended. Active bowel sounds present 4 quadrants. Tolerating diet GENITOURINARY: Continues to void clear, yellow urine INTEGUMENTARY: Skin is warm and dry with evidence of good perfusion NEUROLOGIC: Cranial nerves II through XII intact MUSKULOSKELETAL: Able to move all extremities, strength equal bilaterally, gait normal PSYCHIATRIC: Alert and oriented to person place and time, appropriate affect, intact judgment and insight INVASIVE LINES AND TUBES: Left sided Thora-vent present to waterseal, no airleak present - Allied health notes Allied health notes reviewed: nursing - Labs CBC & Chem 7: 01/04/25 05:27 01/04/25 05:27 Labs: Abnormal Lab Results - Last 24 Hours (Table) 01/04/25 01/04/25 Range/Units 05:27 05:27 RBC 4.11 L (4.30-5.90) m/uL Hgb 12.8 L (13.0-17.5) gm/dL MCV 101.6 H (80.0-100.0) fL MCHC 30.6 L (31.0-37.0) g/dL Sodium 135 L (137-145) mmol/L - Imaging and Cardiology Chest x-ray: report reviewed, image reviewed Assessment and Plan Assessment: Spontaneous left-sided pneumothorax, first occurrence, status post placement of Thora-vent by the ER physicians Chest pain, shortness of breath secondary to the above History of current tobacco dependance COPD Paroxysmal atrial fibrillation on Eliquis for anticoagulation, currently sinus DVT Hepatitis C Ruptured bowel with colostomy and subsequent reversal Plan: Thora-vent placed removed without incident. Will repeat chest x-ray in 1 hour Encouraged incentive spirometry use Will monitor daily x-rays Increase activity as tolerated Pain control per current medication regimen May resume Eliquis Medical management of other comorbidities per internal medicine, pulmonology If repeat chest x-ray is satisfactory patient should be discharged to home from our standpoint Discharge instructions related to Thora-vent placed on discharge plan
--- NOTE | 2025-01-04 12:09 | XR ---
EXAMINATION TYPE: XR chest 1V portable DATE OF EXAM: 01/04/2025 11:56 AM COMPARISON: Multiple radiographs, with the most recent on 01/04/2025 TECHNIQUE: XR chest 1V portable Portable AP radiograph of the chest. CLINICAL INDICATION:Male, 69 years old with history of post chest tube removal; FINDINGS: Lungs/Pleura: Trace left pleural effusion. No sizable pneumothorax. Similar left lower lung infiltrat e. Pulmonary vascularity: Unremarkable. Heart/mediastinum: Cardiomediastinal silhouette is prominent in size. Atherosclerotic calcifications are seen in the aorta. Musculoskeletal: No acute osseous pathology. Other findings: None Lines/Tubes: Interval removal of left chest tube. IMPRESSION: 1. Interval removal of left chest tube without sizable pneumothorax. 2. Similar left basilar opacity with trace left pleural effusion. [facility], , 01/04/2025 12:07 PM
--- NOTE | 2025-01-04 12:44 | P.PN ---
Subjective Progress Note Date: 01/04/25 This is a 69-year-old male patient with a known history of chronic obstructive pulmonary disease, chronic and ongoing tobacco dependence, former IV drug abuser, hepatitis C, atrial fibrillation anticoagulated with Eliquis, hyperlipidemia. He presented here to the emergency room early this morning with complaints of left-sided chest pain and shortness of breath. Chest x-ray revealed a large left-sided pneumothorax without midline shift. EKG revealed sinus rhythm without acute ST or T wave abnormalities. White count 6.4. Hemoglobin 13.6. Platelets 144. D-dimer 0.33. Sodium 136. Potassium 4.4. Bicarb 29. BUN 11. Creatinine 0.73. Glucose 100. Troponin negative x 1. proBNP 209. He did receive a left sided Thora vent placed in the emergency room. He is seen today in consultation. He is currently sitting up in the stretcher. Awake and alert in no acute distress. Maintaining good O2 saturations in the 90s on room air. Afebrile. Hemodynamically stable. CT scan of the chest reveals a tiny medial anterior apical pneumothorax on the left. No suspicious blebs or bullae on the left upper lung field evident. There are a few small blebs in the medial right apex. Masslike density through the lingula. Mass and pneumonia are within the differential. The patient is seen today January 03, 2025 in follow-up on the regular medical floor. He is currently sitting up in bed. Awake and alert in no acute distress. Maintaining good O2 saturations in the 90s on room air. He is a febrile. Hemodynamically stable. Chest x-ray continues to show near complete reexpansion of the left lung. Improved left mid to lower lung acute infiltrate/atelectasis. Left-sided Thora vent remains in place. To waterseal today per CT services. He is working well with the incentive spirometer. Eliquis remains on hold. No new labs today. He is continued on DuoNeb inhalations, Symbicort. Antibiotics in the form of ceftriaxone. NicoDerm patch remains in place. The patient is seen today January 04, 2025 in follow-up on the regular medical floor. He is awake and alert in no acute distress. Maintaining good O2 saturations in the 90s on room air. His Thora vent was removed per CT services this morning. Follow-up chest x-ray is pending. He denies any worsening shortness of breath, cough or congestion. White count 6.6. Hemoglobin 12.8. Platelets 164. Sodium 135. Potassium 4.6. Bicarb 25. BUN 18. Creatinine 0.79. Glucose 90. He is continued on DuoNeb inhalations, Symbicort. Remains on ceftriaxone. NicoDerm patch in place. Objective - Vital Signs Vital signs: Vital Signs Temp 98 F 01/04/25 06:50 Pulse 72 01/04/25 11:41 Resp 18 01/04/25 06:50 BP 110/66 01/04/25 06:50 Pulse Ox 95 01/04/25 11:33 FiO2 Intake & Output 01/03/25 01/04/25 01/04/25 18:59 06:59 18:59 Output Total 975 500 Balance -975 -500 Output: Urine 975 500 Other: Voiding Method Urinal Urinal - Exam GENERAL EXAM: Alert, 69-year-old male, on room air, comfortable in no apparent distress. HEAD: Normocephalic. EYES: Normal reaction of pupils, equal size. NOSE: Clear with pink turbinates. THROAT: No erythema or exudates. NECK: No masses, no JVD. CHEST: No chest wall deformity. Left-sided Thora vent removed. LUNGS: Equal air entry with few scattered rhonchi. CVS: S1 and S2 normal with no audible murmur, regular rhythm. ABDOMEN: No hepatosplenomegaly, normal bowel sounds, no guarding or rigidity. SPINE: No scoliosis or deformity SKIN: No rashes CENTRAL NERVOUS SYSTEM: No focal deficits, tone is normal in all 4 extremities. EXTREMITIES: There is no peripheral edema. No clubbing, no cyanosis. Peripheral pulses are intact. - Labs CBC & Chem 7: 01/04/25 05:27 01/04/25 05:27 Labs: Abnormal Lab Results - Last 24 Hours (Table) 01/04/25 01/04/25 Range/Units 05:27 05:27 RBC 4.11 L (4.30-5.90) m/uL Hgb 12.8 L (13.0-17.5) gm/dL MCV 101.6 H (80.0-100.0) fL MCHC 30.6 L (31.0-37.0) g/dL Sodium 135 L (137-145) mmol/L Assessment and Plan Assessment: Acute left-sided chest pain and shortness of breath secondary to a large left- sided pneumothorax. Status post Thora vent placement today January 02, 2025. CT scan of the chest reveals near complete resolution. There is some possible left lung collapse versus pneumonia versus underlying mass. Today's chest x-ray shows near complete reexpansion of the left lung and improvement in the left mid and lower lung rai. 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 History of bowel obstruction requiring colostomy and subsequent reversal Plan: The patient was seen and evaluated Currently stable and on room air Chest x-ray, labs and medications reviewed Thora vent removed per CT service Follow-up chest x-ray pending If no pneumothorax patient is cleared for discharge Continue home pulmonary medications Again educated regarding smoking cessation NicoDerm patch in place This patient was seen independently by the pulmonary nurse practitioner a ddressing pulmonary issues I have personally seen and examined the patient, performed the documentation and the assessment and plan as written. Number of minutes spent on the visit: 25 Dictation was produced using [employer] dictation software. Please excuse any grammatical, word or spelling errors.
[2025-01-04 14:00] VITALS: BP 119/71; PULSE 65; TEMP 97.7
--- NOTE | 2025-01-10 05:10 | P.DS ---
Providers Date of admission: 01/02/25 07:23 Expected date of discharge: 01/04/25 Attending physician: Jude Kaye MD Consults: 01/02/25 07:23 Consult Physician Routine Consulting Provider: Bala Lauren Consult Reason/Comments: COPD exacerbation. 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 Patient will follow-up with Dr. Ware in the outpatient setting upon discharge. Patient is to continue with close outpatient follow-up with oncology, pulmonary as scheduled. Total time taken is greater than 35 minutes. Hospital course This is a 69 year-old male who was recently admitted with large left-sided spontaneous pneumothorax with near complete collapse of the left lung being closely monitored. Patient is status post Thora vent placement and being followed by cardiothoracic's as well as pulmonary. Patient doing relatively well and Thora vent is being removed with no subsequent pneumothorax noted. Hernando kirby reports to feeling improved and extremely keen on going home today. Patient has been cleared by consultations with close outpatient follow-up. Please refer to other consultation notes for further HPI. Currently no reports of chest pain, shortness of breath, or palpitations. Patient is afebrile. No reports of nausea or vomiting and patient is tolerating diet. Patient will be discharged home today. High risk for readmissions given significant history. Physical exam: Gen: This is a 69-year-old male who is awake, alert and oriented x 3, thin built, elderly appearing HEENT: Head is atraumatic, normocephalic. Pupils equal, round. Sclerae is anicteric. NECK: Supple. No JVD. No lymphadenopathy. No thyromegaly. LUNGS: Diminished breath sounds bilaterally otherwise clear to auscultation. No wheezes a few scattered rhonchi noted. No intercostal retractions. HEART: Regular rate and rhythm. No murmur. ABDOMEN: Soft. Thin. Bowel sounds are present. No masses. No tenderness. EXTREMITIES: No pedal edema. No calf tenderness. NEUROLOGICAL: Patient is awake, alert and oriented x3. Cranial nerves 2 through 12 are grossly intact. Please refer to medication reconciliation sheet for a list of medications. The impression and plan of care has been dictated by Jigna Hatch, Nurse Practitioner as directed. Dr. Adama MD I have performed a history and examination and MDM of this patient, discussed the same with the dictator, and agree with the dictator's assessment and plan as written ,documented as a scribe. Based on total visit time, I have performed more than 50% of the visit. Patient Condition at Discharge: Fair Plan - Discharge Summary Discharge Rx Participant: No New Discharge Prescriptions: New cefuroxime axetiL [Ceftin] 500 mg PO BID 3 Days #6 tab Ipratropium-Albuterol Nebulize [Duoneb 0.5 mg-3 mg/3 ml Soln] 3 ml INHALATION RT-Q2H PRN each PRN Reason: Shortness Of Breath Or Wheezing Nicotine 14Mg/24Hr Patch [Habitrol] 1 patch TRANSDERM Q24H #30 patch Acetaminophen Tab [Tylenol] 650 mg PO Q4HR PRN tab PRN Reason: Mild Pain Or Fever > 100.5 Continue Apixaban [Eliquis] 5 mg PO BID #60 tab Atorvastatin [Lipitor] 40 mg PO DAILY #30 tab Metoprolol Tartrate [Lopressor] 50 mg PO BID #60 tab Ipratropium-Albuterol Nebulize [Duoneb 0.5 mg-3 mg/3 ml Soln] 3 ml INHALATION RT-BID Flecainide [Tambocor] 50 mg PO BID Fluticasone/Vilanterol [Breo Ellipta 100-25 Mcg Inhalr] 1 puff INHALATION RT- DAILY Albuterol Sulfate [Albuterol Sulfate Hfa] 2 puff INHALATION RT-QID PRN PRN Reason: Shortness Of Breath HYDROcodone/APAP 10-325MG [[place] 10-325] 1 tab PO BID HYDROcodone/APAP 10-325MG [[place] 10-325] 1 tab PO DAILY PRN PRN Reason: Pain Discharge Medication List Albuterol Sulfate [Albuterol Sulfate Hfa] 2 puff INHALATION RT-QID PRN 05/09/21 [History] Apixaban [Eliquis] 5 mg PO BID #60 tab 03/02/22 [Rx] Atorvastatin [Lipitor] 40 mg PO DAILY #30 tab 03/04/22 [Rx] Metoprolol Tartrate [Lopressor] 50 mg PO BID #60 tab 03/04/22 [Rx] Flecainide [Tambocor] 50 mg PO BID 08/08/23 [History] Ipratropium-Albuterol Nebulize [Duoneb 0.5 mg-3 mg/3 ml Soln] 3 ml INHALATION RT-BID 08/08/23 [History] HYDROcodone/APAP 10-325MG [[place] 10-325] 1 tab PO BID 03/29/24 [History] Fluticasone/Vilanterol [Breo Ellipta 100-25 Mcg Inhalr] 1 puff INHALATION RT- DAILY 01/02/25 [History] HYDROcodone/APAP 10-325MG [[place] 10-325] 1 tab PO DAILY PRN 01/02/25 [History] Acetaminophen Tab [Tylenol] 650 mg PO Q4HR PRN tab 01/04/25 [Rx] Ipratropium-Albuterol Nebulize [Duoneb 0.5 mg-3 mg/3 ml Soln] 3 ml INHALATION RT-Q2H PRN each 01/04/25 [Rx] Nicotine 14Mg/24Hr Patch [Habitrol] 1 patch TRANSDERM Q24H #30 patch 01/04/25 [Rx] cefuroxime axetiL [Ceftin] 500 mg PO BID 3 Days #6 tab 01/04/25 [Rx] Follow up Appointment(s)/Referral(s): Bonnie Crow NPC [Nurse Practitioner] - As Needed (May follow-up for incision check. To be seen in the surgeon's office behind the hospital in [facility], [address]. Office phone number is ) Brandyn Ware MD [Primary Care Provider] - 1-2 days Bala Lauren MD [STAFF PHYSICIAN] - 1 Week Activity/Diet/Wound Care/Special Instructions: DISCHARGE INSTRUCTIONS: 1. No driving for 2 weeks, or until physician gives their ok. 2. No lifting, pushing, or pulling more than 10 pounds for 2 weeks. The physician will advise of any restriction changes. 3. Continue pain control per as needed orders. Alternate acetaminophen (Tylenol) and ibuprofen (Motrin/Advil) for pain. 4. Continue with incentive spirometry and splinting until otherwise directed by the physician. 5. Leave chest tube dressing for 48 hours. After that, remove all dressings and shower daily. 6. Routine incision care. No powders, lotions, ointments on incisions. 7. Please call surgeon/VASCULAR RADIOLOGIST for temp greater than 101 F or purulent drainage from incisions. 8. Smoking cessation counseling and program information provided. Quitting smoking is the most important step you can take to improve your health. For additional information and assistance to quit smoking, please call the [place] tobacco quit line (9-814-ZEGA-NOW/ ) or online: [email or web address] .[email or web address]/[email or web address] Discharge Disposition: HOME SELF-CARE
== END 2025-01-04 16:06 | disposition home or self-care (01) | DRG 199 ==
LOC: EC 02:56 → 4SSUR 07:23
PROVIDERS: ADMIT Internal Medicine; ATTEND Internal Medicine
PROC: 0W9B30Z Drainage of Left Pleural Cavity with Drainage Device, Percutaneous Approach (ICD-10-PCS; principal; 2025-01-02)
DX: J93.83 Other pneumothorax (principal); J13 Pneumonia due to Streptococcus pneumoniae; J44.0 Chronic obstructive pulmonary disease with (acute) lower respiratory infection; B18.2 Chronic viral hepatitis C; F19.11 Other psychoactive substance abuse, in remission; J98.19 Other pulmonary collapse; I48.0 Paroxysmal atrial fibrillation; F17.210 Nicotine dependence, cigarettes, uncomplicated; Z86.718 Personal history of other venous thrombosis and embolism; Z71.6 Tobacco abuse counseling; Z79.899 Other long term (current) drug therapy; Z79.01 Long term (current) use of anticoagulants; Z79.51 Long term (current) use of inhaled steroids; Z79.891 Long term (current) use of opiate analgesic; Z89.022 Acquired absence of left finger(s); Z87.19 Personal history of other diseases of the digestive system
CPT/HCPCS: 32551; 36415; 71045; 71046; 71250; 80048; 80053; 82607; 82746; 83735; 83880; 84145; 84484; 85025; 85027; 85379; 85610; 85730; 93005; 94640; 94760; 96365; 96375; 96376; 99291

== ENCOUNTER 2025-03-11 09:56 | Observation (INO) | payer MEDICARE, OTHER ==
--- NOTE | 2025-03-11 10:13 | ED ---
SOB HPI - General Chief Complaint: Shortness of Breath Stated Complaint: PASCUAL Time Seen by Provider: 03/11/25 10:06 Source: patient, RN notes reviewed Mode of arrival: wheelchair Limitations: no limitations - History of Present Illness Initial Comments: 70-year-old male presents emergency department chief complaint of chest pain, shortness of breath. 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 He states he was admitted approximately month ago for a pneumothorax and COPD exacerbation. Patient states pain is similar but different at same time. He states he had no relief with his nebulizer this morning. He denies any fevers or chills no abdominal pain no leg pain or leg swelling. - Related Data Home Medications Medication Instructions Recorded Confirmed Albuterol Sulfate [Albuterol 2 puff INHALATION RT-QID PRN 05/09/21 01/02/25 Sulfate Hfa] Flecainide [Tambocor] 50 mg PO BID 08/08/23 01/02/25 Ipratropium-Albuterol Nebulize 3 ml INHALATION RT-BID 08/08/23 01/02/25 [Duoneb 0.5 mg-3 mg/3 ml Soln] HYDROcodone/APAP 10-325MG [[place] 1 tab PO BID 03/29/24 01/02/25 10-325] Fluticasone/Vilanterol [Breo 1 puff INHALATION RT-DAILY 01/02/25 01/02/25 Ellipta 100-25 Mcg Inhalr] HYDROcodone/APAP 10-325MG [[place] 1 tab PO DAILY PRN 01/02/25 01/02/25 10-325] Previous Rx's Medication Instructions Recorded Apixaban [Eliquis] 5 mg PO BID #60 tab 03/02/22 Atorvastatin [Lipitor] 40 mg PO DAILY #30 tab 03/04/22 Metoprolol Tartrate [Lopressor] 50 mg PO BID #60 tab 03/04/22 Acetaminophen Tab [Tylenol] 650 mg PO Q4HR PRN tab 01/04/25 Ipratropium-Albuterol Nebulize 3 ml INHALATION RT-Q2H PRN each 01/04/25 [Duoneb 0.5 mg-3 mg/3 ml Soln] Nicotine 14Mg/24Hr Patch [Habitrol] 1 patch TRANSDERM Q24H #30 patch 01/04/25 cefuroxime axetiL [Ceftin] 500 mg PO BID 3 Days #6 tab 01/04/25 Allergies Allergy/AdvReac Type Severity Reaction Status Date / Time prednisone AdvReac Hallucinati Verified 03/11/25 10:05 ons Review of Systems ROS Statement: Those systems with pertinent positive or pertinent negative responses have been documented in the HPI. ROS Other: All systems not noted in ROS Statement are negative. 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 History of Any Multi-Drug Resistant Organisms: None Reported Past Surgical History: Orthopedic Surgery Additional Past Surgical History / Comment(s): Ruptured bowel, temp colostomy, reversal of colostomy, finger amputation (blood clot), colonoscopy, L/R inguinal hernia repairs, circumcism. Past Anesthesia/Blood Transfusion Reactions: No Reported Reaction Past Psychological History: No Psychological Hx Reported Smoking Status: Current every day smoker Past Alcohol Use History: None Reported Past Drug Use History: None Reported, IV Drug Use - Past Family History Mother Family Medical History: CVA/TIA Additional Family Medical History / Comment(s): Mother of a CVA (was on coumadin) at the age of 74 yrs. Father Family Medical History: Diabetes Mellitus, Deep Vein Thrombosis (DVT) Additional Family Medical History / Comment(s): Father of diabetic complications at the age of 70 yrs. General Exam Limitations: no limitations General appearance: alert, in no apparent distress Head exam: Present: atraumatic, normocephalic, normal inspection Eye exam: Present: normal appearance, PERRL, EOMI. Absent: scleral icterus, conjunctival injection, periorbital swelling ENT exam: Present: normal exam, normal oropharynx, mucous membranes moist Neck exam: Present: normal inspection, full ROM. Absent: tenderness, meningismus, lymphadenopathy Respiratory exam: Present: respiratory distress, wheezes, decreased breath sounds. Absent: normal lung sounds bilaterally, rales, rhonchi, stridor Cardiovascular Exam: Present: regular rate, normal rhythm, normal heart sounds. Absent: systolic murmur, diastolic murmur, rubs, gallop, clicks GI/Abdominal exam: Present: soft, normal bowel sounds. Absent: distended, tenderness, guarding, rebound, rigid Neurological exam: Present: alert, oriented X3 Skin exam: Present: warm, dry, intact, normal color. Absent: rash Course Vital Signs 03/11/25 03/11/25 03/11/25 10:03 10:05 10:56 Temperature 97.7 F Pulse Rate 80 86 Respiratory 32 H 24 24 Rate Blood Pressure 114/74 145/86 O2 Sat by Pulse 92 L 93 L Oximetry 03/11/25 03/11/25 03/11/25 10:58 11:15 13:05 Temperature Pulse Rate 95 98 86 Respiratory 20 Rate Blood Pressure 130/86 O2 Sat by Pulse 96 Oximetry Medical Decision Making - Medical Decision Making Was pt. sent in by a medical professional or institution (, PA, DEPARTMENT SPECIALIST, urgent care, hospital, or long-term...) When possible be specific @ -No Did you speak to anyone other than the patient for history (EMS, parent, family, police, friend...)? What history was obtained from this source @ -No Did you review nursing and triage notes (agree or disagree)? Why? @ -I reviewed and agree with nursing and triage notes Were old charts reviewed (outside hosp., previous admission, EMS record, old EKG, old radiological studies, urgent care reports/EKG's, long-term records)? Report findings @ -No old charts were reviewed Differential Diagnosis (chest pain, altered mental status, abdominal pain women, abdominal pain men, vaginal bleeding, weakness, fever, dyspnea, syncope, headache, dizziness, GI bleed, back pain, seizure, CVA, palpatations, mental health, musculoskeletal)? @ -Differential Dyspnea: Coronary syndrome, arrhythmia, tamponade, asthma, COPD, pulmonary embolism, pneumonia, pneumothorax, pulmonary effusion, anaphylaxis, diabetic ketoacidosis, flailed chest, pulmonary contusion, diaphragmatic rupture, anemia, neuromuscular, this is not meant to be an all-inclusive list. EKG interpreted by me (3pts min.). @ -As above X-rays interpreted by me (1pt min.). @ -[Chest x-ray shows COPD changes possible mild atelectasis CT interpreted by me (1pt min.). @ -None done U/S interpreted by me (1pt. min.). @ -None done What testing was considered but not performed or refused? (CT, X-rays, U/S, labs)? Why? @ -None What meds were considered but not given or refused? Why? @ -None Did you discuss the management of the patient with other professionals (professionals i.e. , PA, DEPARTMENT SPECIALIST, lab, RT, psych nurse, oncology social worker, senior web services developer, teacher, police commanding officer, embedded case manager)? Give summary @ -[EMH for admission Was smoking cessation discussed for >3mins.? @ -No Was critical care preformed (if so, how long)? @ -No Were there social determinants of health that impacted care today? How? (Homelessness, low income, unemployed, alcoholism, drug addiction, transportation, low edu. Level, literacy, decrease access to med. care, shelter, rehab)? @ -No Was there de-escalation of care discussed even if they declined (Discuss DNR or withdrawal of care, Hospice)? DNR status @ -No What co-morbidities impacted this encounter? (DM, HTN, Smoking, COPD, CAD, Cancer, CVA, ARF, Chemo, Hep., AIDS, mental health diagnosis, sleep apnea, morbid obesity)? @ -COPD Was patient admitted / discharged? Hospital course, mention meds given and route, prescriptions, significant lab abnormalities, going to OR and other pert inent info. @ -admitted- Patient presented for increasing dyspnea, chest comfort. Patient's chest x-ray does not show any evidence of pneumonia though patient has acute COPD exacerbation. Patient initially felt better after DuoNeb treatment though after short ambulation worsening symptoms, worsening chest pain and dyspnea and hypoxia. Patient will be admitted for IV antibiotics, steroids, breathing treatments and pulmonary evaluation. Undiagnosed new problem with uncertain prognosis? @ -No Drug Therapy requiring intensive monitoring for toxicity (Heparin, Nitro, Insulin, Cardizem)? @ -No Were any procedures done? @ -No Diagnosis/symptom? @ -COPD exacerbation Acute, or Chronic, or Acute on Chronic? @ -Acute Uncomplicated (without systemic symptoms) or Complicated (systemic symptoms)? @ -Complicated Side effects of treatment? @ -No Exacerbation, Progression, or Severe Exacerbation? @ -Exacerbation Poses a threat to life or bodily function? How? (Chest pain, [place], [place], pneumonia, PE, COPD, DKA, ARF, appy, cholecystitis, CVA, Diverticulitis, Homicidal, Suicidal, threat to staff... and all critical care pts) @ -Yes COPD exacerbation may lead to respiratory failure, arrest - Lab Data Result diagrams: 03/11/25 10:11 03/11/25 10:11 Lab Results 03/11/25 03/11/25 03/11/25 Range/Units 10:11 10:11 10:11 WBC 6.05 (4.50-10.00) 10*3/uL RBC 5.38 (4.40-5.60) 10*6/uL Hgb 17.4 H (13.0-17.0) g/dL Hct 52.6 H (39.6-50.0) % MCV 97.8 H (80.0-97.0) fL MCH 32.3 H (27.0-32.0) pg MCHC 33.1 (32.0-37.0) g/dL Plt Count 178 (140-440) 10*3/uL MPV 10.7 (9.5-12.2) fL Immature Gran % (Auto) 0.2 % Neutrophils % 64.1 % Lymphocytes % 23.8 % Monocytes % 2.8 % Eosinophils % 8.6 % Basophils % 0.5 % Immature Gran # 0.01 (0.00-0.04) 10*3/uL Neutrophils # 3.88 (1.80-7.70) 10*3/uL Lymphocytes # 1.44 (0.90-5.00) 10*3/uL Monocytes # 0.17 L (0.20-1.00) 10*3/uL Eosinophils # 0.52 H (0.04-0.35) 10*3/uL Basophils # 0.03 (0.00-0.10) 10*3/uL PT 10.5 (10.0-12.5) sec INR 0.9 (<1.2) APTT 27.2 (22.0-30.0) sec Sodium 143 (137-145) mmol/L Potassium 4.3 (3.5-5.1) mmol/L Chloride 100 (98-107) mmol/L Carbon Dioxide 28 (22-30) mmol/L Anion Gap 15 mmol/L BUN 10 (9-20) mg/dL Creatinine 0.79 (0.66-1.25) mg/dL Est GFR (CKD-EPI)AfAm >90 (>60 ml/min/1.73 sqM) Est GFR (CKD-EPI)NonAf >90 (>60 ml/min/1.73 sqM) Glucose 122 H (74-99) mg/dL Calcium 10.6 H (8.4-10.2) mg/dL Magnesium 2.3 (1.6-2.3) mg/dL Total Bilirubin 0.9 (0.2-1.3) mg/dL AST 35 (17-59) U/L ALT 22 (4-49) U/L Alkaline Phosphatase 90 (38-126) U/L Troponin I (0.000-0.034) ng/mL NT-Pro-B Natriuret Pep 308 pg/mL Total Protein 9.8 H (6.3-8.2) g/dL Albumin 5.7 H (3.5-5.0) g/dL 03/11/25 Range/Units 10:11 WBC (4.50-10.00) 10*3/uL RBC (4.40-5.60) 10*6/uL Hgb (13.0-17.0) g/dL Hct (39.6-50.0) % MCV (80.0-97.0) fL MCH (27.0-32.0) pg MCHC (32.0-37.0) g/dL Plt Count (140-440) 10*3/uL MPV (9.5-12.2) fL Immature Gran % (Auto) % Neutrophils % % Lymphocytes % % Monocytes % % Eosinophils % % Basophils % % Immature Gran # (0.00-0.04) 10*3/uL Neutrophils # (1.80-7.70) 10*3/uL Lymphocytes # (0.90-5.00) 10*3/uL Monocytes # (0.20-1.00) 10*3/uL Eosinophils # (0.04-0.35) 10*3/uL Basophils # (0.00-0.10) 10*3/uL PT (10.0-12.5) sec INR (<1.2) APTT (22.0-30.0) sec Sodium (137-145) mmol/L Potassium (3.5-5.1) mmol/L Chloride (98-107) mmol/L Carbon Dioxide (22-30) mmol/L Anion Gap mmol/L BUN (9-20) mg/dL Creatinine (0.66-1.25) mg/dL Est GFR (CKD-EPI)AfAm (>60 ml/min/1.73 sqM) Est GFR (CKD-EPI)NonAf (>60 ml/min/1.73 sqM) Glucose (74-99) mg/dL Calcium (8.4-10.2) mg/dL Magnesium (1.6-2.3) mg/dL Total Bilirubin (0.2-1.3) mg/dL AST (17-59) U/L ALT (4-49) U/L Alkaline Phosphatase (38-126) U/L Troponin I <0.012 (0.000-0.034) ng/mL NT-Pro-B Natriuret Pep pg/mL Total Protein (6.3-8.2) g/dL Albumin (3.5-5.0) g/dL - EKG Data -: EKG Interpreted by Me EKG Comments: EKG performed at 10: 17 sinus rhythm rate of 72 NM 179 QRS 111 QT/QTc 394/419 Disposition Clinical Impression: COPD exacerbation Disposition: ADMITTED IP TO THIS HOSP Condition: Poor Referrals: Brandyn Ware MD [Primary Care Provider] - 1-2 days Time of Disposition: 13:58
[2025-03-11] MEDS: methylPREDNISolone SOD SUCCI 125 MG/2 ML VIAL IV STA (10:45)
[2025-03-11] MEDS: IPRATROPIUM-ALBUTEROL 3 ML NEB INHALATION STA ×2 (10:56→14:00)
--- NOTE | 2025-03-11 11:07 | XR ---
EXAMINATION TYPE: XR chest 2V DATE OF EXAM: 03/11/2025 10:56 AM COMPARISON: 01/15/2025 CLINICAL INDICATION: Male, 70 years old with history of difficulty breathing, shortness of breath TECHNIQUE: AP and lateral views FINDINGS: Heart upper limits of normal in size. Aorta and pulmonary vasculature within normal limits. Some stra ndy atelectasis at the bilateral lung bases. Hyperinflation. No consolidation or pleural effusion oth erwise seen. IMPRESSION: COPD and borderline cardiomegaly. Strandy bibasilar atelectasis. Otherwise, no acute process seen. [facility], , 03/11/2025 11:05 AM
[2025-03-11 11:11] LABS: ALT 22 U/L (4-49); AST 35 U/L (17-59); African American GFR (CKD) >90 (>60 ml/min/1.73 sqM); Albumin 5.7 g/dL (3.5-5.0); Alkaline Phosphatase 90 U/L (38-126); Anion Gap 15 mmol/L; Blood Urea Nitrogen 10 mg/dL (9-20); Calcium 10.6 mg/dL (8.4-10.2); Carbon Dioxide 28 mmol/L (22-30); Chloride 100 mmol/L (98-107); Glucose 122 mg/dL (74-99); Magnesium 2.3 mg/dL (1.6-2.3); Non-African American GFR(CKD) >90 (>60 ml/min/1.73 sqM); Potassium 4.3 mmol/L (3.5-5.1); Sodium 143 mmol/L (137-145); Total Bilirubin 0.9 mg/dL (0.2-1.3); Total Protein 9.8 g/dL (6.3-8.2)
[2025-03-11 11:13] LABS: INR 0.9 (<1.2); Partial Thromboplastin Time 27.2 sec (22.0-30.0); Prothrombin Time 10.5 sec (10.0-12.5)
[2025-03-11 11:16] LABS: Basophils # (A) 0.03 10*3/uL (0.00-0.10); Basophils % (A) 0.5 %; Eosinophils # (A) 0.52 10*3/uL (0.04-0.35); Eosinophils % (A) 8.6 %; HCT 52.6 % (39.6-50.0); HGB 17.4 g/dL (13.0-17.0); Lymphocytes # (A) 1.44 10*3/uL (0.90-5.00); Lymphocytes % (A) 23.8 %; MCH 32.3 pg (27.0-32.0); MCHC 33.1 g/dL (32.0-37.0); MCV 97.8 fL (80.0-97.0); Mean Platelet Volume 10.7 fL (9.5-12.2); Monocytes # (A) 0.17 10*3/uL (0.20-1.00); Monocytes % (A) 2.8 %; Neutrophils # (A) 3.88 10*3/uL (1.80-7.70); Neutrophils % (A) 64.1 %; Platelet Count 178 10*3/uL (140-440); RBC 5.38 10*6/uL (4.40-5.60); RDW 13.2 % (11.5-14.5); WBC 6.05 10*3/uL (4.50-10.00)
[2025-03-11 11:20] LABS: NT-Pro-B-Type Natriuretic Pept 308 pg/mL
[2025-03-11] MEDS ORDERED: NALOXONE 0.4 MG/ML 1 ML VIAL IVP PRN (13:58)
[2025-03-11] MEDS ORDERED: ACETAMINOPHEN TAB 325 MG TAB PO PRN (13:58)
[2025-03-11] MEDS ORDERED: IPRATROPIUM-ALBUTEROL 3 ML NEB INHALATION PRN (13:58)
[2025-03-11] MEDS: AMOXIC-POT CLAV 875-125MG 1 EACH TAB PO SCH (14:57)
--- NOTE | 2025-03-11 15:16 | P.CNPUL ---
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 The patient also has a history of spontaneous left-sided pneumothorax in December 2024 requiring Thora vent placement was subsequent resolution. Urgency room this morning with complaints of increasing shortness of breath cough and congestion. He was also concerned about a recurrent spontaneous pneumothorax. X-ray shows evidence of COPD and borderline cardiomegaly. No acute process. No pneumothorax. He is seen today in consultation in the emergency department. He is currently sitting up on the stretcher. Awake and alert in no acute distress. Feeling a bit better compared to this morning. He is maintaining O2 saturations in the 90s on 3 L/min per nasal cannula. He has been afebrile. Hemodynamically stable. White count 6.0. Hemoglobin 17.4. Platelets 178. Sodium 143. Potassium 4.3. Bicarb 28. BUN 10. Creatinine 0.79. Troponin negative x 1. Review of Systems REVIEW OF SYSTEMS: CONSTITUTIONAL: Denies any recent significant weight loss or weight gain. EYES: Denies change in vision. EARS, NOSE, MOUTH, THROAT: Denies headaches, denies sore throat. CARDIOVASCULAR: Denies chest pain, palpitations or syncopal episodes. RESPIRATORY: Positive for shortness of breath, cough, congestion no hemoptysis. GASTROINTESTINAL: Denies change in appetite, denies abdominal pain GENITOURINARY: Denies hematuria, denies infections. MUSKULOSKELETAL: Denies pain, denies swelling. INTEGUMENTARY: Denies rash, denies eczema. NEUROLOGICAL: Denies recent memory loss, no recent seizure activity. PSYCHIATRIC: Denies anxiety, denies depression. HEMATOLOGIC/LYMPHATIC: Denies anemia, denies enlarged lymph nodes. Past Medical History Past Medical History: Atrial Fibrillation, COPD, Deep Vein Thrombosis (DVT), L iver Disease Additional Past Medical History / Comment(s): hepatitis C diagnosed 09/2015 currently under outpatient treatment, 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 History of Any Multi-Drug Resistant Organisms: None Reported Past Surgical History: Orthopedic Surgery Additional Past Surgical History / Comment(s): Ruptured bowel, temp colostomy, reversal of colostomy, finger amputation (blood clot), colonoscopy, L/R inguinal hernia repairs, circumcism. Past Anesthesia/Blood Transfusion Reactions: No Reported Reaction Past Psychological History: No Psychological Hx Reported Smoking Status: Current every day smoker Past Alcohol Use History: None Reported Past Drug Use History: None Reported, IV Drug Use - Past Family History Mother Family Medical History: CVA/TIA Additional Family Medical History / Comment(s): Mother of a CVA (was on coumadin) at the age of 74 yrs. Father Family Medical History: Diabetes Mellitus, Deep Vein Thrombosis (DVT) Additional Family Medical History / Comment(s): Father of diabetic complications at the age of 70 yrs. Medications and Allergies Home Medications Medication Instructions Recorded Confirmed Type Albuterol Sulfate [Albuterol 2 puff INHALATION RT-QID PRN 05/09/21 03/11/25 History Sulfate Hfa] Apixaban [Eliquis] 5 mg PO BID #60 tab 03/02/22 03/11/25 Rx Atorvastatin [Lipitor] 40 mg PO DAILY #30 tab 03/04/22 03/11/25 Rx Metoprolol Tartrate [Lopressor] 50 mg PO BID #60 tab 03/04/22 03/11/25 Rx Flecainide [Tambocor] 50 mg PO BID 08/08/23 03/11/25 History Ipratropium-Albuterol Nebulize 3 ml INHALATION RT-BID 08/08/23 03/11/25 History [Duoneb 0.5 mg-3 mg/3 ml Soln] HYDROcodone/APAP 10-325MG [[place] 1 tab PO BID 03/29/24 03/11/25 History 10-325] Fluticasone/Vilanterol [Breo 1 puff INHALATION RT-DAILY 01/02/25 03/11/25 History Ellipta 100-25 Mcg Inhalr] HYDROcodone/APAP 10-325MG [[place] 1 tab PO DAILY PRN 01/02/25 03/11/25 History 10-325] Acetaminophen Tab [Tylenol] 650 mg PO Q4HR PRN tab 01/04/25 03/11/25 Rx Ipratropium-Albuterol Nebulize 3 ml INHALATION RT-Q2H PRN each 01/04/25 03/11/25 Rx [Duoneb 0.5 mg-3 mg/3 ml Soln] Baclofen [Lioresal] 10 mg PO BID 03/11/25 03/11/25 History Allergies Allergy/AdvReac Type Severity Reaction Status Date / Time prednisone AdvReac Hallucinati Verified 03/11/25 15:05 ons Physical Exam Vitals: Vital Signs Temp Pulse Resp BP Pulse Ox 03/11/25 14:59 73 20 125/81 97 03/11/25 14:10 70 03/11/25 14:01 68 03/11/25 13:05 86 20 130/86 96 03/11/25 11:15 98 03/11/25 10:58 95 03/11/25 10:56 24 03/11/25 10:05 86 24 145/86 93 L 03/11/25 10:03 97.7 F 80 32 H 114/74 92 L Intake and Output 03/11/25 03/11/25 03/11/25 06:59 14:59 22:59 Other: Weight 72.575 kg GENERAL EXAM: Alert, thin, pleasant 70-year-old male, on 3 L nasal cannula, comfortable in no apparent distress. HEAD: Normocephalic. EYES: Normal reaction of pupils, equal size. NOSE: Clear with pink turbinates. THROAT: No erythema or exudates. NECK: No masses, no JVD. CHEST: No chest wall deformity. LUNGS: Equal air entry with end expiratory wheeze. Diminished. CVS: S1 and S2 normal with no audible murmur, regular rhythm. ABDOMEN: No hepatosplenomegaly, normal bowel sounds, no guarding or rigidity. SPINE: No scoliosis or deformity SKIN: No rashes CENTRAL NERVOUS SYSTEM: No focal deficits, tone is normal in all 4 extremities. EXTREMITIES: There is no peripheral edema. No clubbing, no cyanosis. Peripheral pulses are intact. Results - Laboratory Findings CBC and BMP: 03/11/25 10:11 03/11/25 10:11 PT/INR, D-dimer PT 10.5 sec (10.0-12.5) 03/11/25 10:11 INR 0.9 (<1.2) 03/11/25 10:11 Abnormal lab findings: Abnormal Labs 03/11/25 03/11/25 10:11 10:11 Hgb 17.4 H Hct 52.6 H MCV 97.8 H MCH 32.3 H Monocytes # 0.17 L Eosinophils # 0.52 H Glucose 122 H Calcium 10.6 H Total Protein 9.8 H Albumin 5.7 H - Diagnostic Findings Chest x-ray: image reviewed Assessment and Plan Assessment: Acute hypoxemic respiratory failure secondary to an acute exacerbation chronic obstructive pulmonary disease History of chronic obstructive pulmonary disease Chronic and ongoing tobacco dependence Former IV drug abuser History of hepatitis C History of atrial fibrillation anticoagulated with Eliquis Hyperlipidemia History of bowel obstruction with colostomy and subsequent reversal History of 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 Number of minutes spent on the visit: 20 Dictation was produced using [employer] dictation software. Please excuse any grammatical, word or spelling errors. Time with Patient: Greater than 30
[2025-03-11] MEDS: IPRATROPIUM-ALBUTEROL 3 ML NEB INHALATION SCH (15:30)
[2025-03-11] MEDS: NICOTINE 14MG/24HR PATCH TRANSDERM SCH (15:53)
[2025-03-11] MEDS: methylPREDNISolone SOD SUCCI 125 MG/2 ML VIAL IV SCH (18:07)
[2025-03-11] MEDS: SYMBICORT 160-4.5 MCG INHALER INHALATION SCH (18:26)
[2025-03-11] MEDS: guaiFENesin 600 MG TABLET.ER PO SCH (21:14)
[2025-03-11] MEDS: APIXABAN 5 MG TAB PO SCH (21:14)
[2025-03-11] MEDS: METOPROLOL TARTRATE 50 MG TAB PO SCH (21:14)
[2025-03-11] MEDS: HYDROcodone/APAP 10-325MG 1 EACH TAB PO ONE (22:07)
[2025-03-11] MEDS: FLECAINIDE 50 MG TAB PO SCH (22:07)
--- NOTE | 2025-03-11 22:50 | P.HPIM ---
History of Present Illness H&P Date: 03/11/25 Chief Complaint: Difficulty in breathing Patient is a 70-year-old male with a past medical history of atrial fibrillation on anticoagulation with Eliquis, hepatitis C currently under treatment, history of IVDU, history of bowel obstruction requiring colostomy and subsequent reversal and current everyday smoker presents to ER with complaints of worsening shortness of breath since morning. He is also having cough and congestion. Denied any fever or chills. Patient recently had a spontaneous left sided pneumothorax in December 2024 requiring Thora vent placement with resolution. EKG showed sinus rhythm Chest x-ray showed COPD and borderline cardiomegaly. Standing bibasilar atelectasis otherwise no acute process seen. Laboratory data showed WBC 6.0 hemoglobin 17.4, platelets 178 sodium 143 potassium 4.3 chloride 100 bicarb is 28 BUN 10 and creatinine 0.79 and blood sugar 122 and calcium 10.6 troponin less than 0.012 proBNP 3088 and procalcitonin level is 0.2. Patient was given methylprednisolone 125 mg and DuoNebs x 2 in the ER. Review of Systems Constitutional: Patient denies any fever or chills . No generalized weakness or weight loss. Abdomen: Patient denied nausea vomiting and diarrhea and abdominal pain. Cardiovascular: Patient denies any chest pain. Positive for short of breath no palpitations. No leg swelling Respiratory: p does have cough without sputum production. Increased shortness of breath Neurologic: Patient denied any numbness or tingling. no headache. Musculoskeletal: Patient denies any complaints of joint swelling or deformity. Skin: Negative Psychiatric: Negative Endocrine: No heat or cold intolerance. No recent weight gain. Genitourinary: No dysuria or hematuria. All other 14 point ROS negative except the above Past Medical History Past Medical History: Atrial Fibrillation, COPD, Deep Vein Thrombosis (DVT), Liver Disease Additional Past Medical History / Comment(s): hepatitis C diagnosed 09/2015 currently under outpatient treatment, 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 History of Any Multi-Drug Resistant Organisms: None Reported Past Surgical History: Orthopedic Surgery Additional Past Surgical History / Comment(s): Ruptured bowel, temp colostomy, reversal of colostomy, finger amputation (blood clot), colonoscopy, L/R inguinal hernia repairs, circumcism. Past Anesthesia/Blood Transfusion Reactions: No Reported Reaction Past Psychological History: No Psychological Hx Reported Additional Psychological History / Comment(s): Pt resides with his significant other. Smoking Status: Current every day smoker Past Alcohol Use History: None Reported Additional Past Alcohol Use History / Comment(s): Pt started smoking in 1967 and quit 10 yrs ago. Pt has hx of alcohol abuse but has been sober 11 yrs. Past Drug Use History: None Reported, IV Drug Use Additional Drug Use History / Comment(s): Pt used to use IV drugs (cocaine, heroin, crack)-no drug use for 26 years - Past Family History Mother Family Medical History: CVA/TIA Additional Family Medical History / Comment(s): Mother of a CVA (was on coumadin) at the age of 74 yrs. Father Family Medical History: Diabetes Mellitus, Deep Vein Thrombosis (DVT) Additional Family Medical History / Comment(s): Father of diabetic complications at the age of 70 yrs. Medications and Allergies Home Medications Medication Instructions Recorded Confirmed Type Albuterol Sulfate [Albuterol 2 puff INHALATION RT-QID PRN 05/09/21 03/11/25 History Sulfate Hfa] Apixaban [Eliquis] 5 mg PO BID #60 tab 03/02/22 03/11/25 Rx Atorvastatin [Lipitor] 40 mg PO DAILY #30 tab 03/04/22 03/11/25 Rx Metoprolol Tartrate [Lopressor] 50 mg PO BID #60 tab 03/04/22 03/11/25 Rx Flecainide [Tambocor] 50 mg PO BID 08/08/23 03/11/25 History Ipratropium-Albuterol Nebulize 3 ml INHALATION RT-BID 08/08/23 03/11/25 History [Duoneb 0.5 mg-3 mg/3 ml Soln] HYDROcodone/APAP 10-325MG [[place] 1 tab PO BID 03/29/24 03/11/25 History 10-325] Fluticasone/Vilanterol [Breo 1 puff INHALATION RT-DAILY 01/02/25 03/11/25 History Ellipta 100-25 Mcg Inhalr] HYDROcodone/APAP 10-325MG [[place] 1 tab PO DAILY PRN 01/02/25 03/11/25 History 10-325] Acetaminophen Tab [Tylenol] 650 mg PO Q4HR PRN tab 01/04/25 03/11/25 Rx Ipratropium-Albuterol Nebulize 3 ml INHALATION RT-Q2H PRN each 01/04/25 03/11/25 Rx [Duoneb 0.5 mg-3 mg/3 ml Soln] Baclofen [Lioresal] 10 mg PO BID 03/11/25 03/11/25 History Allergies Allergy/AdvReac Type Severity Reaction Status Date / Time prednisone AdvReac Hallucinati Verified 03/11/25 15:05 ons Physical Exam Vitals: Vital Signs Temp Pulse Pulse Resp BP BP Pulse Ox 03/11/25 18:40 76 03/11/25 18:30 74 94 L 03/11/25 16:35 97.8 F 75 16 123/66 96 03/11/25 15:58 86 16 136/78 96 03/11/25 14:59 73 20 125/81 97 03/11/25 14:10 70 03/11/25 14:01 68 03/11/25 13:05 86 20 130/86 96 03/11/25 11:15 98 03/11/25 10:58 95 03/11/25 10:56 24 03/11/25 10:05 86 24 145/86 93 L 03/11/25 10:03 97.7 F 80 32 H 114/74 92 L Intake and Output 03/11/25 03/11/25 03/11/25 06:59 14:59 22:59 Intake Total 50 Balance 50 Intake: Oral 50 Other: Weight 72.575 kg 72.575 kg PHYSICAL EXAMINATION: Patient is lying in the bed comfortably, no acute distress, awake alert and oriented.. HEENT: Normocephalic. Neck is supple. Pupils reactive. Nostrils clear. Oral cavity is moist. Neck reveals no JVD, carotid bruits, or thyromegaly. CHEST EXAMINATION: Trachea is central. Bilateral diffuse wheezing and diminished sounds.. Scattered rhonchi. Nonlabored breathing. CARDIAC: Normal S1, S2 with no gallops. No murmurs ABDOMEN: Soft. Bowel sounds normal. No organomegaly. No abdominal bruits. Extremities: reveal no edema. No clubbing or cyanosis Neurologically awake, alert, oriented x3 with well-coordinated movements. No focal deficits noted Skin: No rash or skin lesions. Psychiatric: Coperative. Nonsuicidal Musculoskeletal: No joint swelling or deformity. Normal range of motion. Results CBC & Chem 7: 03/11/25 10:11 03/11/25 10:11 Labs: Abnormal Lab Results - Last 24 Hours (Table) 03/11/25 03/11/25 Range/Units 10:11 10:11 Hgb 17.4 H (13.0-17.0) g/dL Hct 52.6 H (39.6-50.0) % MCV 97.8 H (80.0-97.0) fL MCH 32.3 H (27.0-32.0) pg Monocytes # 0.17 L (0.20-1.00) 10*3/uL Eosinophils # 0.52 H (0.04-0.35) 10*3/uL Glucose 122 H (74-99) mg/dL Calcium 10.6 H (8.4-10.2) mg/dL Total Protein 9.8 H (6.3-8.2) g/dL Albumin 5.7 H (3.5-5.0) g/dL Thrombosis Risk Factor Assmnt - DVT/VTE Prophylaxis DVT/VTE Prophylaxis: Pharmacologic Prophylaxis ordered Assessment and Plan Assessment: Acute hypoxemic respiratory failure secondary to acute COPD exacerbation Acute COPD exacerbation Paroxysmal atrial fibrillation on anticoagulation with Eliquis Ongoing nicotine addiction Hepatitis C currently undergoing treatment History of IVDU Hyperlipidemia History of bowel obstruction requiring colostomy and subsequent reversal History of 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 Continue with Solu-Medrol 60 mg Q6 hourly DuoNebs and Symbicort. Patient is also on antibiotics at home Augmentin. Continue with metoprolol, flecainide and Eliquis. Continue other home med ications and follow-up closely. Pulmonary is on board. Smoking cessation has been counseled. Time with Patient: Greater than 30
[2025-03-12 05:22] VITALS: TEMP 98.2
[2025-03-12 07:09] LABS: African American GFR (CKD) >90 (>60 ml/min/1.73 sqM); Anion Gap 9 mmol/L; Blood Urea Nitrogen 14 mg/dL (9-20); Calcium 9.7 mg/dL (8.4-10.2); Carbon Dioxide 25 mmol/L (22-30); Chloride 103 mmol/L (98-107); Glucose 140 mg/dL (74-99); Non-African American GFR(CKD) >90 (>60 ml/min/1.73 sqM); Potassium 4.6 mmol/L (3.5-5.1); Sodium 137 mmol/L (137-145)
[2025-03-12 08:03] LABS: Basophils # (A) 0.01 10*3/uL (0.00-0.10); Basophils % (A) 0.1 %; HCT 43.2 % (39.6-50.0); Lymphocytes # (A) 1.17 10*3/uL (0.90-5.00); Lymphocytes % (A) 9.8 %; MCH 32.1 pg (27.0-32.0); MCHC 32.9 g/dL (32.0-37.0); MCV 97.7 fL (80.0-97.0); Mean Platelet Volume 11.3 fL (9.5-12.2); Monocytes # (A) 0.25 10*3/uL (0.20-1.00); Monocytes % (A) 2.1 %; Neutrophils # (A) 10.45 10*3/uL (1.80-7.70); Neutrophils % (A) 87.5 %; Platelet Count 184 10*3/uL (140-440); RBC 4.42 10*6/uL (4.40-5.60); RDW 13.2 % (11.5-14.5); WBC 11.94 10*3/uL (4.50-10.00)
[2025-03-12 08:10] LABS: HGB 14.2 g/dL (13.0-17.0)
[2025-03-12 08:55] VITALS: PULSE 68
[2025-03-12 09:29] VITALS: BP 120/67; RESP 20
[2025-03-12] MEDS: predniSONE 20 MG TAB PO SCH (09:35)
--- NOTE | 2025-03-12 11:11 | P.PN ---
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 The patient also has a history of spontaneous left-sided pneumothorax in December 2024 requiring Thora vent placement was subsequent resolution. Urgency room this morning with complaints of increasing shortness of breath cough and congestion. He was also concerned about a recurrent spontaneous pneumothorax. X-ray shows evidence of COPD and borderline cardiomegaly. No acute process. No pneumothorax. He is seen today in consultation in the emergency department. He is currently sitting up on the stretcher. Awake and alert in no acute distress. Feeling a bit better compared to this morning. He is maintaining O2 saturations in the 90s on 3 L/min per nasal cannula. He has been afebrile. Hemodynamically stable. White count 6.0. Hemoglobin 17.4. Platelets 178. Sodium 143. Potassium 4.3. Bicarb 28. BUN 10. Creatinine 0.79. Troponin negative x 1. The patient is seen today March 12, 2025 in follow-up in the observation unit. He is currently sitting up in bed. Awake and alert in no acute distress. Feeling back to his baseline. He is anxious to go home. He is maintaining good O2 saturations in the high 90s on 3 L per per minute per nasal cannula. He is afebrile. Hemodynamically stable. Count 11.9. Hemoglobin 14.2. Platelets 184. Sodium 137. Potassium 4.6. Bicarb 25. BUN 14. Creatinine 0.63. G lucose 140., Solu-Medrol. Anticoagulated with Eliquis. NicoDerm patch in place. Objective - Vital Signs Vital signs: Vital Signs Temp 98.2 F 03/12/25 08:40 Pulse 68 03/12/25 08:54 Resp 20 03/12/25 08:40 BP 120/67 03/12/25 08:40 Pulse Ox 98 03/12/25 08:40 FiO2 Intake & Output 03/11/25 03/12/25 03/12/25 18:59 06:59 18:59 Intake Total 50 Balance 50 Weight 72.575 kg Intake: Oral 50 Other: Voiding Method Toilet # Voids 0 - Exam GENERAL EXAM: Alert, active, 70-year-old male, on 3 L nasal cannula, comfortable in no apparent distress. HEAD: Normocephalic. EYES: Normal reaction of pupils, equal size. NOSE: Clear with pink turbinates. THROAT: No erythema or exudates. NECK: No masses, no JVD. CHEST: No chest wall deformity. LUNGS: Equal air entry with no crackles, wheeze, rhonchi or dullness. Diminished CVS: S1 and S2 normal with no audible murmur, regular rhythm. ABDOMEN: No hepatosplenomegaly, normal bowel sounds, no guarding or rigidity. SPINE: No scoliosis or deformity SKIN: No rashes CENTRAL NERVOUS SYSTEM: No focal deficits, tone is normal in all 4 extremities. EXTREMITIES: There is no peripheral edema. No clubbing, no cyanosis. Peripheral pulses are intact. - Labs CBC & Chem 7: 03/12/25 06:18 03/12/25 06:18 Labs: Abnormal Lab Results - Last 24 Hours (Table) 03/11/25 03/11/25 03/12/25 Range/Units 10:11 10:11 06:18 WBC 11.94 H (4.50-10.00) 10*3/uL Hgb 17.4 H (13.0-17.0) g/dL Hct 52.6 H (39.6-50.0) % MCV 97.8 H 97.7 H (80.0-97.0) fL MCH 32.3 H 32.1 H (27.0-32.0) pg Immature Gran # 0.06 H (0.00-0.04) 10*3/uL Neutrophils # 10.45 H (1.80-7.70) 10*3/uL Monocytes # 0.17 L (0.20-1.00) 10*3/uL Eosinophils # 0.52 H 0.00 L (0.04-0.35) 10*3/uL Creatinine (0.66-1.25) mg/dL Glucose 122 H (74-99) mg/dL Calcium 10.6 H (8.4-10.2) mg/dL Total Protein 9.8 H (6.3-8.2) g/dL Albumin 5.7 H (3.5-5.0) g/dL 03/12/25 Range/Units 06:18 WBC (4.50-10.00) 10*3/uL Hgb (13.0-17.0) g/dL Hct (39.6-50.0) % MCV (80.0-97.0) fL MCH (27.0-32.0) pg Immature Gran # (0.00-0.04) 10*3/uL Neutrophils # (1.80-7.70) 10*3/uL Monocytes # (0.20-1.00) 10*3/uL Eosinophils # (0.04-0.35) 10*3/uL Creatinine 0.63 L (0.66-1.25) mg/dL Glucose 140 H (74-99) mg/dL Calcium (8.4-10.2) mg/dL Total Protein (6.3-8.2) g/dL Albumin (3.5-5.0) g/dL Assessment and Plan Assessment: Acute hypoxemic respiratory failure secondary to an acute exacerbation chronic obstructive pulmonary disease History of chronic obstructive pulmonary disease Chronic and ongoing tobacco dependence Former IV drug abuser History of hepatitis C History of atrial fibrillation anticoagulated with Eliquis Hyperlipidemia History of bowel obstruction with colostomy and subsequent reversal History of 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 Number of minutes spent on the visit: 10 Dictation was produced using [employer] software. Please excuse any grammatical, word or spelling errors.
== END 2025-03-12 12:14 | disposition home or self-care (01) ==
LOC: EC 09:56 → 1SOBS 14:17
PROVIDERS: ADMIT Internal Medicine; ATTEND Internal Medicine
DX: J44.1 Chronic obstructive pulmonary disease with (acute) exacerbation (principal); J96.01 Acute respiratory failure with hypoxia; I48.0 Paroxysmal atrial fibrillation; B19.20 Unspecified viral hepatitis C without hepatic coma; E78.5 Hyperlipidemia, unspecified; J98.11 Atelectasis; F17.200 Nicotine dependence, unspecified, uncomplicated; Z79.01 Long term (current) use of anticoagulants; Z79.51 Long term (current) use of inhaled steroids; Z79.899 Other long term (current) drug therapy; Z88.8 Allergy status to other drugs, medicaments and biological substances; Z87.898 Personal history of other specified conditions; Z89.022 Acquired absence of left finger(s); Z87.19 Personal history of other diseases of the digestive system; Z87.09 Personal history of other diseases of the respiratory system; Z71.6 Tobacco abuse counseling
CPT/HCPCS: 96376 ×2; 96374; 99285; 36415; 94640 ×4; 94760; 93005; 83880; 80053; 80048; 83735; 84484; 85025 ×2; 85610; 85730; 84145; 71046; G0378 ×2; S4990 ×2; J7512; J2919 ×2